=== PATIENT | male | born 1940 | race Caucasian/White ===

== ENCOUNTER 2020-10-31 | Outpatient (REF) | payer MEDICARE, SELFPAY ==
[2020-10-31 06:56] LABS: Hematocrit 21.4 % (42-52); Hemoglobin 7.1 g/dl (14.0-18.0); Mean Corpuscular HGB Conc 33.2 g/dl (31.0-36.0); Mean Corpuscular Hemoglobin 37.2 pg (27.0-33.0); Mean Platelet Volume 11.5 fL (9.4-12.4); Red Blood Count 1.91 X10*6/uL (4.60-5.80); Red Cell Distribution Width 17.2 % (11.0-16.0); White Blood Count 4.2 X10*3/uL (4.8-10.8)
[2020-10-31 07:06] LABS: Platelet Count 84 X10*3/uL (160-400)
[2020-10-31 08:53] LABS: Anion Gap 14 (12-20)
[2020-10-31 08:54] LABS: Blood Urea Nitrogen 25 mg/dL (9-16); Calcium 8.2 mg/dL (8.4-10.2); Carbon Dioxide 27 mmol/L (22-29); Chloride 104 mmol/L (96-108); Estimated Glomerular Filt Rate 10; Glucose Random 79 mg/dL (60-115); Potassium 5.4 mmol/l (3.3-5.1); Sodium 140 mmol/L (135-145)
== END 2020-10-31 00:01 | disposition home or self-care (01) ==
LOC: HO.MMNH2L
PROVIDERS: Visit Provider Family Medicine
DX: I48.91 Unspecified atrial fibrillation (principal); I50.9 Heart failure, unspecified
CPT/HCPCS: 36415; 80048; 85027

== ENCOUNTER 2020-11-07 | Outpatient (REF) | payer MEDICARE, SELFPAY ==
[2020-11-07 07:55] LABS: Mean Corpuscular HGB Conc 32.5 g/dl (31.0-36.0); Mean Corpuscular Hemoglobin 36.4 pg (27.0-33.0); Mean Platelet Volume 11.4 fL (9.4-12.4); Red Blood Count 1.76 X10*6/uL (4.60-5.80); Red Cell Distribution Width 16.7 % (11.0-16.0); White Blood Count 4.3 X10*3/uL (4.8-10.8)
[2020-11-07 08:44] LABS: Hematocrit 19.7 % (42-52); Mean Corpuscular Volume 111.9 fL (80-98); Platelet Count 77 X10*3/uL (160-400)
[2020-11-07 08:45] LABS: Hemoglobin 6.4 g/dl (14.0-18.0)
[2020-11-07 09:29] LABS: Anion Gap 14 (12-20); Blood Urea Nitrogen 39 mg/dL (9-16); Calcium 7.9 mg/dL (8.4-10.2); Carbon Dioxide 27 mmol/L (22-29); Chloride 105 mmol/L (96-108); Glucose Random 97 mg/dL (60-115); Sodium 141 mmol/L (135-145)
[2020-11-07 13:04] LABS: Estimated Glomerular Filt Rate 7
== END 2020-11-07 00:01 ==
LOC: HO.MMNH2L
PROVIDERS: Visit Provider Family Medicine
DX: I48.91 Unspecified atrial fibrillation (principal); I50.30 Unspecified diastolic (congestive) heart failure; Z99.2 Dependence on renal dialysis
CPT/HCPCS: 36415; 80048; 85027

== ENCOUNTER 2020-11-07 10:58 | Inpatient (IN) | payer MEDICARE, SELFPAY ==
[2020-11-07] VITALS (8 sets, daily range): BP systolic 99–120; BP diastolic 46–59; PULSE 69–70; RESP 11–18; TEMP 36.4–37.1; O2SAT 98–100; BMI 31.9
--- NOTE | 2020-11-07 11:42 | ECG_ITS ---
Test Reason : ABNORMAL LABS Blood Pressure : / mmHG Vent. Rate : 070 BPM Atrial Rate : 074 BPM P-R Int : 000 ms QRS Dur : 156 ms QT Int : 482 ms P-R-T Axes : 000 -78 069 degrees QTc Int : 520 ms V paced rhythm with background Afib Left axis deviation Abnormal ECG No previous ECGs available Referred By: Sagrario Shah Electronically Signed By:Filipe Kenney
--- NOTE | 2020-11-07 12:00 | ED_ITS ---
HPI - Recheck/Abnormal Lab/Rx General Chief Complaint: Recheck/Abnormal Lab/Rx Stated Complaint: abnormal labs Time Seen by Provider: 11/07/20 11:10 Source: patient and EMS Mode of arrival: EMS Limitations: no limitations History of Present Illness HPI narrative: 80 y/o male with history of ESRD previously on PD now on HD, chronic anemia requiring intermittent transfusions, hx HTN, HLD, asthma, JULIA on CPAP, seizure disorder, s/p PPM, afib on Eliquis, HFpEF who presents to ED via EMS from acute rehab with symptomatic anemia. He reports yesterday he was constipated and he manually disimpacted himself. When he did so he had significant BRBPR. He placed toilet paper on his rectum to stop the bleeding and it stopped after a few minutes. He had routine blood work done at [facility] yesterday - results today came back with H/H 6.4/19.7 so he was transferred to the ED. He reports shakiness and shortness of breath as well as come mild chest pain. He states he is usually anemic but does not usually have symptoms. His last blood transfusion was about 4 weeks ago. Of note he was recently admitted at [facility] 09/28 - 10/15 for acute metabolic encephalopathy due to uremia and missing PD for 2 days at home. Course was complicated by aspiration pneumonia and anemia requiring transfusion. He was converted from PD to HD during that hospitalization due to safety concerns. He was discharged to [facility] on 10/15. Related Data Home Medications Medication Instructions Recorded Confirmed B complex with C 20-folic acid 1 cap PO DAILY 11/07/20 11/07/20 [Nephrocaps] acetaminophen 650 mg PO Q4H PRN 11/07/20 11/07/20 apixaban 2.5 mg PO BID 11/07/20 11/07/20 docusate sodium 100 mg PO DAILY PRN 11/07/20 11/07/20 famotidine 20 mg PO Q48H 11/07/20 11/07/20 fluticasone propion-salmeterol 1 inh INHALATION Q12H 11/07/20 11/07/20 [Advair Diskus] gabapentin 100 mg PO BEDTIME 11/07/20 11/07/20 gabapentin 100 mg PO DAILY PRN 11/07/20 11/07/20 levetiracetam [Keppra] 500 mg PO BID 11/07/20 11/07/20 metoprolol succinate [Toprol XL] 25 mg PO DAILY 11/07/20 11/07/20 midodrine See Rx Instructions .ROUTE .COMPLEX 11/07/20 11/07/20 montelukast 10 mg PO BEDTIME 11/07/20 11/07/20 ondansetron HCl [Zofran] 4 mg PO Q6H PRN 11/07/20 11/07/20 pravastatin 40 mg PO BEDTIME 11/07/20 11/07/20 sevelamer carbonate [Renvela] 1,600 mg PO TID 11/07/20 11/07/20 simethicone 80 mg PO QID PRN 11/07/20 11/07/20 trazodone 50 mg PO BEDTIME 11/07/20 11/07/20 Allergies Allergy/AdvReac Type Severity Reaction Status Date / Time latex Allergy Itching Verified 11/07/20 11:15 Sulfa (Sulfonamide Allergy Headache Verified 11/07/20 11:14 Antibiotics) Review of Systems Review of Systems: Constitutional: No Fever, No Chills ENT/Mouth: No sore throat, No Rhinorrhea, No Swallowing Difficulty Eyes: No Eye Pain, No Swelling, No Redness Cardiovascular: + Chest Pain, + SOB, No Orthopnea, No Edema Respiratory: No Cough, No Sputum, No Wheezing, No dyspnea Gastrointestinal: + Nausea, No Vomiting, No Diarrhea, No abdominal Pain, + Hematochezia, No Melena Genitourinary: No Hematuria Musculoskeletal: No joint pain, No Myalgias Skin: No Skin Lesions, No rash Neuro: + Weakness, No Numbness, No Dizziness, No Headache Psych: No Anxiety/Panic, No Depression Heme/Lymph: No Bruising, No Lymphadenopathy Endocrine: No Polyuria, No Polydipsia PMFSH Past Medical History Medical History Afib Anemia Asthma Depression Hyperlipidemia Pacemaker Pneumonia Pulmonary hypertension Renal failure treated with peritoneal dialysis Right heart failure Sleep apnea Social History Social History Advance Directives: No Advance Directives Information Provided: No Physical Exam Vital Signs: Vital Signs: Last Vital Signs Temp 97.5 F 11/07/20 11:04 Pulse 70 11/07/20 11:04 Resp 16 01/04/21 11:04 BP 117/54 L 11/07/20 11:04 Pulse Ox 100 11/07/20 11:04 Body Mass Index 31.9 Appearance: Alert. Oriented X3. No acute distress. Pale Eyes: Pupils equal, round and reactive to light. Conjunctival pallor ENT: Pharynx normal. Neck: Normal inspection. Neck supple. CVS: Normal heart rate and rhythm. +3/5 systolic murmur. Pulses normal. Chest wall with PermCath in place on left chest no tenderness or erythema Respiratory: No respiratory distress. Breath sounds normal. Abdomen: Obese, Soft and nontender. +BS x4. PH catheter in place. Skin: Skin warm and dry. Normal skin color. Normal skin turgor. No rashes. Extremities: No lower extremity edema. Negative Kelby's sign Neuro: Oriented X 3. Generalized weakness, mild. Non-focal Course Course Course Narrative: 80 y/o male presenting with symptomatic anemia after BRBPR episode last night. He is on Eliquis. He has required frequent blood transfusions, last was a couple of weeks ago during admission at [facility]. Will repeat labs, get EKG, troponin and transfusion 1 unit PRBC. His stool is guiaic positive, light brown. No tachycardia or hemodynamic instability to suggest active bleed. He will require admission for H/H monitoring, monitoring for further GI bleed and symptomatic anemia. Reevaluation(s) Reevaluation #1: Spoke with Hospitalist re: admission. Will admit for further managment and monitoring. MDM - Recheck/Abnormal Lab/Rx Medical Records Attestation: I reviewed the patient's medical records. Lab Data Attestation: I reviewed the patient's lab results. Result diagrams: 11/07/20 12:16 11/07/20 12:16 Labs: Lab Results 11/07/20 11/07/20 11/07/20 Range/Units 12:16 12:16 12:16 WBC 4.6 L (4.8-10.8) X10*3/uL RBC 1.78 L (4.60-5.80) X10*6/uL Hgb 6.7 L* (14.0-18.0) g/dl Hct 19.9 L* (42-52) % MCV 111.8 H (80-98) fL MCH 37.6 H (27.0-33.0) pg MCHC 33.7 (31.0-36.0) g/dl RDW 16.9 H (11.0-16.0) % Plt Count 63 L (160-400) X10*3/uL MPV 9.4 (9.4-12.4) fL Immature Gran % (Auto) 0.9 H (0.0-0.4) % Neut % (Auto) 58.9 (45-73) % Lymph % (Auto) 23.7 (20-40) % [place] % (Auto) 13.7 H (2-11) % Eos % (Auto) 2.6 (0-4) % Baso % (Auto) 0.2 (0-2) % Lymph # (Auto) 1.1 L (1.2-4.9) X10*3/uL [place] # (Auto) 0.6 (0.1-1.2) X10*3/uL Eos # (Auto) 0.1 (0.0-0.4) X10*3/uL Baso # (Auto) 0.0 (0.0-0.2) X10*3/uL Abs Immat Gran (auto) 0.04 H (0.00-0.03) X10*3/uL Absolute Neuts (auto) 2.7 (2.0-8.3) X10*3/uL Absolute Nucleated RBC 0.000 (0.0-0.012) X10*3/uL Nucleated RBC % (auto) 0.0 (0.0-0.2) /100WBC PT (10.8-13.0) SEC INR (0.9-1.1) Sodium 141 (135-145) mmol/L Potassium 5.4 H (3.3-5.1) mmol/l Chloride 104 (96-108) mmol/L Carbon Dioxide 28 (22-29) mmol/L Anion Gap 14 (12-20) BUN 41 H (9-16) mg/dL Creatinine 7.75 H* (0.5-1.4) mg/dL Estim Creat Clear Calc 8.5 Estimated GFR 7 Random Glucose 92 (60-115) mg/dL Calcium 8.1 L (8.4-10.2) mg/dL Magnesium 2.2 (1.6-2.6) mg/dL Troponin I High Sens (<3.5-35.0) ng/L Stool Occult Blood (NEG) Blood Type O Positive Antibody Screen NEGATIVE Crossmatch See Detail 11/07/20 11/07/20 11/07/20 Range/Units 12:16 12:16 12:16 WBC (4.8-10.8) X10*3/uL RBC (4.60-5.80) X10*6/uL Hgb (14.0-18.0) g/dl Hct (42-52) % MCV (80-98) fL MCH (27.0-33.0) pg MCHC (31.0-36.0) g/dl RDW (11.0-16.0) % Plt Count (160-400) X10*3/uL MPV (9.4-12.4) fL Immature Gran % (Auto) (0.0-0.4) % Neut % (Auto) (45-73) % Lymph % (Auto) (20-40) % [place] % (Auto) (2-11) % Eos % (Auto) (0-4) % Baso % (Auto) (0-2) % Lymph # (Auto) (1.2-4.9) X10*3/uL [place] # (Auto) (0.1-1.2) X10*3/uL Eos # (Auto) (0.0-0.4) X10*3/uL Baso # (Auto) (0.0-0.2) X10*3/uL Abs Immat Gran (auto) (0.00-0.03) X10*3/uL Absolute Neuts (auto) (2.0-8.3) X10*3/uL Absolute Nucleated RBC (0.0-0.012) X10*3/uL Nucleated RBC % (auto) (0.0-0.2) /100WBC PT 13.8 H (10.8-13.0) SEC INR 1.2 H (0.9-1.1) Sodium (135-145) mmol/L Potassium (3.3-5.1) mmol/l Chloride (96-108) mmol/L Carbon Dioxide (22-29) mmol/L Anion Gap (12-20) BUN (9-16) mg/dL Creatinine (0.5-1.4) mg/dL Estim Creat Clear Calc Estimated GFR Random Glucose (60-115) mg/dL Calcium (8.4-10.2) mg/dL Magnesium (1.6-2.6) mg/dL Troponin I High Sens 33.9 (<3.5-35.0) ng/L Stool Occult Blood POS (NEG) Blood Type Antibody Screen Crossmatch ECG Data Attestation: I personally reviewed and interpreted this ECG as follows: ECG interpretation date: 11/07/20 ECG interpretation time: 13:41 Interpretation: HR 70 BPM, paced rhythm with wide QRS, left axis deviation Pacemaker function: normal pacer function Discharge Plan Discharge Clinical Impression: Symptomatic anemia, Acute GI bleeding Patient Disposition: Admitted As Inpatient
--- NOTE | 2020-11-07 12:00 | XR_ITS ---
EXAMINATION: XR CHEST CLINICAL INFORMATION: Shortness of breath COMPARISON: None TECHNIQUE: Frontal view of the chest was obtained. FINDINGS: The cardiac silhouette is enlarged. Hilar and mediastinal contours are unremarkable. There is a left subclavian dual chamber pacemaker in satisfactory position. There is a left jugular line with tip projecting over the cavoatrial junction. The lungs are clear. There is no pleural effusion or pneumothorax. There are degenerative changes of the spine. XR/XR chest 1V IMPRESSION: Enlarged cardiac silhouette. No evidence for acute disease in the chest.
[2020-11-07 12:27] LABS: MANUAL DIFF FLAG NO
[2020-11-07 12:28] LABS: OBS Int Ctl Valid YES; OBS1 POS (NEG)
[2020-11-07 12:33] LABS: Basophils Percent Auto 0.2 % (0-2); Eosinophils Absolute Auto 0.1 X10*3/uL (0.0-0.4); Eosinophils Percent Auto 2.6 % (0-4); Imm Gran Abs Auto 0.04 X10*3/uL (0.00-0.03); Imm Gran Pct Auto 0.9 % (0.0-0.4); Lymphocytes Absolute Auto 1.1 X10*3/uL (1.2-4.9); Lymphocytes Percent Auto 23.7 % (20-40); Mean Corpuscular HGB Conc 33.7 g/dl (31.0-36.0); Mean Corpuscular Hemoglobin 37.6 pg (27.0-33.0); Mean Platelet Volume 9.4 fL (9.4-12.4); Monocytes Absolute Auto 0.6 X10*3/uL (0.1-1.2); Monocytes Percent Auto 13.7 % (2-11); Neutrophils Absolute Auto 2.7 X10*3/uL (2.0-8.3); Neutrophils Percent Auto 58.9 % (45-73); Red Blood Count 1.78 X10*6/uL (4.60-5.80); Red Cell Distribution Width 16.9 % (11.0-16.0); White Blood Count 4.6 X10*3/uL (4.8-10.8)
[2020-11-07 12:35] LABS: INTERNATIONAL NORM RATIO 1.2 (0.9-1.1); Prothrombin Time 13.8 SEC (10.8-13.0)
[2020-11-07 12:38] LABS: Hematocrit 19.9 % (42-52); Mean Corpuscular Volume 111.8 fL (80-98); Platelet Count 63 X10*3/uL (160-400)
[2020-11-07 12:39] LABS: Hemoglobin 6.7 g/dl (14.0-18.0)
[2020-11-07 13:01] LABS: Anion Gap 14 (12-20); Blood Urea Nitrogen 41 mg/dL (9-16); Calcium 8.1 mg/dL (8.4-10.2); Carbon Dioxide 28 mmol/L (22-29); Chloride 104 mmol/L (96-108); Creatinine Clr Calc Pharmacy 8.5; Estimated Glomerular Filt Rate 7; Glucose Random 92 mg/dL (60-115); Magnesium 2.2 mg/dL (1.6-2.6); Potassium 5.4 mmol/l (3.3-5.1); Sodium 141 mmol/L (135-145)
[2020-11-07 13:06] LABS: Troponin-I High Sensitivity 33.9 ng/L (<3.5-35.0)
--- NOTE | 2020-11-07 14:32 | P.HPHOSP_ITS ---
History of Present Illness Date of Service: 11/07/20 <Ly Chen NP - Last Filed: 11/07/20 14:58> Chief Complaint: Abnormal labs <Ly Chen NP - Last Filed: 11/07/20 14:58> 80-year-old man presenting from [facility] with abnormal labs. Apparently the patient had his labs drawn and his hemoglobin and hematocrit on below. He has a history of end-stage renal disease on dialysis and chronic anemia. He reports he has had 4 blood transfusions over the last year to 18 months which is new for him. He reported he had been feeling okay over the last several days. He was discharged from [facility] on October 15 at that time he was treated for metabolic encephalopathy, aspiration pneumonia. During that admission apparently had missed 2-3 days of peritoneal dialysis and he had presented to the ER with delirium he also completed a course of Unasyn for aspiration pneumonia during that admission he was also transitioned from peritoneal dialysis to hemodialysis , PermCath was placed and he was discharged to [facility] for rehab. today patient felt okay he did report that he had been constipated and he tried to disimpact him self and when he did he noticed that he had bright red blood on his hands. In the ER his hemoglobin is 6.7, hematocrit 19.9, potassium 5.4, creatinine 7.75 close to baseline. Chest x-ray is negative for consolidation or effusion. 1 unit of packed red blood cells was ordered. Patient be admitted for further management and treatment of GI bleed and symptomatic anemia. <Ly Chen NP - Last Filed: 11/07/20 14:58> Review of Systems Review of Systems: Denies any recent fever chills or decrease in appetite respiratory denies any shortness of breath coverage production cardiovascular is adjustment of any PND or edema gastrointestinal SEE HPI genitourinary denies any dysuria frequency or hematuria musculoskeletal denies any joint pain or swelling neuropsych denies any weakness or seizures all other systems reviewed are negative <Ly Chen NP - Last Filed: 11/07/20 14:58> [facility] Medical History: Medical History Afib Anemia Asthma Depression H/O: HTN (hypertension) Hyperlipidemia Pacemaker Pneumonia Pulmonary hypertension Renal failure treated with peritoneal dialysis Right heart failure Seizure disorder Sleep apnea <Ly Chen NP - Last Filed: 11/07/20 14:58> Pertinent family history: No cardiac disease <Ly Chen NP - Last Filed: 11/07/20 14:58> Surgical History: Surgical History H/O hernia repair Status post surgical removal of malignant neoplasm of skin <Ly Chen NP - Last Filed: 11/07/20 14:58> Social History: Social History Household Members: None Housing: Assisted Living Facility Alcohol intake: unknown Smoking Status: Former smoker Tobacco Type: Cigarette service: No <Ly Chen NP - Last Filed: 11/07/20 14:58> Meds Allergies/Adverse reactions: Allergies Allergy/AdvReac Type Severity Reaction Status Date / Time latex Allergy Itching Verified 11/07/20 11:15 Sulfa (Sulfonamide Allergy Headache Verified 11/07/20 11:14 Antibiotics) <Ly Chen NP - Last Filed: 11/07/20 14:58> Home medications: Home Medications Medication Instructions Recorded Confirmed Type B complex with C 20-folic acid 1 cap PO DAILY 11/07/20 11/07/20 History acetaminophen 650 mg PO Q4H PRN 11/07/20 11/07/20 History apixaban 2.5 mg PO BID 11/07/20 11/07/20 History docusate sodium 100 mg PO DAILY PRN 11/07/20 11/07/20 History famotidine 20 mg PO Q48H 11/07/20 11/07/20 History fluticasone propion-salmeterol 1 inh INHALATION Q12H 11/07/20 11/07/20 History [Advair Diskus] gabapentin 100 mg PO BEDTIME 11/07/20 11/07/20 History gabapentin 100 mg PO DAILY PRN 11/07/20 11/07/20 History levetiracetam [Keppra] 500 mg PO BID 11/07/20 11/07/20 History metoprolol succinate [Toprol XL] 25 mg PO DAILY 11/07/20 11/07/20 History midodrine See Rx Instructions .ROUTE .COMPLEX 11/07/20 11/07/20 History montelukast 10 mg PO BEDTIME 11/07/20 11/07/20 History ondansetron HCl [Zofran] 4 mg PO Q6H PRN 11/07/20 11/07/20 History pravastatin 40 mg PO BEDTIME 11/07/20 11/07/20 History sevelamer carbonate [Renvela] 1,600 mg PO TID 11/07/20 11/07/20 History trazodone 50 mg PO BEDTIME 11/07/20 11/07/20 History simethicone 80 mg PO QID PRN 11/11/20 11/11/20 History <Ly Chen NP - Last Filed: 11/07/20 14:58> Physical Exam Vital Signs and Narrative: Vital Signs: Last Vital Signs Temp 97.6 F 11/07/20 14:14 Pulse 70 11/07/20 14:14 Resp 16 11/07/20 14:14 BP 108/57 L 11/07/20 14:14 Pulse Ox 99 11/07/20 14:04 Body Mass Index 31.9 <Ly Chen NP - Last Filed: 11/07/20 14:58> Appearing in no acute distress, pale head is normocephalic atraumatic eyes pupils are PERRLA sclera is anicteric mouth throat mucous membranes are intact and moist lung sounds are clear to auscultation heart paced positive bowel sounds, abdomen is soft, nontender neuro patient is alert x3, no focal deficits <Ly Chen NP - Last Filed: 11/07/20 14:58> Results Labs CBC and Chem 7: : 11/12/20 12:02 11/09/20 05:06 <Ly Chen NP - Last Filed: 11/07/20 14:58> Labs: Laboratory Results - last 24 hr 11/07/20 11/07/20 11/07/20 12:16 12:16 12:16 MCV 111.8 H MCH 37.6 H MCHC 33.7 RDW 16.9 H Plt Count 63 L MPV 9.4 Immature Gran % (Auto) 0.9 H Neut % (Auto) 58.9 Lymph % (Auto) 23.7 [place] % (Auto) 13.7 H Eos % (Auto) 2.6 Baso % (Auto) 0.2 Lymph # (Auto) 1.1 L [place] # (Auto) 0.6 Eos # (Auto) 0.1 Baso # (Auto) 0.0 Abs Immat Gran (auto) 0.04 H Absolute Neuts (auto) 2.7 Absolute Nucleated RBC 0.000 Nucleated RBC % (auto) 0.0 PT INR Anion Gap 14 Estim Creat Clear Calc 8.5 Estimated GFR 7 Random Glucose 92 Calcium 8.1 L Magnesium 2.2 Troponin I High Sens Stool Occult Blood Blood Type O Positive Antibody Screen NEGATIVE Crossmatch See Detail 11/07/20 11/07/20 11/07/20 12:16 12:16 12:16 MCV MCH MCHC RDW Plt Count MPV Immature Gran % (Auto) Neut % (Auto) Lymph % (Auto) [place] % (Auto) Eos % (Auto) Baso % (Auto) Lymph # (Auto) [place] # (Auto) Eos # (Auto) Baso # (Auto) Abs Immat Gran (auto) Absolute Neuts (auto) Absolute Nucleated RBC Nucleated RBC % (auto) PT 13.8 H INR 1.2 H Anion Gap Estim Creat Clear Calc Estimated GFR Random Glucose Calcium Magnesium Troponin I High Sens 33.9 Stool Occult Blood POS Blood Type Antibody Screen Crossmatch <Ly Chen NP - Last Filed: 11/07/20 14:58> Imaging Radiologist's Impressions: Impressions Chest X-Ray 11/07/20 12:00 IMPRESSION: Enlarged cardiac silhouette. No evidence for acute disease in the chest. <Ly Chen NP - Last Filed: 11/07/20 14:58> Assessment and Plan (1) Symptomatic anemia: Status: Acute <Ly Chen NP - Last Filed: 11/07/20 14:58> (2) Acute GI bleeding: Status: Acute <Ly Chen NP - Last Filed: 11/07/20 14:58> 80 year man Admitted with anemia and possible GI bleed. He reports he attempted to disimpact himself and noted some bright red blood on his hands. He did report a history of hemorrhoids at some point. Unknown date of last colonoscopy. Anemia. No symptoms. History of blood transfusion at least 4 times over the last year. Does have history end-stage renal disease. Will transfuse 1 unit of packed red blood cells, check H and H post transfusion. GI bleed. May need her EGD. GI consultation, follow H&H closely, blood transfusion pending. End-stage renal disease on dialysis. Normal days Saturday, and Saturday. Nephrology consultation set up dialysis for tomorrow. Continue home medications. History of hypotension continue midodrine stool. AFib. Continue metoprolol, hold Eliquis due to GI bleed. History of seizure disorder. Seizure precautions, Keppra. DVT prophylaxis mechanical post GI bleed Case discussed with Dr. Perales Full code <Ly Chen NP - Last Filed: 11/07/20 14:58>
[2020-11-07 15:35] LABS: COVID-19 Test Negative (Negative)
[2020-11-07 15:59] LABS: B Type Natriuretic Peptide 804 pg/mL (<100)
[2020-11-07] MEDS: Famotidine 20 MG TABLET PO (16:45)
[2020-11-07] MEDS: 0.9 % Sodium Chloride Flush 3 ML SYRINGE IVFLUSH (16:45)
--- NOTE | 2020-11-07 16:54 | PM.GICN ---
History of Present Illness Data of Consult Service Date: 11/07/20 Requesting physician: Ly Chen Primary Care Provider: Sanjuana Stevens MD HPI Reason for consult: Severe anemia, suspected GI bleeding 80 YM presented to [facility] from [facility] last night with abnormal labs after an episode of rectal bleedin80 y/o male with history of ESRD previously on PD now on HD, chronic anemia requiring intermittent transfusions, hx HTN, HLD, asthma, JULIA on CPAP, seizure disorder, s/p PPM, afib on Eliquis, HFpEF who presents to ED via EMS from acute rehab with symptomatic anemia. He reports yesterday he was constipated and he manually disimpacted himself. When he did so he had significant BRBPR. He placed toilet paper on his rectum to stop the bleeding and it stopped after a few minutes. He had routine blood work done at [facility] yesterday - results today came back with H/H 6.4/19.7 so he was transferred to the ED. He reports shakiness and shortness of breath as well as some mild chest pain. He states he is usually anemic but does not usually have symptoms. His last blood transfusion was about 4 weeks ago. Of note he was recently admitted at [facility] 09/28 - 10/15 for acute metabolic encephalopathy due to uremia and missing PD for 2 days at home. Course was complicated by aspiration pneumonia and anemia requiring transfusion. He was converted from PD to HD during that hospitalization due to safety concerns. He was discharged to [facility] on 10/15. Pt is on Eliquis. He has required frequent blood transfusions, last was a couple of weeks ago during admission at [facility]. Will repeat labs, get EKG, troponin and transfusion 1 unit PRBC. His stool is guiaic positive, light brown. No tachycardia or hemodynamic instability to suggest active bleed. Pt is being admitted for H/H monitoring, monitoring for further GI bleed and symptomatic anemia. Patient had his labs drawn which showed a low H & H and pt was sent to [facility]. Pt is on HD every other day for end-stage renal disease. He reports he has had 4 blood transfusions over the last year to 18 months which is new for him. He reported he had been feeling okay over the last several days. He was discharged from [facility] on October 15 at that time he was treated for metabolic encephalopathy, aspiration pneumonia. During that admission apparently had missed 2-3 days of peritoneal dialysis and he had presented to the ER with delirium. Pt completed a course of Unasyn for aspiration pneumonia during that admission and was transitioned from peritoneal dialysis to hemodialysis , PermCath was placed and he was discharged to [facility] for rehab. Pt gives a history of chronic intermittent constipation. He tried manual dis-impaction yesterday and noticed bright red blood on his hands. Lab showed H & H of 6.7 & 19.9. Chest x-ray is negative for consolidation or effusion. Patient was transfused 1 unit of packed red blood cells and is being admitted for further management. He complains of lower abdominal pain which resolved after he had a bowel movement. He denies heartburn, dysphagia, change in appetite. He admits to on intentional weight loss of 40 lb over the past 3-4 months. He admits to having a colonoscopy a few years ago which revealed colon polyps. A follow-up colonoscopy 3 years ago was negative. These procedures were performed in [place], [place] and procedure report is not available at the time of this dictation. He denies having an upper endoscopy in the past. Patient moved to [place] a few years ago to be closer to his ex- and son. He is scheduled for a colonoscopy as an outpatient through [facility] PCP at the [facility] in Dec, 2020 Review of Systems Constitutional: Constitutional: Reports fatigue, Denies fever(s), Denies headache(s) and Denies weight loss Eyes: Eyes: Denies eye discharge and Denies irritation ENT: Reports Normal hearing present, Denies dysphagia, Denies dizziness and Denies headache(s) Cardiovascular: Cardiovascular: Reports chest pain, Denies leg edema, Reports dyspnea and Denies dyspnea on exertion Respiratory: Respiratory: Denies cough, Reports dyspnea and Denies dyspnea on exertion Gastrointestinal: Gastrointestinal: Reports abdominal pain, Reports hematochezia, Denies change in bowel habits, Reports constipation, Denies dysphagia, Denies heartburn and Reports nausea Genitourinary: Genitourinary: Denies dysuria Musculoskeletal: Musculoskeletal: Denies back pain and Denies arthralgias Integumentary/Breasts: Skin/Breast: Denies pruritus, Denies rash and Denies jaundice Neurologic: Reports Normal hearing present, Denies Abnormal speech present, Denies dizziness, Denies headache(s) and Denies seizure-like activity Psychiatric: Psychiatric: Denies anxiety, Denies depression and Denies panic attacks Endocrine: Endocrine: Denies cold intolerance, Reports fatigue, Denies flushing and Denies heat intolerance PMFSH Past Medical History Medical History Afib Anemia Asthma Depression H/O: HTN (hypertension) Hyperlipidemia Pacemaker Pneumonia Pulmonary hypertension Renal failure treated with peritoneal dialysis Right heart failure Seizure disorder Sleep apnea Surgical History Surgical History H/O hernia repair Status post surgical removal of malignant neoplasm of skin Social History Social History Household Members: None Housing: Assisted Living Facility Alcohol intake: unknown Smoking Status: Former smoker Tobacco Type: Cigarette service: No Meds Allergies Allergy/AdvReac Type Severity Reaction Status Date / Time latex Allergy Itching Verified 11/07/20 11:15 Sulfa (Sulfonamide Allergy Headache Verified 11/07/20 11:14 Antibiotics) Home Medications Medication Instructions Recorded Confirmed Type B complex with C 20-folic acid 1 cap PO DAILY 11/07/20 11/07/20 History acetaminophen 650 mg PO Q4H PRN 11/07/20 11/07/20 History apixaban 2.5 mg PO BID 11/07/20 11/07/20 History docusate sodium 100 mg PO DAILY PRN 11/07/20 11/07/20 History famotidine 20 mg PO Q48H 11/07/20 11/07/20 History fluticasone propion-salmeterol 1 inh INHALATION Q12H 11/07/20 11/07/20 History [Advair Diskus] gabapentin 100 mg PO BEDTIME 11/07/20 11/07/20 History gabapentin 100 mg PO DAILY PRN 11/07/20 11/07/20 History levetiracetam [Keppra] 500 mg PO BID 11/07/20 11/07/20 History metoprolol succinate [Toprol XL] 25 mg PO DAILY 11/07/20 11/07/20 History midodrine See Rx Instructions .ROUTE .COMPLEX 11/07/20 11/07/20 History montelukast 10 mg PO BEDTIME 11/07/20 11/07/20 History ondansetron HCl [Zofran] 4 mg PO Q6H PRN 11/07/20 11/07/20 History pravastatin 40 mg PO BEDTIME 11/07/20 11/07/20 History sevelamer carbonate [Renvela] 1,600 mg PO TID 11/07/20 11/07/20 History trazodone 50 mg PO BEDTIME 11/07/20 11/07/20 History simethicone 80 mg PO QID PRN 11/11/20 11/11/20 History Physical Exam Vital Signs: Vital Signs: Last Vital Signs Temp 98.0 F 11/07/20 16:42 Pulse 69 11/07/20 16:42 Resp 14 11/07/20 16:42 BP 106/53 L 11/07/20 16:42 Pulse Ox 99 11/07/20 15:22 Body Mass Index 31.9 Const: General: no acute distress and ill appearing Nutritional Appearance: average body habitus and obese Orientation/consciousness: patient oriented x3 Limitations: no limitations HENMT: Head: Yes normal to inspection Ears: hearing grossly normal bilaterally Mouth: Normal oral and palatal mucosa present Eyes: Sclerae: sclerae normal Pupils: Equal, round and reactive pupils present Neck: Neck: Yes normal visual inspection Chest: Chest palpation & inspection: normal inspection of the chest Resp: Effort & Inspection: normal respiratory effort Auscultation: clear to auscultation bilaterally Cardio: Palpation: normal PMI Rate: regular rate Rhythm: regular rhythm Heart sounds: S1 normal heart sound present, S2 normal heart sound present and no murmurs GI: Palpation (GI): Soft to palpation, nontender and No hepatosplenomegaly present Auscultation: normal bowel sounds Rectal Exam - Male: Yes deferred Skin: General skin exam: no rashes or lesions noted Neuro: General: patient oriented x3, gait normal and moves all extremities Cranial nerves: Yes Equal, round and reactive pupils present and Yes Normal hearing present Speech: No Abnormal speech present Extrem: General: Yes pedal edema Psych: Mental Status: mental status grossly normal Results Labs CBC & Chem 7: 11/12/20 12:02 11/09/20 05:06 Labs: Short CBC 11/07/20 Range/Units 12:16 WBC 4.6 L (4.8-10.8) X10*3/uL Hgb 6.7 L* (14.0-18.0) g/dl Hct 19.9 L* (42-52) % Plt Count 63 L (160-400) X10*3/uL BMP 11/07/20 12:16 Sodium 141 Potassium 5.4 H Chloride 104 Carbon Dioxide 28 BUN 41 H Creatinine 7.75 H* Calcium 8.1 L Assessment and Plan (1) Chronic constipation: Status: Acute (2) Symptomatic anemia: Status: Acute (3) Acute GI bleeding: Status: Acute 80 YM with ESRD previously on PD now on HD, chronic anemia requiring intermittent transfusions, hx HTN, HLD, asthma, JULIA on CPAP, seizure disorder, s/p PPM, afib on Eliquis, HFpEF being admitted with severe anemia, recent episode of hematochezia precipitated by manual dis-impaction for constipation. Patient has a known history of colon polyps on colonoscopy 3 years ago per patient. Report of the procedure is not available. He denies having an upper endoscopy the past. Source of anemia can be from upper versus lower GI source. RECOMMENDATIONS: Patient needs further evaluation with upper endoscopy and colonoscopy. These can be performed as an outpatient if H&H remain stable. If he has decline in hemoglobin/hematocrit over the next 24 hours, I will arrange for inpatient endoscopic evaluation. He needs to be off the apixaban for 48 hours prior to his procedures (pt reports he took Apixaban this morning).
--- NOTE | 2020-11-07 18:46 | PM.EVENT ---
Event Note Date of Service: 11/07/20 Event Note: Patient seen and examined. Case discussed with Ly Chen NP. Agree with her history and physical. In brief, 80-year-old male who is on Eliquis (he reports for a cardiac condition) presenting to the hospital with progressively dropping H&H. He reports some red blood while dis-impacting himself but denies any melena. Reports last colonoscopy within the 10 years but unclear if he was ever told to repeated. Denies any upper endoscopy in the past. No symptoms of anemia at the present time. Transfuse 1 unit in the ED. will check H&H post transfusion and then q.6- q8 hours. GI consult. Remainder per H&P
[2020-11-07] MEDS: Acetaminophen 325 MG TABLET 650 MG PO (20:12)
[2020-11-07] MEDS: Montelukast Sodium 10 MG TABLET PO (20:53)
[2020-11-07] MEDS: traZODone HCL 50 MG TABLET PO (20:53)
[2020-11-07] MEDS: Gabapentin 100 MG CAPSULE PO (20:53)
[2020-11-07] MEDS: levETIRAcetam 500 MG TABLET PO (20:53)
[2020-11-07] MEDS: Pravastatin Sodium 40 MG TABLET PO (20:53)
[2020-11-08] VITALS (8 sets, daily range): BP systolic 109–133; BP diastolic 47–81; PULSE 69–74; RESP 15–20; TEMP 36.3–37.1; O2SAT 94–98; BMI 31.9
[2020-11-08] MEDS: 0.9 % Sodium Chloride Flush 3 ML SYRINGE IVFLUSH ×2 (00:49→21:23)
[2020-11-08 08:14] LABS: Basophils Percent Auto 0.5 % (0-2); Eosinophils Absolute Auto 0.1 X10*3/uL (0.0-0.4); Eosinophils Percent Auto 3.3 % (0-4); Hematocrit 24.5 % (42-52); Hemoglobin 8.1 g/dl (14.0-18.0); Imm Gran Abs Auto 0.03 X10*3/uL (0.00-0.03); Imm Gran Pct Auto 0.7 % (0.0-0.4); Lymphocytes Percent Auto 24.5 % (20-40); MANUAL DIFF FLAG NO; Mean Corpuscular HGB Conc 33.1 g/dl (31.0-36.0); Mean Corpuscular Hemoglobin 35.8 pg (27.0-33.0); Mean Corpuscular Volume 108.4 fL (80-98); Mean Platelet Volume 10.9 fL (9.4-12.4); Monocytes Absolute Auto 0.4 X10*3/uL (0.1-1.2); Monocytes Percent Auto 10.5 % (2-11); Neutrophils Absolute Auto 2.5 X10*3/uL (2.0-8.3); Neutrophils Percent Auto 60.5 % (45-73); Red Blood Count 2.26 X10*6/uL (4.60-5.80); Red Cell Distribution Width 19.6 % (11.0-16.0); White Blood Count 4.2 X10*3/uL (4.8-10.8)
[2020-11-08 08:15] LABS: Platelet Count 74 X10*3/uL (160-400)
--- NOTE | 2020-11-08 08:15 | PC.NURSE ---
no 0800 mes loaded in pyxisi. Called pharmacy.
[2020-11-08 09:06] LABS: Anion Gap 19 (12-20); Blood Urea Nitrogen 55 mg/dL (9-16); Calcium 8.1 mg/dL (8.4-10.2); Carbon Dioxide 25 mmol/L (22-29); Chloride 102 mmol/L (96-108); Glucose Random 111 mg/dL (60-115); Potassium 5.7 mmol/l (3.3-5.1); Sodium 140 mmol/L (135-145)
[2020-11-08] MEDS: Metoprolol Succinate ER 25 MG TAB.ER.24H PO (09:06)
[2020-11-08 10:36] LABS: Estimated Glomerular Filt Rate 5
[2020-11-08] MEDS: Midodrine HCl 10 MG TABLET PO (11:46)
--- NOTE | 2020-11-08 14:24 | HO.PM.IMPN ---
Subjective Subjective Date of Service: 11/08/20 Interval History: Patient admitted due to 1 episode of bright red blood per rectum patient denies any hematemesis nausea vomiting, this a.m. patient receiving hemodialysis offers no acute complaints hematocrit improved. Review of Systems General no headache, no dizziness, no fever chills. CVS no chest pain, no palpitation. Respiratory no cough, no sputum production, no respiratory distress. Gastrointestinal no nausea, no vomiting, no abdominal pain Physical Exam Vital Signs: Vital Signs: Last Vital Signs Temp 97.4 F 11/08/20 11:46 Pulse 70 11/08/20 11:46 Resp 18 11/08/20 11:46 BP 120/76 11/08/20 11:46 Pulse Ox 94 11/08/20 11:46 Body Mass Index 31.9 Const: Other: General patient resting comfortably in no acute distress. Neck is supple no JVD. CVS regular rate rhythm, Respiratory lungs clear to auscultation, no respiratory distress Gastrointestinal abdomen soft, nontender, bowel sounds audible, Extremities no clubbing, cyanosis or edema. Neuro nonfocal . Skin no rash Objective Data Current Medications Generic Name Dose Route Start Last Admin Trade Name Freq PRN Reason Stop Dose Admin Acetaminophen 650 mg 11/07/20 14:28 11/07/20 20:12 Acetaminophen 325 Mg Tablet PO 650 mg Q6H PRN Administration Pain, Mild (Pain Scale 1-3) Docusate Sodium 100 mg 11/07/20 14:28 Docusate Sodium 100 Mg Capsule PO DAILY PRN Constipation Famotidine 20 mg 11/07/20 14:30 11/07/20 16:45 Famotidine 20 Mg Tablet PO 20 mg Q48H PEG Administration Fluticasone/Vilanterol 1 puff 11/08/20 08:00 11/08/20 10:57 Fluticasone/Vilanterol 100/25 Blst.W.Dev INHALE Not Given RDAILY PEG Gabapentin 100 mg 11/07/20 21:00 11/07/20 20:53 Gabapentin 100 Mg Capsule PO 100 mg BEDTIME PEG Administration Gabapentin 100 mg 11/07/20 14:28 Gabapentin 100 Mg Capsule PO DAILY PRN Agitation Levetiracetam 500 mg 11/07/20 21:00 11/08/20 09:06 Levetiracetam 500 Mg Tablet PO Not Given BID ON LICENSE OF [facility] Metoprolol Succinate 25 mg 11/08/20 09:00 11/08/20 09:06 Metoprolol Succinate Er 25 Mg Tab.Er.24h PO 25 mg DAILY PEG Administration Protocol Midodrine 10 mg 11/08/20 09:00 11/08/20 11:46 Midodrine Hcl 10 Mg Tablet PO 10 mg TuThSa@0900 PEG Administration Midodrine 10 mg 11/08/20 21:00 Midodrine Hcl 10 Mg Tablet PO TUTHSA@21 ON LICENSE OF [facility] Montelukast Sodium 10 mg 11/07/20 21:00 11/07/20 20:53 Montelukast Sodium 10 Mg Tablet PO 10 mg BEDTIME ON LICENSE OF [facility] Administration Ondansetron HCl 4 mg 11/07/20 14:28 Ondansetron Hcl 4 Mg/2 Ml Vial IVPUSH Q8H PRN Nausea and Vomiting Pharmacy Consult 1 each 11/07/20 11:19 Consult Rx Perform Med Rec MISCELLANE ONCE PRN Consult order Pravastatin Sodium 40 mg 11/07/20 21:00 11/07/20 20:53 Pravastatin Sodium 40 Mg Tablet PO 40 mg BEDTIME PEG Administration Sevelamer HCl 1,600 mg 11/08/20 08:00 11/08/20 14:03 Sevelamer Hcl 800 Mg Tablet PO Not Given TIDWM ON LICENSE OF [facility] Sodium Chloride 3 ml 11/07/20 16:00 11/08/20 11:24 0.9 % Sodium Chloride Flush 3 Ml Syringe IVFLUSH Not Given QSHIFT ON LICENSE OF [facility] Trazodone HCl 50 mg 11/07/20 21:00 11/07/20 20:53 Trazodone Hcl 50 Mg Tablet PO 50 mg BEDTIME PEG Administration Vitamin B Complex/Folic Acid 1 cap 11/08/20 09:00 11/08/20 11:24 B Complex W-C No.20/Folic Acid Capsule PO Not Given DAILY ON LICENSE OF [facility] Labs CBC & Chem 7: 11/08/20 08:06 11/08/20 08:06 Assessment and Plan (1) End-stage renal disease on hemodialysis: Status: Acute (2) Acute GI bleeding: Status: Acute (3) Chronic constipation: Status: Acute Assessment and Plan: 80 YM with ESRD previously on PD now on HD, chronic anemia requiring intermittent transfusions, hx HTN, HLD, asthma, JULIA on CPAP, seizure disorder, s/p PPM, afib on Eliquis, HFpEF admitted with severe anemia, recent episode of hematochezia precipitated by manual dis-impaction for constipation. Patient has a known history of colon polyps on colonoscopy 3 years ago per patient. Report of the procedure is not available. He denies having an upper endoscopy the past. Acute on chronic Anemia. No symptoms. History of blood transfusion at least 4 times over the last year. Does have history end-stage renal disease. S/p 1 unit of packed red blood cells, hematocrit improved, elevated MCV will check iron studies B12 folate, patient is scheduled for outpatient endoscopy for further evaluation. GI bleed. Question source can be both upper or lower GI source, No recurrent episode of GI bleed hematocrit improved after 1 unit of packed RBC, follow CBC at a.m. continue to hold Eliquis,if noted to have drop in hematocrit then will re-consult Gastroenterology for both upper and lower endoscopy , case discussed with Dr. Barfield. End-stage renal disease on dialysis. Patient receiving hemodialysis this morning, continue Nephrology follow-up and home medication History of hypotension BP stable continue midodrine . AFib. Continue metoprolol, hold Eliquis due to GI bleed. History of seizure disorder. Seizure precautions, Keppra. DVT prophylaxis mechanical device due to GI bleed
--- NOTE | 2020-11-08 17:38 | PM.CNNEP ---
History of Present Illness Reason for Consult Consult date: 11/08/20 Chief Complaint Chief complaint: gi bleed History of Present Illness Narrative: 80-year-old man presenting from [facility] with abnormal labs. Apparently the patient had his labs drawn and his hemoglobin and hematocrit on below. He has a history of end-stage renal disease on dialysis and chronic anemia. He reports he has had 4 blood transfusions over the last year to 18 months which is new for him. He reported he had been feeling okay over the last several days. He was discharged from [facility] on October 15 at that time he was treated for metabolic encephalopathy, aspiration pneumonia. During that admission he also completed a course of Unasyn for aspiration pneumonia . During that admission he was also transitioned from peritoneal dialysis to hemodialysis , PermCath was placed and he was discharged to [facility] for rehab. In the ER his hemoglobin is 6.7, hematocrit 19.9, potassium 5.4, creatinine 7.75 close to baseline. Chest x-ray is negative for consolidation or effusion. 1 unit of packed red blood cells was ordered. Patient be admitted for further management and treatment of GI bleed and symptomatic anemia. He is due HD today. Nephrology has been consulted to assist in his clinical care. Review of Systems Constitutional: Denies headache(s) Reports Normal hearing present, Denies dizziness and Denies headache(s) Respiratory: Reports as per HPI Gastrointestinal: Reports as per HPI Reports Normal hearing present, Denies Abnormal speech present, Denies dizziness, Denies headache(s) and Denies seizure-like activity PMFSH Past Medical History Medical History Afib Anemia Asthma Depression H/O: HTN (hypertension) Hyperlipidemia Pacemaker Pneumonia Pulmonary hypertension Renal failure treated with peritoneal dialysis Right heart failure Seizure disorder Sleep apnea Surgical History Surgical History H/O hernia repair Status post surgical removal of malignant neoplasm of skin Social History Social History Household Members: None Housing: Assisted Living Facility Housing Other:: ARRIVED FROM SHORT TERM REHAB [facility] Do you presently have visiting nurse or other home services: No Alcohol intake: unknown Smoking Status: Former smoker Tobacco Type: Cigarette Smoked in Last 30 Days: No Use of substances other than those prescribed or required for medical reasons: No Have you been hit, kicked, punched, or otherwise hurt by someone within the past year? If so, by whom?: No Do you feel safe in your current relationship?: No Current Relationship Is there a partner from a previous relationship who is making you feel unsafe now?: No Are you made to feel afraid or neglected: No Advance Directives: No Advance Directives Information Provided: No Do you have thoughts of harming others: None Do you have a plan to hurt others: No Plan Recently lost weight without trying: No Meds Allergies Allergy/AdvReac Type Severity Reaction Status Date / Time latex Allergy Itching Verified 11/07/20 11:15 Sulfa (Sulfonamide Allergy Headache Verified 11/07/20 11:14 Antibiotics) Home Medications Medication Instructions Recorded Confirmed Type B complex with C 20-folic acid 1 cap PO DAILY 11/07/20 11/07/20 History [Nephrocaps] acetaminophen 650 mg PO Q4H PRN 11/07/20 11/07/20 History apixaban 2.5 mg PO BID 11/07/20 11/07/20 History docusate sodium 100 mg PO DAILY PRN 11/07/20 11/07/20 History famotidine 20 mg PO Q48H 11/07/20 11/07/20 History fluticasone propion-salmeterol 1 inh INHALATION Q12H 11/07/20 11/07/20 History [Advair Diskus] gabapentin 100 mg PO BEDTIME 11/07/20 11/07/20 History gabapentin 100 mg PO DAILY PRN 11/07/20 11/07/20 History levetiracetam [Keppra] 500 mg PO BID 11/07/20 11/07/20 History metoprolol succinate [Toprol XL] 25 mg PO DAILY 11/07/20 11/07/20 History midodrine See Rx Instructions .ROUTE .COMPLEX 11/07/20 11/07/20 History montelukast 10 mg PO BEDTIME 11/07/20 11/07/20 History ondansetron HCl [Zofran] 4 mg PO Q6H PRN 11/07/20 11/07/20 History pravastatin 40 mg PO BEDTIME 11/07/20 11/07/20 History sevelamer carbonate [Renvela] 1,600 mg PO TID 11/07/20 11/07/20 History simethicone 80 mg PO QID PRN 11/07/20 11/07/20 History trazodone 50 mg PO BEDTIME 11/07/20 11/07/20 History Physical Exam Vital Signs: Last Vital Signs Temp 98.2 F 11/08/20 16:00 Pulse 74 11/08/20 16:00 Resp 20 11/08/20 16:00 BP 132/81 11/08/20 16:00 Pulse Ox 95 11/08/20 16:00 Body Mass Index 31.9 Const General: no acute distress and other (Pale) Neck Neck: Yes supple Resp Auscultation: diminished lung sounds Cardio Heart sounds: no rubs GI Palpation (GI): Soft to palpation Neuro General: moves all extremities Cranial nerves: Yes Normal hearing present Speech: No Abnormal speech present Results Lab Results Result Diagrams: 11/08/20 08:06 11/08/20 08:06 Lab results: Chemistry 11/07/20 11/08/20 12:16 08:06 Sodium 141 140 Potassium 5.4 H 5.7 H Carbon Dioxide 28 25 BUN 41 H 55 H Creatinine 7.75 H* 9.35 H* Calcium 8.1 L 8.1 L Hematology 11/07/20 11/08/20 12:16 08:06 WBC 4.6 L 4.2 L Hgb 6.7 L* 8.1 L D Plt Count 63 L 74 L Assessment and Plan (1) End-stage renal disease on hemodialysis: Problem details: Usually gets HD on TTS ( [facility]) Has a functioning HD access Received PRBC with improvement in HCT Seen and examined on HD as well Continued volume optimization on HD Renal Diet- 2 Gram K, 2 Gram Na, Phos restricted , Fluid restriction 1.5 L/24 hours Renvela tid with meals; GI follow up Shall follow along Status: Acute
[2020-11-08] MEDS: Gabapentin 100 MG CAPSULE PO (21:17)
[2020-11-08] MEDS: traZODone HCL 50 MG TABLET PO (21:18)
[2020-11-09 05:42] LABS: MANUAL DIFF FLAG NO
[2020-11-09 05:47] LABS: Basophils Percent Auto 0.2 % (0-2); Eosinophils Absolute Auto 0.1 X10*3/uL (0.0-0.4); Eosinophils Percent Auto 2.7 % (0-4); Hematocrit 22.2 % (42-52); Hemoglobin 7.4 g/dl (14.0-18.0); Imm Gran Abs Auto 0.05 X10*3/uL (0.00-0.03); Imm Gran Pct Auto 1.1 % (0.0-0.4); Lymphocytes Percent Auto 21.8 % (20-40); Mean Corpuscular HGB Conc 33.3 g/dl (31.0-36.0); Mean Corpuscular Hemoglobin 35.4 pg (27.0-33.0); Mean Corpuscular Volume 106.2 fL (80-98); Mean Platelet Volume 11.7 fL (9.4-12.4); Monocytes Absolute Auto 0.6 X10*3/uL (0.1-1.2); Monocytes Percent Auto 14.5 % (2-11); Neutrophils Absolute Auto 2.6 X10*3/uL (2.0-8.3); Neutrophils Percent Auto 59.7 % (45-73); Platelet Count 76 X10*3/uL (160-400); Red Blood Count 2.09 X10*6/uL (4.60-5.80); Red Cell Distribution Width 18.5 % (11.0-16.0); White Blood Count 4.4 X10*3/uL (4.8-10.8)
[2020-11-09 06:06] LABS: Iron 154 mcg/dL (45-160); Percent Iron Saturation 72 % (15-50); Total Iron Binding Capacity 214 mcg/dL (228-428); Unsaturated Iron Binding 60 ug/dL
[2020-11-09 06:27] LABS: Anion Gap 20 (12-20); Blood Urea Nitrogen 36 mg/dL (9-16); Calcium 7.8 mg/dL (8.4-10.2); Carbon Dioxide 23 mmol/L (22-29); Chloride 100 mmol/L (96-108); Creatinine Clr Calc Pharmacy 9.7; Estimated Glomerular Filt Rate 8; Glucose Random 88 mg/dL (60-115); Potassium 5.3 mmol/l (3.3-5.1); Sodium 138 mmol/L (135-145)
[2020-11-09 06:36] LABS: Folate 15.5 ng/mL (> or = 4.0); Vitamin B12 251 pg/mL (200-900)
[2020-11-09 07:17] VITALS: BP 134/73; PULSE 70; RESP 18; TEMP 36.6; O2SAT 98
[2020-11-09 07:19] LABS: Ferritin 1750 ng/mL (20-250)
[2020-11-09] MEDS: Fluticasone/Vilanterol 100/25 BLST.W.DEV 1 PUFF INHALE (09:14)
[2020-11-09 09:19] VITALS: PULSE 71; O2SAT 98
[2020-11-09] MEDS: Metoprolol Succinate ER 25 MG TAB.ER.24H PO (11:01)
[2020-11-09] MEDS: 0.9 % Sodium Chloride Flush 3 ML SYRINGE IVFLUSH ×2 (11:02→16:06)
[2020-11-09 11:19] VITALS: BP 139/70; PULSE 70; RESP 18; TEMP 36.1; O2SAT 100
--- NOTE | 2020-11-09 11:27 | MHC.CM.PN ---
dc plan pt to return to [facility] when medically ready for dc
--- NOTE | 2020-11-09 13:18 | HO.PM.IMPN ---
Subjective Subjective Date of Service: 11/09/20 Interval History: Seen in f/u for GIB. No report of bleeding overnight. H&H is low today. Probably need additional transfusion Review of Systems General no headache, no dizziness, no fever chills. CVS no chest pain, no palpitation. Respiratory no cough, no sputum production, no respiratory distress. Gastrointestinal no nausea, no vomiting, no abdominal pain Physical Exam Vital Signs: Vital Signs: Last Vital Signs Temp 97.0 F 11/09/20 11:19 Pulse 70 11/09/20 11:19 Resp 18 11/09/20 11:19 BP 139/70 11/09/20 11:19 Pulse Ox 100 11/09/20 11:19 Body Mass Index 31.9 Const: Other: General patient resting comfortably in no acute distress. Neck is supple no JVD. CVS regular rate rhythm, Respiratory lungs clear to auscultation, no respiratory distress Gastrointestinal abdomen soft, nontender, bowel sounds audible, rectal exam deferred Extremities no clubbing, cyanosis or edema. Neuro nonfocal . Skin no rash Objective Data Current Medications Generic Name Dose Route Start Last Admin Trade Name Freq PRN Reason Stop Dose Admin Acetaminophen 650 mg 11/07/20 14:28 11/07/20 20:12 Acetaminophen 325 Mg Tablet PO 650 mg Q6H PRN Administration Pain, Mild (Pain Scale 1-3) Docusate Sodium 100 mg 11/07/20 14:28 Docusate Sodium 100 Mg Capsule PO DAILY PRN Constipation Famotidine 20 mg 11/07/20 14:30 11/07/20 16:45 Famotidine 20 Mg Tablet PO 20 mg Q48H PEG Administration Fluticasone/Vilanterol 1 puff 11/08/20 08:00 11/09/20 09:14 Fluticasone/Vilanterol 100/25 Blst.W.Dev INHALE 1 puff RDAILY PEG Administration Gabapentin 100 mg 11/07/20 21:00 11/08/20 21:17 Gabapentin 100 Mg Capsule PO 100 mg BEDTIME PEG Administration Gabapentin 100 mg 11/07/20 14:28 Gabapentin 100 Mg Capsule PO DAILY PRN Agitation Levetiracetam 500 mg 11/07/20 21:00 11/09/20 11:03 Levetiracetam 500 Mg Tablet PO Not Given BID PEG Metoprolol Succinate 25 mg 11/08/20 09:00 11/09/20 11:01 Metoprolol Succinate Er 25 Mg Tab.Er.24h PO 25 mg DAILY PEG Administration Protocol Midodrine 10 mg 11/08/20 09:00 11/08/20 11:46 Midodrine Hcl 10 Mg Tablet PO 10 mg TuThSa@0900 PEG Administration Midodrine 10 mg 11/08/20 21:00 11/08/20 21:24 Midodrine Hcl 10 Mg Tablet PO Not Given [id number]@[email or web address] [facility] Montelukast Sodium 10 mg 11/07/20 21:00 11/08/20 21:23 Montelukast Sodium 10 Mg Tablet PO Not Given BEDTIME [facility] Ondansetron HCl 4 mg 11/07/20 14:28 Ondansetron Hcl 4 Mg/2 Ml Vial IVPUSH Q8H PRN Nausea and Vomiting Pharmacy Consult 1 each 11/07/20 11:19 Consult Rx Perform Med Rec MISCELLANE ONCE PRN Consult order Pravastatin Sodium 40 mg 11/07/20 21:00 11/08/20 21:23 Pravastatin Sodium 40 Mg Tablet PO Not Given BEDTIME [facility] Sevelamer HCl 1,600 mg 11/08/20 08:00 11/09/20 11:02 Sevelamer Hcl 800 Mg Tablet PO Not Given TIDWM [facility] Sodium Chloride 3 ml 11/07/20 16:00 11/09/20 11:02 0.9 % Sodium Chloride Flush 3 Ml Syringe IVFLUSH 3 ml QSHIFT [facility] Administration Trazodone HCl 50 mg 11/07/20 21:00 11/08/20 21:18 Trazodone Hcl 50 Mg Tablet PO 50 mg BEDTIME [facility] Administration Vitamin B Complex/Folic Acid 1 cap 11/08/20 09:00 11/09/20 11:01 B Complex W-C No.20/Folic Acid Capsule PO 1 cap DAILY [facility] Administration Labs CBC & Chem 7: 11/09/20 05:06 11/09/20 05:06 Assessment and Plan (1) End-stage renal disease on hemodialysis: Status: Acute Assessment and Plan: 80 YM with ESRD previously on PD now on HD, chronic anemia requiring intermittent transfusions, hx HTN, HLD, asthma, JULIA on CPAP, seizure disorder, s/p PPM, afib on Eliquis, HFpEF admitted with severe anemia, recent episode of hematochezia precipitated by manual dis-impaction for constipation. Patient has a known history of colon polyps on colonoscopy 3 years ago per patient. Report of the procedure is not available. He denies having an upper endoscopy the past. Acute on chronic Anemia. No symptoms. History of blood transfusion at least 4 times over the last year. Does have history end-stage renal disease. S/p 1 unit of packed red blood cells, hematocrit improved, elevated MCV Iron level is normal. B12 folate. GI has proposed outpatient EGD/colonoscopy unless hemoglobin continued to trend down. Since hemoglobin and hematocrit are down today I will discuss inpatient EGD and/or colonoscopy with Dr. pratibha prater GI bleed. Question source can be both upper or lower GI source, No recurrent episode of GI bleed hematocrit improved after 1 unit of packed RBC, follow CBC at a.m. continue to hold Eliquis,if noted to have drop in hematocrit then will re-consult Gastroenterology for both upper and lower endoscopy , case discussed with Dr. Barfield. Will transfuse 1 more unit today. End-stage renal disease on dialysis. Hemodialysis Saturday and Saturday Continued volume optimization on HD Renal Diet- 2 Gram K, 2 Gram Na, Phos restricted , Fluid restriction 1.5 L/24 hours Renvela tid with meals; GI follow up History of hypotension BP stable continue midodrine . AFib. Continue metoprolol, hold Eliquis due to GI bleed. History of seizure disorder. Seizure precautions, Keppra. DVT prophylaxis mechanical device due to GI bleed
[2020-11-09] MEDS: Famotidine 20 MG TABLET PO (13:31)
[2020-11-09 15:29] VITALS: BP 135/73; PULSE 71; RESP 18; TEMP 36.8; O2SAT 98
[2020-11-09 19:07] VITALS: BP 123/65; PULSE 72; RESP 18; TEMP 37.1; O2SAT 100
[2020-11-09] MEDS: Montelukast Sodium 10 MG TABLET PO (20:18)
[2020-11-09] MEDS: Gabapentin 100 MG CAPSULE PO (20:19)
[2020-11-09] MEDS: Pravastatin Sodium 40 MG TABLET PO (20:19)
[2020-11-09] MEDS: traZODone HCL 50 MG TABLET PO (20:20)
[2020-11-09 23:36] VITALS: BP 127/68; PULSE 70; RESP 18; TEMP 36.6; O2SAT 99
[2020-11-10] VITALS (7 sets, daily range): BP systolic 114–137; BP diastolic 56–73; PULSE 69–71; RESP 18–20; TEMP 36.2–36.9; O2SAT 97–100
[2020-11-10 07:13] LABS: Hematocrit 22.2 % (42-52); Hemoglobin 7.5 g/dl (14.0-18.0); Mean Corpuscular HGB Conc 33.8 g/dl (31.0-36.0); Mean Corpuscular Hemoglobin 35.7 pg (27.0-33.0); Mean Corpuscular Volume 105.7 fL (80-98); Mean Platelet Volume 10.4 fL (9.4-12.4); Red Cell Distribution Width 17.6 % (11.0-16.0); White Blood Count 4.2 X10*3/uL (4.8-10.8)
[2020-11-10] MEDS: Fluticasone/Vilanterol 100/25 BLST.W.DEV 1 PUFF INHALE (07:14)
[2020-11-10 07:32] LABS: Platelet Count 68 X10*3/uL (160-400)
[2020-11-10] MEDS: Midodrine HCl 10 MG TABLET PO ×2 (08:14→20:43)
[2020-11-10] MEDS: 0.9 % Sodium Chloride Flush 3 ML SYRINGE IVFLUSH ×2 (08:15→15:30)
--- NOTE | 2020-11-10 11:02 | PM.PNNEP ---
Subjective Subjective Date of Service: 11/10/20 Interval history: Seen and examined on HD. Events noted; D/W HD RN; Due endoscopy Physical Exam Vital Signs: Vital Signs: Last Vital Signs Temp 97.9 F 11/10/20 07:51 Pulse 70 11/10/20 07:51 Resp 18 11/10/20 07:51 BP 114/64 11/10/20 07:51 Pulse Ox 100 11/10/20 07:51 Body Mass Index 31.9 Const: General: comfortable Orientation/consciousness: patient oriented x3 Neck: Neck: Yes supple Resp: Auscultation: diminished lung sounds Cardio: Rate: regular rate GI: Palpation (GI): Soft to palpation Neuro: General: patient oriented x3 Objective Data Labs CBC & Chem 7: 11/10/20 05:25 11/09/20 05:06 Labs: Laboratory Results - last 24 hr 11/10/20 05:25 WBC 4.2 L RBC 2.10 L Hgb 7.5 L Hct 22.2 L MCV 105.7 H MCH 35.7 H MCHC 33.8 RDW 17.6 H Plt Count 68 L MPV 10.4 Absolute Nucleated RBC 0.000 Nucleated RBC % (auto) 0.0 Assessment & Plan Assessment and plan (1) End-stage renal disease on hemodialysis: Problem details: Seen and examined on HD Usually gets HD [facility] ( [facility]) Volume optimization on HD Due endoscopy today Procrit 24306 Units TTS Renal Diet when he can take PO Concur with rest of current management Status: Acute Time Spent With Patient Time: Total time spent is greater than 50% in coordination of care (as documented) at patient's floor/unit and/or counseling patient:
[2020-11-10] MEDS: bisacodyL 5 MG TABLET.DR 10 MG PO ×2 (14:36→19:01)
[2020-11-10] MEDS: polyethylene glycoL 3350 17 GM POWD.PACK 238 GM PO (14:36)
[2020-11-10] MEDS: ondansetron HCL 4 MG/2 ML VIAL IVPUSH (16:42)
[2020-11-10] MEDS: Pravastatin Sodium 40 MG TABLET PO (20:33)
[2020-11-10] MEDS: traZODone HCL 50 MG TABLET PO (20:33)
[2020-11-10] MEDS: Gabapentin 100 MG CAPSULE PO (20:34)
[2020-11-10] MEDS: Montelukast Sodium 10 MG TABLET PO (20:34)
[2020-11-10] MEDS: Acetaminophen 325 MG TABLET 650 MG PO (20:46)
--- NOTE | 2020-11-10 23:21 | PC.NURSE ---
Dialysis catheter present in left chest,drsg clean and dry,peritoneal dialysis catheter present in LLQ,intact
[2020-11-11] VITALS (12 sets, daily range): BP systolic 89–147; BP diastolic 49–80; PULSE 70–100; RESP 16–20; TEMP 35.8–36.9; O2SAT 98–100
[2020-11-11] MEDS: 0.9 % Sodium Chloride Flush 3 ML SYRINGE IVFLUSH (00:20)
[2020-11-11] MEDS: Fluticasone/Vilanterol 100/25 BLST.W.DEV 1 PUFF INHALE (08:23)
--- NOTE | 2020-11-11 08:38 | P.OP_ITS ---
Operative Note Operative Note Date of Service: 11/15/20 Narrative: Pre-op diagnosis: anemia, hematochezia Post-op diagnosis: other (Gastritis, duodenitis, gastric nodule, colon polyps, diverticulosis, hemorrhoids) Procedure: FLEXIBLE TRANSORAL UPPER GASTROINTESTINAL ENDOSCOPY WITH BIOPSIES AND COLONOSCOPY TO CECUM WITH BIOPSY AND SNARE POLYPECTOMY UPPER ENDOSCOPY Consent: Indications for the procedure and potential complications of bleeding, perforation, reaction to medications and missed diagnosis were discussed with the patient and informed consent was obtained. Instrument: Olympus GIF H 190 mid size upper endoscope Monitoring: Vital signs and clinical assessment, continuous EKG monitoring, Pulse oximetry, Carbon Dioxide monitoring and blood pressure monitoring were done throughout the procedure. Procedure: The patient was placed in the left lateral decubitis position and pre-procedure medications were administered and a bite block was placed. The endoscope was inserted into the mouth and advanced under direct vision to the third part of duodenum. A careful inspection was made as the upper endoscope was withdrawn including a retroflexed examination of the proximal stomach; Findings and interventions are described below. Findings: Larynx: Normal Esophagus: GE junction at 42 cms. No esophagitis or Wing's. Stomach: A 2 cms benign appearing nodule in the gastric antrum without stigmata of bleeding. Mild gastric antral erythema. Biopsies were obtained. Grade 2 flap valve on retroflexed examination of the cardia. Duodenum: Mild duodenitis in the bulb and descending duodenum. Biopsies were obtained from the 3rd part of duodenum to check for celiac sprue Intervention: Biopsies as noted above COLONOSCOPY PROCEDURE NOTE Consent: Indications for the procedure and potential complications of bleeding, perforation, reaction to medications and missed diagnosis were discussed with the patient and informed consent was obtained. Instrument: Olympus PCF H 190 L variable stiffness pediatric colonoscope Monitoring: Vital signs and clinical assessment, intermittent blood pressure monitoring, continuous EKG monitoring, Pulse oximetry and Carbon Dioxide monitoring were done throughout the procedure. Colon withdrawl time was 20 minutes. Procedure: The patient was placed in the left lateral decubitis position and pre-procedure medications were administered. After a digital rectal examination of the ano-rectum, the video colonoscope was inserted into the rectum and advanced through the colon to the cecum. The colonoscope was slowly withdrawn in a retrograde panoramic fashion and the colon mucosa was carefully examined including a retroflexed view of the rectum. Findings and interventions are described below. Procedure Difficulty: Without difficulty Findings: Terminal Ileum: Not evaluated Cecum: Normal Ascending Colon: Moderate diverticulosis Transverse Colon: A 2 cm sessile polyp removed with hot snare. A 15 mm sessile polyp removed by hot snare. Moderate diverticulosis Descending Colon: Moderate diverticulosis Sigmoid Colon: Moderate diverticulosis Rectum: A 4-5 mm diminutive appearing polyp removed by cold biopsy. Ano-rectum: Moderate internal hemorrhoids Colon preparation: Good Impression and Post Procedure Diagnosis: Endoscopy Findings: STOMACH: A 2 cms benign appearing nodule in the gastric antrum without stigmata of bleeding. Mild gastric antral erythema. Biopsies were obtained. Grade 2 flap valve on retroflexed examination of the cardia. DUODENUM: Duodenitis in the bulb Colonoscopy Findings: Three polyps removed Moderate diverticulosis seen in the entire colon Moderate hemorrhoids on retroflexed exam. No clear source found for anemia - ? blood loss from large colon polyps. Rectal bleeding likely self limited diverticular bleed versus colon irritation from hard stools. Plan: Await pathology results. Resume anticoagulation on 11/18/20 Start Miralax once daily for constipation. Patient to schedule a FU appointment in the GI Clinic with Tia Barfield M.D. I will schedule a Capsule Endoscopy if he has recurrent anemia Repeat Colonoscopy interval based on path results - in 3 years if polyps are adenomatous.. Above findings were reviewed with the patient and colon polyps and [diverticulosis] handouts were given in the discharge area Surgeon: Tia Barfield MD Anesthesia: MAC (DUSTY Guillaume) [employer] Technicians: Stephen Cardona Estimated blood loss (mL): 0 Pathology: other (A. small bowel, B.Gastric nodule, C. Gastric antrum, D. TC polyps x2, E. Rectal polypx 1) Condition: stable Disposition: PACU
--- NOTE | 2020-11-11 08:38 | MHC.SHP ---
Pre-Procedural Eval Section A The patient is an INPATIENT: Yes Changes since office visit: Yes New Medical Problems, Yes Changes in Medication and Yes Patient answered all questions; No Cold of Flu in the past 2 weeks The History & Physical has been completed within 30 days and I have reviewed it.: Yes Section B Chief Complaint: gi bleed Allergies: Allergies Allergy/AdvReac Type Severity Reaction Status Date / Time latex Allergy Itching Verified 11/07/20 11:15 Sulfa (Sulfonamide Allergy Headache Verified 11/07/20 11:14 Antibiotics) Plan I have reviewed the history and physical and performed a pertinent physical examination on my patient. No changes have occurred unless specified.
--- NOTE | 2020-11-11 09:11 | HO.ANESPROP2 ---
[facility] Past Medical History Medical History Afib Anemia Asthma Depression H/O: HTN (hypertension) Hyperlipidemia Pacemaker Pneumonia Pulmonary hypertension Renal failure treated with peritoneal dialysis Right heart failure Seizure disorder Sleep apnea Surgical History Surgical History H/O hernia repair Status post surgical removal of malignant neoplasm of skin Social History Social History Household Members: None Housing: Assisted Living Facility Alcohol intake: unknown Smoking Status: Former smoker Tobacco Type: Cigarette service: No Meds Allergies Allergy/AdvReac Type Severity Reaction Status Date / Time latex Allergy Itching Verified 11/07/20 11:15 Sulfa (Sulfonamide Allergy Headache Verified 11/07/20 11:14 Antibiotics) Home Medications Medication Instructions Recorded Confirmed Type B complex with C 20-folic acid 1 cap PO DAILY 11/07/20 11/07/20 History [Nephrocaps] acetaminophen 650 mg PO Q4H PRN 11/07/20 11/07/20 History apixaban 2.5 mg PO BID 11/07/20 11/07/20 History docusate sodium 100 mg PO DAILY PRN 11/07/20 11/07/20 History famotidine 20 mg PO Q48H 11/07/20 11/07/20 History fluticasone propion-salmeterol 1 inh INHALATION Q12H 11/07/20 11/07/20 History [Advair Diskus] gabapentin 100 mg PO BEDTIME 11/07/20 11/07/20 History gabapentin 100 mg PO DAILY PRN 11/07/20 11/07/20 History levetiracetam [Keppra] 500 mg PO BID 11/07/20 11/07/20 History metoprolol succinate [Toprol XL] 25 mg PO DAILY 11/07/20 11/07/20 History midodrine See Rx Instructions .ROUTE .COMPLEX 11/07/20 11/07/20 History montelukast 10 mg PO BEDTIME 11/07/20 11/07/20 History ondansetron HCl [Zofran] 4 mg PO Q6H PRN 11/07/20 11/07/20 History pravastatin 40 mg PO BEDTIME 11/07/20 11/07/20 History sevelamer carbonate [Renvela] 1,600 mg PO TID 11/07/20 11/07/20 History simethicone 80 mg PO QID PRN 11/07/20 11/07/20 History trazodone 50 mg PO BEDTIME 11/07/20 11/07/20 History Exam Exam Date and Time: November 11, 2020 0911 Height,Weight and Vital Signs: Height 5 ft 8 in Weight 95.254 kg Last Vital Signs Temp 97 F 11/11/20 08:52 Pulse 77 11/11/20 08:52 Resp 18 11/11/20 08:52 BP 143/71 H 11/11/20 08:52 Pulse Ox 98 11/11/20 08:52 Pertinent Lab Results Pertinent Lab Results: Laboratory Tests 11/07/20 11/07/20 11/07/20 12:16 12:16 12:16 WBC 4.6 L RBC 1.78 L Hgb 6.7 L* Hct 19.9 L* MCV 111.8 H MCH 37.6 H MCHC 33.7 RDW 16.9 H Plt Count 63 L MPV 9.4 Immature Gran % (Auto) 0.9 H Neut % (Auto) 58.9 Lymph % (Auto) 23.7 [place] % (Auto) 13.7 H Eos % (Auto) 2.6 Baso % (Auto) 0.2 Lymph # (Auto) 1.1 L [place] # (Auto) 0.6 Eos # (Auto) 0.1 Baso # (Auto) 0.0 Abs Immat Gran (auto) 0.04 H Absolute Neuts (auto) 2.7 Absolute Nucleated RBC 0.000 Nucleated RBC % (auto) 0.0 PT INR Sodium 141 Potassium 5.4 H Chloride 104 Carbon Dioxide 28 Anion Gap 14 BUN 41 H Creatinine 7.75 H* Estim Creat Clear Calc 8.5 Estimated GFR 7 Random Glucose 92 Calcium 8.1 L Magnesium 2.2 Iron TIBC % Saturation Unsat Iron Binding Ferritin Troponin I High Sens B-Natriuretic Peptide Vitamin B12 Folate Stool Occult Blood COVID-19 (GERMAN) COVID-19 Clin Com Blood Type O Positive Antibody Screen NEGATIVE Crossmatch See Detail 11/07/20 11/07/20 11/07/20 12:16 12:16 12:16 WBC RBC Hgb Hct MCV MCH MCHC RDW Plt Count MPV Immature Gran % (Auto) Neut % (Auto) Lymph % (Auto) [place] % (Auto) Eos % (Auto) Baso % (Auto) Lymph # (Auto) [place] # (Auto) Eos # (Auto) Baso # (Auto) Abs Immat Gran (auto) Absolute Neuts (auto) Absolute Nucleated RBC Nucleated RBC % (auto) PT 13.8 H INR 1.2 H Sodium Potassium Chloride Carbon Dioxide Anion Gap BUN Creatinine Estim Creat Clear Calc Estimated GFR Random Glucose Calcium Magnesium Iron TIBC % Saturation Unsat Iron Binding Ferritin Troponin I High Sens 33.9 B-Natriuretic Peptide 804 H Vitamin B12 Folate Stool Occult Blood POS COVID-19 (GERMAN) COVID-19 Clin Com Blood Type Antibody Screen Crossmatch 11/07/20 11/08/20 11/08/20 15:07 08:06 08:06 WBC 4.2 L RBC 2.26 L D Hgb 8.1 L D Hct 24.5 L D MCV 108.4 H MCH 35.8 H MCHC 33.1 RDW 19.6 H Plt Count 74 L MPV 10.9 Immature Gran % (Auto) 0.7 H Neut % (Auto) 60.5 Lymph % (Auto) 24.5 [place] % (Auto) 10.5 Eos % (Auto) 3.3 Baso % (Auto) 0.5 Lymph # (Auto) 1.0 L [place] # (Auto) 0.4 Eos # (Auto) 0.1 Baso # (Auto) 0.0 Abs Immat Gran (auto) 0.03 Absolute Neuts (auto) 2.5 Absolute Nucleated RBC 0.000 Nucleated RBC % (auto) 0.0 PT INR Sodium 140 Potassium 5.7 H Chloride 102 Carbon Dioxide 25 Anion Gap 19 BUN 55 H Creatinine 9.35 H* Estim Creat Clear Calc 7.0 Estimated GFR 5 Random Glucose 111 Calcium 8.1 L Magnesium Iron TIBC % Saturation Unsat Iron Binding Ferritin Troponin I High Sens B-Natriuretic Peptide Vitamin B12 Folate Stool Occult Blood COVID-19 (GERMAN) Negative COVID-19 Clin Com See Note Blood Type Antibody Screen Crossmatch 11/09/20 11/09/20 11/09/20 05:06 05:06 05:06 WBC 4.4 L RBC 2.09 L Hgb 7.4 L Hct 22.2 L MCV 106.2 H MCH 35.4 H MCHC 33.3 RDW 18.5 H Plt Count 76 L MPV 11.7 Immature Gran % (Auto) 1.1 H Neut % (Auto) 59.7 Lymph % (Auto) 21.8 [place] % (Auto) 14.5 H Eos % (Auto) 2.7 Baso % (Auto) 0.2 Lymph # (Auto) 1.0 L [place] # (Auto) 0.6 Eos # (Auto) 0.1 Baso # (Auto) 0.0 Abs Immat Gran (auto) 0.05 H Absolute Neuts (auto) 2.6 Absolute Nucleated RBC 0.000 Nucleated RBC % (auto) 0.0 PT INR Sodium Potassium Chloride Carbon Dioxide Anion Gap BUN Creatinine Estim Creat Clear Calc Estimated GFR Random Glucose Calcium Magnesium Iron 154 TIBC 214 L % Saturation 72 H Unsat Iron Binding 60 Ferritin 1750 H Troponin I High Sens B-Natriuretic Peptide Vitamin B12 251 Folate 15.5 Stool Occult Blood COVID-19 (GERMAN) COVID-Seculert Blood Type Antibody Screen Crossmatch 11/09/20 11/10/20 05:06 05:25 WBC 4.2 L RBC 2.10 L Hgb 7.5 L Hct 22.2 L MCV 105.7 H MCH 35.7 H MCHC 33.8 RDW 17.6 H Plt Count 68 L MPV 10.4 Immature Gran % (Auto) Neut % (Auto) Lymph % (Auto) [place] % (Auto) Eos % (Auto) Baso % (Auto) Lymph # (Auto) [place] # (Auto) Eos # (Auto) Baso # (Auto) Abs Immat Gran (auto) Absolute Neuts (auto) Absolute Nucleated RBC 0.000 Nucleated RBC % (auto) 0.0 PT INR Sodium 138 Potassium 5.3 H Chloride 100 Carbon Dioxide 23 Anion Gap 20 BUN 36 H Creatinine 6.73 H* Estim Creat Clear Calc 9.7 Estimated GFR 8 Random Glucose 88 Calcium 7.8 L Magnesium Iron TIBC % Saturation Unsat Iron Binding Ferritin Troponin I High Sens B-Natriuretic Peptide Vitamin B12 Folate Stool Occult Blood COVID-19 (GERMAN) COVID-Seculert Blood Type Antibody Screen Crossmatch Airway Mallampati Class: II TM Dist: >3cm Neck ROM: Full Assessment and Plan Assessment Anesthesia Assessment: Anesthesia Plan Discussed and Chart Reviewed Final Anesthetic Review NPO: Yes ASA Class: III Final Preanesthetic Review: No Changes in Pt Med Stat, Meds/Allgs Chart Reviewed, Consent Obtained/Reviewed and Anes Risks/Benef Reviewed Patient Risk: Intermediate Procedure Risk: Low Assessment/Block/Sedation in SS: Assess/Block/Sedation-SS Anesthetic Plan Anesthetic Plan: MAC: Disposition: Standard PACU
[2020-11-11] MEDS: 0.9 % Sodium Chloride 500 ML 20 ML IVCONT (09:19)
[2020-11-11] MEDS: Sodium Phosphate,Mono-Dibasic 133 ML ENEMA PR (09:25)
--- NOTE | 2020-11-11 11:31 | MHC.CM.PN ---
per rounds pt expected to dc after colonoscopy expected to dc today or sat
--- NOTE | 2020-11-11 12:25 | P.DS_ITS ---
DS: Providers Provider Date of Service: 12/05/20 Date of admission: 11/07/20 16:38 Primary care physician: Sanjuana Stevens MD Consults: 11/07/20 14:28 Consult to Gastroenterology Routine Consulting Provider: Tia Barfield Reason for consultation: ? GI BLEED, RED BLOOD AFTER DISEMPACTION Has provider been notified: No Consult to Nephrology Routine Consulting Provider: Ernst Spaulding Reason for consultation: ESRD DIALYSIS T,TH,S Has provider been notified: No 11/10/20 09:16 Consult to Anesthesiology Routine Consulting Provider: Tia Barfield Reason for consultation: 80 YM with ESRD on HD admitted with severe anemia. EGD & Colon on 11/11/20 Has provider been notified: Yes DS: Diagnosis Discharge Diagnosis (1) Chronic constipation: Status: Acute (2) Symptomatic anemia: Status: Resolved (3) Acute GI bleeding: Status: Acute DS: Medications Discharge Medications Home Medications: Home Medications Medication Instructions Recorded Confirmed B complex with C 20-folic acid 1 cap PO DAILY 11/07/20 11/07/20 [Nephrocaps] acetaminophen 650 mg PO Q4H PRN 11/07/20 11/07/20 apixaban 2.5 mg PO BID 11/07/20 11/07/20 docusate sodium 100 mg PO DAILY PRN 11/07/20 11/07/20 famotidine 20 mg PO Q48H 11/07/20 11/07/20 fluticasone propion-salmeterol 1 inh INHALATION Q12H 11/07/20 11/07/20 [Advair Diskus] gabapentin 100 mg PO BEDTIME 11/07/20 11/07/20 gabapentin 100 mg PO DAILY PRN 11/07/20 11/07/20 levetiracetam [Keppra] 500 mg PO BID 11/07/20 11/07/20 metoprolol succinate [Toprol XL] 25 mg PO DAILY 11/07/20 11/07/20 midodrine See Rx Instructions .ROUTE .COMPLEX 11/07/20 11/07/20 montelukast 10 mg PO BEDTIME 11/07/20 11/07/20 ondansetron HCl [Zofran] 4 mg PO Q6H PRN 11/07/20 11/07/20 pravastatin 40 mg PO BEDTIME 11/07/20 11/07/20 sevelamer carbonate [Renvela] 1,600 mg PO TID 11/07/20 11/07/20 trazodone 50 mg PO BEDTIME 11/07/20 11/07/20 simethicone [Simethicone-80] 80 mg PO QID PRN 11/11/20 11/11/20 DS: Summary Hospital Course Hospital Course: Chief Complaint: Abnormal labs 80-year-old man presenting from [facility] with abnormal labs. Apparently the patient had his labs drawn and his hemoglobin and hematoc rit on below. He has a history of end-stage renal disease on dialysis and chronic anemia. He reports he has had 4 blood transfusions over the last year to 18 months which is new for him. He reported he had been feeling okay over the last several days. He was discharged from [facility] on October 15 at that time he was treated for metabolic encephalopathy, aspiration pneumonia. During that admission apparently had missed 2-3 days of peritoneal dialysis and he had presented to the ER with delirium he also completed a course of Unasyn for aspiration pneumonia during that admission he was also transitioned from peritoneal dialysis to hemodialysis , PermCath was placed and he was discharged to [facility] for rehab. today patient felt okay he did report that he had been constipated and he tried to disimpact him self and when he did he noticed that he had bright red blood on his hands. In the ER his hemoglobin is 6.7, hematocrit 19.9, potassium 5.4, creatinine 7.75 close to baseline. Chest x-ray is negative for consolidation or effusion. 1 unit of packed red blood cells was ordered. Patient be admitted for further management and treatment of GI bleed and symptomatic anemia. Await pathology results. Hospital course: Patient presented with acute blood loss anemia related to GIB and in the setting of anticoagulation use. He has been transfused 2 units of RBC. Anticoagulation was stopped. He was seen by Dr. Barfield from GI and under EGD and colonoscopy on 11/11/20 with the findings and recommendation of duodenitis, gastritis and colon polyps Resume anticoagulation on 11/18/20 Start Miralax once daily for constipation. Patient to schedule a FU appointment in the GI Clinic with Tia Barfield M.D. I will schedule a Capsule Endoscopy if he has recurrent anemia Repeat Colonoscopy interval based on path results - in 3 years if polyps are adenomatous.. Above findings were reviewed with the patient and colon polyps and [diverticulo sis] handouts were given in the discharge area Time Spent with Patient Time attestation: Total time spent providing and/or coordinating discharge services: Discharge coordination time: Greater than 30 minutes Physical Exam Vital Signs: Vital Signs: Last Vital Signs Selected Entries 11/12/20 19:42 11/13/20 04:00 11/13/20 08:37 Pulse Rate 70 Respiratory Rate 16 Blood Pressure 132/78 132/78 Pulse Oximetry 99 Body Mass Index 31.9 General: AO X 3, no acute distress Resp: CTA bilateral CVS: S1,S2,RRR GI: +BS, NT, no distention Skin: No rash Neuro: motor grossly intact Psych: appropriate affect DS: Data Data Completed and Pending Pending studies at discharge: Pending at discharge 11/11/20 09:58 Surgical [PTH] Routine Labs on day of discharge: Laboratory Tests 11/07/20 11/07/20 11/07/20 12:16 12:16 12:16 WBC 4.6 L RBC 1.78 L Hgb 6.7 L* Hct 19.9 L* MCV 111.8 H MCH 37.6 H MCHC 33.7 RDW 16.9 H Plt Count 63 L MPV 9.4 Immature Gran % (Auto) 0.9 H Neut % (Auto) 58.9 Lymph % (Auto) 23.7 Giles % (Auto) 13.7 H Eos % (Auto) 2.6 Baso % (Auto) 0.2 Lymph # (Auto) 1.1 L Giles # (Auto) 0.6 Eos # (Auto) 0.1 Baso # (Auto) 0.0 Abs Immat Gran (auto) 0.04 H Absolute Neuts (auto) 2.7 Absolute Nucleated RBC 0.000 Nucleated RBC % (auto) 0.0 PT INR Sodium 141 Potassium 5.4 H Chloride 104 Carbon Dioxide 28 Anion Gap 14 BUN 41 H Creatinine 7.75 H* Estim Creat Clear Calc 8.5 Estimated GFR 7 Random Glucose 92 Calcium 8.1 L Magnesium 2.2 Iron TIBC % Saturation Unsat Iron Binding Ferritin Troponin I High Sens B-Natriuretic Peptide Vitamin B12 Folate Stool Occult Blood COVID-19 (GERMAN) COVID-19 Clin Com Blood Type O Positive Antibody Screen NEGATIVE Crossmatch See Detail 11/07/20 11/07/20 11/07/20 12:16 12:16 12:16 WBC RBC Hgb Hct MCV MCH MCHC RDW Plt Count MPV Immature Gran % (Auto) Neut % (Auto) Lymph % (Auto) Giles % (Auto) Eos % (Auto) Baso % (Auto) Lymph # (Auto) Giles # (Auto) Eos # (Auto) Baso # (Auto) Abs Immat Gran (auto) Absolute Neuts (auto) Absolute Nucleated RBC Nucleated RBC % (auto) PT 13.8 H INR 1.2 H Sodium Potassium Chloride Carbon Dioxide Anion Gap BUN Creatinine Estim Creat Clear Calc Estimated GFR Random Glucose Calcium Magnesium Iron TIBC % Saturation Unsat Iron Binding Ferritin Troponin I High Sens 33.9 B-Natriuretic Peptide 804 H Vitamin B12 Folate Stool Occult Blood POS COVID-19 (GERMAN) COVID-Contents First Com Blood Type Antibody Screen Crossmatch 11/07/20 11/08/20 11/08/20 15:07 08:06 08:06 WBC 4.2 L RBC 2.26 L D Hgb 8.1 L D Hct 24.5 L D MCV 108.4 H MCH 35.8 H MCHC 33.1 RDW 19.6 H Plt Count 74 L MPV 10.9 Immature Gran % (Auto) 0.7 H Neut % (Auto) 60.5 Lymph % (Auto) 24.5 Giles % (Auto) 10.5 Eos % (Auto) 3.3 Baso % (Auto) 0.5 Lymph # (Auto) 1.0 L Giles # (Auto) 0.4 Eos # (Auto) 0.1 Baso # (Auto) 0.0 Abs Immat Gran (auto) 0.03 Absolute Neuts (auto) 2.5 Absolute Nucleated RBC 0.000 Nucleated RBC % (auto) 0.0 PT INR Sodium 140 Potassium 5.7 H Chloride 102 Carbon Dioxide 25 Anion Gap 19 BUN 55 H Creatinine 9.35 H* Estim Creat Clear Calc 7.0 Estimated GFR 5 Random Glucose 111 Calcium 8.1 L Magnesium Iron TIBC % Saturation Unsat Iron Binding Ferritin Troponin I High Sens B-Natriuretic Peptide Vitamin B12 Folate Stool Occult Blood COVID-19 (GERMAN) Negative [employer] See Note Blood Type Antibody Screen Crossmatch 11/09/20 11/09/20 11/09/20 05:06 05:06 05:06 WBC 4.4 L RBC 2.09 L Hgb 7.4 L Hct 22.2 L MCV 106.2 H MCH 35.4 H MCHC 33.3 RDW 18.5 H Plt Count 76 L MPV 11.7 Immature Gran % (Auto) 1.1 H Neut % (Auto) 59.7 Lymph % (Auto) 21.8 Giles % (Auto) 14.5 H Eos % (Auto) 2.7 Baso % (Auto) 0.2 Lymph # (Auto) 1.0 L Giles # (Auto) 0.6 Eos # (Auto) 0.1 Baso # (Auto) 0.0 Abs Immat Gran (auto) 0.05 H Absolute Neuts (auto) 2.6 Absolute Nucleated RBC 0.000 Nucleated RBC % (auto) 0.0 PT INR Sodium Potassium Chloride Carbon Dioxide Anion Gap BUN Creatinine Estim Creat Clear Calc Estimated GFR Random Glucose Calcium Magnesium Iron 154 TIBC 214 L % Saturation 72 H Unsat Iron Binding 60 Ferritin 1750 H Troponin I High Sens B-Natriuretic Peptide Vitamin B12 251 Folate 15.5 Stool Occult Blood COVID-19 (GERMAN) COVID-19 PA Semi Com Blood Type Antibody Screen Crossmatch 11/09/20 11/10/20 05:06 05:25 WBC 4.2 L RBC 2.10 L Hgb 7.5 L Hct 22.2 L MCV 105.7 H MCH 35.7 H MCHC 33.8 RDW 17.6 H Plt Count 68 L MPV 10.4 Immature Gran % (Auto) Neut % (Auto) Lymph % (Auto) Giles % (Auto) Eos % (Auto) Baso % (Auto) Lymph # (Auto) Giles # (Auto) Eos # (Auto) Baso # (Auto) Abs Immat Gran (auto) Absolute Neuts (auto) Absolute Nucleated RBC 0.000 Nucleated RBC % (auto) 0.0 PT INR Sodium 138 Potassium 5.3 H Chloride 100 Carbon Dioxide 23 Anion Gap 20 BUN 36 H Creatinine 6.73 H* Estim Creat Clear Calc 9.7 Estimated GFR 8 Random Glucose 88 Calcium 7.8 L Magnesium Iron TIBC % Saturation Unsat Iron Binding Ferritin Troponin I High Sens B-Natriuretic Peptide Vitamin B12 Folate Stool Occult Blood COVID-19 (GERMAN) COVID-19 Clin Com Blood Type Antibody Screen Crossmatch Discharge Plan Discharge Anticipated Discharge Date/Time: 11/12/20 14:02 Patient Disposition: Xfer SNF Referrals: [facility] [Outside] Sanjuana Stevens MD [Primary Care Provider] - Discharge Medications: New omeprazole magnesium [Prilosec OTC] 20 mg tablet,delayed release (DR/EC) 20 mg PO DAILY 28 Days Qty: 28 RF: 0 Continued fluticasone propion-salmeterol [Advair Diskus] 250-50 mcg/dose Blister With Device 1 inh INHALATION Q12H RF: 0 acetaminophen 325 mg Tablet 650 mg PO Q4H PRN (Reason: Pain) RF: 0 trazodone 50 mg Tablet 50 mg PO BEDTIME RF: 0 pravastatin 40 mg Tablet 40 mg PO BEDTIME RF: 0 levetiracetam [Keppra] 500 mg Tablet 500 mg PO BID RF: 0 ondansetron HCl [Zofran] 4 mg Tablet 4 mg PO Q6H PRN (Reason: Nausea) RF: 0 famotidine 20 mg Tablet 20 mg PO Q48H RF: 0 docusate sodium 100 mg Capsule 100 mg PO DAILY PRN (Reason: Constipation) RF: 0 montelukast 10 mg Tablet 10 mg PO BEDTIME RF: 0 gabapentin 100 mg Capsule 100 mg PO DAILY PRN (Reason: Agitation) RF: 0 gabapentin 100 mg Capsule 100 mg PO BEDTIME RF: 0 metoprolol succinate [Toprol XL] 25 mg Tablet Extended Release 24 Hr 25 mg PO DAILY RF: 0 B complex with C 20-folic acid 1 mg Capsule 1 cap PO DAILY RF: 0 midodrine 10 mg Tablet See Rx Instructions .ROUTE .COMPLEX RF: 0 sevelamer carbonate [Renvela] 800 mg Tablet 1,600 mg PO TID RF: 0 simethicone 80 mg Tablet,Chewable 80 mg PO QID PRN (Reason: gas and bloating) RF: 0 Held apixaban 2.5 mg Tablet 2.5 mg PO BID RF: 0 Hold Instructions: Resume on 11/18/20. Discharge Orders: Discharge Order (Routine); Ordered 11/12/20 Ordered By: Sunil Miller Diet: advance to usual diet Activity on Discharge: As tolerated Visit Report Forms: Patient Portal Discharge page Care Plan Goals: GI bleeding Health Concerns: Gi bleeding, acute blood loss anemia Plan of Treatment: Do not take Eliquis until . Follow up with Dialysis on Saturday, have blood level check on saturday, if you experience any blood in your stool, r feel dizzy, sob or chest pain notify your doctor or call 911. Check CBC on Saturday or saturday Discharge Date/Time: 11/13/20 10:15
--- NOTE | 2020-11-11 12:51 | P.PNNP_ITS ---
Subjective Subjective Date of Service: 11/11/20 Interval history: Seen and examined . Events noted; D/W Hospitalist Physical Exam Vital Signs: Vital Signs: Last Vital Signs Temp 97.9 F 11/11/20 12:00 Pulse 70 11/11/20 12:00 Resp 20 11/11/20 12:00 BP 123/69 11/11/20 12:00 Pulse Ox 100 11/11/20 12:00 Body Mass Index 31.9 Const: General: no acute distress Orientation/consciousness: patient oriented x3 Neck: Neck: Yes supple Resp: Auscultation: diminished lung sounds Cardio: Rate: regular rate GI: Palpation (GI): Soft to palpation Neuro: General: patient oriented x3 Objective Data Labs CBC & Chem 7: 11/10/20 05:25 11/09/20 05:06 Assessment & Plan Assessment and plan (1) End-stage renal disease on hemodialysis: Problem details: Seen and examined this AM Usually gets HD TTS ( [facility]) Volume optimization on HD Due endoscopy today Procrit [id number] Units TTS Renal Diet ; Phos binders with meals Next HD tomorrow Concur with rest of current management Shall arrange outpt HD follow up when D/Marvel Status: Acute Time Spent With Patient Time: Total time spent is greater than 50% in coordination of care (as celine harding) at patient's floor/unit and/or counseling patient:
[2020-11-11 12:57] LABS: Hematocrit 21.7 % (42-52); Hemoglobin 7.5 g/dl (14.0-18.0); Mean Corpuscular HGB Conc 34.6 g/dl (31.0-36.0); Mean Corpuscular Hemoglobin 36.1 pg (27.0-33.0); Mean Corpuscular Volume 104.3 fL (80-98); Mean Platelet Volume 9.8 fL (9.4-12.4); Red Blood Count 2.08 X10*6/uL (4.60-5.80); Red Cell Distribution Width 17.2 % (11.0-16.0); White Blood Count 4.3 X10*3/uL (4.8-10.8)
[2020-11-11 12:59] LABS: Platelet Count 63 X10*3/uL (160-400)
[2020-11-11] MEDS: Famotidine 20 MG TABLET PO (13:15)
--- NOTE | 2020-11-11 16:05 | HO.PM.IMPN ---
Subjective Subjective Date of Service: 11/11/20 Interval History: Seen in f/u for GIB. No report of bleeding overnight. H&H is low today. No bleeding Review of Systems General no headache, no dizziness, no fever chills. CVS no chest pain, no palpitation. Respiratory no cough, no sputum production, no respiratory distress. Gastrointestinal no nausea, no vomiting, no abdominal pain Physical Exam Vital Signs: Vital Signs: Last Vital Signs Temp 98.0 F 11/11/20 14:33 Pulse 70 11/11/20 14:33 Resp 18 11/11/20 14:33 BP 145/72 H 11/11/20 14:33 Pulse Ox 100 11/11/20 12:00 Body Mass Index 31.9 Const: Other: General patient resting comfortably in no acute distress. Neck is supple no JVD. CVS regular rate rhythm, Respiratory lungs clear to auscultation, no respiratory distress Gastrointestinal abdomen soft, nontender, bowel sounds audible, rectal exam deferred Extremities no clubbing, cyanosis or edema. Neuro nonfocal . Skin no rash Objective Data Current Medications Generic Name Dose Route Start Last Admin Trade Name Freq PRN Reason Stop Dose Admin Acetaminophen 650 mg 11/07/20 14:28 11/10/20 20:46 Acetaminophen 325 Mg Tablet PO 650 mg Q6H PRN Administration Pain, Mild (Pain Scale 1-3) Docusate Sodium 100 mg 11/07/20 14:28 Docusate Sodium 100 Mg Capsule PO DAILY PRN Constipation Famotidine 20 mg 11/07/20 14:30 11/11/20 13:15 Famotidine 20 Mg Tablet PO 20 mg Q48H PEG Administration Fluticasone/Vilanterol 1 puff 11/08/20 08:00 11/11/20 08:23 Fluticasone/Vilanterol 100/25 Blst.W.Dev INHALE 1 puff RDAILY PEG Administration Gabapentin 100 mg 11/07/20 21:00 11/10/20 20:34 Gabapentin 100 Mg Capsule PO 100 mg BEDTIME PEG Administration Gabapentin 100 mg 11/07/20 14:28 Gabapentin 100 Mg Capsule PO DAILY PRN Agitation Sodium Chloride 500 mls @ 20 mls/hr 11/11/20 09:15 11/11/20 09:19 Ns IVCONT 20 mls/hr .Q24H PEG Administration Levetiracetam 500 mg 11/07/20 21:00 11/11/20 08:50 Levetiracetam 500 Mg Tablet PO Not Given BID [facility] Metoprolol Succinate 25 mg 11/08/20 09:00 11/11/20 08:50 Metoprolol Succinate Er 25 Mg Tab.Er.24h PO Not Given DAILY [facility] Protocol Midodrine 10 mg 11/08/20 09:00 11/10/20 08:14 Midodrine Hcl 10 Mg Tablet PO 10 mg TuThSa@0900 PEG Administration Midodrine 10 mg 11/08/20 21:00 11/10/20 20:43 Midodrine Hcl 10 Mg Tablet PO 10 mg TUTHSA@21 [facility] Administration Montelukast Sodium 10 mg 11/07/20 21:00 11/10/20 20:34 Montelukast Sodium 10 Mg Tablet PO 10 mg BEDTIME [facility] Administration Ondansetron HCl 4 mg 11/07/20 14:28 11/10/20 16:42 Ondansetron Hcl 4 Mg/2 Ml Vial IVPUSH 4 mg Q8H PRN Administration Nausea and Vomiting Pravastatin Sodium 40 mg 11/07/20 21:00 11/10/20 20:33 Pravastatin Sodium 40 Mg Tablet PO 40 mg BEDTIME [facility] Administration Sevelamer HCl 1,600 mg 11/08/20 08:00 11/11/20 10:32 Sevelamer Hcl 800 Mg Tablet PO Not Given TIDWM [facility] Sodium Chloride 3 ml 11/07/20 16:00 11/11/20 16:05 0.9 % Sodium Chloride Flush 3 Ml Syringe IVFLUSH Not Given QSHIFT [facility] Trazodone HCl 50 mg 11/07/20 21:00 11/10/20 20:33 Trazodone Hcl 50 Mg Tablet PO 50 mg BEDTIME [facility] Administration Vitamin B Complex/Folic Acid 1 cap 11/08/20 09:00 11/11/20 08:50 B Complex W-C No.20/Folic Acid Capsule PO Not Given DAILY [facility] Labs CBC & Chem 7: 11/11/20 12:48 11/09/20 05:06 Assessment and Plan (1) Chronic constipation: Status: Acute (2) Symptomatic anemia: Status: Acute (3) Acute GI bleeding: Status: Acute Assessment and Plan: 80 YM with ESRD previously on PD now on HD, chronic anemia requiring intermittent transfusions, hx HTN, HLD, asthma, JULIA on CPAP, seizure disorder, s/p PPM, afib on Eliquis, HFpEF admitted with severe anemia, recent episode of hematochezia precipitated by manual dis-impaction for constipation. Patient has a known history of colon polyps on colonoscopy 3 years ago per patient. Report of the procedure is not available. He denies having an upper endoscopy the past. Acute on chronic Anemia. No symptoms. History of blood transfusion at least 4 times over the last year. Does have history end-stage renal disease. S/p 1 unit of packed red blood cells, hematocrit improved, elevated MCV Iron level is normal. B12 folate. GI has proposed outpatient EGD/colonoscopy unless hemoglobin continued to trend down. Since hemoglobin and hematocrit are down today I will discuss inpatient EGD and/or colonoscopy with Dr. pratibha prater GI bleed. Question source can be both upper or lower GI source, No recurrent episode of GI bleed hematocrit improved after 1 unit of packed RBC, follow CBC at a.m. continue to hold Eliquis,if noted to have drop in hematocrit then will re-consult Gastroenterology for both upper and lower endoscopy . EGD and colonscopy done today with finding of duodenitis and polyps. Will transfuse [address] today.n Dr[address] Barfield recommends Await pathology results. Resume anticoagulation on 11/18/20 Start Miralax once daily for constipation. Patient to schedule a FU appointment in the GI Clinic with Tia Barfield M.D. I will schedule a Capsule Endoscopy if he has recurrent anemia Repeat Colonoscopy interval based on path results - in 3 years if polyps are adenomatous.. End-stage renal disease on dialysis. Hemodialysis Saturday and Saturday Continued volume optimization on HD Renal Diet- 2 Gram K, 2 Gram Na, Phos restricted , Fluid restriction 1.5 L/24 hours Renvela tid with meals; GI follow up History of hypotension BP stable continue midodrine . AFib. Continue metoprolol, hold Eliquis due to GI bleed. History of seizure disorder. Seizure precautions, Keppra. DVT prophylaxis mechanical device due to GI bleed
[2020-11-11] MEDS: Acetaminophen 325 MG TABLET 650 MG PO (21:15)
[2020-11-11] MEDS: Throat Lozenge, Medicated LOZENGE 1 LOZENGE MUCOUS MEM (21:15)
[2020-11-11] MEDS: Gabapentin 100 MG CAPSULE PO (21:16)
[2020-11-11] MEDS: traZODone HCL 50 MG TABLET PO (21:16)
[2020-11-11] MEDS: Montelukast Sodium 10 MG TABLET PO (21:16)
[2020-11-11] MEDS: Pravastatin Sodium 40 MG TABLET PO (21:16)
[2020-11-12] VITALS (9 sets, daily range): BP systolic 120–150; BP diastolic 69–84; PULSE 68–73; RESP 16–20; TEMP 36.6–36.7; O2SAT 99–100
[2020-11-12] MEDS: Midodrine HCl 10 MG TABLET PO ×2 (10:14→22:11)
[2020-11-12] MEDS: 0.9 % Sodium Chloride Flush 3 ML SYRINGE IVFLUSH ×3 (10:15→16:15)
[2020-11-12] MEDS: Metoprolol Succinate ER 25 MG TAB.ER.24H PO (10:16)
--- NOTE | 2020-11-12 11:03 | HO.POSTANES ---
Post Anesthesia Evaluation Post Anesthesia Evaluation Vital Signs: Vital Signs Temp Pulse Resp BP Pulse Ox 11/12/20 10:16 73 150/84 H 11/12/20 10:14 73 150/84 H 11/12/20 09:12 97.8 F 73 18 150/84 H 100 11/12/20 04:00 70 18 11/12/20 00:00 97.8 F 73 18 120/71 99 Anesthesia: Monitored Mental Status: Awake Pain Control: Satisfactory Nausea/Vomiting: None Hydration: Adequate Anesthesia-Related Issues: No Anes. Related Issues
[2020-11-12 12:23] LABS: Hematocrit 23.1 % (42-52); Hemoglobin 7.8 g/dl (14.0-18.0); Mean Corpuscular HGB Conc 33.8 g/dl (31.0-36.0); Mean Corpuscular Hemoglobin 34.4 pg (27.0-33.0); Mean Corpuscular Volume 101.8 fL (80-98); Mean Platelet Volume 10.4 fL (9.4-12.4); Red Blood Count 2.27 X10*6/uL (4.60-5.80); Red Cell Distribution Width 18.6 % (11.0-16.0)
[2020-11-12 12:24] LABS: Platelet Count 56 X10*3/uL (160-400)
--- NOTE | 2020-11-12 15:30 | HO.PM.IMPN ---
Subjective Subjective Date of Service: 11/12/20 Interval History: Seen in f/u for GIB. No report of bleeding overnight. H&H is modestly better with transfusion Review of Systems General no headache, no dizziness, no fever chills. CVS no chest pain, no palpitation. Respiratory no cough, no sputum production, no respiratory distress. Gastrointestinal no nausea, no vomiting, no abdominal pain Physical Exam Vital Signs: Vital Signs: Last Vital Signs Temp 97.8 F 11/12/20 09:12 Pulse 72 11/12/20 12:34 Resp 20 11/12/20 12:34 BP 128/70 11/12/20 12:34 Pulse Ox 100 11/12/20 12:34 Body Mass Index 31.9 Const: Other: General patient resting comfortably in no acute distress. Neck is supple no JVD. CVS regular rate rhythm, Respiratory lungs clear to auscultation, no respiratory distress Gastrointestinal abdomen soft, nontender, bowel sounds audible, rectal exam deferred Extremities no clubbing, cyanosis or edema. Neuro nonfocal . Skin no rash Objective Data Current Medications Generic Name Dose Route Start Last Admin Trade Name Freq PRN Reason Stop Dose Admin Acetaminophen 650 mg 11/07/20 14:28 11/11/20 21:15 Acetaminophen 325 Mg Tablet PO 650 mg Q6H PRN Administration Pain, Mild (Pain Scale 1-3) Benzocaine 1 lozenge 11/11/20 20:45 11/11/20 21:15 Throat Lozenge, Medicated Lozenge MUCOUS MEM 1 lozenge Q2H PRN Administration Sore Throat Docusate Sodium 100 mg 11/07/20 14:28 Docusate Sodium 100 Mg Capsule PO DAILY PRN Constipation Famotidine 20 mg 11/07/20 14:30 11/11/20 13:15 Famotidine 20 Mg Tablet PO 20 mg Q48H PEG Administration Fluticasone/Vilanterol 1 puff 11/08/20 08:00 11/12/20 07:58 Fluticasone/Vilanterol 100/25 Blst.W.Dev INHALE Not Given RDAILY PEG Gabapentin 100 mg 11/07/20 21:00 11/11/20 21:16 Gabapentin 100 Mg Capsule PO 100 mg BEDTIME PEG Administration Gabapentin 100 mg 11/07/20 14:28 Gabapentin 100 Mg Capsule PO DAILY PRN Agitation Levetiracetam 500 mg 11/07/20 21:00 11/12/20 10:16 Levetiracetam 500 Mg Tablet PO Not Given BID [facility] Metoprolol Succinate 25 mg 11/08/20 09:00 11/12/20 10:16 Metoprolol Succinate Er 25 Mg Tab.Er.24h PO 25 mg DAILY PEG Administration Protocol Midodrine 10 mg 11/08/20 09:00 11/12/20 10:14 Midodrine Hcl 10 Mg Tablet PO 10 mg TuThSa@0900 PEG Administration Midodrine 10 mg 11/08/20 21:00 11/10/20 20:43 Midodrine Hcl 10 Mg Tablet PO 10 mg [id number]@21 PEG Administration Montelukast Sodium 10 mg 11/07/20 21:00 11/11/20 21:16 Montelukast Sodium 10 Mg Tablet PO 10 mg BEDTIME PEG Administration Ondansetron HCl 4 mg 11/07/20 14:28 11/10/20 16:42 Ondansetron Hcl 4 Mg/2 Ml Vial IVPUSH 4 mg Q8H PRN Administration Nausea and Vomiting Pravastatin Sodium 40 mg 11/07/20 21:00 11/11/20 21:16 Pravastatin Sodium 40 Mg Tablet PO 40 mg BEDTIME PEG Administration Sevelamer HCl 1,600 mg 11/08/20 08:00 11/12/20 13:21 Sevelamer Hcl 800 Mg Tablet PO Not Given TIDWM [facility] Sodium Chloride 3 ml 11/07/20 16:00 11/12/20 10:15 0.9 % Sodium Chloride Flush 3 Ml Syringe IVFLUSH 3 ml QSHIFT [facility] Administration Trazodone HCl 50 mg 11/07/20 21:00 11/11/20 21:16 Trazodone Hcl 50 Mg Tablet PO 50 mg BEDTIME PEG Administration Vitamin B Complex/Folic Acid 1 cap 11/08/20 09:00 11/12/20 10:15 B Complex W-C No.20/Folic Acid Capsule PO 1 cap DAILY PEG Administration Labs CBC & Chem 7: 11/12/20 12:02 11/09/20 05:06 Assessment and Plan (1) Chronic constipation: Status: Acute (2) Symptomatic anemia: Status: Acute (3) Acute GI bleeding: Status: Acute Assessment and Plan: 80 YM with ESRD previously on PD now on HD, chronic anemia requiring intermittent transfusions, hx HTN, HLD, asthma, JULIA on CPAP, seizure disorder, s/p PPM, afib on Eliquis, HFpEF admitted with severe anemia, recent episode of hematochezia precipitated by manual dis-impaction for constipation. Patient has a known history of colon polyps on colonoscopy 3 years ago per patient. Report of the procedure is not available. He denies having an upper endoscopy the past. Acute on chronic Anemia. No symptoms. GI bleed. Question source can be both upper or lower GI source, No recurrent episode of GI bleed hematocrit improved after 1 unit of packed RBC, follow CBC at a.m. continue to hold Eliquis,if noted to have drop in hematocrit then will re-consult Gastroenterology for both upper and lower endoscopy . EGD and colonscopy done today with finding of duodenitis and polyps. Will transfuse [address] Barfield recommends Await pathology results. s/p 1 additional unit on 11/11 H/H Resume anticoagulation on 11/18/20 Start Miralax once daily for constipation. Patient to schedule a FU appointment in the GI Clinic with Tia Barfield M.D. I will schedule a Capsule Endoscopy if he has recurrent anemia Repeat Colonoscopy interval based on path results - in 3 years if polyps are adenomatous.. End-stage renal disease on dialysis. Hemodialysis Saturday and Saturday Continued volume optimization on HD Renal Diet- 2 Gram K, 2 Gram Na, Phos restricted , Fluid restriction 1.5 L/24 hours Renvela tid with meals; GI follow up History of hypotension BP stable continue midodrine . AFib. Continue metoprolol, hold Eliquis due to GI bleed. History of seizure disorder. Seizure precautions, Keppra. DVT prophylaxis mechanical device due to GI bleed
--- NOTE | 2020-11-12 15:47 | MHC.CM.PN ---
Pt cleared to return to [facility] to complete his STR today however, the SNF liaison reports they do not have a bed for him at this time. She reports if pt is swabbed for covid and the results are negative, they can admit him to a second floor bed tomorrow morning and asks that he be sent as early as possible. Pt, hospitalist and nurse are aware of DC delay.
[2020-11-12 20:07] LABS: COVID-19 Test Negative (Negative); IDNOW Serial# 9DD0AD1C
[2020-11-12] MEDS: levETIRAcetam 500 MG TABLET PO (22:07)
[2020-11-12] MEDS: Montelukast Sodium 10 MG TABLET PO (22:07)
[2020-11-12] MEDS: Gabapentin 100 MG CAPSULE PO (22:08)
[2020-11-12] MEDS: Pravastatin Sodium 40 MG TABLET PO (22:08)
[2020-11-12] MEDS: traZODone HCL 50 MG TABLET PO (22:08)
[2020-11-13] MEDS: 0.9 % Sodium Chloride Flush 3 ML SYRINGE IVFLUSH ×2 (00:07→08:38)
--- NOTE | 2020-11-13 00:38 | PC.NURSE ---
Patient angry he was awoken for shift assessment at approx 0000. He stated that he is fine and was supposed to get discharged Saturday but was held over until Saturday to be discharged. He did not understand why we are still following the same procedures of caring for him, saying he is healthy enough to be discharged and doesnt need to be woken up for anything. Despite explanation that we still have a duty to care for him and make sure he is okay, he told me that he didnt want anyone waking him up. I left the room without being able to do an assessment and I notified the VOICE DATA COMMUNICATIONS ENGINEER to also leave him to sleep at his request. I will monitor as able from the hallway and tend to him if he requests.
[2020-11-13 04:00] VITALS: RESP 16
[2020-11-13 08:37] VITALS: BP 132/78; PULSE 70
[2020-11-13] MEDS: Metoprolol Succinate ER 25 MG TAB.ER.24H PO (08:37)
[2020-11-13] MEDS: levETIRAcetam 500 MG TABLET PO (08:37)
--- NOTE | 2020-11-13 08:43 | MHC.CM.PN ---
Updates sent to [facility]. Liaison reports they are able to accept pt this morning. Transportation arranged via [facility] for 1000 hours.
--- NOTE | 2020-11-13 10:03 | P.PNNP_ITS ---
Subjective Subjective Date of Service: 11/13/20 Interval history: Seen in f/u for ESRD. Had hemodialysis yesterday. Did well. Close to discharge No new complaints today Physical Exam Vital Signs: Vital Signs: Last Vital Signs Temp 98.0 F 11/12/20 16:00 Pulse 70 11/13/20 08:37 Resp 16 11/13/20 04:00 BP 132/78 11/13/20 08:37 Pulse Ox 99 11/12/20 19:42 Body Mass Index 31.9 Const: Other: General patient resting comfortably in no acute distress. Neck is supple no JVD. CVS regular rate rhythm, Respiratory lungs clear to auscultation, no respiratory distress Gastrointestinal abdomen soft, nontender, bowel sounds audible, rectal exam deferred Extremities no clubbing, cyanosis or edema. Neuro nonfocal . Skin no rash General: comfortable, no acute distress and other (Pale) Orientation/consciousness: patient oriented x3 Limitations: No language barrier Neck: Neck: Yes supple Resp: Auscultation: diminished lung sounds Cardio: Other: General patient resting comfortably in no acute distress. Neck is supple no JVD. CVS regular rate rhythm, Respiratory lungs clear to auscultation, no respiratory distress Gastrointestinal abdomen soft, nontender, bowel sounds audible, rectal exam deferred Extremities no clubbing, cyanosis or edema. Neuro nonfocal . Skin no rash Rate: regular rate Heart sounds: no rubs GI: Palpation (GI): Soft to palpation Neuro: General: patient oriented x3 and moves all extremities Cranial nerves: Yes Normal hearing present Speech: No Abnormal speech present Objective Data Labs CBC & Chem 7: 11/12/20 12:02 11/09/20 05:06 Labs: Laboratory Results - last 24 hr 11/12/20 11/12/20 12:02 19:42 WBC 5.0 RBC 2.27 L Hgb 7.8 L Hct 23.1 L MCV 101.8 H MCH 34.4 H MCHC 33.8 RDW 18.6 H Plt Count 56 L MPV 10.4 Absolute Nucleated RBC 0.000 Nucleated RBC % (auto) 0.0 COVID-19 ([place]) Negative COVID-19 Clin Com See Note Assessment & Plan Assessment and plan (1) End-stage renal disease on hemodialysis: Problem details: Seen and examined this AM Usually gets HD [facility] ( [facility]) Volume optimization on H Procrit 18905 Units TTS Renal Diet ; Phos binders with meals Next HD Saturday at [facility] if discharged Wants to consider return to PD-I will arrange an appt with him and his CONSIDER NOT RESUMING ANTICOAGULATION GIVEN CHRONIC ISSUES WITH GIB Status: Acute Assessment and Plan: 80 YM with ESRD previously on PD now on HD, chronic anemia requiring intermittent transfusions, hx HTN, HLD, asthma, JULIA on CPAP, seizure disorder, s/p PPM, afib on Eliquis, HFpEF admitted with severe anemia, recent episode of hematochezia precipitated by manual dis-impaction for constipation. Patient has a known history of colon polyps on colonoscopy 3 years ago per patient. Report of the procedure is not available. He denies having an upper endoscopy the past. Time Spent With Patient Time: Total time spent is greater than 50% in coordination of care (as documented) at patient's floor/unit and/or counseling patient:
== END 2020-11-13 10:15 | disposition skilled nursing facility (03) | DRG 377 ==
LOC: HO.ED 15:44 → HO.IMC 11-08 07:56
PROVIDERS: Hospitalist; Internal Medicine Gastroenterology; Nurse Practitioner Acute Care; Physician Assistant; Admitting Provider Family Medicine; Emergency Provider Emergency Medicine; PCP Internal Medicine; Visit Provider Internal Medicine
PROC: 0DB98ZX Excision of Duodenum, Via Natural or Artificial Opening Endoscopic, Diagnostic (ICD-10-PCS; principal; 2020-11-11 09:30)
DX: K29.71 Gastritis, unspecified, with bleeding (principal); N18.6 End stage renal disease; I13.2 Hypertensive heart and chronic kidney disease with heart failure and with stage 5 chronic kidney disease, or end stage renal disease; D62 Acute posthemorrhagic anemia; K29.81 Duodenitis with bleeding; K57.31 Diverticulosis of large intestine without perforation or abscess with bleeding; G40.909 Epilepsy, unspecified, not intractable, without status epilepticus; D63.1 Anemia in chronic kidney disease; K59.09 Other constipation; K63.5 Polyp of colon; I48.91 Unspecified atrial fibrillation; Z95.0 Presence of cardiac pacemaker; Z20.828 Contact with and (suspected) exposure to other viral communicable diseases; Z87.891 Personal history of nicotine dependence; Z99.2 Dependence on renal dialysis; Z79.01 Long term (current) use of anticoagulants; Z79.899 Other long term (current) drug therapy
CPT/HCPCS: 36415; 36430; 71045; 80048; 82272; 82607; 82728; 82746; 83540; 83735; 83880; 84484; 85025; 85027; 85610; 86850; 86900; 86901; 86920; 86923; 87635; 88305; 88342; 90999; 93005; 99232; 99284; 99285; J2370; J2405; P9016

== ENCOUNTER 2021-01-31 12:29 | Emergency (ER) | payer OTHER, SELFPAY ==
[2021-01-31 12:43] VITALS: BP 153/85; PULSE 84; RESP 18; TEMP 36.6; O2SAT 97; BMI 31.6
--- NOTE | 2021-01-31 13:23 | ED.GENADULT ---
HPI - General Adult General Chief complaint: Recheck/Abnormal Lab/Rx Stated complaint: ABNORMAL LABS PER SNF Time Seen by Provider: 01/31/21 13:15 History of Present Illness HPI narrative: Patient who had testing done today in dialysis was noted to have low hemoglobin hematocrit and was sent to the ER Patient is not aware of any bleeding from gums or rectum, he has had no black stools no vomiting, he does feel mildly weak but is not dizzy he has had no chest pain no shortness of breath no abdominal pain He has had several transfusions in the past and it is not clear why he is anemic Related Data Home Medications Medication Instructions Recorded Confirmed B complex with C 20-folic acid 1 cap PO DAILY 11/07/20 11/07/20 acetaminophen 650 mg PO Q4H PRN 11/07/20 11/07/20 apixaban 2.5 mg PO BID 11/07/20 11/07/20 docusate sodium 100 mg PO DAILY PRN 11/07/20 11/07/20 famotidine 20 mg PO Q48H 11/07/20 11/07/20 fluticasone propion-salmeterol 1 inh INHALATION Q12H 11/07/20 11/07/20 [Advair Diskus] gabapentin 100 mg PO BEDTIME 11/07/20 11/07/20 gabapentin 100 mg PO DAILY PRN 11/07/20 11/07/20 levetiracetam [Keppra] 500 mg PO BID 11/07/20 11/07/20 metoprolol succinate [Toprol XL] 25 mg PO DAILY 11/07/20 11/07/20 midodrine See Rx Instructions .ROUTE .COMPLEX 11/07/20 11/07/20 montelukast 10 mg PO BEDTIME 11/07/20 11/07/20 ondansetron HCl [Zofran] 4 mg PO Q6H PRN 11/07/20 11/07/20 pravastatin 40 mg PO BEDTIME 11/07/20 11/07/20 sevelamer carbonate [Renvela] 1,600 mg PO TID 11/07/20 11/07/20 trazodone 50 mg PO BEDTIME 11/07/20 11/07/20 simethicone 80 mg PO QID PRN 11/11/20 11/11/20 Previous Rx's Medication Instructions Recorded omeprazole magnesium [Prilosec OTC] 20 mg PO DAILY 28 Days #28 tab 11/12/20 Allergies Allergy/AdvReac Type Severity Reaction Status Date / Time latex Allergy Itching Verified 11/07/20 11:15 Sulfa (Sulfonamide Allergy Headache Verified 11/07/20 11:14 Antibiotics) Review of Systems Review of Systems: Positive for mild weakness There is no fever no chills no confusion no fainting no feeling faint no headache no chest pain no palpitations no shortness of breath no abdominal pain no nausea no vomiting no bleeding from any part of his body no black stool no vomiting no blood in the urine no dysuria no bruising PMFSH Past Medical History Source: nursing notes reviewed Medical History Afib Anemia Asthma Depression H/O: HTN (hypertension) Hyperlipidemia Pacemaker Pneumonia Pulmonary hypertension Renal failure treated with peritoneal dialysis Right heart failure Seizure disorder Sleep apnea Surgical History H/O hernia repair Status post surgical removal of malignant neoplasm of skin Social History Social History Household Members: None Housing: Assisted Living Facility Alcohol intake: unknown Smoking Status: Unknown if ever smoked Tobacco Type: Cigarette Use of substances other than those prescribed or required for medical reasons: No Advance Directives: No Advance Directives Information Provided: No service: No Physical Exam Vital Signs: Vital Signs: Last Vital Signs Temp 97.8 F 01/31/21 19:10 Pulse 76 01/31/21 19:10 Resp 16 01/31/21 19:10 BP 153/88 H 01/31/21 19:10 Pulse Ox 100 01/31/21 18:21 Body Mass Index 31.6 General appearance is no acute distress comfortable, and cooperative A&O x3 The pupils are mildly pale The mucous membranes are moist Neck is supple The chest is clear to auscultation bilaterally Heart no murmur auscultated Abdomen soft nontender Rectal exam was refused Extremities full range of motion x4 Skin no petechiae no purpura aura Neuro no focal deficits Course Course Course Narrative: Patient refused rectal exam so no guiac was done, he refused EKG so no EKG was done and he did not want to be admitted He understands guaiac would help determine if he was having a GI bleed and he does not want it, he understands we do EKG to make sure that strain on his heart from anemia did not produce any acute heart issue and he does not want EKG and we explained that admission for monitoring possible further transfusion and further workup for anemia might be helpful but he refused that and wants to be home He was transfused a unit of blood and discharged home, on discharge he was walking comfortably he was not dizzy he was asymptomatic he was speaking intelligently with good expression and comprehension Medical Decision Making Lab Data Lab results reviewed: Yes I reviewed the patient's lab results. Result diagrams: 01/31/21 13:53 01/31/21 13:53 Labs: Lab Results 01/31/21 01/31/21 01/31/21 Range/Units 13:53 13:53 13:53 WBC 2.6 L (4.8-10.8) X10*3/uL RBC 2.17 L (4.60-5.80) X10*6/uL Hgb 6.8 L* (14.0-18.0) g/dl Hct 20.1 L* (42-52) % MCV 92.6 (80-98) fL MCH 31.3 (27.0-33.0) pg MCHC 33.8 (31.0-36.0) g/dl RDW 15.9 (11.0-16.0) % Plt Count 49 L (160-400) X10*3/uL MPV 10.7 (9.4-12.4) fL Immature Gran % (Auto) 1.1 H (0.0-0.4) % Neut % (Auto) 57.3 (45-73) % Lymph % (Auto) 22.5 (20-40) % Ida % (Auto) 17.6 H (2-11) % Eos % (Auto) 1.5 (0-4) % Baso % (Auto) 0.0 (0-2) % Lymph # (Auto) 0.6 L (1.2-4.9) X10*3/uL Ida # (Auto) 0.5 (0.1-1.2) X10*3/uL Eos # (Auto) 0.0 (0.0-0.4) X10*3/uL Baso # (Auto) 0.0 (0.0-0.2) X10*3/uL Abs Immat Gran (auto) 0.03 (0.00-0.03) X10*3/uL Absolute Neuts (auto) 1.5 L (2.0-8.3) X10*3/uL Absolute Nucleated RBC 0.000 (0.0-0.012) X10*3/uL Nucleated RBC % (auto) 0.0 (0.0-0.2) /100WBC Smear Tech's Comments VERIFIED PT 12.2 (10.8-13.0) SEC INR 1.0 (0.9-1.1) APTT 33.6 (24.1-38.0) SEC Sodium 135 (135-145) mmol/L Potassium 4.4 (3.3-5.1) mmol/L Chloride 98 (96-108) mmol/L Carbon Dioxide 29 (22-29) mmol/L Anion Gap 12 (12-20) BUN 18 H (9-16) mg/dL Creatinine 4.64 H* (0.5-1.4) mg/dL Estim Creat Clear Calc 14.5 Estimated GFR 12 Random Glucose 98 (60-115) mg/dL Calcium 8.0 L (8.4-10.2) mg/dL Total Bilirubin 0.7 (0.0-1.0) mg/dL AST 12 (5-37) U/L ALT 12 (0-40) U/L Alkaline Phosphatase 68 (39-117) U/L Total Protein 5.8 L (6.5-8.0) g/dL Albumin 3.3 L (3.5-5.0) g/dL Blood Type Antibody Screen Antibody Identification Direct Antiglob Test RUSSELL, Polyspecific Crossmatch Crossmatch ([facility]) Blood Bank Comment 01/31/21 Range/Units 13:53 WBC (4.8-10.8) X10*3/uL RBC (4.60-5.80) X10*6/uL Hgb (14.0-18.0) g/dl Hct (42-52) % MCV (80-98) fL MCH (27.0-33.0) pg MCHC (31.0-36.0) g/dl RDW (11.0-16.0) % Plt Count (160-400) X10*3/uL MPV (9.4-12.4) fL Immature Gran % (Auto) (0.0-0.4) % Neut % (Auto) (45-73) % Lymph % (Auto) (20-40) % Ida % (Auto) (2-11) % Eos % (Auto) (0-4) % Baso % (Auto) (0-2) % Lymph # (Auto) (1.2-4.9) X10*3/uL Ida # (Auto) (0.1-1.2) X10*3/uL Eos # (Auto) (0.0-0.4) X10*3/uL Baso # (Auto) (0.0-0.2) X10*3/uL Abs Immat Gran (auto) (0.00-0.03) X10*3/uL Absolute Neuts (auto) (2.0-8.3) X10*3/uL Absolute Nucleated RBC (0.0-0.012) X10*3/uL Nucleated RBC % (auto) (0.0-0.2) /100WBC Smear Tech's Comments PT (10.8-13.0) SEC INR (0.9-1.1) APTT (24.1-38.0) SEC Sodium (135-145) mmol/L Potassium (3.3-5.1) mmol/L Chloride (96-108) mmol/L Carbon Dioxide (22-29) mmol/L Anion Gap (12-20) BUN (9-16) mg/dL Creatinine (0.5-1.4) mg/dL Estim Creat Clear Calc Estimated GFR Random Glucose (60-115) mg/dL Calcium (8.4-10.2) mg/dL Total Bilirubin (0.0-1.0) mg/dL AST (5-37) U/L ALT (0-40) U/L Alkaline Phosphatase (39-117) U/L Total Protein (6.5-8.0) g/dL Albumin (3.5-5.0) g/dL Blood Type O Positive Antibody Screen POSITIVE Antibody Identification Anti-K Direct Antiglob Test POSITIVE A RUSSELL, Polyspecific POSITIVE A Crossmatch See Detail Crossmatch ([facility]) See Detail Blood Bank Comment Technical Discharge Plan Discharge Clinical Impression: Anemia Patient Disposition: Home, Self-Care Additional Instructions: We transfused 1 unit of red blood cells You did not want to be admitted to the hospital so we are discharging you home to follow-up with your doctors Return to hospital any time for any worse condition or any concerns Prescriptions: No Action fluticasone propion-salmeterol [Advair Diskus] 250-50 mcg/dose Blister With Device 1 inh INHALATION Q12H RF: 0 acetaminophen 325 mg Tablet 650 mg PO Q4H PRN (Reason: Pain) RF: 0 trazodone 50 mg Tablet 50 mg PO BEDTIME RF: 0 pravastatin 40 mg Tablet 40 mg PO BEDTIME RF: 0 levetiracetam [Keppra] 500 mg Tablet 500 mg PO BID RF: 0 ondansetron HCl [Zofran] 4 mg Tablet 4 mg PO Q6H PRN (Reason: Nausea) RF: 0 famotidine 20 mg Tablet 20 mg PO Q48H RF: 0 docusate sodium 100 mg Capsule 100 mg PO DAILY PRN (Reason: Constipation) RF: 0 montelukast 10 mg Tablet 10 mg PO BEDTIME RF: 0 gabapentin 100 mg Capsule 100 mg PO DAILY PRN (Reason: Agitation) RF: 0 gabapentin 100 mg Capsule 100 mg PO BEDTIME RF: 0 metoprolol succinate [Toprol XL] 25 mg Tablet Extended Release 24 Hr 25 mg PO DAILY RF: 0 B complex with C 20-folic acid 1 mg Capsule 1 cap PO DAILY RF: 0 midodrine 10 mg Tablet See Rx Instructions .ROUTE .COMPLEX RF: 0 sevelamer carbonate [Renvela] 800 mg Tablet 1,600 mg PO TID RF: 0 apixaban 2.5 mg Tablet 2.5 mg PO BID RF: 0 Hold Instructions: Resume on 11/18/20. simethicone 80 mg Tablet,Chewable 80 mg PO QID PRN (Reason: gas and bloating) RF: 0 omeprazole magnesium [Prilosec OTC] 20 mg tablet,delayed release (DR/EC) 20 mg PO DAILY 28 Days Qty: 28 RF: 0 Interventions: ED Discharge Assessment Last Done: 01/31/21 19:43 Discharge Date/Time: 01/31/21 20:39
--- NOTE | 2021-01-31 14:03 | PC.NURSE ---
PT REFUSING EKG AT THIS TIME.
[2021-01-31 14:13] LABS: MANUAL DIFF FLAG SCAN; PLT CLUMP 1; Red Cell Distribution Width 15.9 % (11.0-16.0); SCAN SMEAR FLAG 1
[2021-01-31 14:15] LABS: Eosinophils Percent Auto 1.5 % (0-4); Imm Gran Abs Auto 0.03 X10*3/uL (0.00-0.03); Imm Gran Pct Auto 1.1 % (0.0-0.4); Lymphocytes Absolute Auto 0.6 X10*3/uL (1.2-4.9); Lymphocytes Percent Auto 22.5 % (20-40); Mean Corpuscular HGB Conc 33.8 g/dl (31.0-36.0); Mean Corpuscular Hemoglobin 31.3 pg (27.0-33.0); Mean Corpuscular Volume 92.6 fL (80-98); Mean Platelet Volume 10.7 fL (9.4-12.4); Monocytes Absolute Auto 0.5 X10*3/uL (0.1-1.2); Monocytes Percent Auto 17.6 % (2-11); Neutrophils Absolute Auto 1.5 X10*3/uL (2.0-8.3); Neutrophils Percent Auto 57.3 % (45-73); Red Blood Count 2.17 X10*6/uL (4.60-5.80); White Blood Count 2.6 X10*3/uL (4.8-10.8)
[2021-01-31 14:21] LABS: Prothrombin Time 12.2 SEC (10.8-13.0)
[2021-01-31 14:24] LABS: Partial Thromboplastin Time 33.6 SEC (24.1-38.0)
[2021-01-31 14:27] LABS: Alanine Aminotransferase 12 U/L (0-40); Albumin Level 3.3 g/dL (3.5-5.0); Alkaline Phosphatase 68 U/L (39-117); Anion Gap 12 (12-20); Aspartate Amino Transferase 12 U/L (5-37); Bilirubin Total 0.7 mg/dL (0.0-1.0); Blood Urea Nitrogen 18 mg/dL (9-16); Carbon Dioxide 29 mmol/L (22-29); Chloride 98 mmol/L (96-108); Creatinine Clr Calc Pharmacy 14.5; Estimated Glomerular Filt Rate 12; Glucose Random 98 mg/dL (60-115); Potassium 4.4 mmol/L (3.3-5.1); Sodium 135 mmol/L (135-145); Total Protein 5.8 g/dL (6.5-8.0)
[2021-01-31 14:37] LABS: Hemoglobin 6.8 g/dl (14.0-18.0)
[2021-01-31 14:38] LABS: Hematocrit 20.1 % (42-52)
[2021-01-31 14:40] LABS: Platelet Count 49 X10*3/uL (160-400)
[2021-01-31 14:51] LABS: SLIDE REVIEW VERIFIED
--- NOTE | 2021-01-31 15:52 | PC.NURSE ---
patient refusing occult blood stool. agreed to blood infusion but states he will not agree to being admitted.
--- NOTE | 2021-01-31 16:05 | PC.NURSE ---
Pt given snack of peanut butter and jelly sandwich and fat free milk
[2021-01-31 16:51] VITALS: BP 144/94; PULSE 76; RESP 16; TEMP 37
[2021-01-31 17:07] VITALS: BP 140/71; PULSE 75; RESP 16; TEMP 37.1
[2021-01-31 18:21] VITALS: BP 142/88; PULSE 72; RESP 16; TEMP 36.4; O2SAT 100
[2021-01-31 19:07] VITALS: BP 152/88; PULSE 73; RESP 18; TEMP 36.4
[2021-01-31 19:10] VITALS: BP 153/88; PULSE 76; RESP 16; TEMP 36.6
== END 2021-01-31 20:39 | disposition home or self-care (01) ==
PROVIDERS: Physician Assistant Medical; Emergency Provider Emergency Medicine Emergency Medical Services; PCP Family Medicine
DX: D64.9 Anemia, unspecified (principal); R79.89 Other specified abnormal findings of blood chemistry; F17.210 Nicotine dependence, cigarettes, uncomplicated; Z71.6 Tobacco abuse counseling; Z79.899 Other long term (current) drug therapy
CPT/HCPCS: 36415; 36430; 80053; 85025; 85610; 85730; 86850; 86870; 86880; 86900; 86902; 86920; 86922; 99284; P9016

== ENCOUNTER 2021-02-16 02:53 | Inpatient (IN) | payer OTHER, MEDICARE, SELFPAY ==
[2021-02-16] VITALS (7 sets, daily range): BP systolic 125–148; BP diastolic 61–85; PULSE 73–90; RESP 13–18; TEMP 36.3–36.5; O2SAT 93–100; BMI 32.6
--- NOTE | ~2021-02-16 | CT_ITS ---
EXAMINATIONS: CT HEAD WITHOUT CONTRAST AND CT CERVICAL SPINE WITHOUT CONTRAST CLINICAL INFORMATION: Pain after fall. COMPARISON: None. TECHNIQUE: Contiguous helical images of the brain were obtained without IV contrast. Contiguous helical images of the cervical spine were obtained without IV contrast. Multiplanar reconstructions were performed. DLP: 1376 mGy-cm. FINDINGS: There are no pathologic extra-axial fluid collections. The lateral, third, fourth ventricles are prominent, though age-appropriate and concordant with the appearance of the sulci. There is no evidence for acute intraparenchymal hemorrhage or infarct. There is neither mass nor mass effect. There is no shift of midline structures. The paranasal sinuses and mastoid air cells are clear. There are no osseous lesions. The cervical vertebra are in normal alignment. Vertebral body heights are well-preserved. There is multilevel disc height loss. There are no fractures. There is no prevertebral soft tissue swelling. There is no cervical lymphadenopathy. The visualized lung apices are clear. CT/CT cervical spine wo con IMPRESSION: No evidence for acute intracranial injury. No evidence for acute injury to the cervical spine. Automated exposure control (Care Dose) Adjustment of the mA and/or kv according to patient size (this includes techniques or standardized protocols for targeted exams where dose is matched to indication / reason for exam; i.e. extremities or head).
--- NOTE | ~2021-02-16 | FL_ITS ---
EXAMINATION: XR FLUOROSCOPY WITH IMAGES in OR. CLINICAL INFORMATION: Fracture right hip. COMPARISON: Right hip radiographs 02/16/2021 TECHNIQUE: Fluoroscopy performed by Marcelina Moreno Fluoroscopy time: 2.6 minutes DAP: 0.893 mGycm2 Images: 7 FINDINGS: Spot images show placement of compression screw with long stem intramedullary britany transfixing fracture of the proximal femur. FL/FL guidance in OR IMPRESSION: Status post internal fixation right hip fracture. See intraoperative report for further detail.
--- NOTE | ~2021-02-16 | CT_ITS ---
EXAMINATION: CT PELVIS WITHOUT CONTRAST CLINICAL INFORMATION: Status post surgery. Concern for hematoma. COMPARISON: None TECHNIQUE: Helical scanning was performed with submillimeter collimation through the pelvis. Sagittal and coronal multiplanar 2-D reconstructions were obtained. This CT examination was performed using dose optimization techniques as appropriate, variously including the following: *Automated exposure control *Adjustment of mA and/or kV according to patient size (this includes techniques or standardized protocols for targeted exams where dose is matched to indication/reason for exam; i.e. extremities or head) *Use of iterative reconstruction technique DLP: 712 mGy-cm FINDINGS: PELVIS: There is no pelvic mass. There is no pelvic free fluid. A peritoneal drain is in place without discontinuity. Visualized unopacified loops of small and large bowel are unremarkable. A normal appendix is identified. OSSEOUS STRUCTURES: A right intramedullary britany is in place with a proximal interlocking screw. Hardware is intact traversing the intertrochanteric fracture. There is expected overlying edema and subcutaneous gas. Lateral to the right innominate bone, there is an approximately 7 cm slightly high attenuation fluid collection with adjacent edema. CT/CT pelvis wo con IMPRESSION: Approximate 7 cm high attenuation fluid collection lateral to the right innominate bone likely sales solutions representative of a hematoma. Additional expected postoperative findings as stated above. Intact hardware.
--- NOTE | ~2021-02-16 | XR_ITS ---
EXAMINATIONS: PELVIS 1 VIEW AND RIGHT HIP 2 VIEWS CLINICAL INFORMATION: Pain after fall. COMPARISON: None. TECHNIQUE: A supine view of the pelvis is provided. AP neutral and crosstable lateral views of the right hip are provided. FINDINGS: There is a comminuted right intertrochanteric fracture with mild varus angulation. The femoral head is seated within a well-formed acetabulum. There is mild hip joint space narrowing bilaterally. XR/XR hip RT min 2V IMPRESSION: Comminuted right intertrochanteric hip fracture.
--- NOTE | ~2021-02-16 | CT_ITS ---
EXAMINATIONS: CT HEAD WITHOUT CONTRAST AND CT CERVICAL SPINE WITHOUT CONTRAST CLINICAL INFORMATION: Pain after fall. COMPARISON: None. TECHNIQUE: Contiguous helical images of the brain were obtained without IV contrast. Contiguous helical images of the cervical spine were obtained without IV contrast. Multiplanar reconstructions were performed. DLP: 1376 mGy-cm. FINDINGS: There are no pathologic extra-axial fluid collections. The lateral, third, fourth ventricles are prominent, though age-appropriate and concordant with the appearance of the sulci. There is no evidence for acute intraparenchymal hemorrhage or infarct. There is neither mass nor mass effect. There is no shift of midline structures. The paranasal sinuses and mastoid air cells are clear. There are no osseous lesions. The cervical vertebra are in normal alignment. Vertebral body heights are well-preserved. There is multilevel disc height loss. There are no fractures. There is no prevertebral soft tissue swelling. There is no cervical lymphadenopathy. The visualized lung apices are clear. CT/CT head/brain wo con IMPRESSION: No evidence for acute intracranial injury. No evidence for acute injury to the cervical spine. Automated exposure control (Care Dose) Adjustment of the mA and/or kv according to patient size (this includes techniques or standardized protocols for targeted exams where dose is matched to indication / reason for exam; i.e. extremities or head).
--- NOTE | ~2021-02-16 | XR_ITS ---
EXAMINATION: CHEST 1 VIEW CLINICAL INFORMATION: Fall. Hip fracture. COMPARISON: None. TECHNIQUE: An AP view of the chest is provided. FINDINGS: The cardiac silhouette is not enlarged. A left-sided dual lumen central venous line is in place with the tip within the right atrium. The mediastinal and hilar contours are unremarkable. There are neither pleural effusions nor pneumothoraces. There are no consolidations. The osseous structures are unremarkable. XR/XR chest 1V IMPRESSION: No evidence for acute disease.
--- NOTE | 2021-02-16 03:11 | ED_ITS ---
HPI - Fall General Chief Complaint: Fall Stated Complaint: FOUND ON BR FLOOR W/R LEG SHORT/ROTATED PER SNF Time Seen by Provider: 02/16/21 03:07 Source: patient and EMS Mode of arrival: EMS Limitations: altered mental status History of Present Illness HPI Narrative: 80 yo male on apixaban for afib - found on floor RLE shortened and rotated, patient cannot remember why he fell unknown down time MD complaint: fall Onset (ago): unknown Fall from: standing Fall witnessed: no Place fall occurred: long-term/SNF Loss of consciousness: unsure Prolonged down time: unclear Symptoms prior to fall: none Context: history of frequent falls Location of injury - extremities: right: thigh Severity: moderate Quality: dull Associated symptoms (after fall): unable to walk and other (R hip pain) Related Data Home Medications Medication Instructions Recorded Confirmed B complex with C 20-folic acid 1 cap PO DAILY 11/07/20 11/07/20 acetaminophen 650 mg PO Q4H PRN 11/07/20 11/07/20 apixaban 2.5 mg PO BID 11/07/20 11/07/20 docusate sodium 100 mg PO DAILY PRN 11/07/20 11/07/20 famotidine 20 mg PO Q48H 11/07/20 11/07/20 fluticasone propion-salmeterol 1 inh INHALATION Q12H 11/07/20 11/07/20 [Advair Diskus] gabapentin 100 mg PO BEDTIME 11/07/20 11/07/20 gabapentin 100 mg PO DAILY PRN 11/07/20 11/07/20 levetiracetam [Keppra] 500 mg PO BID 11/07/20 11/07/20 metoprolol succinate [Toprol XL] 25 mg PO DAILY 11/07/20 11/07/20 midodrine See Rx Instructions .ROUTE .COMPLEX 11/07/20 11/07/20 montelukast 10 mg PO BEDTIME 11/07/20 11/07/20 ondansetron HCl [Zofran] 4 mg PO Q6H PRN 11/07/20 11/07/20 pravastatin 40 mg PO BEDTIME 11/07/20 11/07/20 sevelamer carbonate [Renvela] 1,600 mg PO TID 11/07/20 11/07/20 trazodone 50 mg PO BEDTIME 11/07/20 11/07/20 simethicone 80 mg PO QID PRN 11/11/20 11/11/20 Previous Rx's Medication Instructions Recorded omeprazole magnesium [Prilosec OTC] 20 mg PO DAILY 28 Days #28 tab 11/12/20 Allergies Allergy/AdvReac Type Severity Reaction Status Date / Time latex Allergy Itching Verified 11/07/20 11:15 Sulfa (Sulfonamide Allergy Headache Verified 11/07/20 11:14 Antibiotics) Review of Systems Review of Systems: Constitutional : No Fever, No Chills ENT/Mouth : No Ear Pain, No Hoarseness, No sore throat Eyes: No Eye Pain, No Swelling, No Redness, No Foreign Body Cardiovascular : No Chest Pain, No SOB Respiratory : No Cough, No Dyspnea Gastrointestinal : No Nausea, No Vomiting, No Diarrhea, No abdominal Pain Genitourinary : No Dysuria, No Hematuria Musculoskeletal : positive joint pain, No Myalgias, No Joint Swelling Skin : No Skin lacerations, No rash Neuro : No Weakness, No Numbness, No Loss of Consciousness, No Dizziness, No Headache Psych : No Anxiety/Panic, No Depression Heme/Lymph: no easy bruising, no Lymphadenopathy Endocrine : No Polyuria, No Polydipsia All other systems reviewed and are negative [facility] Past Medical History Attestation statement: The following information was validated with the patient. Medical History Afib Anemia Asthma Depression H/O: HTN (hypertension) Hyperlipidemia Pacemaker Pneumonia Pulmonary hypertension Renal failure treated with peritoneal dialysis Right heart failure Seizure disorder Sleep apnea Surgical History H/O hernia repair Status post surgical removal of malignant neoplasm of skin Social History Social History Household Members: None Housing: Assisted Living Facility Alcohol intake: unknown Smoking Status: Unknown if ever smoked Tobacco Type: Cigarette Use of substances other than those prescribed or required for medical reasons: No Advance Directives: No service: No Physical Exam Vital Signs: Vital Signs: Last Vital Signs Temp 97.3 F 02/16/21 03:06 Pulse 84 02/16/21 06:12 Resp 17 02/16/21 06:12 BP 134/74 02/16/21 06:12 Pulse Ox 96 02/16/21 06:12 Body Mass Index 32.6 Appearance: Alert. Oriented X2. No acute distress. Eyes: Pupils equal, round and reactive to light. ENT: Pharynx normal. Neck: Normal inspection. Neck supple. c collar in place CVS: irregularl heart rate and rhythm. Pulses normal. permacath site c/d/i Respiratory: No respiratory distress. Breath sounds normal. Abdomen: Soft and nontender. peritoneal HD site c/d/i Skin: Skin warm and dry. Normal skin color. Normal skin turgor. Extremities: No lower extremity edema. R hip ttp distal NV intact - shortened and rotated Neuro: Oriented X 2. No motor deficit. No sensory deficit. Course Course Course Narrative: hospitalist and orthopedics notified - PA and message sent to Dr. Branch planned admit, H/H at baseline K 6.1 no EKG changes calcium and kayexalate ordered MDM - Fall MDM Narrative Medical decision making narrative: 80 yo male with afib on apixaban, CRF on HD, HPL, dementia, HTN comes in with unwitnessed found down on the ground - RLE rotated and shortened no other injuries noted but given age and AC therapy, CT head/cspine, xrays, EKG and basic labs ordered. complicated patient likely if fracture will need medical admit Lab Data Result diagrams: 02/16/21 03:50 02/16/21 03:50 Labs: Lab Results 02/16/21 02/16/21 02/16/21 Range/Units 03:50 03:50 03:50 WBC 4.8 (4.8-10.8) X10*3/uL RBC 2.48 L (4.60-5.80) X10*6/uL Hgb 7.7 L (14.0-18.0) g/dl Hct 23.6 L (42-52) % MCV 95.2 (80-98) fL MCH 31.0 (27.0-33.0) pg MCHC 32.6 (31.0-36.0) g/dl RDW 15.9 (11.0-16.0) % Plt Count 61 L (160-400) X10*3/uL MPV 10.4 (9.4-12.4) fL Immature Gran % (Auto) 1.3 H (0.0-0.4) % Neut % (Auto) 71.9 (45-73) % Lymph % (Auto) 13.9 L (20-40) % [place] % (Auto) 11.6 H (2-11) % Eos % (Auto) 1.1 (0-4) % Baso % (Auto) 0.2 (0-2) % Lymph # (Auto) 0.7 L (1.2-4.9) X10*3/uL [place] # (Auto) 0.6 (0.1-1.2) X10*3/uL Eos # (Auto) 0.1 (0.0-0.4) X10*3/uL Baso # (Auto) 0.0 (0.0-0.2) X10*3/uL Abs Immat Gran (auto) 0.06 H (0.00-0.03) X10*3/uL Absolute Neuts (auto) 3.4 (2.0-8.3) X10*3/uL Absolute Nucleated RBC 0.000 (0.0-0.012) X10*3/uL Nucleated RBC % (auto) 0.0 (0.0-0.2) /100WBC Smear Tech's Comments VERIFIED Sodium 137 (135-145) mmol/L Potassium 6.1 H* (3.3-5.1) mmol/L Chloride 98 (96-108) mmol/L Carbon Dioxide 26 (22-29) mmol/L Anion Gap 19 (12-20) BUN 45 H (9-16) mg/dL Creatinine 7.99 H* (0.5-1.4) mg/dL Estim Creat Clear Calc 8.3 Estimated GFR 7 Random Glucose 99 (60-115) mg/dL Calcium 9.6 D (8.4-10.2) mg/dL Magnesium 2.0 (1.6-2.6) mg/dL Total Bilirubin 1.1 H (0.0-1.0) mg/dL Direct Bilirubin 0.5 (0.0-0.5) mg/dL AST 13 (5-37) U/L ALT 14 (0-40) U/L Alkaline Phosphatase 69 (39-117) U/L Total Creatine Kinase 36 L (38-174) U/L Total Protein 6.6 (6.5-8.0) g/dL Albumin 3.9 (3.5-5.0) g/dL Lipase 17 (8-78) U/L Blood Type Antibody Screen 02/16/21 Range/Units 03:50 WBC (4.8-10.8) X10*3/uL RBC (4.60-5.80) X10*6/uL Hgb (14.0-18.0) g/dl Hct (42-52) % MCV (80-98) fL MCH (27.0-33.0) pg MCHC (31.0-36.0) g/dl RDW (11.0-16.0) % Plt Count (160-400) X10*3/uL MPV (9.4-12.4) fL Immature Gran % (Auto) (0.0-0.4) % Neut % (Auto) (45-73) % Lymph % (Auto) (20-40) % [place] % (Auto) (2-11) % Eos % (Auto) (0-4) % Baso % (Auto) (0-2) % Lymph # (Auto) (1.2-4.9) X10*3/uL [place] # (Auto) (0.1-1.2) X10*3/uL Eos # (Auto) (0.0-0.4) X10*3/uL Baso # (Auto) (0.0-0.2) X10*3/uL Abs Immat Gran (auto) (0.00-0.03) X10*3/uL Absolute Neuts (auto) (2.0-8.3) X10*3/uL Absolute Nucleated RBC (0.0-0.012) X10*3/uL Nucleated RBC % (auto) (0.0-0.2) /100WBC Smear Tech's Comments Sodium (135-145) mmol/L Potassium (3.3-5.1) mmol/L Chloride (96-108) mmol/L Carbon Dioxide (22-29) mmol/L Anion Gap (12-20) BUN (9-16) mg/dL Creatinine (0.5-1.4) mg/dL Estim Creat Clear Calc Estimated GFR Random Glucose (60-115) mg/dL Calcium (8.4-10.2) mg/dL Magnesium (1.6-2.6) mg/dL Total Bilirubin (0.0-1.0) mg/dL Direct Bilirubin (0.0-0.5) mg/dL AST (5-37) U/L ALT (0-40) U/L Alkaline Phosphatase (39-117) U/L Total Creatine Kinase (38-174) U/L Total Protein (6.5-8.0) g/dL Albumin (3.5-5.0) g/dL Lipase (8-78) U/L Blood Type O Positive Antibody Screen POSITIVE ECG Data Attestation: I personally reviewed and interpreted this ECG as follows: ECG interpretation date: 02/16/21 ECG interpretation time: 03:51 Interpretation: Rate: 70s Rhythm: afib, PVCs [place]: normal Normal QRS complex. ST T wave : no VIJAY, nonspecific qTC:prolonged prior studies: no acute ischemia, artifact noted The study has been interpreted contemporaneously by me. . Discharge Plan Discharge Clinical Impression: Anemia in chronic kidney disease, Chronic kidney failure, Closed intertrochanteric fracture of right hip, Fall, Acute hyperkalemia Patient Disposition: Admitted As Inpatient Prescriptions: No Action fluticasone propion-salmeterol [Advair Diskus] 250-50 mcg/dose Blister With Device 1 inh INHALATION Q12H RF: 0 acetaminophen 325 mg Tablet 650 mg PO Q4H PRN (Reason: Pain) RF: 0 trazodone 50 mg Tablet 50 mg PO BEDTIME RF: 0 pravastatin 40 mg Tablet 40 mg PO BEDTIME RF: 0 levetiracetam [Keppra] 500 mg Tablet 500 mg PO BID RF: 0 ondansetron HCl [Zofran] 4 mg Tablet 4 mg PO Q6H PRN (Reason: Nausea) RF: 0 famotidine 20 mg Tablet 20 mg PO Q48H RF: 0 docusate sodium 100 mg Capsule 100 mg PO DAILY PRN (Reason: Constipation) RF: 0 montelukast 10 mg Tablet 10 mg PO BEDTIME RF: 0 gabapentin 100 mg Capsule 100 mg PO DAILY PRN (Reason: Agitation) RF: 0 gabapentin 100 mg Capsule 100 mg PO BEDTIME RF: 0 metoprolol succinate [Toprol XL] 25 mg Tablet Extended Release 24 Hr 25 mg PO DAILY RF: 0 B complex with C 20-folic acid 1 mg Capsule 1 cap PO DAILY RF: 0 midodrine 10 mg Tablet See Rx Instructions .ROUTE .COMPLEX RF: 0 sevelamer carbonate [Renvela] 800 mg Tablet 1,600 mg PO TID RF: 0 apixaban 2.5 mg Tablet 2.5 mg PO BID RF: 0 Hold Instructions: Resume on 11/18/20. simethicone 80 mg Tablet,Chewable 80 mg PO QID PRN (Reason: gas and bloating) RF: 0 omeprazole magnesium [Prilosec OTC] 20 mg tablet,delayed release (DR/EC) 20 mg PO DAILY 28 Days Qty: 28 RF: 0
--- NOTE | 2021-02-16 03:18 | ECG_ITS ---
Test Reason : FALL Blood Pressure : / mmHG Vent. Rate : 076 BPM Atrial Rate : 102 BPM P-R Int : 000 ms QRS Dur : 086 ms QT Int : 454 ms P-R-T Axes : 000 028 -50 degrees QTc Int : 510 ms Atrial fibrillation with V pacing Nonspecific ST and T wave abnormality Prolonged QT Abnormal ECG When compared with ECG of 07-NOV-2020 12:55, No significant changes seen Referred By: Coni Hassan Electronically Signed By:RADHA ETIENNE
[2021-02-16 03:59] LABS: Basophils Percent Auto 0.2 % (0-2); Eosinophils Absolute Auto 0.1 X10*3/uL (0.0-0.4); Eosinophils Percent Auto 1.1 % (0-4); Hematocrit 23.6 % (42-52); Hemoglobin 7.7 g/dl (14.0-18.0); Imm Gran Abs Auto 0.06 X10*3/uL (0.00-0.03); Imm Gran Pct Auto 1.3 % (0.0-0.4); Lymphocytes Absolute Auto 0.7 X10*3/uL (1.2-4.9); Lymphocytes Percent Auto 13.9 % (20-40); MANUAL DIFF FLAG SCAN; Mean Corpuscular HGB Conc 32.6 g/dl (31.0-36.0); Mean Corpuscular Volume 95.2 fL (80-98); Mean Platelet Volume 10.4 fL (9.4-12.4); Monocytes Absolute Auto 0.6 X10*3/uL (0.1-1.2); Monocytes Percent Auto 11.6 % (2-11); Neutrophils Absolute Auto 3.4 X10*3/uL (2.0-8.3); Neutrophils Percent Auto 71.9 % (45-73); Red Blood Count 2.48 X10*6/uL (4.60-5.80); Red Cell Distribution Width 15.9 % (11.0-16.0); SCAN SMEAR FLAG 1; White Blood Count 4.8 X10*3/uL (4.8-10.8)
[2021-02-16 04:00] LABS: Platelet Count 61 X10*3/uL (160-400)
[2021-02-16 04:08] LABS: SLIDE REVIEW VERIFIED
[2021-02-16 06:09] LABS: Alanine Aminotransferase 14 U/L (0-40); Albumin Level 3.9 g/dL (3.5-5.0); Alkaline Phosphatase 69 U/L (39-117); Aspartate Amino Transferase 13 U/L (5-37); Bilirubin Direct 0.5 mg/dL (0.0-0.5); Bilirubin Total 1.1 mg/dL (0.0-1.0); Lipase 17 U/L (8-78); Total Protein 6.6 g/dL (6.5-8.0)
[2021-02-16 06:10] LABS: INTERNATIONAL NORM RATIO 1.1 (0.9-1.1); Partial Thromboplastin Time 30.9 SEC (24.1-38.0); Prothrombin Time 12.9 SEC (10.8-13.0)
--- NOTE | 2021-02-16 06:18 | PC.NURSE ---
UNABLE TO SEND URINE SAMPLE, PT IS A DIALYSIS PATIENT AND DOES NOT PRODUCE URINE. PT STILL IN MODERATE TO HIGH LEVEL OF PAIN AN HOUR FOLLOWING MORPHINE.
[2021-02-16 06:25] LABS: Anion Gap 19 (12-20); Blood Urea Nitrogen 45 mg/dL (9-16); Calcium 9.6 mg/dL (8.4-10.2); Carbon Dioxide 26 mmol/L (22-29); Chloride 98 mmol/L (96-108); Creatinine Clr Calc Pharmacy 8.3; Estimated Glomerular Filt Rate 7; Glucose Random 99 mg/dL (60-115); Potassium 6.1 mmol/L (3.3-5.1); Sodium 137 mmol/L (135-145)
[2021-02-16 06:29] LABS: Troponin-I High Sensitivity 41.9 ng/L (<3.5-35.0)
[2021-02-16 06:30] LABS: COVID-19 Test Negative (Negative)
[2021-02-16] MEDS: Morphine Sulfate 4 MG/ML CARTRIDGE IVPUSH (07:40)
--- NOTE | 2021-02-16 07:45 | PC.NURSE ---
pt resting in the stretcher, reports having lots of pain in his right hip, hip is rotated and shortened, pt is a dialysis pt, Tuesdays, , Saturday. pt does have a left chest dialysis port and peritoneal cath as well. vs stable at this time. pt will answer questions appropriately at times but then seems to confused as well. pt keeps falling asleep in mid-conversation,
--- NOTE | 2021-02-16 08:03 | PC.NURSE ---
orthopedic at bedside, not sure when the surgery is going to occur because pt takes eliquies, but as of now npo until further notice
--- NOTE | 2021-02-16 08:18 | PC.NURSE ---
spoke to jade the pt's son, according to the son pt's has these times of confusion and it appears to brought on by low h+h, usually requires transfusion, also gets these shaking epises niels number [phone]
--- NOTE | 2021-02-16 08:54 | P.CONOP_ITS ---
History of Present Illness HPI Consult date: 02/16/21 Consult reason: joint pain and fracture Chief complaint: Hyperkalemia,Fall Narrative: Mr. Jean is an 80 yo male who presented to the ED from his SNF at [facility]. He sustained a mechanical fall and was unable to weightbear and was complaining of right hip pain. The SNF transferred him to the ED by ambulance w here x-rays were obtained and he was found to have a right intertrochanteric hip fracture. The patient has been admitted to the Medicine Service and orthopedics was consulted for further evaluation and planning of care. The patient has a past medical history significant for A. fb, cardiac pacemaker, renal failure on dialysis, seizures, HF, anemia, and dementia. The patient is unable to recall the events leading up to his hip fracture and has a difficult time responding to verbal cues due to confusion. I have spoken to his son Huy who states that this is his normal baseline of confusion. Huy [phone] [place] [phone] Review of Systems Review of Systems: Yes all other systems are reviewed and are negative [facility] Past Medical History Medical History Afib Anemia Asthma Depression H/O: HTN (hypertension) Hyperlipidemia Pacemaker Pneumonia Pulmonary hypertension Renal failure treated with peritoneal dialysis Right heart failure Seizure disorder Sleep apnea Surgical History Surgical History H/O hernia repair Status post surgical removal of malignant neoplasm of skin Social History Social History Household Members: None Housing: Assisted Living Facility Alcohol intake: unknown Smoking Status: Unknown if ever smoked Tobacco Type: Cigarette Use of substances other than those prescribed or required for medical reasons: No Advance Directives: Yes Advance Directives on File: Yes Advance Directives Date on File: 02/01/21 service: No Meds Allergies Allergy/AdvReac Type Severity Reaction Status Date / Time latex Allergy Itching Verified 11/07/20 11:15 Sulfa (Sulfonamide Allergy Headache Verified 11/07/20 11:14 Antibiotics) Active Medications: Current Medications Generic Name Dose Route Start Last Admin Trade Name Freq PRN Reason Stop Dose Admin Pharmacy Consult 1 each 02/16/21 03:17 Consult Rx Perform Med Rec MISCELLANE ONCE PRN Consult order Sodium Chloride 3 ml 02/16/21 16:00 0.9 % Sodium Chloride Flush 3 Ml Syringe [facility] Medications Medication Instructions Recorded Confirmed Last Taken Type acetaminophen 650 mg PO Q4H PRN 11/07/20 02/16/21 Unknown History apixaban 2.5 mg PO BID 11/07/20 11/07/20 11/07/20 History docusate sodium 100 mg PO DAILY PRN 11/07/20 02/16/21 Unknown History famotidine 20 mg PO Q48H 11/07/20 02/16/21 11/07/20 History fluticasone propion-salmeterol 1 inh INHALATION Q12H 11/07/20 02/16/21 11/07/20 History [Advair Diskus] gabapentin 100 mg PO Q6H PRN 11/07/20 02/16/21 11/06/20 History gabapentin 200 mg PO TID 11/07/20 02/16/21 Unknown History levetiracetam [Keppra] 500 mg PO BID 11/07/20 02/16/21 11/07/20 History metoprolol succinate [Toprol XL] 25 mg PO DAILY 11/07/20 02/16/21 11/07/20 History montelukast 10 mg PO BEDTIME 11/07/20 02/16/21 11/06/20 History ondansetron HCl [Zofran] 4 mg PO Q6H PRN 11/07/20 02/16/21 Unknown History pravastatin 40 mg PO BEDTIME 11/07/20 02/16/21 11/06/20 History dxxolppmqw-oezibglhrovgl-ytmx 1 cap PO Q6H PRN 02/16/21 02/16/21 Unknown History [Fioricet] calcium acetate 1,334 mg PO TIDWM 02/16/21 02/16/21 Unknown History Physical Exam Vital Signs: Vital Signs: Last Vital Signs Temp 97.3 F 02/16/21 03:06 Pulse 84 02/16/21 07:44 Resp 16 02/16/21 07:44 BP 137/77 02/16/21 07:44 Pulse Ox 93 02/16/21 07:44 Body Mass Index 32.6 Const: General: cooperative and no acute distress Resp: Effort & Inspection: normal respiratory effort and able to speak in complete sentences Cardio: Peripheral pulses: Peripheral pulses 2+ throughout Skin: General skin exam: no rashes or lesions noted Extrem: Other: Right lower extremity is shortened and externally rotated. Pain with log roll. Patient is able to demonstrate dorsiflexion and plantar flexion. Pedal pulse intact. Sensation intact. Results Labs Result Diagrams: 02/16/21 03:50 02/16/21 03:50 Labs: Abnormal lab results 02/16/21 02/16/21 02/16/21 Range/Units 03:50 03:50 03:50 RBC 2.48 L (4.60-5.80) X10*6/uL Hgb 7.7 L (14.0-18.0) g/dl Hct 23.6 L (42-52) % Plt Count 61 L (160-400) X10*3/uL Immature Gran % (Auto) 1.3 H (0.0-0.4) % Lymph % (Auto) 13.9 L (20-40) % Real % (Auto) 11.6 H (2-11) % Lymph # (Auto) 0.7 L (1.2-4.9) X10*3/uL Abs Immat Gran (auto) 0.06 H (0.00-0.03) X10*3/uL Potassium 6.1 H* (3.3-5.1) mmol/L BUN 45 H (9-16) mg/dL Creatinine 7.99 H* (0.5-1.4) mg/dL Total Bilirubin 1.1 H (0.0-1.0) mg/dL Total Creatine Kinase 36 L (38-174) U/L Troponin I High Sens (<3.5-35.0) ng/L 02/16/21 Range/Units 03:50 RBC (4.60-5.80) X10*6/uL Hgb (14.0-18.0) g/dl Hct (42-52) % Plt Count (160-400) X10*3/uL Immature Gran % (Auto) (0.0-0.4) % Lymph % (Auto) (20-40) % Real % (Auto) (2-11) % Lymph # (Auto) (1.2-4.9) X10*3/uL Abs Immat Gran (auto) (0.00-0.03) X10*3/uL Potassium (3.3-5.1) mmol/L BUN (9-16) mg/dL Creatinine (0.5-1.4) mg/dL Total Bilirubin (0.0-1.0) mg/dL Total Creatine Kinase (38-174) U/L Troponin I High Sens 41.9 H (<3.5-35.0) ng/L H & H 02/16/21 Range/Units 03:50 Hgb 7.7 L (14.0-18.0) g/dl Hct 23.6 L (42-52) % Coagulation 02/16/21 Range/Units 03:50 INR 1.1 (0.9-1.1) All other labs normal. Assessment and Plan (1) Closed intertrochanteric fracture of right hip: Qualifiers: Encounter type: initial encounter Fracture alignment: displaced Qualified Code(s): S72.141A - Displaced intertrochanteric fracture of right femur, initial encounter for closed fracture Status: Acute I discussed the case with Dr. Quijano and explained the extent of the injury to the patient and his son Huy and options available which include surgical intervention. I explained the procedure in detail along with the length of recovery and rehab course. I explained the risk, benefits and alternatives. Risk including, but not limited to infection, blood clots, bleeding, non union or malunion and nerve/tissue damage to surrounding areas. Huy states that he would like to speak with his who is a nurse before consenting to move forward with operative fixation. I am awaiting his return phonecall to obtain consent and move forward with surgical planning as soon as possible. In the meantime the patient will remain NPO and medical clearance to be obtained by Medicine.
--- NOTE | 2021-02-16 09:47 | PC.NURSE ---
pt is currently asleep, respirations even and unlabored, vs stable
--- NOTE | 2021-02-16 10:06 | P.EN_ITS ---
Event Note Date of Service: 02/16/21 Event Note: Spoke with Son Huy and he has decided to move forward with ope rative fixation of the right hip. Consent obtained. The patient will be NPO after midnight. Type and screen obtained. Medicine to obtained medical clearance. I discussed the case with Dr. Quijano and explained the extent of the injury to the patient and options available which include surgical intervention. I explained the procedure in detail along with the length of recovery and rehab course. I explained the risk, benefits and alternatives. Risk including, but not limited to infection, blood clots, bleeding, non union or malunion and nerve/tissue damage to surrounding areas. I answered all their questions and with their understanding they have consented to move forward with Operative Fixation of the right hip.
--- NOTE | 2021-02-16 10:14 | PC.NURSE ---
pt transported to dialysis
--- NOTE | 2021-02-16 10:59 | PC.NURSE ---
RECEIVED REPORT FROM ASHLEY REYES, PT CURRENTLY IN DIALYSIS.
--- NOTE | 2021-02-16 14:44 | PC.NURSE ---
report given to bianca RN, they will transport pt to their floor.
[2021-02-16 16:46] LABS: Troponin-I High Sensitivity 40.5 ng/L (<3.5-35.0)
--- NOTE | 2021-02-16 17:42 | P.HPHOSP_ITS ---
History of Present Illness Date of Service: 02/16/21 Chief Complaint: Fall and hip fracture 80 year old male with ESRD previously on PD now on HD, chronic anemia requiring intermittent transfusions at [facility], [place], hx HTN, HLD, asthma, JULIA on CPAP, seizure disorder, s/p PPM, afib previously on Eliquis but taking off since November, , chronic constipation. He was brought from [facility] after he was found down under unclear circumstances and of unknown duration. He was confused when I saw him in ED and therefore relied on ED documentation for additional information. He was able to tell me at that time he was in hospital and didn't know how he felt. He was noted to have Hyperkalemia with potassium of 6.1 and singificantly anemic 7.7 with report of gib, CT head no acute trauma, xray of hip showed right hip fracture and ortho planned to operate on him tomorrow. I notified Dr. Black was planning urgent dialysis. Review of Systems Review of Systems: Gen: no fever Resp: no sob, no cough CV: no chest, no FORTE, no leg edema GI: No n/v, no abd pain Neuro: some confusion MSK: right hip pain Yes all other systems are reviewed and are negative [facility] Medical History (Updated 02/17/21 @ 08:56 by Ramona Santos NP-C) Afib Anemia Asthma Depression H/O: HTN (hypertension) Hyperlipidemia Pacemaker Pneumonia Pulmonary hypertension Renal failure treated with peritoneal dialysis Right heart failure Seizure disorder Sleep apnea Thrombocytopenia Family history: reviewed and not pertinent Surgical History H/O hernia repair Status post surgical removal of malignant neoplasm of skin Social History Household Members: Unknown / Unable to assess Housing: Unknown / Unable to assess Alcohol intake: unknown Smoking Status: Unknown if ever smoked Tobacco Type: Cigarette Advance Directives Date on File: 02/01/21 service: Yes Current occupational status: retired Meds Allergies Allergy/AdvReac Type Severity Reaction Status Date / Time latex Allergy Itching Verified 11/07/20 11:15 Sulfa (Sulfonamide Allergy Headache Verified 11/07/20 11:14 Antibiotics) Active Medications: Current Medications Generic Name Dose Route Start Last Admin Trade Name Freq PRN Reason Stop Dose Admin Docusate Sodium 100 mg 02/16/21 17:39 Docusate Sodium 100 Mg Capsule PO DAILY PRN Constipation Famotidine 20 mg 02/16/21 17:45 Famotidine 20 Mg Tablet PO Q48H [facility] Gabapentin 100 mg 02/16/21 17:39 Gabapentin 100 Mg Capsule PO Q6H PRN NERVE PAIN Gabapentin 200 mg 02/16/21 21:00 Gabapentin 100 Mg Capsule PO TID [facility] Levetiracetam 500 mg 02/16/21 21:00 Levetiracetam 500 Mg Tablet PO BID [facility] Metoprolol Succinate 25 mg 02/17/21 09:00 Metoprolol Succinate Er 25 Mg Tab.Er.24h PO DAILY [facility] Protocol Montelukast Sodium 10 mg 02/16/21 21:00 Montelukast Sodium 10 Mg Tablet PO BEDTIME [facility] Morphine Sulfate 2 mg 02/16/21 17:38 Morphine Sulfate 2 Mg/Ml Cartridge IVPUSH Q4H PRN Pain, Severe (Pain Scale 7-10) Omeprazole 20 mg 02/17/21 09:00 Omeprazole 20 Mg Capsule. PO DAILY [facility] Pharmacy Consult 1 each 02/16/21 03:17 Consult Rx Perform Med Rec MISCELLANE ONCE PRN Consult order Pravastatin Sodium 40 mg 02/16/21 21:00 Pravastatin Sodium 40 Mg Tablet PO BEDTIME [facility] Sodium Chloride 3 ml 02/16/21 16:00 0.9 % Sodium Chloride Flush 3 Ml Syringe IVFLUSH QSHIFT [facility] Home Medications Medication Instructions Recorded Confirmed Last Taken Type acetaminophen 650 mg PO Q4H PRN 11/07/20 02/16/21 Unknown History apixaban 2.5 mg PO BID 11/07/20 11/07/20 11/07/20 History docusate sodium 100 mg PO DAILY PRN 11/07/20 02/16/21 Unknown History famotidine 20 mg PO Q48H 11/07/20 02/16/21 11/07/20 History fluticasone propion-salmeterol 1 inh INHALATION Q12H 11/07/20 02/16/21 11/07/20 History [Advair Diskus] gabapentin 100 mg PO Q6H PRN 11/07/20 02/16/21 11/06/20 History gabapentin 200 mg PO TID 11/07/20 02/16/21 Unknown History levetiracetam [Keppra] 500 mg PO BID 11/07/20 02/16/21 11/07/20 History metoprolol succinate [Toprol XL] 25 mg PO DAILY 11/07/20 02/16/21 11/07/20 History montelukast 10 mg PO BEDTIME 11/07/20 02/16/21 11/06/20 History ondansetron HCl [Zofran] 4 mg PO Q6H PRN 11/07/20 02/16/21 Unknown History pravastatin 40 mg PO BEDTIME 11/07/20 02/16/21 11/06/20 History vhlhfzwssj-gjwhtxjdwaaiv-bvkn 1 cap PO Q6H PRN 02/16/21 02/16/21 Unknown History [Fioricet] calcium acetate 1,334 mg PO TIDWM 02/16/21 02/16/21 Unknown History Physical Exam Vital Signs and Narrative: Vital Signs: Last Vital Signs Temp 97.7 F 02/16/21 15:53 Pulse 82 02/16/21 15:53 Resp 17 02/16/21 15:53 BP 125/67 02/16/21 15:53 Pulse Ox 100 02/16/21 15:53 Body Mass Index 32.6 Results Labs CBC and Chem 7: 02/17/21 07:21 02/17/21 07:21 Labs: Laboratory Results - last 24 hr 02/16/21 02/16/21 02/16/21 03:50 03:50 03:50 MCV 95.2 MCH 31.0 MCHC 32.6 RDW 15.9 Plt Count 61 L MPV 10.4 Immature Gran % (Auto) 1.3 H Neut % (Auto) 71.9 Lymph % (Auto) 13.9 L [place] % (Auto) 11.6 H Eos % (Auto) 1.1 Baso % (Auto) 0.2 Lymph # (Auto) 0.7 L [place] # (Auto) 0.6 Eos # (Auto) 0.1 Baso # (Auto) 0.0 Abs Immat Gran (auto) 0.06 H Absolute Neuts (auto) 3.4 Absolute Nucleated RBC 0.000 Nucleated RBC % (auto) 0.0 Smear Tech's Comments VERIFIED PT 12.9 INR 1.1 APTT 30.9 Anion Gap 19 Estim Creat Clear Calc 8.3 Estimated GFR 7 Random Glucose 99 Calcium 9.6 D Magnesium Total Bilirubin Direct Bilirubin AST ALT Alkaline Phosphatase Total Creatine Kinase Troponin I High Sens Total Protein Albumin Lipase COVID-19 (GERMAN) COVID-19 Clin Com Blood Type Antibody Screen Antibody Identification Direct Antiglob Test RUSSELL, Polyspecific Crossmatch 02/16/21 02/16/21 02/16/21 03:50 03:50 03:50 MCV MCH MCHC RDW Plt Count MPV Immature Gran % (Auto) Neut % (Auto) Lymph % (Auto) [place] % (Auto) Eos % (Auto) Baso % (Auto) Lymph # (Auto) [place] # (Auto) Eos # (Auto) Baso # (Auto) Abs Immat Gran (auto) Absolute Neuts (auto) Absolute Nucleated RBC Nucleated RBC % (auto) Smear Tech's Comments PT INR APTT Anion Gap Estim Creat Clear Calc Estimated GFR Random Glucose Calcium Magnesium 2.0 Total Bilirubin 1.1 H Direct Bilirubin 0.5 AST 13 ALT 14 Alkaline Phosphatase 69 Total Creatine Kinase 36 L Troponin I High Sens 41.9 H Total Protein 6.6 Albumin 3.9 Lipase 17 COVID-19 (GERMAN) Negative COVID-19 Clin Com See Note Blood Type Antibody Screen Antibody Identification Direct Antiglob Test RUSSELL, Polyspecific Crossmatch 02/16/21 02/16/21 03:50 15:59 MCV MCH MCHC RDW Plt Count MPV Immature Gran % (Auto) Neut % (Auto) Lymph % (Auto) [place] % (Auto) Eos % (Auto) Baso % (Auto) Lymph # (Auto) [place] # (Auto) Eos # (Auto) Baso # (Auto) Abs Immat Gran (auto) Absolute Neuts (auto) Absolute Nucleated RBC Nucleated RBC % (auto) Smear Tech's Comments PT INR APTT Anion Gap Estim Creat Clear Calc Estimated GFR Random Glucose Calcium Magnesium Total Bilirubin Direct Bilirubin AST ALT Alkaline Phosphatase Total Creatine Kinase Troponin I High Sens 40.5 H Total Protein Albumin Lipase COVID-19 (GERMAN) COVID-19 Clin Com Blood Type O Positive Antibody Screen POSITIVE Antibody Identification Anti-K Direct Antiglob Test POSITIVE A RUSSELL, Polyspecific POSITIVE A Crossmatch See Detail Assessment and Plan (1) Anemia in chronic kidney disease: Qualifiers: Chronic kidney disease stage: unspecified stage Qualified Code(s): N18.9 - Chronic kidney disease, unspecified; D63.1 - Anemia in chronic kidney disease Status: Acute (2) Closed intertrochanteric fracture of right hip: Qualifiers: Encounter type: initial encounter Fracture alignment: displaced Qualified Code(s): S72.141A - Displaced intertrochanteric fracture of right femur, initial encounter for closed fracture Status: Acute (3) Acute hyperkalemia: Status: Acute (4) End-stage renal disease on hemodialysis: Status: Acute (5) Thrombocytopenia: Status: Acute (6) Chronic constipation: Status: Acute 80 year old male with ESRD previously on PD now on HD, chronic anemia requiring intermittent transfusions at [facility], [place], hx HTN, HLD, asthma, JULIA on CPAP, seizure disorder, s/p PPM, afib on Eliquis, HFpEF, chronic constipation with SNF s/p fall with finding of right hip fracture, anemia, hypeklamia, elevated troponin 1. Right Hip Fracture--Ortho will operate on him -elevated troponin is flat and due to ESRD--There is no indication for further cardiac testing. -Hold Eliquis--Was taken off in November according to Thomas Montaño -Morphine for pain control 2. Hypekalemia--should correct after dialysis 3. ESRD--Dialysis today, discussed with Dr. Black. Hemodialysis Saturday and Saturday Continued volume optimization on HD Renal Diet- 2 Gram K, 2 Gram Na, Phos restricted , Fluid restriction 1.5 L/24 hours 4. AFIB--continue Metoprolol. No anticoagulation. 5. Chronic anemia, transfusion dependint, stable -Transfuse 2 to goal of aroun crit of 30 before surgery 6. Thrombocytopenia--Chronic and stable but for surgery will transfuse 1 unit before surgery 7. Seizure d/o--continue Keppra DVT prophylaxis: compression device I called son for update and no answer
[2021-02-16] MEDS: 0.9 % Sodium Chloride Flush 3 ML SYRINGE IVFLUSH ×2 (18:18→20:35)
--- NOTE | 2021-02-16 18:27 | PM.CNNEP ---
History of Present Illness Reason for Consult Consult date: 02/16/21 Reason for consult: esrd, hyoperkalemia Chief Complaint Chief complaint: Hyperkalemia,Fall History of Present Illness Narrative: Sen in er and then again at HD Events noted Confused and unable to provid much info Review of Systems Review of Systems Gen: no fever Resp: no sob, no cough CV: no chest, no FORTE, no leg edema GI: No n/v, no abd pain Neuro: some confusion MSK: right hip pain Yes all other systems are reviewed and are negative [facility] Past Medical History Medical History (Updated 02/16/21 @ 17:54 by Sunil Miller MD) Afib Anemia Asthma Depression H/O: HTN (hypertension) Hyperlipidemia Pacemaker Pneumonia Pulmonary hypertension Renal failure treated with peritoneal dialysis Right heart failure Seizure disorder Sleep apnea Thrombocytopenia Family History Family history: reviewed and not pertinent Surgical History Surgical History H/O hernia repair Status post surgical removal of malignant neoplasm of skin Social History Social History Household Members: None Housing: Assisted Living Facility Alcohol intake: unknown Smoking Status: Unknown if ever smoked Tobacco Type: Cigarette Advance Directives Date on File: 02/01/21 service: No Meds Allergies Allergy/AdvReac Type Severity Reaction Status Date / Time latex Allergy Itching Verified 11/07/20 11:15 Sulfa (Sulfonamide Allergy Headache Verified 11/07/20 11:14 Antibiotics) Active Medications: Current Medications Generic Name Dose Route Start Last Admin Trade Name Freq PRN Reason Stop Dose Admin Docusate Sodium 100 mg 02/16/21 17:39 Docusate Sodium 100 Mg Capsule PO DAILY PRN Constipation Famotidine 20 mg 02/16/21 17:45 02/16/21 18:20 Famotidine 20 Mg Tablet PO Not Given Q48H [facility] Gabapentin 100 mg 02/16/21 17:39 Gabapentin 100 Mg Capsule PO Q6H PRN NERVE PAIN Gabapentin 200 mg 02/16/21 21:00 Gabapentin 100 Mg Capsule PO TID [facility] Cefazolin Sodium/Dextrose 2 gm in 50 mls @ 100 mls/hr 02/17/21 08:00 Ancef IV 02/17/21 08:29 PREOP ONE Levetiracetam 500 mg 02/16/21 21:00 Levetiracetam 500 Mg Tablet PO BID [facility] Metoprolol Succinate 25 mg 02/17/21 09:00 Metoprolol Succinate Er 25 Mg Tab.Er.24h PO DAILY [facility] Protocol Montelukast Sodium 10 mg 02/16/21 21:00 Montelukast Sodium 10 Mg Tablet PO BEDTIME [facility] Morphine Sulfate 2 mg 02/16/21 17:38 Morphine Sulfate 2 Mg/Ml Cartridge IVPUSH Q4H PRN Pain, Severe (Pain Scale 7-10) Omeprazole 20 mg 02/17/21 09:00 Omeprazole 20 Mg Capsule.Dr PO DAILY [facility] Pharmacy Consult 1 each 02/16/21 03:17 Consult Rx Perform Med Rec MISCELLANE ONCE PRN Consult order Pravastatin Sodium 40 mg 02/16/21 21:00 Pravastatin Sodium 40 Mg Tablet PO BEDTIME [facility] Sodium Chloride 3 ml 02/16/21 16:00 02/16/21 18:18 0.9 % Sodium Chloride Flush 3 Ml Syringe IVFLUSH 3 ml QSHIFT [facility] Administration Home Medications Medication Instructions Recorded Confirmed Last Taken Type acetaminophen 650 mg PO Q4H PRN 11/07/20 02/16/21 Unknown History apixaban 2.5 mg PO BID 11/07/20 11/07/20 11/07/20 History docusate sodium 100 mg PO DAILY PRN 11/07/20 02/16/21 Unknown History famotidine 20 mg PO Q48H 11/07/20 02/16/21 11/07/20 History fluticasone propion-salmeterol 1 inh INHALATION Q12H 11/07/20 02/16/21 11/07/20 History [Advair Diskus] gabapentin 100 mg PO Q6H PRN 11/07/20 02/16/21 11/06/20 History gabapentin 200 mg PO TID 11/07/20 02/16/21 Unknown History levetiracetam [Keppra] 500 mg PO BID 11/07/20 02/16/21 11/07/20 History metoprolol succinate [Toprol XL] 25 mg PO DAILY 11/07/20 02/16/21 11/07/20 History montelukast 10 mg PO BEDTIME 11/07/20 02/16/21 11/06/20 History ondansetron HCl [Zofran] 4 mg PO Q6H PRN 11/07/20 02/16/21 Unknown History pravastatin 40 mg PO BEDTIME 11/07/20 02/16/21 11/06/20 History kvqatycgec-oursxdjltxssb-nqhr 1 cap PO Q6H PRN 02/16/21 02/16/21 Unknown History [Fioricet] calcium acetate 1,334 mg PO TIDWM 02/16/21 02/16/21 Unknown History Physical Exam Vital Signs: Last Vital Signs Temp 97.7 F 02/16/21 15:53 Pulse 82 02/16/21 15:53 Resp 17 02/16/21 15:53 BP 125/67 02/16/21 15:53 Pulse Ox 100 02/16/21 15:53 Body Mass Index 32.6 Const General: cooperative and no acute distress Resp Effort & Inspection: normal respiratory effort and able to speak in complete sentences Cardio Peripheral pulses: Peripheral pulses 2+ throughout Skin General skin exam: no rashes or lesions noted Extrem Other: Right lower extremity is shortened and externally rotated. Pain with log roll. Patient is able to demonstrate dorsiflexion and plantar flexion. Pedal pulse intact. Sensation intact. Results Lab Results Result Diagrams: 02/16/21 03:50 02/16/21 03:50 Lab results: Chemistry 02/16/21 03:50 Sodium 137 Potassium 6.1 H* Carbon Dioxide 26 BUN 45 H Creatinine 7.99 H* Calcium 9.6 D Hematology 02/16/21 03:50 WBC 4.8 Hgb 7.7 L Plt Count 61 L Assessment and Plan (1) Anemia in chronic kidney disease: Qualifiers: Chronic kidney disease stage: unspecified stage Qualified Code(s): N18.9 - Chronic kidney disease, unspecified; D63.1 - Anemia in chronic kidney disease Status: Acute (2) Closed intertrochanteric fracture of right hip: Qualifiers: Encounter type: initial encounter Fracture alignment: displaced Qualified Code(s): S72.141A - Displaced intertrochanteric fracture of right femur, initial encounter for closed fracture Status: Acute (3) Acute hyperkalemia: Status: Acute (4) End-stage renal disease on hemodialysis: Status: Acute (5) Thrombocytopenia: Status: Acute (6) Chronic constipation: Status: Acute 80 year old male with ESRD previously on PD now on HD, chronic anemia requiring intermittent transfusions at [facility] [place], hx HTN, HLD, asthma, JULIA on CPAP, seizure disorder, s/p PPM, afib on Eliquis, HFpEF, chronic constipation with SNF s/p fall with finding of right hip fracture, anemia, hypeklamia, elevated troponin 1. HyperK: HD today 2. ESRD: HD today 3. Hip Fx: skyler repair 4. Anemai: may need xfusion 5. AMS: multifact REC: HD today on low K bath; track Hb; cont procrit ( I will order)f
[2021-02-17] VITALS (26 sets, daily range): BP systolic 129–182; BP diastolic 69–96; PULSE 75–97; RESP 14–20; TEMP 36.2–37.2; O2SAT 94–100; BMI 10.9; BMI 32.0
[2021-02-17] MEDS: Morphine Sulfate 2 MG/ML CARTRIDGE IVPUSH ×2 (03:03→16:14)
[2021-02-17] MEDS: Morphine Sulfate 2 MG/ML CARTRIDGE 1 MG IVPUSH (05:08)
--- NOTE | 2021-02-17 07:07 | PC.NURSE ---
Pt 0600 labs do not appear to have been drawn. Called phlebotomy to check on status, said they will check on status and call back.
[2021-02-17 07:29] LABS: Mean Corpuscular HGB Conc 33.2 g/dl (31.0-36.0); Mean Corpuscular Hemoglobin 30.6 pg (27.0-33.0); Mean Corpuscular Volume 92.2 fL (80-98); Mean Platelet Volume 10.1 fL (9.4-12.4); Red Blood Count 2.19 X10*6/uL (4.60-5.80); Red Cell Distribution Width 16.7 % (11.0-16.0); White Blood Count 4.7 X10*3/uL (4.8-10.8)
[2021-02-17 07:35] LABS: Hematocrit 20.2 % (42-52); Hemoglobin 6.7 g/dl (14.0-18.0)
[2021-02-17 07:36] LABS: Platelet Count 69 X10*3/uL (160-400)
--- NOTE | 2021-02-17 07:38 | PC.NURSE ---
Received Critical results from Hematology H&H 6.7, 20.2. Mariano Texed Dr. Miller with results. He asked if pt got blood over night, pt received one unit of blood and one unit of platelets. Made Dr. Miller aware that lucina is going to pick him up for 8:00AM. Dr Lee states he needs more blood.
--- NOTE | 2021-02-17 07:57 | PC.NURSE ---
lee ann connected anesthesia dr mcneill and dr echevarria of h/h and plateltes level. also lee ann connected clarita taylor rn to make aware of adnormal lab and so he can reach out to dr frias for ? transfusion prior to materials and processes manager from med/surg floor and spoke to [facility] wants 4 units of blood ans 3 units of plaltelets prior to surgery will make anesthesia and dr echevarria aware
[2021-02-17 08:01] LABS: Anion Gap 15 (12-20); Blood Urea Nitrogen 30 mg/dL (9-16); Calcium 8.5 mg/dL (8.4-10.2); Carbon Dioxide 22 mmol/L (22-29); Chloride 103 mmol/L (96-108); Estimated Glomerular Filt Rate 10; Glucose Random 94 mg/dL (60-115); Potassium 5.3 mmol/L (3.3-5.1); Sodium 135 mmol/L (135-145)
--- NOTE | 2021-02-17 08:19 | PC.NURSE ---
pt on hold for now until blood and platelets available and tranfused per dr charito otto rn on med/surg aware
--- NOTE | 2021-02-17 08:30 | MHC.CM.PN ---
pt is from [facility], he is also HD; dc plan is to return to [facility] when medically stable. a ref. has been made. cm to cont. to follow.
--- NOTE | 2021-02-17 08:40 | PC.NURSE ---
spoke to blood bank platelets [facility] after 12 and blood going to take awhile all parties aware pt will recieve tranfuse on the floor and stay npo ? surgery later today or tomorrow
--- NOTE | 2021-02-17 08:46 | PM.CNCAR ---
History of Present Illness History of Present Illness Date of Service: 02/17/21 Requesting physician: Sunil Miller Consult reason: pre-op evaluation Chief complaint: Hyperkalemia,Fall Narrative: Cardiology consult for preop eval for ORIF Hip. Richie is an 80 yo male with PMH of HTN, HLD, JULIA with CPAP, [employer] PPM, HFpEF, atrial flibrillation, ESRD on dialysis, chronic anemia who resides at [facility], was found on floor and admitted for evaluation. His K was elevated at 6.1 and he underwent dialysis. K this am 5.3. He has anemia with hgb 7.7 on admit, this am 6.7. Son tells me that he goes to the [facility] for transfusions. EKG/ Tele noted to have afib with controlled rates. Troponin minimally elevated, flat. No ACS. Xrays confirm a right hip fracture and he will need ORIF. Cardiology consulted for preop evaluation. Pt is observed today in bed. No acute distress. Unclear orientation. Not conversing or answering questions. He will say No repeatedly when I try to do physical assessment. Review of Systems Review of Systems: Yes Unobtainable due to mental condition [facility] Past Medical History Medical History (Updated 02/17/21 @ 08:56 by Ramona Santos, AUTOM[employer]IC LOG CUT OFF SAWYER-C) Afib Anemia Asthma Depression H/O: HTN (hypertension) Hyperlipidemia Pacemaker Pneumonia Pulmonary hypertension Renal failure treated with peritoneal dialysis Right heart failure Seizure disorder Sleep apnea Thrombocytopenia Family History Family history: reviewed and not pertinent Surgical History Surgical History H/O hernia repair Status post surgical removal of malignant neoplasm of skin Social History Social History Household Members: Unknown / Unable to assess Housing: Unknown / Unable to assess Alcohol intake: unknown Smoking Status: Unknown if ever smoked Tobacco Type: Cigarette Advance Directives Date on File: 02/01/21 service: Yes Current occupational status: retired Meds Allergies Allergy/AdvReac Type Severity Reaction Status Date / Time latex Allergy Itching Verified 11/07/20 11:15 Sulfa (Sulfonamide Allergy Headache Verified 11/07/20 11:14 Antibiotics) Active Medications: Current Medications Generic Name Dose Route Start Last Admin Trade Name Freq PRN Reason Stop Dose Admin Docusate Sodium 100 mg 02/16/21 17:39 Docusate Sodium 100 Mg Capsule PO DAILY PRN Constipation Famotidine 20 mg 02/16/21 17:45 02/16/21 18:20 Famotidine 20 Mg Tablet PO Not Given Q48H [facility] Gabapentin 100 mg 02/16/21 17:39 Gabapentin 100 Mg Capsule PO Q6H PRN [employer]ERVE [employer]IN Gabapentin 200 mg 02/16/21 21:00 02/16/21 20:44 Gabapentin 100 Mg Capsule PO Not Given TID [facility] Levetiracetam 500 mg 02/16/21 21:00 02/16/21 20:44 Levetiracetam 500 Mg Tablet PO Not Given BID [facility] Metoprolol Succinate 25 mg 02/17/21 09:00 Metoprolol Succinate Er 25 Mg Tab.Er.24h PO DAILY [facility] Protocol Montelukast Sodium 10 mg 02/16/21 21:00 02/16/21 20:44 Montelukast Sodium 10 Mg Tablet PO Not Given BEDTIME [facility] Morphine Sulfate 2 mg 02/16/21 17:38 02/17/21 03:03 Morphine Sulfate 2 Mg/Ml Cartridge IVPUSH 2 mg Q4H PRN Administration Pain, Severe (Pain Scale 7-10) Omeprazole 20 mg 02/17/21 09:00 Omeprazole 20 Mg Capsule. PO DAILY [facility] Pharmacy Consult 1 each 02/16/21 03:17 Consult Rx Perform Med Rec MISCELLANE ONCE PRN Consult order Pravastatin Sodium 40 mg 02/16/21 21:00 02/16/21 20:44 Pravastatin Sodium 40 Mg Tablet PO Not Given BEDTIME [facility] Sodium Chloride 3 ml 02/16/21 16:00 02/16/21 20:35 0.9 % Sodium Chloride Flush 3 Ml Syringe IVFLUSH 3 ml QSHIFT [facility] Administration Home Medications Medication Instructions Recorded Confirmed Last Taken Type acetaminophen 650 mg PO Q4H PRN 11/07/20 02/16/21 Unknown History apixaban 2.5 mg PO BID 11/07/20 11/07/20 11/07/20 History docusate sodium 100 mg PO DAILY PRN 11/07/20 02/16/21 Unknown History famotidine 20 mg PO Q48H 11/07/20 02/16/21 11/07/20 History fluticasone propion-salmeterol 1 inh INHALATION Q12H 11/07/20 02/16/21 11/07/20 History [Advair Diskus] gabapentin 100 mg PO Q6H PRN 11/07/20 02/16/21 11/06/20 History gabapentin 200 mg PO TID 11/07/20 02/16/21 Unknown History levetiracetam [Keppra] 500 mg PO BID 11/07/20 02/16/21 11/07/20 History metoprolol succinate [Toprol XL] 25 mg PO DAILY 11/07/20 02/16/21 11/07/20 History montelukast 10 mg PO BEDTIME 11/07/20 02/16/21 11/06/20 History ondansetron HCl [Zofran] 4 mg PO Q6H PRN 11/07/20 02/16/21 Unknown History pravastatin 40 mg PO BEDTIME 11/07/20 02/16/21 11/06/20 History tkamijljhx-qrfntkycwfbgh-ipta 1 cap PO Q6H PRN 02/16/21 02/16/21 Unknown History [Fioricet] calcium acetate 1,334 mg PO TIDWM 02/16/21 02/16/21 Unknown History Physical Exam Vital Signs: Vital Signs: Last Vital Signs Temp 98.2 F 02/17/21 07:57 Pulse 96 02/17/21 07:57 Resp 19 02/17/21 07:57 BP 139/89 02/17/21 07:57 Pulse Ox 100 02/17/21 07:57 Body Mass Index 10.9 Const: Other: makes eye contact, mostly nonverbal with exception of No , not following commands General: no acute distress, alert and awake HENMT: Head: Yes normal to inspection Eyes: Conjunctivae: conjunctivae normal Neck: Neck: Yes normal visual inspection and Yes no JVD Carotids: carotid upstroke abnormal Resp: Effort & Inspection: normal respiratory effort and not labored Auscultation: clear to auscultation bilaterally, no crackles, no rales, no rhonchi and no wheezes Cardio: Other: Irregular heart tones, pacer site left upper chest benign Rate: regular rate Heart sounds: S1 normal heart sound present and S2 normal heart sound present Peripheral pulses: Peripheral pulses 2+ throughout GI: Inspection: Yes normal to inspection Extrem: General: No edema Results Labs and Meds Result diagrams: 02/17/21 07:21 02/17/21 07:21 Lab results: Laboratory Results - last 24 hr 02/16/21 02/16/21 02/17/21 03:50 15:59 07:21 WBC 4.7 L RBC 2.19 L Hgb 6.7 L* Hct 20.2 L* MCV 92.2 MCH 30.6 MCHC 33.2 RDW 16.7 H Plt Count 69 L MPV 10.1 Absolute Nucleated RBC 0.000 Nucleated RBC % (auto) 0.0 Sodium Potassium Chloride Carbon Dioxide Anion Gap BUN Creatinine Estim Creat Clear Calc Estimated GFR Random Glucose Calcium Troponin I High Sens 40.5 H Blood Type O Positive Antibody Screen POSITIVE Antibody Identification Anti-K Direct Antiglob Test POSITIVE A RUSSELL, Polyspecific POSITIVE A Crossmatch See Detail 02/17/21 07:21 WBC RBC Hgb Hct MCV MCH MCHC RDW Plt Count MPV Absolute Nucleated RBC Nucleated RBC % (auto) Sodium 135 Potassium 5.3 H Chloride 103 Carbon Dioxide 22 Anion Gap 15 BUN 30 H Creatinine 5.45 H* Estim Creat Clear Calc 5.0 Estimated GFR 10 Random Glucose 94 Calcium 8.5 D Troponin I High Sens Blood Type Antibody Screen Antibody Identification Direct Antiglob Test RUSSELL, Polyspecific Crossmatch Assessment and Plan (1) Preop cardiovascular exam: Problem details: Preop for ORIF Hip. Status: Acute Records reviewed and state he has hx of HTN, HLD, Atrial fibrillation and off anticoagulation since Nov 2020, HFpEF, JULIA with CPAP use, Pacemaker. He is not able to provide further information. Called his son Huy ( [phone]) and he is unsure of who brush clearer surveying but believes he is seen at the [facility] echo done 09/03/19 EF 55-60%, no regional WMA, mild to mod concentric LVH, mild , RV severely dilated, pacer wire in RV, LA snd RA severely dilated, severe TR, severe pulm HTN. Nuclear stress test done 12/24/19 shows normal myocardial perfusion imaging without fixed or reversible defect, EF 57% at rest and 53% with IV regadenson. EKG this admit with Atrial fibrillation, V paced beats , nonspecific ST/ T wave abn. Unable to assess for CP. Tele showing Afib, occ V paced beats, rates 80-90s. Trop slight elevation, flat and likely related to his CKD. No ACS. BP adequately controlled at present. No clinical signs indicating decompensated HF. Has significant anemia with Hgb 6.7 today. Stool +. Hx anemia with prior transfusions, follows at [facility] for blood issue per son. Case reviewed with Dr Olson. Echo done and he will review. Pt will be at least an intermediate cardiac risk. If echo shows severe RV dysfunction, his risk may be higher. Watch for signs of heart failure. Pt will need to be transfused prior to surgery. Continue Metoprolol and pravastatin. Ongoing tele monitoring. (2) Afib: Status: Acute Hx of afib. Onclear at present if Paroxysmal or persistant. Notes indicate he was taken off anticoagulation in November. He has anemia issues as above. He is on Metoprolol for heart rate control. Tele showing rates average 80-90s. Continue current tx. (3) Pacemaker: Status: Acute [employer] PPM. Tele shows intermittent V paced rhythm. Device appears to be functioning normally. (4) Anemia in chronic kidney disease: Qualifiers: Chronic kidney disease stage: unspecified stage Qualified Code(s): N18.9 - Chronic kidney disease, unspecified; D63.1 - Anemia in chronic kidney disease Status: Acute (5) Chronic kidney failure: Qualifiers: Chronic kidney disease stage: unspecified stage Qualified Code(s): N18.9 - Chronic kidney disease, unspecified Status: Acute ESRD- on dialysis. Being followed by nephrology. K elevated on admit, dialysed and K 5.3 today. (6) End-stage renal disease on hemodialysis: Status: Acute (7) Acute hyperkalemia: Status: Acute (8) Acute GI bleeding: Status: Acute
--- NOTE | 2021-02-17 08:52 | PC.NURSE ---
per dr mcneill if surgery postponed until saturday hold plt transfusion until prior to surgery bb aware will call floor
--- NOTE | 2021-02-17 08:56 | HO.PM.IMPN ---
Subjective Subjective Date of Service: 02/17/21 Interval History: Seen in follow-up for hip fracture, acute on chronic anemia ESRD with elevated potassium. Patient was planned to have surgery today however his hemoglobin is fairly low and the procedure has been canceled he has multiple antibodies to blood and makes acquiring appropriate red blood cell difficult. Additionally his platelet level is also low and will be in need of additional platelet transfusion. He is confused but this appeared to be his baseline. Review of Systems Gen: no fever Resp: no sob, no cough CV: no chest, no FORTE, no leg edema GI: No n/v, no abd pain Neuro: some confusion MSK: right hip pain with movement Physical Exam Vital Signs: Vital Signs: Last Vital Signs Temp 98.2 F 02/17/21 07:57 Pulse 96 02/17/21 07:57 Resp 19 02/17/21 07:57 BP 139/89 02/17/21 07:57 Pulse Ox 100 02/17/21 07:57 Body Mass Index 10.9 Physical Exam Constitutional Awake and Alert, No apparent distress Neck Supple, No lymphadenopathy Cardiovascular iregular iregu, NoJVD, no pedal edema Respiratory Lungs clear, No respiratory distress Right hip pain with movment Gastrointestinal Non tender, Non-distended Skin No rash Neurologic alert and oriented to self, hospital Psychological Appropriate affect Objective Data Current Medications Generic Name Dose Route Start Last Admin Trade Name Freq PRN Reason Stop Dose Admin Docusate Sodium 100 mg 02/16/21 17:39 Docusate Sodium 100 Mg Capsule PO DAILY PRN Constipation Famotidine 20 mg 02/16/21 17:45 02/16/21 18:20 Famotidine 20 Mg Tablet PO Not Given Q48H PEG Gabapentin 100 mg 02/16/21 17:39 Gabapentin 100 Mg Capsule PO Q6H PRN NERVE PAIN Gabapentin 200 mg 02/16/21 21:00 02/16/21 20:44 Gabapentin 100 Mg Capsule PO Not Given TID [facility] Levetiracetam 500 mg 02/16/21 21:00 02/16/21 20:44 Levetiracetam 500 Mg Tablet PO Not Given BID [facility] Metoprolol Succinate 25 mg 02/17/21 09:00 Metoprolol Succinate Er 25 Mg Tab.Er.24h PO DAILY [facility] Protocol Montelukast Sodium 10 mg 02/16/21 21:00 02/16/21 20:44 Montelukast Sodium 10 Mg Tablet PO Not Given BEDTIME [facility] Morphine Sulfate 2 mg 02/16/21 17:38 02/17/21 03:03 Morphine Sulfate 2 Mg/Ml Cartridge IVPUSH 2 mg Q4H PRN Administration Pain, Severe (Pain Scale 7-10) Omeprazole 20 mg 02/17/21 09:00 Omeprazole 20 Mg Capsule. PO DAILY [facility] Pharmacy Consult 1 each 02/16/21 03:17 Consult Rx Perform Med Rec MISCELLANE ONCE PRN Consult order Pravastatin Sodium 40 mg 02/16/21 21:00 02/16/21 20:44 Pravastatin Sodium 40 Mg Tablet PO Not Given BEDTIME [facility] Sodium Chloride 3 ml 02/16/21 16:00 02/16/21 20:35 0.9 % Sodium Chloride Flush 3 Ml Syringe IVFLUSH 3 ml QSHIFT [facility] Administration Labs CBC & Chem 7: 02/17/21 07:21 02/17/21 07:21 Assessment and Plan (1) Anemia in chronic kidney disease: Status: Acute (2) Closed intertrochanteric fracture of right hip: Status: Acute (3) Acute hyperkalemia: Status: Acute (4) End-stage renal disease on hemodialysis: Status: Acute (5) Thrombocytopenia: Status: Acute (6) Chronic constipation: Status: Acute Assessment and Plan: 80 year old male with ESRD previously on PD now on HD, chronic anemia requiring intermittent transfusions at [facility], hx HTN, HLD, asthma, JULIA on CPAP, seizure disorder, s/p PPM, afib on Eliquis, HFpEF, chronic constipation with SNF s/p fall with finding of right hip fracture, anemia, hypeklamia, elevated troponin 1. Right Hip Fracture--Ortho will operate on him, however not until Hgb and platlets counts are betteer. He needs more blood transfusion but this is complicated due to unusual antibodies to RBC necessitating getting blood from elsewhere. He also needs platlet transufusion to an adequate level -elevated troponin is flat and due to ESRD--There is no indication for further cardiac testing. -Hold Eliquis--Was taken off in November according to Thomas Montaño -Morphine for pain control 2. Hypekalemia--corrected with hemodialysis. 3. ESRD--Dialysis today, discussed with Dr. Black. Hemodialysis Saturday and Saturday Continued volume optimization on HD Renal Diet- 2 Gram K, 2 Gram Na, Phos restricted , Fluid restriction 1.5 L/24 hours 4. AFIB--continue Metoprolol. No anticoagulation. 5. Chronic anemia, transfusion dependint, with acute drop due to hip fracture -Transfuse to goal of hematocrit around 30 6. Thrombocytopenia--Chronic and stable but needs platlet transfusion before surgery--goal of around 100K 7. Seizure d/o--continue Keppra DVT prophylaxis: compression device I will talk to son about code status, he is not able to make sound decision at this time.
--- NOTE | 2021-02-17 09:01 | PC.NURSE ---
lee ann otto rn from med/surg aware of pt on hold and will update if surgery a go later today or tomorrow and aware if cncelled until tomorrow platelts on hold ubtil prior to surgery per anesthesia dr mcneill
--- NOTE | 2021-02-17 09:59 | PC.NURSE ---
blood bank called by this rn will call me when platelets available per anesthesia request
--- NOTE | 2021-02-17 10:00 | CA_ITS ---
Transthoracic Echocardiogram Patient (Last, First, Middle): Richie Wall, Gender: Male Date of : 1940 Age: 80 Procedure Date: 02/17/2021 Procedure Type: Transthoracic Echocardiogram Location: S3E Height: 172.72 cm Weight: 95.99 kg BSA: 2.09 m2 Heart Rate: bpm BP: 139 / 89 mmHg Animal Eviscerator: RACHEL Referring MD: Ramona Santos CITRUS PICKER-C Symptoms: preop, obtain today. Hx of mild , severe TR, pulm HTN Study Quality: Technically Difficult Conclusions: - Technically limited study with poor LV visualization. - LVEF is at least mildly reduced 40-45%. - The left atrium is moderately dilated. The right atrium is moderately dilated. - There is moderate aortic valve stenosis. - There is moderate mitral valve regurgitation. - There is moderate to severe tricuspid valve regurgitation - There is mild dilatation of the ascending aorta. Findings Left Ventricle Normal left ventricular cavity size. There is mildly increased left ventricular wall thickness. The left ventricular systolic function is mildly decreased. The visually estimated ejection fraction is between 40-45%. Regional wall motion abnormalities can not be excluded due to suboptimal endocardial definition. Diastolic function is indeterminate on the basis of available data. Right Ventricle Normal right ventricular cavity size and systolic function. Atria The left atrium is moderately dilated. The right atrium is moderately dilated. Aortic Valve There is moderate calcification of the aortic valve. There is moderate thickening of the aortic valve. There is moderate aortic valve stenosis. The peak aortic gradient is 34 mmHg.The mean gradient is 18 mmHg. The aortic valve area is 1.06 cm2. There is no aortic valve regurgitation. SV index is 27.7. Gradients are underestimated. Mitral Valve There is mild mitral annular calcification. There is moderate mitral valve regurgitation. There is no mitral valve stenosis. Pulmonic Valve The pulmonic valve is likely normal. There is trace pulmonic valve regurgitation. Tricuspid Valve Normal tricuspid valve structure. There is moderate to severe tricuspid valve regurgitation. Moderately elevated right atrial pressure. Severe pulmonary hypertension is present. Great Vessels There is mild dilatation of the ascending aorta. Venous The inferior vena cava is dilated and collapses less than 50% with inspiration. Pericardium/Pleural There is no evidence of pericardial effusion. Prior Study Comparison No prior study available for comparison. Measurements 2D Linear Measurements IVSd: 1.27 0.6-0.9/0.6-1.0 cm LVIDd: 4.90 3.9-5.3/4.2-5.9 cm LVIDd Index: 2.34 2.4-3.2/2.2-3.1 cm/m2 LVIDs: 3.77 2.0-3.6 cm LVPWd: 1.28 0.7-1.1 cm Ao Root: 3.90 2.1-3.5 cm LA Diam: 4.70 2.7-3.8/3.0-4.0 cm LAIDs Index: 2.25 1.5-2.3 cm/m2 LV Mass: 307.68 67-162/88-224 g LV Mass Index: 147.21 43-95/49-115 g/m2 LVOT Diam: 2.00 3.0+(-)1.3 cm Aortic Valve AoV Pk Waldo: 2.90 AoV Mn Waldo: 1.95 AoV VTI: 0.55 AoV Pk Grad: 34.00 Aov Mn Grad: 18.00 BUNNY Cont.VTI: 1.06 LVOT LVOT Pk Waldo: 0.94 LVOT Mn Waldo: 0.61 LVOT VTI: 0.18 LVOT Pk Grad: 4.00 LVOT Mn Grad: 2.00 LVOT Diam: 2.00 LVOT Area: 3.14 Tricuspid Valve TR Pk Waldo: 3.65 TR Pk Grad: 53.00 RA Press: 15.00 RVSP: 68.00 Great Vessels Aorta Ao Root-2D: 3.90 2.0-3.7 cm Ao Asc: 4.20 2.1-3.4 cm Updated in Other Vendor System with Status of Final Filipe Kenney MD electronically signed on 02/17/2021 4:04:57 PM with status of Final
[2021-02-17] MEDS: 0.9 % Sodium Chloride Flush 3 ML SYRINGE IVFLUSH ×3 (10:01→23:55)
--- NOTE | 2021-02-17 12:55 | PC.NURSE ---
pt surgery cancelled until tomorrow
--- NOTE | 2021-02-17 12:57 | PC.NURSE ---
clarita rodney from med/surg aware i spoke to farzana from bb platelets in route wont be here until after 1pm and will be held for OR to transfuse tomorrow before surgery
--- NOTE | 2021-02-17 15:46 | PC.NURSE ---
Pt refusing PO meds. made aware. No new orders.
--- NOTE | 2021-02-17 17:07 | PM.EVENT ---
Event Note Date of Service: 02/17/21 Event Note: Spoke to the patient's son Bridger who is healthcare proxy about his clinical course, coming surgery and overall high risk given multiple significant comorbidities and difficult recovery and decrease quality of life and come to conclusion that DNI/DNR is reasonably and therefore agree to make him DNR/DNI. conversation witnessed by patient's nurse Teodoro Zavala.
--- NOTE | 2021-02-17 17:10 | PC.NURSE ---
Spoke with patient's son and HCP Huy along with Dr. Miller, Dr. Miller explained to Huy the patient's prognosis, patient's son Huy agreed to make patient Richie Wall a DNR.
--- NOTE | 2021-02-17 17:40 | P.CONAN_ITS ---
[facility] Active Problems Active Problems: All Active Problems (Updated 02/17/21 @ 08:56 by Ramona harvey, CONICAL MIXER-C) Closed intertrochanteric fracture of right hip (Acute) Past Medical History Medical History (Updated 02/17/21 @ 08:56 by Ramona Santos, DAISY-C) Afib Anemia Asthma Depression H/O: HTN (hypertension) Hyperlipidemia Pacemaker Pneumonia Pulmonary hypertension Renal failure treated with peritoneal dialysis Right heart failure Seizure disorder Sleep apnea Thrombocytopenia Surgical History Surgical History H/O hernia repair Status post surgical removal of malignant neoplasm of skin Social History Social History Household Members: Unknown / Unable to assess Housing: Unknown / Unable to assess Alcohol intake: unknown Smoking Status: Unknown if ever smoked Tobacco Type: Cigarette Advance Directives Date on File: 02/01/21 service: Yes Current occupational status: retired Meds Allergies Allergy/AdvReac Type Severity Reaction Status Date / Time latex Allergy Itching Verified 11/07/20 11:15 Sulfa (Sulfonamide Allergy Headache Verified 11/07/20 11:14 Antibiotics) Active Medications: Current Medications Generic Name Dose Route Start Last Admin Trade Name Freq PRN Reason Stop Dose Admin Docusate Sodium 100 mg 02/16/21 17:39 Docusate Sodium 100 Mg Capsule PO DAILY PRN Constipation Famotidine 20 mg 02/16/21 17:45 02/16/21 18:20 Famotidine 20 Mg Tablet PO Not Given Q48H PEG Gabapentin 100 mg 02/16/21 17:39 Gabapentin 100 Mg Capsule PO Q6H PRN NERVE PAIN Gabapentin 200 mg 02/16/21 21:00 02/17/21 16:14 Gabapentin 100 Mg Capsule PO Not Given TID PEG Levetiracetam 500 mg/ Sodium 105 mls @ 400 mls/hr 02/17/21 16:45 Chloride IV Q12H PEG Levetiracetam 500 mg 02/16/21 21:00 02/17/21 10:08 Levetiracetam 500 Mg Tablet PO Not Given BID PEG Metoprolol Succinate 25 mg 02/17/21 09:00 02/17/21 10:08 Metoprolol Succinate Er 25 Mg Tab.Er.24h PO Not Given DAILY [facility] Protocol Montelukast Sodium 10 mg 02/16/21 21:00 02/16/21 20:44 Montelukast Sodium 10 Mg Tablet PO Not Given BEDTIME [facility] Morphine Sulfate 2 mg 02/16/21 17:38 02/17/21 16:14 Morphine Sulfate 2 Mg/Ml Cartridge IVPUSH 2 mg Q4H PRN Administration Pain, Severe (Pain Scale 7-10) Omeprazole 20 mg 02/17/21 09:00 02/17/21 10:09 Omeprazole 20 Mg Capsule.Dr PO Not Given DAILY [facility] Pharmacy Consult 1 each 02/16/21 03:17 Consult Rx Perform Med Rec MISCELLANE ONCE PRN Consult order Pravastatin Sodium 40 mg 02/16/21 21:00 02/16/21 20:44 Pravastatin Sodium 40 Mg Tablet PO Not Given BEDTIME [facility] Sodium Chloride 3 ml 02/16/21 16:00 02/17/21 16:14 0.9 % Sodium Chloride Flush 3 Ml Syringe IVFLUSH 3 ml QSHIFT [facility] Administration Home Medications Medication Instructions Recorded Confirmed Last Taken Type acetaminophen 650 mg PO Q4H PRN 11/07/20 02/16/21 Unknown History apixaban 2.5 mg PO BID 11/07/20 11/07/20 11/07/20 History docusate sodium 100 mg PO DAILY PRN 11/07/20 02/16/21 Unknown History famotidine 20 mg PO Q48H 11/07/20 02/16/21 11/07/20 History fluticasone propion-salmeterol 1 inh INHALATION Q12H 11/07/20 02/16/21 11/07/20 History [Advair Diskus] gabapentin 100 mg PO Q6H PRN 11/07/20 02/16/21 11/06/20 History gabapentin 200 mg PO TID 11/07/20 02/16/21 Unknown History levetiracetam [Keppra] 500 mg PO BID 11/07/20 02/16/21 11/07/20 History metoprolol succinate [Toprol XL] 25 mg PO DAILY 11/07/20 02/16/21 11/07/20 History montelukast 10 mg PO BEDTIME 11/07/20 02/16/21 11/06/20 History ondansetron HCl [Zofran] 4 mg PO Q6H PRN 11/07/20 02/16/21 Unknown History pravastatin 40 mg PO BEDTIME 11/07/20 02/16/21 11/06/20 History gzayfwossk-mtsmvqvqejzbw-plbb 1 cap PO Q6H PRN 02/16/21 02/16/21 Unknown History [Fioricet] calcium acetate 1,334 mg PO TIDWM 02/16/21 02/16/21 Unknown History Exam Exam Date and Time: February 17, 2021 174 Height,Weight and Vital Signs: Height 5 ft 8 in Weight 95.6 kg Last Vital Signs Temp 98.5 F 02/17/21 16:16 Pulse 94 02/17/21 16:16 Resp 16 02/17/21 16:16 BP 140/69 H 02/17/21 16:16 Pulse Ox 98 02/17/21 16:00 Pertinent Lab Results Pertinent Lab Results: Laboratory Tests 02/16/21 02/16/21 02/16/21 03:50 03:50 03:50 WBC 4.8 RBC 2.48 L Hgb 7.7 L Hct 23.6 L MCV 95.2 MCH 31.0 MCHC 32.6 RDW 15.9 Plt Count 61 L MPV 10.4 Immature Gran % (Auto) 1.3 H Neut % (Auto) 71.9 Lymph % (Auto) 13.9 L Pinal % (Auto) 11.6 H Eos % (Auto) 1.1 Baso % (Auto) 0.2 Lymph # (Auto) 0.7 L Pinal # (Auto) 0.6 Eos # (Auto) 0.1 Baso # (Auto) 0.0 Abs Immat Gran (auto) 0.06 H Absolute Neuts (auto) 3.4 Absolute Nucleated RBC 0.000 Nucleated RBC % (auto) 0.0 Smear Tech's Comments VERIFIED PT 12.9 INR 1.1 APTT 30.9 Sodium 137 Potassium 6.1 H* Chloride 98 Carbon Dioxide 26 Anion Gap 19 BUN 45 H Creatinine 7.99 H* Estim Creat Clear Calc 8.3 Estimated GFR 7 Random Glucose 99 Calcium 9.6 D Magnesium Total Bilirubin Direct Bilirubin AST ALT Alkaline Phosphatase Total Creatine Kinase Troponin I High Sens Total Protein Albumin Lipase COVID-19 (GERMAN) COVID-19 Clin Com Blood Type Antibody Screen Antibody Identification Direct Antiglob Test RUSSELL, Polyspecific Crossmatch 02/16/21 02/16/21 02/16/21 03:50 03:50 03:50 WBC RBC Hgb Hct MCV MCH MCHC RDW Plt Count MPV Immature Gran % (Auto) Neut % (Auto) Lymph % (Auto) Pinal % (Auto) Eos % (Auto) Baso % (Auto) Lymph # (Auto) Pinal # (Auto) Eos # (Auto) Baso # (Auto) Abs Immat Gran (auto) Absolute Neuts (auto) Absolute Nucleated RBC Nucleated RBC % (auto) Smear Tech's Comments PT INR APTT Sodium Potassium Chloride Carbon Dioxide Anion Gap BUN Creatinine Estim Creat Clear Calc Estimated GFR Random Glucose Calcium Magnesium 2.0 Total Bilirubin 1.1 H Direct Bilirubin 0.5 AST 13 ALT 14 Alkaline Phosphatase 69 Total Creatine Kinase 36 L Troponin I High Sens 41.9 H Total Protein 6.6 Albumin 3.9 Lipase 17 COVID-19 (GERMAN) Negative COVID-19 Clin Com See Note Blood Type Antibody Screen Antibody Identification Direct Antiglob Test RUSSELL, Polyspecific Crossmatch 02/16/21 02/16/21 02/17/21 03:50 15:59 07:21 WBC 4.7 L RBC 2.19 L Hgb 6.7 L* Hct 20.2 L* MCV 92.2 MCH 30.6 MCHC 33.2 RDW 16.7 H Plt Count 69 L MPV 10.1 Immature Gran % (Auto) Neut % (Auto) Lymph % (Auto) Pinal % (Auto) Eos % (Auto) Baso % (Auto) Lymph # (Auto) Pinal # (Auto) Eos # (Auto) Baso # (Auto) Abs Immat Gran (auto) Absolute Neuts (auto) Absolute Nucleated RBC 0.000 Nucleated RBC % (auto) 0.0 Smear Tech's Comments PT INR APTT Sodium Potassium Chloride Carbon Dioxide Anion Gap BUN Creatinine Estim Creat Clear Calc Estimated GFR Random Glucose Calcium Magnesium Total Bilirubin Direct Bilirubin AST ALT Alkaline Phosphatase Total Creatine Kinase Troponin I High Sens 40.5 H Total Protein Albumin Lipase COVID-19 (GERMAN) COVID-19 Clin Com Blood Type O Positive Antibody Screen POSITIVE Antibody Identification Anti-K Direct Antiglob Test POSITIVE A RUSSELL, Polyspecific POSITIVE A Crossmatch See Detail 02/17/21 07:21 WBC RBC Hgb Hct MCV MCH MCHC RDW Plt Count MPV Immature Gran % (Auto) Neut % (Auto) Lymph % (Auto) Pinal % (Auto) Eos % (Auto) Baso % (Auto) Lymph # (Auto) Pinal # (Auto) Eos # (Auto) Baso # (Auto) Abs Immat Gran (auto) Absolute Neuts (auto) Absolute Nucleated RBC Nucleated RBC % (auto) Smear Tech's Comments PT INR APTT Sodium 135 Potassium 5.3 H Chloride 103 Carbon Dioxide 22 Anion Gap 15 BUN 30 H Creatinine 5.45 H* Estim Creat Clear Calc 5.0 Estimated GFR 10 Random Glucose 94 Calcium 8.5 D Magnesium Total Bilirubin Direct Bilirubin AST ALT Alkaline Phosphatase Total Creatine Kinase Troponin I High Sens Total Protein Albumin Lipase COVID-19 (GERMAN) COVID-19 Clin Com Blood Type Antibody Screen Antibody Identification Direct Antiglob Test RUSSELL, Polyspecific Crossmatch Airway Mallampati Class: II TM Dist: >3cm Neck ROM: Full Loose/Missing/Broken Teeth: No Heart: IRRR Lungs: CTA Assessment and Plan Assessment Anesthesia Assessment: Anesthesia Plan Discussed and Chart Reviewed Final Anesthetic Review NPO: Yes ASA Class: IV Final Preanesthetic Review: No Changes in Pt Med Stat, Meds/Allgs Chart Reviewed, Consent Obtained/Reviewed and Anes Risks/Benef Reviewed Patient Risk: High Procedure Risk: Intermediate Anesthetic Plan Anesthetic Plan: GA (LMA) Disposition: Standard PACU
--- NOTE | 2021-02-17 17:54 | PC.NURSE ---
Pt BP 162/88 taken manually, Dr. Miller made aware. Dr. Miller states to transfuse another unit of blood.
--- NOTE | 2021-02-17 19:30 | PC.NURSE ---
Pt with blood transfusion ongoing. Oncoming nurse made aware. Oncoming nurse made aware of patients hypertension and Dr. Miller order to proceed with transfusion of current unit of blood.
--- NOTE | 2021-02-17 19:36 | PM.PNNEP ---
Subjective Subjective Date of Service: 02/17/21 Interval history: Seen in follow-up for hip fracture, acute on chronic anemia ESRD Being eval for hip repair for tomorrow ?. Physical Exam Vital Signs: Vital Signs: Last Vital Signs Temp 98.5 F 02/17/21 18:28 Pulse 89 02/17/21 18:28 Resp 18 02/17/21 18:28 BP 144/80 H 02/17/21 18:28 Pulse Ox 98 02/17/21 16:00 Body Mass Index 32.0 Const: General: cooperative and no acute distress Resp: Effort & Inspection: normal respiratory effort and able to speak in complete sentences Cardio: Peripheral pulses: Peripheral pulses 2+ throughout Skin: General skin exam: no rashes or lesions noted Extrem: Other: Right lower extremity is shortened and externally rotated. Pain with log roll. Patient is able to demonstrate dorsiflexion and plantar flexion. Pedal pulse intact. Sensation intact. Objective Data Labs CBC & Chem 7: 02/17/21 07:21 02/17/21 07:21 Labs: Laboratory Results - last 24 hr 02/16/21 02/17/21 02/17/21 03:50 07:21 07:21 WBC 4.7 L RBC 2.19 L Hgb 6.7 L* Hct 20.2 L* MCV 92.2 MCH 30.6 MCHC 33.2 RDW 16.7 H Plt Count 69 L MPV 10.1 Absolute Nucleated RBC 0.000 Nucleated RBC % (auto) 0.0 Sodium 135 Potassium 5.3 H Chloride 103 Carbon Dioxide 22 Anion Gap 15 BUN 30 H Creatinine 5.45 H* Estim Creat Clear Calc 5.0 Estimated GFR 10 Random Glucose 94 Calcium 8.5 D Blood Type O Positive Antibody Screen POSITIVE Antibody Identification Anti-K Direct Antiglob Test POSITIVE A RUSSELL, Polyspecific POSITIVE A Crossmatch See Detail Assessment & Plan Assessment and plan (1) Anemia in chronic kidney disease: Status: Acute (2) Closed intertrochanteric fracture of right hip: Status: Acute (3) Acute hyperkalemia: Status: Acute (4) End-stage renal disease on hemodialysis: Status: Acute (5) Thrombocytopenia: Status: Acute (6) Chronic constipation: Status: Acute Assessment and Plan: 80 year old male with ESRD previously on PD now on HD, chronic anemia requiring intermittent transfusions at [facility], hx HTN, HLD, asthma, JULIA on CPAP, seizure disorder, s/p PPM, afib on Eliquis, HFpEF, chronic constipation with SNF s/p fall with finding of right hip fracture, anemia, hypeklamia, elevated troponin 1. HyperK resolved with HD 02/16 2. ESRD: plan for tomorrow dependng on hip surgery 3. Hip Fx: skyler repair ? when 4. Anemai: support w xfusio to maintian > 7.0 5. AMS: multifact REC: HD tomorrow; track Hb; cont procrit ( I will order)f Time Spent With Patient Time: Total time spent is greater than 50% in coordination of care (as documented) at patient's floor/unit and/or counseling patient:
[2021-02-17] MEDS: levETIRAcetam in NaCl (iso-os) 500 MG/100 ML PIGGYBACK 400 MG IV (19:54)
[2021-02-18] VITALS (15 sets, daily range): BP systolic 97–171; BP diastolic 56–90; PULSE 77–102; RESP 15–20; TEMP 36.1–37.4; O2SAT 1–100
[2021-02-18 07:40] LABS: Basophils Percent Auto 0.2 % (0-2); Eosinophils Absolute Auto 0.1 X10*3/uL (0.0-0.4); Eosinophils Percent Auto 2.5 % (0-4); Hematocrit 31.5 % (42-52); Hemoglobin 10.7 g/dl (14.0-18.0); Imm Gran Abs Auto 0.06 X10*3/uL (0.00-0.03); Imm Gran Pct Auto 1.2 % (0.0-0.4); Lymphocytes Absolute Auto 0.7 X10*3/uL (1.2-4.9); Lymphocytes Percent Auto 13.5 % (20-40); MANUAL DIFF FLAG SCAN; Mean Corpuscular Hemoglobin 30.5 pg (27.0-33.0); Mean Corpuscular Volume 89.7 fL (80-98); Mean Platelet Volume 10.8 fL (9.4-12.4); Monocytes Percent Auto 19.5 % (2-11); Neutrophils Absolute Auto 3.1 X10*3/uL (2.0-8.3); Neutrophils Percent Auto 63.1 % (45-73); Red Blood Count 3.51 X10*6/uL (4.60-5.80); Red Cell Distribution Width 16.3 % (11.0-16.0); SCAN SMEAR FLAG 1; White Blood Count 4.9 X10*3/uL (4.8-10.8)
[2021-02-18 07:41] LABS: Platelet Count 72 X10*3/uL (160-400)
[2021-02-18 07:47] LABS: INTERNATIONAL NORM RATIO 1.1 (0.9-1.1); Prothrombin Time 13.5 SEC (10.8-13.0)
[2021-02-18 08:02] LABS: SLIDE REVIEW VERIFIED
[2021-02-18 08:25] LABS: Anion Gap 20 (12-20); Blood Urea Nitrogen 49 mg/dL (9-16); Calcium 8.4 mg/dL (8.4-10.2); Carbon Dioxide 19 mmol/L (22-29); Chloride 103 mmol/L (96-108); Creatinine Clr Calc Pharmacy 8.7; Estimated Glomerular Filt Rate 7; Glucose Random 90 mg/dL (60-115); Potassium 4.7 mmol/L (3.3-5.1); Sodium 137 mmol/L (135-145)
--- NOTE | 2021-02-18 10:18 | W.PM.OPN ---
Operative Note Operative Note Date of Service: 02/18/21 Narrative: OPERATIVE NOTE FOR GAMMA NAIL FIXATION SURGEON:Dr Marcelina Quijano MD (Kelly) BENZENE STILL UTILITY OPERATOR: Junito TOBAR PREOP DIAGNOSIS : Intertrochanteric fracture right hip POSTOP DIAGNOSIS: Same OPERATIVE PROCEDURE: OPERATIVE FIXATION right HIP/FEMUR WITH LOCKED WILLIAM long GAMMA NAIL CLINICAL NOTE: This gentleman fell and injured her right hip hip prior to the admission. Was subsequently brought to the emergency department. Was admitted to a gym see with the above diagnosis. After medical clearance and discussing the risks, benefits, and alternatives of the surgery as well as the rehabilitation course he was mutually agreed upon to carry out following procedure. Discussion was had with son Huy mckeon permission OPERATIVE PROCEDURE Under a general anesthetic the patient was placed supine on the fracture table. The left leg was flexed and externally rotated out of the way. The operative right leg was placed in standard boot traction. Closed reduction was performed under fluoroscopic guidance. This demonstrated the fracture to be reduced in a good position. Therefore the right hip and leg was then prepped and draped in standard barrier technique. Surgical time-out was then performed. The patient was identified. Procedure confirmed. Medical and allergy history is were reviewed. Preoperative antibiotics were given. Standard DVT prophylaxis was in place. All other items were discussed and agreed upon. Standard approach to tip of the trochanter was carried out. This was taken down through subcutaneous tissues with hemostasis achieved along way using electrocautery. Fascia florentin was divided along the length of the incision. The muscle was then divided bluntly to the tip of trochanter. Using a curved awl and under fluoroscopic guidance tip of the trochanter was entered. The guidewire was then subsequently passed through the curved awl and was successfully passed into the distal segment. The guidewire was measured and a 400 mm x 11 mm x 125 degree nail was measured. This nail at 125 degree angle was selected and brought up onto the table. The step Reamer was used in standard fashion. Flexible Reamer was used in order to ensure a canal with of 12.5 mm. The nail was then assembled onto the guide in standard fashion and then passed over the guidewire across the fracture site when the guidewire was then removed. The nail was then seated until he was in the appropriate position for the lag screw. Through a stab incision using the guide for the 125 degree angle, the guides were set onto the lateral surface of the femur. Under fluoroscopic guidance the guidewire was inserted just inferior to the midline on the AP view and into the center of the head on the lateral view. This was measured a 115 mm and this leg screw was selected and brought up onto the table. The guidewire was over reamed under fluoroscopic guidance. The lag screw was then inserted until it was into the subchondral bone with excellent purchase. The set screw was then placed in standard fashion. And then the guide was removed. Final imaging was taken in the AP and lateral plane that demonstrated the fracture reduced anatomically and all hardware to be in appropriate position. Therefore proceeded to closure Proximal wound was closed using 2. Dexon deep and 2-0 Dexon to approximate the skin. Is the skin was closed with francis. Similarly the distal incisions were closed with interrupted 2-0 Dexon and then francis. Sterile dressings were then applied. The patient's anesthesia was then reversed. They were taken out of traction and transferred supine to the room bed then to the recovery room in good condition. Intraoperatively there was approximately 100 cc of blood loss. No intraop transfusions or complications
[2021-02-18] MEDS: Sodium Chloride 0.45 % 1,000 ML 80 ML IVCONT (11:04)
[2021-02-18 11:16] LABS: Hematocrit 31.6 % (42-52); Hemoglobin 10.5 g/dl (14.0-18.0)
--- NOTE | 2021-02-18 13:20 | P.PNIM_ITS ---
Subjective Subjective Date of Service: 02/19/21 Interval History: Patient underwent surgery for right hip intertrochanteric fracture this a.m. postprocedure patient is resting comfortably. Unable to obtain review of systems since patient mostly nonverbal Physical Exam Vital Signs: Vital Signs: Last Vital Signs Temp 97.0 F 02/18/21 12:32 Pulse 89 02/18/21 13:03 Resp 17 02/18/21 12:32 BP 142/78 H 02/18/21 13:03 Pulse Ox 99 02/18/21 13:03 Body Mass Index 32.0 General patient resting comfortably in no acute distress. Neck no JVD. CVS irregular rate rhythm, Respiratory lungs clear to auscultation, no respiratory distress, no wheeze, no rhonchi. Gastrointestinal abdomen soft, nontender, bowel sounds audible Extremities no edema. Right hip dressing in place with blood stain Neuro unable to perform status post right hip surgery resting,arousable Skin no rash Objective Data Current Medications Generic Name Dose Route Start Last Admin Trade Name Freq PRN Reason Stop Dose Admin Docusate Sodium 100 mg 02/16/21 17:39 Docusate Sodium 100 Mg Capsule PO DAILY PRN Constipation Famotidine 20 mg 02/16/21 17:45 02/16/21 18:20 Famotidine 20 Mg Tablet PO Not Given Q48H PEG Fentanyl 25 mcg 02/18/21 09:09 Fentanyl Citrate/Pf 100 Mcg/2 Ml Vial IVPUSH Q5M PRN Pain, Moderate (Pain Scale 4-6 Gabapentin 100 mg 02/16/21 17:39 Gabapentin 100 Mg Capsule PO Q6H PRN NERVE PAIN Gabapentin 200 mg 02/16/21 21:00 02/18/21 10:57 Gabapentin 100 Mg Capsule PO Not Given TID PEG Levetiracetam 500 mg in 100 mls @ 400 mls/hr 02/17/21 18:45 02/18/21 06:26 Keppra IV Not Given Q12H PEG Sodium Chloride 1,000 mls @ 80 mls/hr 02/18/21 10:37 02/18/21 11:04 IVCONT 80 mls/hr .[id number] PEG Administration Cefazolin Sodium/Dextrose 2 gm in 50 mls @ 100 mls/hr 02/18/21 15:00 Ancef IV 02/18/21 15:29 POSTOP@1500 ONE Metoprolol Succinate 25 mg 02/17/21 09:00 02/18/21 10:57 Metoprolol Succinate Er 25 Mg Tab.Er.24h PO Not Given DAILY [facility] Protocol Montelukast Sodium 10 mg 02/16/21 21:00 02/17/21 22:07 Montelukast Sodium 10 Mg Tablet PO Not Given BEDTIME [facility] Morphine Sulfate 2 mg 02/16/21 17:38 02/17/21 16:14 Morphine Sulfate 2 Mg/Ml Cartridge IVPUSH 2 mg Q4H PRN Administration Pain, Severe (Pain Scale 7-10) Morphine Sulfate 2 mg 02/18/21 09:15 Morphine Sulfate 2 Mg/Ml Cartridge IVPUSH Q5M PRN Pain>6 Morphine Sulfate 2 mg 02/18/21 10:37 Morphine Sulfate 2 Mg/Ml Cartridge IVPUSH Q2H PRN Pain, Severe (Pain Scale 7-10) Naloxone HCl 0.2 mg 02/18/21 10:37 Naloxone Hcl 0.4 Mg/Ml Vial IVPUSH Q2M PRN Excessive sedation or RR < 8 Omeprazole 20 mg 02/17/21 09:00 02/18/21 10:57 Omeprazole 20 Mg Capsule.Dr PO Not Given DAILY [facility] Oxycodone HCl 10 mg 02/18/21 10:37 Oxycodone Hcl Immed Release 5 Mg Tablet PO Q6H PRN Pain, Moderate (Pain Scale 4-6 Pharmacy Consult 1 each 02/16/21 03:17 Consult Rx Perform Med Rec MISCELLANE ONCE PRN Consult order Pravastatin Sodium 40 mg 02/16/21 21:00 02/17/21 21:18 Pravastatin Sodium 40 Mg Tablet PO Not Given BEDTIME [facility] Sodium Chloride 3 ml 02/16/21 16:00 02/18/21 10:56 0.9 % Sodium Chloride Flush 3 Ml Syringe [facility]USH [facility] Sodium Chloride 3 ml 02/18/21 16:00 0.9 % Sodium Chloride Flush 3 Ml [facility]ringe [facility] Labs CBC & Chem 7: 02/19/21 05:08 02/19/21 05:08 Assessment and Plan (1) Anemia in chronic kidney disease: Status: Acute (2) Acute hyperkalemia: Status: Acute (3) Closed intertrochanteric fracture of right hip: Status: Acute (4) Thrombocytopenia: Status: Acute (5) Pacemaker: Status: Acute (6) Afib: Status: Acute (7) Chronic kidney failure: Status: Acute (8) Fall: Status: Acute (9) End-stage renal disease on hemodialysis: Status: Acute Assessment and Plan: 80 year old male with ESRD previously on PD now on HD, chronic anemia requiring intermittent transfusions at [place], hx HTN, HLD, asthma, JULIA on CPAP, seizure disorder, s/p PPM, afib on Eliquis, HFpEF, chronic constipation with SNF s/p fall with finding of right hip fracture, anemia, hypeklamia, elevated troponin 1. Right Hip Fracture- status post right hip surgery postoperative day 0 Hematocrit improved to 31.5 platelet [id number] , will follow repeat hematocrit this afternoon elevated troponin flat likely due to ESRD-- no indication for further cardiac testing. Continue pain medication, follow hematocrit and platelet count closely, DVT prophylaxis as per Ortho continue compression boots. 2. Hypekalemia--corrected with hemodialysis. 3. ESRD--s/p Dialysis this a.m for 2 hours,prior to surgery, on Hemodialysis Saturday and Saturday Continued Renal Diet- 2 Gram K, 2 Gram Na, Phos restricted , continue Fluid restriction 1.5 L/24 hours 4. AFIB--continue Metoprolol. No anticoagulation due to anemia. 5. Chronic anemia, transfusion dependint, hematocrit improved with transfusion, will follow repeat hematocrit post surgery 6. Thrombocytopenia--Chronic and stable 7. Seizure d/o--continue iv Keppra and seizure precaution DVT prophylaxis: compression device
[2021-02-18] MEDS: ceFAZolin Sodium/Dextrose,Iso 2 GM/50 ML PIGGYBACK IV (13:41)
[2021-02-18] MEDS: Morphine Sulfate 2 MG/ML CARTRIDGE IVPUSH (14:52)
[2021-02-18 15:52] LABS: Hematocrit 20.8 % (42-52)
--- NOTE | 2021-02-18 16:23 | PM.PNNEP ---
Subjective Subjective Date of Service: 02/18/21 Interval history: 2 hours of HD today K 4.7 pre HD now due for transfusion Physical Exam Vital Signs: Vital Signs: Last Vital Signs Temp 98.3 F 02/18/21 15:49 Pulse 85 02/18/21 15:49 Resp 19 02/18/21 15:49 BP 121/73 02/18/21 15:49 Pulse Ox 99 02/18/21 15:49 Body Mass Index 32.0 Const: General: cooperative and no acute distress Neck: Other: LIJ PC in place Resp: Effort & Inspection: normal respiratory effort and able to speak in complete sentences Cardio: Peripheral pulses: Peripheral pulses 2+ throughout Skin: General skin exam: no rashes or lesions noted Extrem: Other: no edema of LE's. Objective Data Labs CBC & Chem 7: 02/18/21 15:32 02/18/21 06:15 Labs: Laboratory Results - last 24 hr 02/16/21 02/18/21 02/18/21 03:50 06:15 06:15 WBC 4.9 RBC 3.51 L D Hgb 10.7 L D Hct 31.5 L D MCV 89.7 MCH 30.5 MCHC 34.0 RDW 16.3 H Plt Count 72 L MPV 10.8 Immature Gran % (Auto) 1.2 H Neut % (Auto) 63.1 Lymph % (Auto) 13.5 L [place] % (Auto) 19.5 H Eos % (Auto) 2.5 Baso % (Auto) 0.2 Lymph # (Auto) 0.7 L [place] # (Auto) 1.0 Eos # (Auto) 0.1 Baso # (Auto) 0.0 Abs Immat Gran (auto) 0.06 H Absolute Neuts (auto) 3.1 Absolute Nucleated RBC 0.000 Nucleated RBC % (auto) 0.0 Smear Tech's Comments VERIFIED PT 13.5 H INR 1.1 Sodium Potassium Chloride Carbon Dioxide Anion Gap BUN Creatinine Estim Creat Clear Calc Estimated GFR Random Glucose Calcium Blood Type O Positive Antibody Screen POSITIVE Antibody Identification Anti-K Direct Antiglob Test POSITIVE A RUSSELL, Polyspecific POSITIVE A Crossmatch See Detail 02/18/21 02/18/21 02/18/21 06:15 11:08 15:32 WBC RBC Hgb 10.5 L 7.0 L* D Hct 31.6 L 20.8 L* D MCV MCH MCHC RDW Plt Count MPV Immature Gran % (Auto) Neut % (Auto) Lymph % (Auto) [place] % (Auto) Eos % (Auto) Baso % (Auto) Lymph # (Auto) [place] # (Auto) Eos # (Auto) Baso # (Auto) Abs Immat Gran (auto) Absolute Neuts (auto) Absolute Nucleated RBC Nucleated RBC % (auto) Smear Tech's Comments PT INR Sodium 137 Potassium 4.7 Chloride 103 Carbon Dioxide 19 L Anion Gap 20 BUN 49 H D Creatinine 7.58 H* Estim Creat Clear Calc 8.7 Estimated GFR 7 Random Glucose 90 Calcium 8.4 Blood Type Antibody Screen Antibody Identification Direct Antiglob Test RUSSELL, Polyspecific Crossmatch Assessment & Plan Assessment and plan (1) Anemia in chronic kidney disease: Status: Acute Assessment and Plan: 80 year old male with ESRD previously on PD now on HD, chronic anemia requiring intermittent transfusions at [facility], hx HTN, HLD, asthma, JULIA on CPAP, seizure disorder, s/p PPM, afib on Eliquis, HFpEF, chronic constipation with SNF s/p fall with finding of right hip fracture, anemia, hypeklamia, elevated troponin 1.Hypekalemia--corrected with hemodialysis. Please only give 1u PRBC today and 2nd unit can be given Saturday on HD This will prevent hemolysis mediated hyperkalemia. 2. ESRD--s/p Dialysis this a.m., on Hemodialysis Saturday and Saturday Euvolemic Renal Diet- 2 Gram K, 2 Gram Na, Phos restricted , Fluid restriction 1.5 L/24 hours 3. Seizure d/o--continue Keppra and seizure precaution DVT prophylaxis: compression device (2) Acute hyperkalemia: Status: Acute (3) Closed intertrochanteric fracture of right hip: Status: Acute (4) Thrombocytopenia: Status: Acute (5) Pacemaker: Status: Acute (6) Afib: Status: Acute (7) Chronic kidney failure: Status: Acute (8) Fall: Status: Acute (9) End-stage renal disease on hemodialysis: Status: Acute (10) Chronic constipation: Status: Acute Time Spent With Patient Time: Total time spent is greater than 50% in coordination of care (as documented) at patient's floor/unit and/or counseling patient:
[2021-02-18] MEDS: levETIRAcetam in NaCl (iso-os) 500 MG/100 ML PIGGYBACK 400 MG IV (17:07)
[2021-02-18] MEDS: 0.9 % Sodium Chloride Flush 3 ML SYRINGE IVFLUSH ×2 (23:15→23:16)
[2021-02-19] VITALS (9 sets, daily range): BP systolic 92–112; BP diastolic 48–63; PULSE 72–92; RESP 14–20; TEMP 36.2–38.5; O2SAT 96–100
--- NOTE | 2021-02-19 04:34 | PM.EVENT ---
Event Note Date of Service: 02/19/21 Event Note: Fever: Patient alert fever of 101 F. sent blood cultures. Empirically started on ceftriaxone. Patient has a Turner in place but no urine in the back. Patient is ESRD question patient makes any urine. Patient is nonverbal. Patient is lethargic. Will obtain stat labs. Anemia: Patient is status post blood transfusion. Will also order stool guaiac. Patient is status post hip surgery;The surgical site dressing appears to be soaked in blood. Will obtain CT of the right hip
[2021-02-19] MEDS: cefTRIAXone sodium 1 GM in 0.9 % Sodium Chloride 50 ML IV (04:58)
[2021-02-19 05:00] LABS: ABG Base Excess -6.7 mmol/L; ABG HCO3 16 mmol/L (22-26); ABG pCO2 24 mmHg (32-45); ABG pCO2 TC 26 mmHg (32-45); ABG pH 7.42 (7.35-7.45); ABG pH TC 7.39 (7.35-7.45); ABG pO2 111 mmHg (83-108); ABG pO2 TC 120 (83-108)
[2021-02-19 05:03] LABS: ABG Refer to POC result
[2021-02-19 05:17] LABS: Basophils Percent Auto 0.3 % (0-2); Eosinophils Absolute Auto 0.1 X10*3/uL (0.0-0.4); Eosinophils Percent Auto 1.1 % (0-4); Hematocrit 29.7 % (42-52); Imm Gran Abs Auto 0.11 X10*3/uL (0.00-0.03); Imm Gran Pct Auto 1.8 % (0.0-0.4); Lymphocytes Absolute Auto 0.6 X10*3/uL (1.2-4.9); Lymphocytes Percent Auto 8.9 % (20-40); MANUAL DIFF FLAG SCAN; Mean Corpuscular HGB Conc 33.7 g/dl (31.0-36.0); Mean Corpuscular Hemoglobin 30.2 pg (27.0-33.0); Mean Corpuscular Volume 89.7 fL (80-98); Mean Platelet Volume 10.6 fL (9.4-12.4); Monocytes Percent Auto 16.7 % (2-11); Neutrophils Absolute Auto 4.4 X10*3/uL (2.0-8.3); Neutrophils Percent Auto 71.2 % (45-73); Red Blood Count 3.31 X10*6/uL (4.60-5.80); Red Cell Distribution Width 15.7 % (11.0-16.0); SCAN SMEAR FLAG 1; White Blood Count 6.2 X10*3/uL (4.8-10.8)
[2021-02-19 05:18] LABS: Platelet Count 74 X10*3/uL (160-400)
[2021-02-19 05:19] LABS: SLIDE REVIEW VERIFIED
[2021-02-19 05:30] LABS: Ammonia 21 umol/L (13-55)
[2021-02-19 05:40] LABS: Alanine Aminotransferase 6 U/L (0-40); Albumin Level 3.2 g/dL (3.5-5.0); Alkaline Phosphatase 51 U/L (39-117); Anion Gap 22 (12-20); Aspartate Amino Transferase 12 U/L (5-37); Bilirubin Total 1.3 mg/dL (0.0-1.0); Blood Urea Nitrogen 45 mg/dL (9-16); Carbon Dioxide 17 mmol/L (22-29); Chloride 101 mmol/L (96-108); Glucose Random 106 mg/dL (60-115); Sodium 135 mmol/L (135-145); Total Protein 5.7 g/dL (6.5-8.0)
[2021-02-19 05:41] LABS: Creatinine Clr Calc Pharmacy 8.7; Estimated Glomerular Filt Rate 7
[2021-02-19] MEDS: levETIRAcetam in NaCl (iso-os) 500 MG/100 ML PIGGYBACK 400 MG IV ×2 (06:46→17:47)
--- NOTE | 2021-02-19 08:27 | PC.NURSE ---
0130: Patient is lethargic, grimaces with deep sternal rub and nail bed press. Has periods of apnea, hx of sleep apnea. On 2L NC. Vitals are stable. Afib on monitor, has Vpaced pacemaker. Notified Dr Caban, no new orders at this time. 0400: Rectal temp of 101.3. Cold packs placed on patient. Patient still lethargic. Dr Caban notified, and came to bedside. Orders placed for blood cultures, labs, ABGs, Pelvis CT, and stool sample. Orders also placed for urine sample, however patient has had no urine output overnight (dialysis patient), [place] cath in place, aware.
[2021-02-19] MEDS: 0.9 % Sodium Chloride Flush 3 ML SYRINGE IVFLUSH ×4 (10:18→17:06)
--- NOTE | 2021-02-19 11:28 | HO.PM.IMPN ---
Subjective Subjective Date of Service: 02/19/21 Interval History: Patient somnolent, arousable but falls back to sleep, is baseline nonverbal noted to have upper extremity shakiness, no movement lower extremity, no moaning from last night reviewed patient had a fever of 101 and noted to have borderline low blood pressure blood cultures were obtained, patient noted to have blood soaked right hip dressing, therefore pelvic CT was obtained. Unable to obtain review of systems since patient nonverbal and lethargic. Physical Exam Vital Signs: Vital Signs: Last Vital Signs Temp 97.6 F 02/19/21 07:49 Pulse 72 02/19/21 10:05 Resp 16 02/19/21 07:49 BP 95/60 02/19/21 10:05 Pulse Ox 98 02/19/21 07:49 Body Mass Index 32.0 General somnolent but arousable appears lethargic Neck no JVD. CVS irregular rate rhythm, Respiratory lungs clear to auscultation, no respiratory distress, no wheeze, no rhonchi. Gastrointestinal abdomen soft, nontender, bowel sounds audible Extremities no edema. Right hip dressing in place no bleeding noted Neuro somnolent arousable, noted to have periodic shakiness upper extremities Skin no rash Objective Data Current Medications Generic Name Dose Route Start Last Admin Trade Name Freq PRN Reason Stop Dose Admin Docusate Sodium 100 mg 02/16/21 17:39 Docusate Sodium 100 Mg Capsule PO DAILY PRN Constipation Famotidine 20 mg 02/16/21 17:45 02/18/21 17:08 Famotidine 20 Mg Tablet PO Not Given Q48H PEG Fentanyl 25 mcg 02/18/21 09:09 Fentanyl Citrate/Pf 100 Mcg/2 Ml Vial IVPUSH Q5M PRN Pain, Moderate (Pain Scale 4-6 Gabapentin 100 mg 02/16/21 17:39 Gabapentin 100 Mg Capsule PO Q6H PRN NERVE PAIN Gabapentin 200 mg 02/16/21 21:00 02/19/21 10:04 Gabapentin 100 Mg Capsule PO Not Given TID PEG Levetiracetam 500 mg in 100 mls @ 400 mls/hr 02/17/21 18:45 02/19/21 07:44 Keppra IV Infused Q12H PEG Infusion Ceftriaxone Sodium 1 gm/ 50 mls @ 100 mls/hr 02/19/21 05:00 02/19/21 06:11 Sodium Chloride IV Infused Q24H [facility] Infusion Metoprolol Succinate 25 mg 02/17/21 09:00 02/19/21 10:05 Metoprolol Succinate Er 25 Mg Tab.Er.24h PO Not Given DAILY [facility] Protocol Montelukast Sodium 10 mg 02/16/21 21:00 02/18/21 22:44 Montelukast Sodium 10 Mg Tablet PO Not Given BEDTIME [facility] Morphine Sulfate 2 mg 02/16/21 17:38 02/18/21 14:52 Morphine Sulfate 2 Mg/Ml Cartridge IVPUSH 2 mg Q4H PRN Administration Pain, Severe (Pain Scale 7-10) Naloxone HCl 0.2 mg 02/18/21 10:37 Naloxone Hcl 0.4 Mg/Ml Vial IVPUSH Q2M PRN Excessive sedation or RR < 8 Omeprazole 20 mg 02/17/21 09:00 02/19/21 10:04 Omeprazole 20 Mg Capsule.Dr PO Not Given DAILY [facility] Oxycodone HCl 10 mg 02/18/21 10:37 Oxycodone Hcl Immed Release 5 Mg Tablet PO Q6H PRN Pain, Moderate (Pain Scale 4-6 Pharmacy Consult 1 each 02/16/21 03:17 Consult Rx Perform Med Rec MISCELLANE ONCE PRN Consult order Pravastatin Sodium 40 mg 02/16/21 21:00 02/18/21 22:44 Pravastatin Sodium 40 Mg Tablet PO Not Given BEDTIME [facility] Sodium Chloride 3 ml 02/16/21 16:00 02/19/21 10:18 0.9 % Sodium Chloride Flush 3 Ml Syringe IVFLUSH 3 ml QSHIFT PEG Administration Sodium Chloride 3 ml 02/18/21 16:00 02/19/21 10:18 0.9 % Sodium Chloride Flush 3 Ml Syringe IVFLUSH 3 ml QSHIFT PEG Administration Labs CBC & Chem 7: 02/19/21 05:08 02/19/21 05:08 Assessment and Plan (1) Anemia in chronic kidney disease: Status: Acute (2) Afib: Status: Acute (3) Thrombocytopenia: Status: Acute (4) Chronic kidney failure: Status: Acute (5) Closed intertrochanteric fracture of right hip: Status: Acute (6) Acute hyperkalemia: Status: Acute (7) End-stage renal disease on hemodialysis: Status: Acute Assessment and Plan: 80 year old male with ESRD previously on PD now on HD, chronic anemia requiring intermittent transfusions at [facility], hx HTN, HLD, asthma, JULIA on CPAP, seizure disorder, s/p PPM, afib on Eliquis, HFpEF, chronic constipation with SNF s/p fall with finding of right hip fracture, anemia, hypeklamia, elevated troponin Fever/ lethargy events from last night reviewed, fever resolved patient remains lethargic arousable but at baseline nonverbal, does not appear to be in distress but noted to have shakiness bilateral upper extremities No eyes rolling or tongue biting noted, pelvic CT showed a 7 cm hematoma at site of right hip surgery, hematocrit improved with 1 unit of packed RBC Questions symptoms related to narcotics, will minimize narcotic medications change morphine to Dilaudid and add scheduled Tylenol, question uremia, patient evaluated by Nephrology they do not feel patient is uremic , with no worsening acidosis or hyperkalemia and require urgent dialysis, however 2 hour dialysis will be arranged for tomorrow morning Will inform Orthopedic surgery regarding hematoma continue dressing and follow CBC Likely postop fever with no recurrence,Patient not making urine, no coughing episodes ,no shortness of breath, will follow blood cultures x2, cont. IV ceftriaxone empirically Right Hip Fracture- status post right hip surgery postoperative day 1 required 1 unit of packed RBC post surgery due to drop in hematocrit to 20.8, hematocrit improved to 29.7 today Continue pain medication, follow hematocrit and platelet count closely, DVT prophylaxis as per Ortho continue compression boots. Avoid anticoagulation with right hip hematoma Hypekalemia--corrected with hemodialysis. ESRD--s/p Dialysis yesterday, on Hemodialysis Saturday and Saturday Continued Renal Diet- 2 Gram K, 2 Gram Na, Phos restricted , continue Fluid restriction 1.5 L/24 hours, creatinine remains elevated patient will be evaluated by Nephrology for repeat hemodialysis AFIB--low blood pressure will hold Metoprolol. No anticoagulation due to anemia. Chronic anemia, transfusion dependint, hematocrit improved with transfusion, will follow CBC closely Thrombocytopenia--Chronic and stable Seizure d/o--continue iv Keppra and seizure precaution, will closely monitor for breakthrough seizure Called patient's son Huy Wall [phone] to inform him about patient's clinical condition with somnolence, lethargy, decreased by mouth intake left message DVT prophylaxis: compression device
--- NOTE | 2021-02-19 12:00 | PM.PNORT ---
Subjective Subjective Date of Service: 02/19/21 Principal diagnosis: POD 1 s/p RT hip IMN Interval history: POD:1 s/p right hip IMN No overnight events Patient is: resting in bed, s/p i units PRBCs hct up to 29-patient baseline non verbal Physical Exam Vital Signs: Vital Signs: Last Vital Signs Temp 97.2 F 02/19/21 11:36 Pulse 76 02/19/21 11:36 Resp 17 02/19/21 11:36 BP 112/59 L 02/19/21 11:36 Pulse Ox 96 02/19/21 11:36 Body Mass Index 32.0 Const: General: healthy appearing, comfortable and no acute distress Resp: Effort & Inspection: normal respiratory effort Cardio: Rate: regular rate Peripheral pulses: Peripheral pulses 2+ throughout GI: Palpation (GI): Soft to palpation Skin: General skin exam: no rashes or lesions noted Extrem: Other: right hip dressing saturated. mild hematoma. no erythema, no warmth, pulses intact Progress Note: A&P Assessment and plan (1) Closed intertrochanteric fracture of right hip: Status: Acute Assessment and Plan: Continue pain mgmnt dvt ppx-compression boots begin PT for rt hip monitor h/h Ct scan ordered by medicine shows 7cm hematoma at surgical site-to be expected with post op bleeding and surgery Dispo planning-Pending PT eval, pain mgmnt Fall Risk Details Current Medications: Current Medications Generic Name Dose Route Start Last Admin Trade Name Freq PRN Reason Stop Dose Admin Docusate Sodium 100 mg 02/16/21 17:39 Docusate Sodium 100 Mg Capsule PO DAILY PRN Constipation Famotidine 20 mg 02/16/21 17:45 02/18/21 17:08 Famotidine 20 Mg Tablet PO Not Given Q48H PEG Fentanyl 25 mcg 02/18/21 09:09 Fentanyl Citrate/Pf 100 Mcg/2 Ml Vial IVPUSH Q5M PRN Pain, Moderate (Pain Scale 4-6 Gabapentin 100 mg 02/16/21 17:39 Gabapentin 100 Mg Capsule PO Q6H PRN NERVE PAIN Gabapentin 200 mg 02/16/21 21:00 02/19/21 10:04 Gabapentin 100 Mg Capsule PO Not Given TID PEG Levetiracetam 500 mg in 100 mls @ 400 mls/hr 02/17/21 18:45 02/19/21 07:44 Keppra IV Infused Q12H PEG Infusion Ceftriaxone Sodium 1 gm/ 50 mls @ 100 mls/hr 02/19/21 05:00 02/19/21 06:11 Sodium Chloride IV Infused Q24H PEG Infusion Metoprolol Succinate 25 mg 02/17/21 09:00 02/19/21 10:05 Metoprolol Succinate Er 25 Mg Tab.Er.24h PO Not Given DAILY [facility] Protocol Montelukast Sodium 10 mg 02/16/21 21:00 02/18/21 22:44 Montelukast Sodium 10 Mg Tablet PO Not Given BEDTIME PEG Morphine Sulfate 2 mg 02/16/21 17:38 02/18/21 14:52 Morphine Sulfate 2 Mg/Ml Cartridge IVPUSH 2 mg Q4H PRN Administration Pain, Severe (Pain Scale 7-10) Naloxone HCl 0.2 mg 02/18/21 10:37 Naloxone Hcl 0.4 Mg/Ml Vial IVPUSH Q2M PRN Excessive sedation or RR < 8 Omeprazole 20 mg 02/17/21 09:00 02/19/21 10:04 Omeprazole 20 Mg Capsule.Dr PO Not Given DAILY PEG Oxycodone HCl 10 mg 02/18/21 10:37 Oxycodone Hcl Immed Release 5 Mg Tablet PO Q6H PRN Pain, Moderate (Pain Scale 4-6 Pharmacy Consult 1 each 02/16/21 03:17 Consult Rx Perform Med Rec MISCELLANE ONCE PRN Consult order Pravastatin Sodium 40 mg 02/16/21 21:00 02/18/21 22:44 Pravastatin Sodium 40 Mg Tablet PO Not Given BEDTIME PEG Sodium Chloride 3 ml 02/16/21 16:00 02/19/21 10:18 0.9 % Sodium Chloride Flush 3 Ml Syringe IVFLUSH 3 ml QSHIFT PEG Administration Sodium Chloride 3 ml 02/18/21 16:00 02/19/21 10:18 0.9 % Sodium Chloride Flush 3 Ml Syringe IVFLUSH 3 ml QSHIFT PEG Administration Time Spent With Patient Time: Total time spent is greater than 50% in coordination of care (as documented) at patient's floor/unit and/or counseling patient: Time with patient: less than 15 minutes
--- NOTE | 2021-02-19 12:49 | PM.PNNEP ---
Subjective Subjective Date of Service: 02/19/21 Principal diagnosis: POD 1 s/p RT hip IMN Physical Exam Vital Signs: Vital Signs: Last Vital Signs Temp 97.2 F 02/19/21 11:36 Pulse 76 02/19/21 11:36 Resp 17 02/19/21 11:36 BP 112/59 L 02/19/21 11:36 Pulse Ox 96 02/19/21 11:36 Body Mass Index 32.0 Const: General: cooperative and no acute distress Resp: Effort & Inspection: normal respiratory effort and able to speak in complete sentences Cardio: Peripheral pulses: Peripheral pulses 2+ throughout Skin: General skin exam: no rashes or lesions noted Objective Data Labs CBC & Chem 7: 02/19/21 05:08 02/19/21 05:08 Labs: Laboratory Results - last 24 hr 02/16/21 02/18/21 02/19/21 03:50 15:32 04:53 WBC RBC Hgb 7.0 L* D Hct 20.8 L* D MCV MCH MCHC RDW Plt Count MPV Immature Gran % (Auto) Neut % (Auto) Lymph % (Auto) [place] % (Auto) Eos % (Auto) Baso % (Auto) Lymph # (Auto) [place] # (Auto) Eos # (Auto) Baso # (Auto) Abs Immat Gran (auto) Absolute Neuts (auto) Absolute Nucleated RBC Nucleated RBC % (auto) Smear Tech's Comments O2 Saturation 99.0 ABG pH at Pt Temp 7.42 ABG pH (Temp Correct) 7.39 ABG pCO2 at Pt Temp 24 L ABG pCO2 (Temp Corrct 26 L ABG pO2 at Pt Temp 111 H ABG pO2 (Temp Correct 120 H ABG HCO3 16 L ABG Base Excess (Actual) -6.7 Sodium Potassium Chloride Carbon Dioxide Anion Gap BUN Creatinine Estim Creat Clear Calc Estimated GFR Random Glucose Calcium Total Bilirubin AST ALT Alkaline Phosphatase Ammonia Total Protein Albumin Blood Type O Positive Antibody Screen POSITIVE Antibody Identification Anti-K Direct Antiglob Test POSITIVE A RUSSELL, Polyspecific POSITIVE A Crossmatch See Detail 02/19/21 02/19/21 02/19/21 05:08 05:08 05:08 WBC 6.2 RBC 3.31 L Hgb 10.0 L D Hct 29.7 L D MCV 89.7 MCH 30.2 MCHC 33.7 RDW 15.7 Plt Count 74 L MPV 10.6 Immature Gran % (Auto) 1.8 H Neut % (Auto) 71.2 Lymph % (Auto) 8.9 L [place] % (Auto) 16.7 H Eos % (Auto) 1.1 Baso % (Auto) 0.3 Lymph # (Auto) 0.6 L [place] # (Auto) 1.0 Eos # (Auto) 0.1 Baso # (Auto) 0.0 Abs Immat Gran (auto) 0.11 H Absolute Neuts (auto) 4.4 Absolute Nucleated RBC 0.000 Nucleated RBC % (auto) 0.0 Smear Tech's Comments VERIFIED O2 Saturation ABG pH at Pt Temp ABG pH (Temp Correct) ABG pCO2 at Pt Temp ABG pCO2 (Temp Corrct ABG pO2 at Pt Temp ABG pO2 (Temp Correct ABG HCO3 ABG Base Excess (Actual) Sodium 135 Potassium 5.0 Chloride 101 Carbon Dioxide 17 L Anion Gap 22 H BUN 45 H Creatinine 7.59 H* Estim Creat Clear Calc 8.7 Estimated GFR 7 Random Glucose 106 Calcium 8.0 L Total Bilirubin 1.3 H AST 12 ALT 6 Alkaline Phosphatase 51 D Ammonia 21 Total Protein 5.7 L Albumin 3.2 L Blood Type Antibody Screen Antibody Identification Direct Antiglob Test RUSSELL, Polyspecific Crossmatch Assessment & Plan Assessment and plan (1) Anemia in chronic kidney disease: Status: Acute Assessment and Plan: 80 year old male with ESRD previously on PD now on HD, chronic anemia requiring intermittent transfusions at [facility], hx HTN, HLD, asthma, JULIA on CPAP, seizure disorder, s/p PPM, afib on Eliquis, HFpEF, chronic constipation with SNF s/p fall with finding of right hip fracture, anemia, hypeklamia, elevated troponin 1.Hypekalemia--corrected with hemodialysis. after HD transfused 2u today with K 5.0meq/L 2. ESRD--s/p Saturday but treatment cut very short for OR time. Renal Diet- 2 Gram K, 2 Gram Na, Phos restricted , Fluid restriction 1.5 L/24 hours given K 5.0meq/L today, ongoing transfusions, and alteration of metnation will supplement 2 hour HD Saturday followed by full HD TTS. 3. Seizure d/o--continue Keppra and seizure precaution DVT prophylaxis: compression device (2) Acute hyperkalemia: Status: Acute (3) Closed intertrochanteric fracture of right hip: Status: Acute (4) Thrombocytopenia: Status: Acute (5) Pacemaker: Status: Acute (6) Afib: Status: Acute (7) Chronic kidney failure: Status: Acute (8) Fall: Status: Acute (9) End-stage renal disease on hemodialysis: Status: Acute (10) Chronic constipation: Status: Acute Time Spent With Patient Time: Total time spent is greater than 50% in coordination of care (as documented) at patient's floor/unit and/or counseling patient:
--- NOTE | 2021-02-19 17:41 | HO.POSTANES ---
Post Anesthesia Evaluation Post Anesthesia Evaluation Vital Signs: Vital Signs Temp Pulse Resp BP Pulse Ox 02/19/21 17:08 87 101/62 02/19/21 15:23 97.3 F 73 20 92/48 L 98 02/19/21 11:36 97.2 F 76 17 112/59 L 96 02/19/21 10:05 72 95/60 02/19/21 07:49 97.6 F 72 16 98/59 L 98 Anesthesia: Monitored Mental Status: Awake Pain Control: Satisfactory Nausea/Vomiting: None Hydration: Adequate Anesthesia-Related Issues: No Anes. Related Issues
--- NOTE | 2021-02-19 18:28 | PC.NURSE ---
1700 Patient noted to be lethargic. Responded to deep sternal rub and painful stimuli. Pt bp 92/48 automatic. Rechecked manually and bp was 101/62. Respirations 18. Patient also refusing to eat and take any PO medications. Dr. Boyd made aware. Patients started on IV Acetaminophen. Dr. Boyd will update family. Patient currently resting in bed and looks comfortable.
[2021-02-20] VITALS (8 sets, daily range): BP systolic 101–118; BP diastolic 56–73; PULSE 72–112; RESP 16–17; TEMP 36.3–37.2; O2SAT 96–100; BMI 33.2
[2021-02-20] MEDS: 0.9 % Sodium Chloride Flush 3 ML SYRINGE IVFLUSH ×8 (00:18→21:14)
[2021-02-20] MEDS: cefTRIAXone sodium 1 GM in 0.9 % Sodium Chloride 50 ML IV (04:27)
[2021-02-20] MEDS: levETIRAcetam in NaCl (iso-os) 500 MG/100 ML PIGGYBACK 400 MG IV ×2 (06:14→17:56)
[2021-02-20 10:16] LABS: Basophils Percent Auto 0.2 % (0-2); Eosinophils Absolute Auto 0.1 X10*3/uL (0.0-0.4); Eosinophils Percent Auto 2.1 % (0-4); Hematocrit 24.6 % (42-52); Hemoglobin 8.4 g/dl (14.0-18.0); Imm Gran Abs Auto 0.07 X10*3/uL (0.00-0.03); Imm Gran Pct Auto 1.5 % (0.0-0.4); Lymphocytes Absolute Auto 0.4 X10*3/uL (1.2-4.9); Lymphocytes Percent Auto 8.5 % (20-40); MANUAL DIFF FLAG SCAN; Mean Corpuscular HGB Conc 34.1 g/dl (31.0-36.0); Mean Corpuscular Hemoglobin 30.9 pg (27.0-33.0); Mean Corpuscular Volume 90.4 fL (80-98); Mean Platelet Volume 10.6 fL (9.4-12.4); Monocytes Absolute Auto 0.5 X10*3/uL (0.1-1.2); Monocytes Percent Auto 11.2 % (2-11); Neutrophils Absolute Auto 3.6 X10*3/uL (2.0-8.3); Neutrophils Percent Auto 76.5 % (45-73); Red Blood Count 2.72 X10*6/uL (4.60-5.80); Red Cell Distribution Width 16.2 % (11.0-16.0); SCAN SMEAR FLAG 1; White Blood Count 4.7 X10*3/uL (4.8-10.8)
[2021-02-20 10:17] LABS: Platelet Count 66 X10*3/uL (160-400)
[2021-02-20 10:36] LABS: SLIDE REVIEW VERIFIED
[2021-02-20 10:52] LABS: Anion Gap 17 (12-20); Blood Urea Nitrogen 33 mg/dL (9-16); Calcium 7.9 mg/dL (8.4-10.2); Carbon Dioxide 20 mmol/L (22-29); Chloride 103 mmol/L (96-108); Creatinine Clr Calc Pharmacy 14.1; Estimated Glomerular Filt Rate 12; Glucose Random 95 mg/dL (60-115); Potassium 3.4 mmol/L (3.3-5.1); Sodium 137 mmol/L (135-145)
--- NOTE | 2021-02-20 13:06 | HO.PM.IMPN ---
Subjective Subjective Date of Service: 02/20/21 Interval History: Patient receiving hemodialysis this morning, awake, alert,asked how are you ? After that did not carry on further conversation Later in the day mostly sleepy, refused lunch Unable to obtain review of systems since patient not responding. Physical Exam Vital Signs: Vital Signs: Last Vital Signs Temp 97.5 F 02/20/21 11:00 Pulse 95 02/20/21 11:00 Resp 16 02/20/21 11:00 BP 103/65 02/20/21 11:00 Pulse Ox 100 02/20/21 11:00 Body Mass Index 33.2 General Awake alert but falls back to sleep, no distress Neck no JVD. CVS regular rate rhythm, Respiratory lungs clear to auscultation, no respiratory distress, no wheeze, no rhonchi. Gastrointestinal abdomen soft, nontender, bowel sounds audible, no guarding , no rigidity. Extremities no edema. Right hip dressing in place no bleeding noted Neuro nonfocal ,speech clear. Skin no rash Objective Data Current Medications Generic Name Dose Route Start Last Admin Trade Name Wyattq PRN Reason Stop Dose Admin Docusate Sodium 100 mg 02/16/21 17:39 Docusate Sodium 100 Mg Capsule PO DAILY PRN Constipation Famotidine 20 mg 02/16/21 17:45 02/18/21 17:08 Famotidine 20 Mg Tablet PO Not Given Q48H PEG Fentanyl 25 mcg 02/18/21 09:09 Fentanyl Citrate/Pf 100 Mcg/2 Ml Vial IVPUSH Q5M PRN Pain, Moderate (Pain Scale 4-6 Gabapentin 100 mg 02/16/21 17:39 Gabapentin 100 Mg Capsule PO Q6H PRN NERVE PAIN Gabapentin 200 mg 02/16/21 21:00 02/20/21 08:48 Gabapentin 100 Mg Capsule PO Not Given TID PEG Hydromorphone HCl 0.5 mg 02/19/21 12:47 Hydromorphone Hcl 0.5 Mg/0.5 Ml Syringe IVPUSH Q6H PRN Pain, Severe (Pain Scale 7-10) Levetiracetam 500 mg in 100 mls @ 400 mls/hr 02/17/21 18:45 02/20/21 06:31 Keppra IV Infused Q12H PEG Infusion Ceftriaxone Sodium 1 gm/ 50 mls @ 100 mls/hr 02/19/21 05:00 02/20/21 04:58 Sodium Chloride IV Infused Q24H [facility] Infusion Metoprolol Succinate 25 mg 02/17/21 09:00 02/20/21 08:49 Metoprolol Succinate Er 25 Mg Tab.Er.24h PO Not Given DAILY [facility] Protocol Montelukast Sodium 10 mg 02/16/21 21:00 02/19/21 21:54 Montelukast Sodium 10 Mg Tablet PO Not Given BEDTIME [facility] Naloxone HCl 0.2 mg 02/18/21 10:37 Naloxone Hcl 0.4 Mg/Ml Vial IVPUSH Q2M PRN Excessive sedation or RR < 8 Omeprazole 20 mg 02/17/21 09:00 02/20/21 08:48 Omeprazole 20 Mg Capsule.Dr PO Not Given DAILY [facility] Oxycodone HCl 7.5 mg 02/19/21 12:48 Oxycodone Hcl Immed Release 5 Mg Tablet PO Q6H PRN Pain, Moderate (Pain Scale 4-6 Pharmacy Consult 1 each 02/16/21 03:17 Consult Rx Perform Med Rec MISCELLANE ONCE PRN Consult order Pravastatin Sodium 40 mg 02/16/21 21:00 02/19/21 21:54 Pravastatin Sodium 40 Mg Tablet PO Not Given BEDTIME [facility] Sodium Chloride 3 ml 02/16/21 16:00 02/20/21 10:53 0.9 % Sodium Chloride Flush 3 Ml Syringe IVFLUSH 3 ml QSSDFT [facility] Administration Sodium Chloride 3 ml 02/18/21 16:00 02/20/21 10:53 0.9 % Sodium Chloride Flush 3 Ml Syringe IVFLUSH 3 ml QSHIFT [facility] Administration Labs CBC & Chem 7: 02/20/21 09:54 02/20/21 09:54 Microbiology Microbiology Results: Microbiology 02/19/21 05:08 Blood - Venous Blood Culture - Preliminary No growth after 24 hours. 02/19/21 05:08 Blood - Venous Blood Culture - Preliminary No growth after 24 hours. Assessment and Plan (1) Acute blood loss anemia: Status: Acute (2) Pacemaker: Status: Acute (3) Afib: Status: Acute (4) Thrombocytopenia: Status: Acute (5) Anemia in chronic kidney disease: Status: Acute (6) Closed intertrochanteric fracture of right hip: Status: Acute (7) Fall: Status: Acute (8) End-stage renal disease on hemodialysis: Status: Acute Assessment and Plan: 80 year old male with ESRD previously on PD now on HD, chronic anemia requiring intermittent transfusions at [facility], hx HTN, HLD, asthma, JULIA on CPAP, seizure disorder, s/p PPM, afib on Eliquis, HFpEF, chronic constipation with SNF s/p fall with finding of right hip fracture, anemia, hypeklamia, elevated troponin Fever/ lethargy noted on 02/19 now resolved Patient more awake alert, no shakiness noted, symptoms were likely related to narcotics and likely postop fever with no recurrence,Patient not making urine, no coughing episodes ,no shortness of breath, blood cultures x2 negative will DC IV ceftriaxone empirically given. Follow clinical course closely. Minimize narcotics. Right Hip Fracture- status post right hip surgery postoperative day 2 required 1 unit of packed RBC post surgery due to drop in hematocrit to 20.8, hematocrit improved to 29.7 but trending down to 24.6 today Platelet [id number] Continue pain medication, follow hematocrit and platelet count closely, DVT prophylaxis as per Ortho continue compression boots. Avoid anticoagulation with right hip hematoma Hypekalemia--corrected with hemodialysis. ESRD--s/p Dialysis this a.m. for 2 hours, will resume Hemodialysis Saturday and Saturday Continued Renal Diet- 2 Gram K, 2 Gram Na, Phos restricted , continue Fluid restriction 1.5 L/24 hours, creatinine trending down AFIB--low blood pressure , on Metoprolol XL 25 mg currently on hold. No anticoagulation due to anemia. Chronic anemia, transfusion dependint, hematocrit improved with transfusion, but trending down again, likely due to postsurgical hematoma, will repeat CBC at a.m. Thrombocytopenia--Chronic and stable Seizure d/o--continue iv Keppra and seizure precaution, will closely monitor for breakthrough seizure, switch to by mouth once more awake alert Called patient's son Huy Wall [phone] and informed him about patient's clinical condition of decreased by mouth intake and lethargy as per son patient has these intermittent episodes of lethargy not eating for few days and then he revert back to his baseline. DVT prophylaxis: compression device
--- NOTE | 2021-02-20 14:39 | MHC.CM.PN ---
EMR REVIEWED, SNF REFERRRAL UPDATED VIA [employer], PLAN TO RETURN TO [facility] WHEN MEDICALLY CLEARED, NO D/C PLAN FOR TODAY. CM WILL CONT TO FOLLOW FOR D/C NEEDS.
--- NOTE | 2021-02-20 20:51 | PM.PNNEP ---
Subjective Subjective Date of Service: 02/20/21 Principal diagnosis: POD 1 s/p RT hip IMN Interval history: Patient seen this AM on HD Confused A Unable to obtain review of systems since patient not responding. Physical Exam Vital Signs: Vital Signs: Last Vital Signs Temp 98.5 F 02/20/21 19:32 Pulse 112 H 02/20/21 19:32 Resp 16 02/20/21 19:32 BP 116/65 02/20/21 19:32 Pulse Ox 100 02/20/21 19:32 Body Mass Index 33.2 Const: General: cooperative, comfortable and no acute distress Resp: Effort & Inspection: normal respiratory effort and able to speak in complete sentences Cardio: Peripheral pulses: Peripheral pulses 2+ throughout Skin: General skin exam: no rashes or lesions noted Objective Data Labs CBC & Chem 7: 02/20/21 09:54 02/20/21 09:54 Labs: Laboratory Results - last 24 hr 02/20/21 02/20/21 09:54 09:54 WBC 4.7 L RBC 2.72 L Hgb 8.4 L Hct 24.6 L MCV 90.4 MCH 30.9 MCHC 34.1 RDW 16.2 H Plt Count 66 L MPV 10.6 Immature Gran % (Auto) 1.5 H Neut % (Auto) 76.5 H Lymph % (Auto) 8.5 L Izard % (Auto) 11.2 H Eos % (Auto) 2.1 Baso % (Auto) 0.2 Lymph # (Auto) 0.4 L Izard # (Auto) 0.5 Eos # (Auto) 0.1 Baso # (Auto) 0.0 Abs Immat Gran (auto) 0.07 H Absolute Neuts (auto) 3.6 Absolute Nucleated RBC 0.000 Nucleated RBC % (auto) 0.0 Smear Tech's Comments VERIFIED Sodium 137 Potassium 3.4 D Chloride 103 Carbon Dioxide 20 L Anion Gap 17 BUN 33 H Creatinine 4.67 H* Estim Creat Clear Calc 14.1 Estimated GFR 12 Random Glucose 95 Calcium 7.9 L Microbiology Microbiology Results: Microbiology 02/19/21 05:08 Blood - Venous Blood Culture - Preliminary No growth after 24 hours. 02/19/21 05:08 Blood - Venous Blood Culture - Preliminary No growth after 24 hours. Assessment & Plan Assessment and plan (1) Acute blood loss anemia: Status: Acute (2) Pacemaker: Status: Acute (3) Afib: Status: Acute (4) Thrombocytopenia: Status: Acute (5) Anemia in chronic kidney disease: Status: Acute (6) Closed intertrochanteric fracture of right hip: Status: Acute (7) Fall: Status: Acute (8) End-stage renal disease on hemodialysis: Status: Acute Assessment and Plan: 80 year old male with ESRD previously on PD now on HD, chronic anemia requiring intermittent transfusions at [facility], hx HTN, HLD, asthma, JULIA on CPAP, seizure disorder, s/p PPM, afib on Eliquis, HFpEF, chronic constipation with SNF s/p fall with finding of right hip fracture, anemia, hypeklamia, elevated troponin 1.Hypekalemia--corrected with hemodialysis. Now low K 3.4 K per protocal 2. ESRD--s/p Saturday but treatment cut very short for OR time. HD today and in AM Pt is TTS Renal Diet- 2 Gram K, 2 Gram Na, Phos restricted , Fluid restriction 1.5 L/24 hours 3. Seizure d/o--continue Keppra and seizure precaution 4. Anemia _ s/p transfusion Time Spent With Patient Time: Total time spent is greater than 50% in coordination of care (as documented) at patient's floor/unit and/or counseling patient:
[2021-02-21 03:00] VITALS: BP 152/74; PULSE 96; RESP 16; TEMP 37.1; O2SAT 95
[2021-02-21] MEDS: levETIRAcetam in NaCl (iso-os) 500 MG/100 ML PIGGYBACK 400 MG IV ×2 (06:09→17:26)
[2021-02-21 06:57] LABS: Basophils Percent Auto 0.3 % (0-2); Eosinophils Absolute Auto 0.1 X10*3/uL (0.0-0.4); Eosinophils Percent Auto 2.7 % (0-4); Hematocrit 23.6 % (42-52); Imm Gran Abs Auto 0.06 X10*3/uL (0.00-0.03); Imm Gran Pct Auto 1.6 % (0.0-0.4); Lymphocytes Absolute Auto 0.4 X10*3/uL (1.2-4.9); Lymphocytes Percent Auto 9.8 % (20-40); MANUAL DIFF FLAG SCAN; Mean Corpuscular HGB Conc 33.9 g/dl (31.0-36.0); Mean Corpuscular Hemoglobin 30.5 pg (27.0-33.0); Mean Corpuscular Volume 90.1 fL (80-98); Mean Platelet Volume 10.2 fL (9.4-12.4); Monocytes Absolute Auto 0.6 X10*3/uL (0.1-1.2); Monocytes Percent Auto 15.8 % (2-11); Neutrophils Absolute Auto 2.6 X10*3/uL (2.0-8.3); Neutrophils Percent Auto 69.8 % (45-73); Red Blood Count 2.62 X10*6/uL (4.60-5.80); Red Cell Distribution Width 16.4 % (11.0-16.0); SCAN SMEAR FLAG 1; White Blood Count 3.7 X10*3/uL (4.8-10.8)
[2021-02-21 07:00] VITALS: BP 171/92; PULSE 95; RESP 17; TEMP 36.6; O2SAT 97
[2021-02-21 07:01] LABS: Platelet Count 65 X10*3/uL (160-400)
[2021-02-21 07:17] LABS: SLIDE REVIEW VERIFIED
--- NOTE | 2021-02-21 07:38 | PM.PNORT ---
Subjective Subjective Date of Service: 02/21/21 Principal diagnosis: POD 1 s/p RT hip IMN Interval history: POD3 s/p right hip IMN with Dr. Quijano. Patient is resting comfortably in bed. No overnight events. Pain is well managed. Physical Exam Vital Signs: Vital Signs: Last Vital Signs Temp 97.8 F 02/21/21 07:00 Pulse 95 02/21/21 07:00 Resp 17 02/21/21 07:00 BP 171/92 H 02/21/21 07:00 Pulse Ox 97 02/21/21 07:00 Body Mass Index 33.2 Const: General: cooperative, healthy appearing and no acute distress Resp: Effort & Inspection: normal respiratory effort and able to speak in complete sentences Cardio: Rate: regular rate Peripheral pulses: Peripheral pulses 2+ throughout GI: Palpation (GI): Soft to palpation Skin: Lesions: no lesions Rashes: no rashes Extrem: Other: Right hip no ecchymosis, redness, or drainage. Bandage is clean, dry, and intact. NVI. Progress Note: A&P Assessment and plan (1) Closed intertrochanteric fracture of right hip: Status: Acute Assessment and Plan: Continue pain mgmnt dvt ppx-compression boots begin PT for rt hip IM nail monitor H/H Dispo planning-Pending PT eval, pain mgmnt Fall Risk Details Current Medications: Current Medications Generic Name Dose Route Start Last Admin Trade Name Freq PRN Reason Stop Dose Admin Docusate Sodium 100 mg 02/16/21 17:39 Docusate Sodium 100 Mg Capsule PO DAILY PRN Constipation Famotidine 20 mg 02/16/21 17:45 02/20/21 18:01 Famotidine 20 Mg Tablet PO Not Given Q48H PEG Fentanyl 25 mcg 02/18/21 09:09 Fentanyl Citrate/Pf 100 Mcg/2 Ml Vial IVPUSH Q5M PRN Pain, Moderate (Pain Scale 4-6 Gabapentin 100 mg 02/16/21 17:39 Gabapentin 100 Mg Capsule PO Q6H PRN NERVE PAIN Gabapentin 200 mg 02/16/21 21:00 02/20/21 20:37 Gabapentin 100 Mg Capsule PO Not Given TID PEG Hydromorphone HCl 0.5 mg 02/19/21 12:47 Hydromorphone Hcl 0.5 Mg/0.5 Ml Syringe IVPUSH Q6H PRN Pain, Severe (Pain Scale 7-10) Levetiracetam 500 mg in 100 mls @ 400 mls/hr 02/17/21 18:45 02/21/21 06:26 Keppra IV Infused Q12H PEG Infusion Metoprolol Succinate 25 mg 02/17/21 09:00 02/20/21 08:49 Metoprolol Succinate Er 25 Mg Tab.Er.24h PO Not Given DAILY PEG Protocol Montelukast Sodium 10 mg 02/16/21 21:00 02/20/21 20:37 Montelukast Sodium 10 Mg Tablet PO Not Given BEDTIME PEG Naloxone HCl 0.2 mg 02/18/21 10:37 Naloxone Hcl 0.4 Mg/Ml Vial IVPUSH Q2M PRN Excessive sedation or RR < 8 Omeprazole 20 mg 02/17/21 09:00 02/20/21 08:48 Omeprazole 20 Mg Capsule.Dr PO Not Given DAILY PEG Oxycodone HCl 7.5 mg 02/19/21 12:48 Oxycodone Hcl Immed Release 5 Mg Tablet PO Q6H PRN Pain, Moderate (Pain Scale 4-6 Pharmacy Consult 1 each 02/16/21 03:17 Consult Rx Perform Med Rec MISCELLANE ONCE PRN Consult order Pravastatin Sodium 40 mg 02/16/21 21:00 02/20/21 20:37 Pravastatin Sodium 40 Mg Tablet PO Not Given BEDTIME PEG Sodium Chloride 3 ml 02/16/21 16:00 02/20/21 21:14 0.9 % Sodium Chloride Flush 3 Ml Syringe IVFLUSH 3 ml QSHIFT PEG Administration Sodium Chloride 3 ml 02/18/21 16:00 02/20/21 21:14 0.9 % Sodium Chloride Flush 3 Ml Syringe IVFLUSH 3 ml QSHIFT PEG Administration Time Spent With Patient Time: Total time spent is greater than 50% in coordination of care (as documented) at patient's floor/unit and/or counseling patient: Time with patient: less than 15 minutes
[2021-02-21] MEDS: 0.9 % Sodium Chloride Flush 3 ML SYRINGE IVFLUSH ×6 (07:45→20:22)
[2021-02-21] MEDS: Gabapentin 100 MG CAPSULE 200 MG PO (07:45)
--- NOTE | 2021-02-21 07:56 | PM.PNORT ---
Subjective Subjective Date of Service: 02/21/21 Principal diagnosis: POD 1 s/p RT hip IMN Interval history: POD 3 s/p RT hip IMN no overnight events required more blood resting in bed Physical Exam Vital Signs: Vital Signs: Last Vital Signs Temp 97.8 F 02/21/21 07:00 Pulse 95 02/21/21 07:00 Resp 17 02/21/21 07:00 BP 171/92 H 02/21/21 07:00 Pulse Ox 97 02/21/21 07:00 Body Mass Index 33.2 Const: General: cooperative, healthy appearing and no acute distress Resp: Effort & Inspection: normal respiratory effort and able to speak in complete sentences Cardio: Rate: regular rate Peripheral pulses: Peripheral pulses 2+ throughout GI: Palpation (GI): Soft to palpation Skin: General skin exam: no rashes or lesions noted Extrem: Other: [facility] ip bandage c/d/i. no erythema, mild edema, sensation intact Progress Note: A&P Assessment and plan (1) Closed intertrochanteric fracture of right hip: Status: Acute Assessment and Plan: Continue pain mgmnt cont dvt ppx cont PT/OT for RIght hip IMN Dispo planning-Pending PT eval, pain mgmnt Fall Risk Details Current Medications: Current Medications Generic Name Dose Route Start Last Admin Trade Name Freq PRN Reason Stop Dose Admin Docusate Sodium 100 mg 02/16/21 17:39 Docusate Sodium 100 Mg Capsule PO DAILY PRN Constipation Famotidine 20 mg 02/16/21 17:45 02/20/21 18:01 Famotidine 20 Mg Tablet PO Not Given Q48H PEG Fentanyl 25 mcg 02/18/21 09:09 Fentanyl Citrate/Pf 100 Mcg/2 Ml Vial IVPUSH Q5M PRN Pain, Moderate (Pain Scale 4-6 Gabapentin 100 mg 02/16/21 17:39 Gabapentin 100 Mg Capsule PO Q6H PRN NERVE PAIN Gabapentin 200 mg 02/16/21 21:00 02/21/21 07:45 Gabapentin 100 Mg Capsule PO 200 mg TID PEG Administration Hydromorphone HCl 0.5 mg 02/19/21 12:47 Hydromorphone Hcl 0.5 Mg/0.5 Ml Syringe IVPUSH Q6H PRN Pain, Severe (Pain Scale 7-10) Levetiracetam 500 mg in 100 mls @ 400 mls/hr 02/17/21 18:45 02/21/21 06:26 Keppra IV Infused Q12H PEG Infusion Metoprolol Succinate 25 mg 02/17/21 09:00 02/20/21 08:49 Metoprolol Succinate Er 25 Mg Tab.Er.24h PO Not Given DAILY PEG Protocol Montelukast Sodium 10 mg 02/16/21 21:00 02/20/21 20:37 Montelukast Sodium 10 Mg Tablet PO Not Given BEDTIME PEG Naloxone HCl 0.2 mg 02/18/21 10:37 Naloxone Hcl 0.4 Mg/Ml Vial IVPUSH Q2M PRN Excessive sedation or RR < 8 Omeprazole 20 mg 02/17/21 09:00 02/21/21 07:48 Omeprazole 20 Mg Capsule.Dr PO Not Given DAILY PEG Oxycodone HCl 7.5 mg 02/19/21 12:48 Oxycodone Hcl Immed Release 5 Mg Tablet PO Q6H PRN Pain, Moderate (Pain Scale 4-6 Pharmacy Consult 1 each 02/16/21 03:17 Consult Rx Perform Med Rec MISCELLANE ONCE PRN Consult order Pravastatin Sodium 40 mg 02/16/21 21:00 02/20/21 20:37 Pravastatin Sodium 40 Mg Tablet PO Not Given BEDTIME PEG Sodium Chloride 3 ml 02/16/21 16:00 02/21/21 07:45 0.9 % Sodium Chloride Flush 3 Ml Syringe IVFLUSH 3 ml QSHIFT PEG Administration Sodium Chloride 3 ml 02/18/21 16:00 02/21/21 07:45 0.9 % Sodium Chloride Flush 3 Ml Syringe IVFLUSH 3 ml QSHIFT PEG Administration Time Spent With Patient Time: Total time spent is greater than 50% in coordination of care (as documented) at patient's floor/unit and/or counseling patient: Time with patient: less than 15 minutes
[2021-02-21 12:06] VITALS: BP 104/55; PULSE 104; RESP 15; TEMP 36.4; O2SAT 100
[2021-02-21 15:18] VITALS: BP 114/81; PULSE 102; RESP 18; TEMP 36.2; O2SAT 98
--- NOTE | 2021-02-21 15:57 | HO.PM.IMPN ---
Subjective Subjective Date of Service: 02/21/21 Interval History: Seen in f/u hip fracture d/t fall, acute on chronic anemia. He is more alert from what has been documented ROS: confused, denies pain Review of Systems Gen: no fever Resp: no sob, no cough CV: no chest, no FORTE, no leg edema GI: No n/v, no abd pain Neuro: some confusion MSK: right hip pain with movement Physical Exam Vital Signs: Vital Signs: Last Vital Signs Temp 97.2 F 02/21/21 15:18 Pulse 102 H 02/21/21 15:18 Resp 18 02/21/21 15:18 BP 114/81 02/21/21 15:18 Pulse Ox 98 02/21/21 15:18 Body Mass Index 33.2 General Awake alert Neck no JVD. CVS regular rate rhythm, Respiratory lungs clear to auscultation, no respiratory distress, no wheeze, no rhonchi. Gastrointestinal abdomen soft, nontender, bowel sounds audible, no guarding , no rigidity. Extremities no edema. Right hip dressing in place no bleeding noted Neuro nonfocal ,speech clear but seems confused Skin no rash, right hip dressing in place Objective Data Current Medications Generic Name Dose Route Start Last Admin Trade Name Freq PRN Reason Stop Dose Admin Docusate Sodium 100 mg 02/16/21 17:39 Docusate Sodium 100 Mg Capsule PO DAILY PRN Constipation Famotidine 20 mg 02/16/21 17:45 02/20/21 18:01 Famotidine 20 Mg Tablet PO Not Given Q48H PEG Fentanyl 25 mcg 02/18/21 09:09 Fentanyl Citrate/Pf 100 Mcg/2 Ml Vial IVPUSH Q5M PRN Pain, Moderate (Pain Scale 4-6 Gabapentin 100 mg 02/16/21 17:39 Gabapentin 100 Mg Capsule PO Q6H PRN NERVE PAIN Gabapentin 200 mg 02/16/21 21:00 02/21/21 14:23 Gabapentin 100 Mg Capsule PO Not Given TID PEG Hydromorphone HCl 0.5 mg 02/19/21 12:47 Hydromorphone Hcl 0.5 Mg/0.5 Ml Syringe IVPUSH Q6H PRN Pain, Severe (Pain Scale 7-10) Levetiracetam 500 mg in 100 mls @ 400 mls/hr 02/17/21 18:45 02/21/21 06:26 Keppra IV Infused Q12H COUNT INCLUDES THE [facility] Infusion Metoprolol Succinate 25 mg 02/17/21 09:00 02/20/21 08:49 Metoprolol Succinate Er 25 Mg Tab.Er.24h PO Not Given DAILY COUNT INCLUDES THE [facility] Protocol Montelukast Sodium 10 mg 02/16/21 21:00 02/20/21 20:37 Montelukast Sodium 10 Mg Tablet PO Not Given BEDTIME COUNT INCLUDES THE [facility] Naloxone HCl 0.2 mg 02/18/21 10:37 Naloxone Hcl 0.4 Mg/Ml Vial IVPUSH Q2M PRN Excessive sedation or RR < 8 Omeprazole 20 mg 02/17/21 09:00 02/21/21 07:48 Omeprazole 20 Mg Capsule.Dr PO Not Given DAILY COUNT INCLUDES [facility] Oxycodone HCl 7.5 mg 02/19/21 12:48 Oxycodone Hcl Immed Release 5 Mg Tablet PO Q6H PRN Pain, Moderate (Pain Scale 4-6 Pharmacy Consult 1 each 02/16/21 03:17 Consult Rx Perform Med Rec MISCELLANE ONCE PRN Consult order Pravastatin Sodium 40 mg 02/16/21 21:00 02/20/21 20:37 Pravastatin Sodium 40 Mg Tablet PO Not Given BEDTIME COUNT INCLUDES [facility] Sodium Chloride 3 ml 02/16/21 16:00 02/21/21 15:18 0.9 % Sodium Chloride Flush 3 Ml Syringe IVFLUSH 3 ml QSHIFT COUNT INCLUDES THE [facility] Administration Sodium Chloride 3 ml 02/18/21 16:00 02/21/21 14:24 0.9 % Sodium Chloride Flush 3 Ml Syringe IVFLUSH 3 ml QSHIFT COUNT INCLUDES THE [facility] Administration Labs CBC & Chem 7: 02/21/21 06:26 02/20/21 09:54 Microbiology Microbiology Results: Microbiology 02/19/21 05:08 Blood - Venous Blood Culture - Preliminary No growth after 48 hours. 02/19/21 05:08 Blood - Venous Blood Culture - Preliminary No growth after 48 hours. Assessment and Plan (1) Acute blood loss anemia: Status: Acute (2) Pacemaker: Status: Acute (3) Afib: Status: Acute (4) Thrombocytopenia: Status: Acute (5) Anemia in chronic kidney disease: Status: Acute (6) Closed intertrochanteric fracture of right hip: Status: Acute (7) Fall: Status: Acute (8) End-stage renal disease on hemodialysis: Status: Acute Assessment and Plan: 80 year old male with ESRD previously on PD now on HD, chronic anemia requiring intermittent transfusions at [facility], hx HTN, HLD, asthma, JULIA on CPAP, seizure disorder, s/p PPM, afib on Eliquis, HFpEF, chronic constipation with SNF s/p fall with finding of right hip fracture, anemia, hypeklamia, elevated troponin Fever/ lethargy noted on 02/19 now resolved Patient more awake alert, no shakiness noted, symptoms were likely related to narcotics and likely postop fever with no recurrence,Patient not making urine, no coughing episodes ,no shortness of breath, blood cultures x2 negative will DC IV ceftriaxone empirically given. Follow clinical course closely. Minimize narcotics. Right Hip Fracture- status post right hip surgery postoperative day 3 required 1 unit of packed RBC post surgery due to drop in hematocrit to 20.8, hematocrit improved to 29.7 but trending down to 23 today Platelet [id number] Continue pain medication, follow hematocrit and platelet count closely, DVT prophylaxis as per Ortho continue compression boots. Avoid anticoagulation with right hip hematoma Hypekalemia--corrected with hemodialysis. ESRD--s/p Dialysis this a.m. for 2 hours, will resume Hemodialysis Saturday and Saturday Continued Renal Diet- 2 Gram K, 2 Gram Na, Phos restricted , continue Fluid restriction 1.5 L/24 hours, creatinine trending down AFIB--low blood pressure , on Metoprolol XL 25 mg currently on hold. No anticoagulation due to anemia. Chronic anemia, transfusion dependint, hematocrit improved with transfusion, but trending down again, likely due to postsurgical hematoma, will repeat CBC at a.m. Thrombocytopenia--Chronic and stable Seizure d/o--continue iv Keppra and seizure precaution, will closely monitor for breakthrough seizure, switch to by mouth once more awake alert Anticipated dc by tomorrow DVT prophylaxis: compression device
[2021-02-21 19:00] VITALS: BP 114/72; PULSE 70; RESP 14; TEMP 36.4; O2SAT 97
--- NOTE | 2021-02-21 22:03 | P.PNNP_ITS ---
Subjective Subjective Date of Service: 02/21/21 Interval history: Seen on HD this AM Sleepy ROS: confused, denies pain Physical Exam Vital Signs: Vital Signs: Last Vital Signs Temp 97.5 F 02/21/21 19:00 Pulse 70 02/21/21 19:00 Resp 14 02/21/21 19:00 BP 114/72 02/21/21 19:00 Pulse Ox 97 02/21/21 19:00 Body Mass Index 33.2 Const: General: cooperative, healthy appearing, comfortable, no acute distress, alert and awake HENMT: Head: Yes normal to inspection Eyes: Conjunctivae: conjunctivae normal Neck: Neck: Yes normal visual inspection and Yes no JVD Carotids: carotid upstroke abnormal Resp: Effort & Inspection: normal respiratory effort, able to speak in complete sentences and not labored Auscultation: clear to auscultation bilaterally, no crackles, no rales, no rhonchi and no wheezes Cardio: Rate: regular rate Heart sounds: S1 normal heart sound present and S2 normal heart sound present Peripheral pulses: Peripheral pulses 2+ throughout GI: Inspection: Yes normal to inspection Palpation (GI): Soft to palpation Skin: General skin exam: no rashes or lesions noted Lesions: no lesions Rashes: no rashes Extrem: Other: rihth ip bandage c/d/i. no erythema, mild edema, sensation intact General: No edema Objective Data Labs CBC & Chem 7: 02/21/21 06:26 02/20/21 09:54 Labs: Laboratory Results - last 24 hr 02/21/21 06:26 WBC 3.7 L RBC 2.62 L Hgb 8.0 L Hct 23.6 L MCV 90.1 MCH 30.5 MCHC 33.9 RDW 16.4 H Plt Count 65 L MPV 10.2 Immature Gran % (Auto) 1.6 H Neut % (Auto) 69.8 Lymph % (Auto) 9.8 L [place] % (Auto) 15.8 H Eos % (Auto) 2.7 Baso % (Auto) 0.3 Lymph # (Auto) 0.4 L [place] # (Auto) 0.6 Eos # (Auto) 0.1 Baso # (Auto) 0.0 Abs Immat Gran (auto) 0.06 H Absolute Neuts (auto) 2.6 Absolute Nucleated RBC 0.000 Nucleated RBC % (auto) 0.0 Smear Tech's Comments VERIFIED Microbiology Microbiology Results: Microbiology 02/19/21 05:08 Blood - Venous Blood Culture - Preliminary No growth after 48 hours. 02/19/21 05:08 Blood - Venous Blood Culture - Preliminary No growth after 48 hours. Assessment & Plan Assessment and plan (1) Acute blood loss anemia: Status: Acute (2) Pacemaker: Status: Acute (3) Afib: Status: Acute (4) Thrombocytopenia: Status: Acute (5) Anemia in chronic kidney disease: Status: Acute (6) Closed intertrochanteric fracture of right hip: Status: Acute (7) Fall: Status: Acute (8) End-stage renal disease on hemodialysis: Status: Acute Assessment and Plan: 80 year old male with ESRD previously on PD now on HD, chronic anemia requiring intermittent transfusions at [facility], hx HTN, HLD, asthma, JULIA on CPAP, seizure disorder, s/p PPM, afib on Eliquis, HFpEF, chronic constipation with SNF s/p fall with finding of right hip fracture, anemia, hypeklamia, elevated troponin 1. . ESRD-- HD to continue today Pt is TTS Renal Diet- 2 Gram K, 2 Gram Na, Phos restricted , Fluid restriction 1.5 L/24 hours 2. .Hypekalemia--corrected with hemodialysis. K per protocal 3. Seizure d/o--continue Keppra and seizure precaution 4. Anemia _ s/p transfusion Time Spent With Patient Time: Total time spent is greater than 50% in coordination of care (as documented) at patient's floor/unit and/or counseling patient:
[2021-02-21 23:00] VITALS: BP 150/80; PULSE 85; RESP 16; TEMP 37.1; O2SAT 96
--- NOTE | 2021-02-22 01:48 | PC.NURSE ---
Pt noted to be drowsy and minimally responsive. Pt stated hi and nothing more. Attempted to give sips of water to see if he may be able to swallow his medications. Pt did not try to sip or even respond to the straw on his lip. 2100 medications were not given due to pt being too drowsy and unable to follow commands/ swallow safely.
[2021-02-22 03:00] VITALS: BP 152/77; PULSE 67; RESP 18; TEMP 37.1; O2SAT 95
[2021-02-22] MEDS: HYDROmorphone HCl 0.5 MG/0.5 ML SYRINGE IVPUSH (04:51)
[2021-02-22] MEDS: levETIRAcetam in NaCl (iso-os) 500 MG/100 ML PIGGYBACK 400 MG IV ×2 (05:55→19:19)
[2021-02-22 07:00] VITALS: BP 108/67; PULSE 91; RESP 15; TEMP 36.1; O2SAT 95
[2021-02-22] MEDS: 0.9 % Sodium Chloride Flush 3 ML SYRINGE IVFLUSH ×4 (09:57→17:18)
[2021-02-22 11:00] VITALS: BP 125/73; PULSE 99; RESP 18; TEMP 36.1; O2SAT 96
[2021-02-22 11:12] LABS: Hematocrit 26.2 % (42-52); Hemoglobin 8.6 g/dl (14.0-18.0); Mean Corpuscular HGB Conc 32.8 g/dl (31.0-36.0); Mean Corpuscular Hemoglobin 30.5 pg (27.0-33.0); Mean Corpuscular Volume 92.9 fL (80-98); Mean Platelet Volume 10.6 fL (9.4-12.4); Platelet Count 63 X10*3/uL (160-400); Red Blood Count 2.82 X10*6/uL (4.60-5.80); Red Cell Distribution Width 16.5 % (11.0-16.0); White Blood Count 3.2 X10*3/uL (4.8-10.8)
[2021-02-22 11:57] LABS: Anion Gap 20 (12-20); Blood Urea Nitrogen 53 mg/dL (9-16); Calcium 8.2 mg/dL (8.4-10.2); Carbon Dioxide 20 mmol/L (22-29); Chloride 101 mmol/L (96-108); Estimated Glomerular Filt Rate 8; Glucose Random 96 mg/dL (60-115); Potassium 4.6 mmol/L (3.3-5.1); Sodium 136 mmol/L (135-145)
--- NOTE | 2021-02-22 12:28 | P.PNIM_ITS ---
Subjective Subjective Date of Service: 02/22/21 Interval History: Patient more awake alert this morning tolerating lunch, complaining of soreness right hip, was noted to be lethargic but arousable this morning, otherwise no other acute issues. ROS General no headache ,no fever CVS no chest pain Respiratory no cough, no sob Gastrointestinal no nausea, no vomiting, no abdominal pain Physical Exam Vital Signs: Vital Signs: Last Vital Signs Temp 97.0 F 02/22/21 11:00 Pulse 99 02/22/21 11:00 Resp 18 02/22/21 11:00 BP 125/73 02/22/21 11:00 Pulse Ox 96 02/22/21 11:00 Body Mass Index 33.2 General this a.m. patient was noted to be lethargic but later in afternoon awake alert tolerating lunch Neck no JVD. CVS regular rate rhythm, Respiratory lungs clear to auscultation, no respiratory distress Gastrointestinal abdomen soft, nontender, bowel sounds audible, no guarding , no rigidity. Extremities no edema. Right hip dressing in place no bleeding noted Neuro nonfocal ,speech clear. Skin no rash Objective Data Current Medications Generic Name Dose Route Start Last Admin Trade Name Freq PRN Reason Stop Dose Admin Acetaminophen 650 mg 02/22/21 09:00 02/22/21 10:05 Acetaminophen 325 Mg Tablet PO Not Given Q6H [facility] Docusate Sodium 100 mg 02/16/21 17:39 Docusate Sodium 100 Mg Capsule PO DAILY PRN Constipation Famotidine 20 mg 02/16/21 17:45 02/20/21 18:01 Famotidine 20 Mg Tablet PO Not Given Q48H [facility] Fentanyl 25 mcg 02/18/21 09:09 Fentanyl Citrate/Pf 100 Mcg/2 Ml Vial IVPUSH Q5M PRN Pain, Moderate (Pain Scale 4-6 Gabapentin 100 mg 02/16/21 17:39 Gabapentin 100 Mg Capsule PO Q6H PRN NERVE PAIN Gabapentin 200 mg 02/16/21 21:00 02/22/21 10:05 Gabapentin 100 Mg Capsule PO Not Given TID PEG Hydromorphone HCl 0.5 mg 02/19/21 12:47 02/22/21 04:51 Hydromorphone Hcl 0.5 Mg/0.5 Ml Syringe IVPUSH 0.5 mg Q6H PRN Administration Pain, Severe (Pain Scale 7-10) Levetiracetam 500 mg in 100 mls @ 400 mls/hr 02/17/21 18:45 02/22/21 06:31 Keppra IV Infused Q12H [facility] Infusion Metoprolol Succinate 25 mg 02/17/21 09:00 02/20/21 08:49 Metoprolol Succinate Er 25 Mg Tab.Er.24h PO Not Given DAILY [facility] Protocol Montelukast Sodium 10 mg 02/16/21 21:00 02/21/21 20:06 Montelukast Sodium 10 Mg Tablet PO Not Given BEDTIME [facility] Naloxone HCl 0.2 mg 02/18/21 10:37 Naloxone Hcl 0.4 Mg/Ml Vial IVPUSH Q2M PRN Excessive sedation or RR < 8 Omeprazole 20 mg 02/17/21 09:00 02/22/21 10:04 Omeprazole 20 Mg Capsule.Dr PO Not Given DAILY [facility] Oxycodone HCl 7.5 mg 02/19/21 12:48 Oxycodone Hcl Immed Release 5 Mg Tablet PO Q6H PRN Pain, Moderate (Pain Scale 4-6 Pharmacy Consult 1 each 02/16/21 03:17 Consult Rx Perform Med Rec MISCELLANE ONCE PRN Consult order Pravastatin Sodium 40 mg 02/16/21 21:00 02/21/21 20:06 Pravastatin Sodium 40 Mg Tablet PO Not Given BEDTIME [facility] Sodium Chloride 3 ml 02/16/21 16:00 02/22/21 09:57 0.9 % Sodium Chloride Flush 3 Ml Syringe IVFLUSH 3 ml QSCOFT [facility] Administration Sodium Chloride 3 ml 02/18/21 16:00 02/22/21 09:58 0.9 % Sodium Chloride Flush 3 Ml Syringe IVFLUSH 3 ml QSCOFT [facility] Administration Labs CBC & Chem 7: 02/22/21 10:58 02/22/21 10:58 Microbiology Microbiology Results: Microbiology 02/19/21 05:08 Blood - Venous Blood Culture - Preliminary No growth after 48 hours. 02/19/21 05:08 Blood - Venous Blood Culture - Preliminary No growth after 48 hours. Assessment and Plan (1) Acute blood loss anemia: Status: Acute (2) Afib: Status: Acute (3) Thrombocytopenia: Status: Acute (4) Chronic kidney failure: Status: Acute (5) Closed intertrochanteric fracture of right hip: Status: Acute (6) Acute hyperkalemia: Status: Acute (7) Fall: Status: Acute (8) End-stage renal disease on hemodialysis: Status: Acute Assessment and Plan: 80 year old male with ESRD previously on PD now on HD, chronic anemia requiring intermittent transfusions at [facility], hx HTN, HLD, asthma, JULIA on CPAP, seizure disorder, s/p PPM, afib on Eliquis, HFpEF, chronic constipation with SNF s/p fall with finding of right hip fracture, anemia, hypeklamia, elevated troponin Fever/ lethargy noted on 02/19 No recurrent bout of fever, likely had post up fever, workup including blood cultures are negative, patient noted to be lethargic on and off, at present awake answering questions appropriately and eating lunch, no shakiness Will minimize narcotics and reduce dose of gabapentin likely contributing to lethargy follow clinical course. Right Hip Fracture- status post right hip surgery postoperative day 4 required 1 unit of packed RBC post surgery due to drop in hematocrit to 20.8, hematocrit improved to 29.7 but trending down to 26 today Platelet [id number] Continue pain medication, follow hematocrit and platelet count closely, DVT prophylaxis as per Ortho continue compression boots. Avoid anticoagulation with right hip hematoma Hypekalemia--corrected with hemodialysis. ESRD--continue Hemodialysis Saturday and Saturday Continued Renal Diet- 2 Gram K, 2 Gram Na, Phos restricted , continue Fluid restriction 1.5 L/24 hours AFIB--blood pressure improved will resume metoprolol XL 25 mg daily hold anticoagulation due to anemia. Chronic anemia, transfusion dependint, hematocrit improved with transfusion, likely due to postsurgical hematoma, follow CBC Thrombocytopenia--Chronic and stable Seizure d/o--continue iv Keppra and seizure precaution, will closely monitor for breakthrough seizure, switch to by mouth once tolerating diet DVT prophylaxis: compression device
[2021-02-22] MEDS: oxyCODONE HCl Immed Release 5 MG TABLET PO (13:59)
[2021-02-22 15:00] VITALS: BP 103/76; PULSE 69; RESP 16; TEMP 36; O2SAT 94
[2021-02-22] MEDS: Acetaminophen 325 MG TABLET 650 MG PO (17:35)
[2021-02-22] MEDS: Gabapentin 100 MG CAPSULE PO ×2 (17:36→20:36)
[2021-02-22] MEDS: Famotidine 20 MG TABLET PO (17:36)
[2021-02-22 19:00] VITALS: BP 104/64; PULSE 94; RESP 16; TEMP 36; O2SAT 97
[2021-02-22] MEDS: Pravastatin Sodium 40 MG TABLET PO (20:35)
[2021-02-22] MEDS: Montelukast Sodium 10 MG TABLET PO (20:35)
--- NOTE | 2021-02-22 21:31 | P.PNNP_ITS ---
Subjective Subjective Date of Service: 02/22/21 Principal diagnosis: POD 1 s/p RT hip IMN Interval history: Patient resting in the bed More awake no other acute issues. ROS General no headache ,no fever CVS no chest pain Respiratory no cough, no sob Gastrointestinal no nausea, no vomiting, no abdominal pain Physical Exam Vital Signs: Vital Signs: Last Vital Signs Temp 96.8 F 02/22/21 19:00 Pulse 94 02/22/21 19:00 Resp 16 02/22/21 19:00 BP 104/64 02/22/21 19:00 Pulse Ox 97 02/22/21 19:00 Body Mass Index 33.2 Const: General: cooperative, healthy appearing, comfortable, no acute distress, alert and awake HENMT: Head: Yes normal to inspection Eyes: Conjunctivae: conjunctivae normal Neck: Neck: Yes normal visual inspection and Yes no JVD Carotids: carotid upstroke abnormal Resp: Effort & Inspection: normal respiratory effort, able to speak in complete sentences and not labored Auscultation: clear to auscultation bilaterally, no crackles, no rales, no rhonchi and no wheezes Cardio: Rate: regular rate Heart sounds: S1 normal heart sound present and S2 normal heart sound present Peripheral pulses: Peripheral pulses 2+ throughout GI: Inspection: Yes normal to inspection Palpation (GI): Soft to palpation Skin: General skin exam: no rashes or lesions noted Lesions: no lesions Rashes: no rashes Extrem: Other: [facility] ip bandage c/d/i. no erythema, mild edema, sensation intact General: No edema Objective Data Labs CBC & Chem 7: 02/22/21 10:58 02/22/21 10:58 Labs: Laboratory Results - last 24 hr 02/16/21 02/22/21 02/22/21 03:50 10:58 10:58 WBC 3.2 L RBC 2.82 L Hgb 8.6 L Hct 26.2 L MCV 92.9 MCH 30.5 MCHC 32.8 RDW 16.5 H Plt Count 63 L MPV 10.6 Absolute Nucleated RBC 0.000 Nucleated RBC % (auto) 0.0 Sodium 136 Potassium 4.6 D Chloride 101 Carbon Dioxide 20 L Anion Gap 20 BUN 53 H D Creatinine 6.70 H* Estim Creat Clear Calc 10.0 Estimated GFR 8 Random Glucose 96 Calcium 8.2 L Crossmatch See Detail Reference Report See note Microbiology Microbiology Results: Microbiology 02/19/21 05:08 Blood - Venous Blood Culture - Preliminary No growth after 48 hours. 02/19/21 05:08 Blood - Venous Blood Culture - Preliminary No growth after 48 hours. Assessment & Plan Assessment and plan (1) Acute blood loss anemia: Status: Acute (2) Afib: Status: Acute (3) Thrombocytopenia: Status: Acute (4) Chronic kidney failure: Status: Acute (5) Closed intertrochanteric fracture of right hip: Status: Acute (6) Acute hyperkalemia: Status: Acute (7) Fall: Status: Acute (8) End-stage renal disease on hemodialysis: Status: Acute Assessment and Plan: 80 year old male with ESRD previously on PD now on HD, chronic anemia requiring intermittent transfusions at [facility], hx HTN, HLD, asthma, JULIA on CPAP, seizure disorder, s/p PPM, afib on Eliquis, HFpEF, chronic constipation with SNF s/p fall with finding of right hip fracture, anemia, hypeklamia, elevated troponin 1. . ESRD-- HD in AM Pt is TTS Renal Diet- 2 Gram K, 2 Gram Na, Phos restricted , Fluid restriction 1.5 L/24 hours 2. .Hypekalemia--corrected with hemodialysis. K per protocal 3. Seizure d/o--continue Keppra and seizure precaution 4. Anemia _ s/p transfusion Time Spent With Patient Time: Total time spent is greater than 50% in coordination of care (as documented) at patient's floor/unit and/or counseling patient:
[2021-02-22 23:52] VITALS: BP 131/65; PULSE 83; RESP 16; TEMP 36.2; O2SAT 96
[2021-02-23] MEDS: 0.9 % Sodium Chloride Flush 3 ML SYRINGE IVFLUSH ×2 (00:11)
[2021-02-23 04:00] VITALS: BP 134/76; PULSE 97; RESP 18; TEMP 36.6; O2SAT 97
[2021-02-23] MEDS: levETIRAcetam in NaCl (iso-os) 500 MG/100 ML PIGGYBACK 400 MG IV (06:05)
[2021-02-23 07:26] VITALS: BP 119/88; PULSE 99; RESP 15; TEMP 36.2; O2SAT 97
[2021-02-23 07:46] VITALS: BP 119/88; PULSE 99; O2SAT 97
--- NOTE | 2021-02-23 07:57 | PM.PNORT ---
Subjective Subjective Date of Service: 02/23/21 Principal diagnosis: POD 1 s/p RT hip IMN Interval history: POD5 s/p right hip IM Nail with Dr. Quijano. Patient is resting comfortably in bed. No overnight events. Pain is well managed. Physical Exam Vital Signs: Vital Signs: Last Vital Signs Temp 97.1 F 02/23/21 07:26 Pulse 99 02/23/21 07:46 Resp 15 02/23/21 07:26 BP 119/88 02/23/21 07:46 Pulse Ox 97 02/23/21 07:46 Body Mass Index 33.2 Const: General: cooperative, healthy appearing and no acute distress Resp: Effort & Inspection: normal respiratory effort and able to speak in complete sentences Cardio: Rate: regular rate Peripheral pulses: Peripheral pulses 2+ throughout GI: Palpation (GI): Soft to palpation Skin: Lesions: no lesions Rashes: no rashes Extrem: Other: Right hip no ecchymosis, redness, or purulent drainage. Dressing was mildly saturated with serosang fluid and was removed and aquacel dressing applied. Incision is well approximated, no redness, francis intact. NVI. Progress Note: A&P Assessment and plan (1) Closed intertrochanteric fracture of right hip: Status: Acute Assessment and Plan: Continue pain mgmnt Medicine to resume dvt ppx medications when appropriate Continue PT for right hip IM Nail Dispo planning-Pending PT eval, pain mgmnt Fall Risk Details Current Medications: Current Medications Generic Name Dose Route Start Last Admin Trade Name Freq PRN Reason Stop Dose Admin Acetaminophen 650 mg 02/22/21 09:00 02/23/21 02:22 Acetaminophen 325 Mg Tablet PO Not Given Q6H PEG Docusate Sodium 100 mg 02/16/21 17:39 Docusate Sodium 100 Mg Capsule PO DAILY PRN Constipation Famotidine 20 mg 02/16/21 17:45 02/22/21 17:36 Famotidine 20 Mg Tablet PO 20 mg Q48H PEG Administration Fentanyl 25 mcg 02/18/21 09:09 Fentanyl Citrate/Pf 100 Mcg/2 Ml Vial IVPUSH Q5M PRN Pain, Moderate (Pain Scale 4-6 Gabapentin 100 mg 02/16/21 17:39 Gabapentin 100 Mg Capsule PO Q6H PRN NERVE PAIN Gabapentin 100 mg 02/22/21 15:00 02/22/21 20:36 Gabapentin 100 Mg Capsule PO 100 mg TID PEG Administration Levetiracetam 500 mg in 100 mls @ 400 mls/hr 02/17/21 18:45 02/23/21 06:29 Keppra IV Infused Q12H PEG Infusion Metoprolol Succinate 25 mg 02/23/21 09:00 Metoprolol Succinate Er 25 Mg Tab.Er.24h PO DAILY PEG Protocol Montelukast Sodium 10 mg 02/16/21 21:00 02/22/21 20:35 Montelukast Sodium 10 Mg Tablet PO 10 mg BEDTIME PEG Administration Naloxone HCl 0.2 mg 02/18/21 10:37 Naloxone Hcl 0.4 Mg/Ml Vial IVPUSH Q2M PRN Excessive sedation or RR < 8 Omeprazole 20 mg 02/17/21 09:00 02/22/21 10:04 Omeprazole 20 Mg Capsule.Dr PO Not Given DAILY PEG Oxycodone HCl 5 mg 02/22/21 12:31 02/22/21 13:59 Oxycodone Hcl Immed Release 5 Mg Tablet PO 5 mg Q6H PRN Administration Pain, Moderate (Pain Scale 4-6 Pharmacy Consult 1 each 02/16/21 03:17 Consult Rx Perform Med Rec MISCELLANE ONCE PRN Consult order Pravastatin Sodium 40 mg 02/16/21 21:00 02/22/21 20:35 Pravastatin Sodium 40 Mg Tablet PO 40 mg BEDTIME PEG Administration Sodium Chloride 3 ml 02/16/21 16:00 02/23/21 00:11 0.9 % Sodium Chloride Flush 3 Ml Syringe IVFLUSH 3 ml QSHIFT PEG Administration Sodium Chloride 3 ml 02/18/21 16:00 02/23/21 00:11 0.9 % Sodium Chloride Flush 3 Ml Syringe IVFLUSH 3 ml QSHIFT PEG Administration Time Spent With Patient Time: Total time spent is greater than 50% in coordination of care (as documented) at patient's floor/unit and/or counseling patient: Time with patient: less than 15 minutes
--- NOTE | 2021-02-23 09:47 | PM.DS ---
DS: Providers Provider Date of Service: 03/06/21 Date of admission: 02/16/21 08:04 Primary care physician: Unknown Physician Consults: 02/16/21 08:30 Consult to Nephrology Routine Consulting Provider: Eric Black Reason for consultation: ESRD, High potassium 02/16/21 13:43 Consult to Cardiology Routine Consulting Provider: Ranjit Jarrett Reason for consultation: pre op eval DS: Diagnosis Discharge Diagnosis (1) Closed intertrochanteric fracture of right hip: Status: Acute DS: Medications Discharge Medications Home Medications: Home Medications Medication Instructions Recorded Confirmed acetaminophen 650 mg PO Q4H PRN 11/07/20 02/16/21 apixaban 2.5 mg PO BID 11/07/20 11/07/20 docusate sodium 100 mg PO DAILY PRN 11/07/20 02/16/21 famotidine 20 mg PO Q48H 11/07/20 02/16/21 fluticasone propion-salmeterol 1 inh INHALATION Q12H 11/07/20 02/16/21 [Advair Diskus] gabapentin 100 mg PO Q6H PRN 11/07/20 02/16/21 gabapentin 200 mg PO TID 11/07/20 02/16/21 levetiracetam [Keppra] 500 mg PO BID 11/07/20 02/16/21 metoprolol succinate [Toprol XL] 25 mg PO DAILY 11/07/20 02/16/21 montelukast 10 mg PO BEDTIME 11/07/20 02/16/21 ondansetron HCl [Zofran] 4 mg PO Q6H PRN 11/07/20 02/16/21 pravastatin 40 mg PO BEDTIME 11/07/20 02/16/21 gerpiomkqk-hwgtwepjqmykh-jwbn 1 cap PO Q6H PRN 02/16/21 02/16/21 [Fioricet] calcium acetate 1,334 mg PO TIDWM 02/16/21 02/16/21 Previous Rx's Medication Instructions Recorded omeprazole magnesium [Prilosec OTC] 20 mg PO DAILY 28 Days #28 tab 11/12/20 oxycodone 5 mg PO Q6H PRN #20 tab 02/23/21 DS: Summary Hospital Course Hospital Course: Date of admission: 02/16/21 Chief Complaint: Fall and hip fracture 80 year old male with ESRD previously on PD now on HD, chronic anemia requiring intermittent transfusions at [facility], hx HTN, HLD, asthma, JULIA on CPAP, seizure disorder, s/p PPM, afib previously on Eliquis but taking off since November, HFpEF, chronic constipation. He was brought from [facility] after he was found down under unclear circumstances and of unknown duration. He was confused when I saw him in ED and therefore relied on ED documentation for additional information. He was able to tell me at that time he was in hospital and didn't know how he felt. He was noted to have Hyperkalemia with potassium of 6.1 and singificantly anemic 7.7 with report of gib, CT head no acute trauma, xray of hip showed right hip fracture and ortho planned to operate on him tomorrow. I notified Dr. Black was planning urgent dialysis. Hospital course: 80 year old male with ESRD previously on PD now on HD, chronic anemia requiring intermittent transfusions at [facility], hx HTN, HLD, asthma, JULIA on CPAP, seizure disorder, s/p PPM, afib on Eliquis, HFpEF, chronic constipation with SNF s/p fall with finding of right hip fracture, anemia, hypeklamia, elevated troponin For his hip fracture: He underwent operative repair on 02/18 as sugery had to be delayed until he could get the appropriate blood type . Following surgery he developped hematoma at the site coinciding with drop in blood count and had to be transfused see anemia for detail. He seems to be doing better. Ortho will see in follow up in 2 weeks, see dc instruction for further recommendation. Anemia and thrombocytopenia--He has crhonic transfusion dependent anemia. He presented with hemoglobin of 6.7 and was transfused before surgery on the with improved hemoglobin to 10 and following surgery on same day hemoglobin dropped to 7 and was transfused additional units and as of today hemoglobin is 8.6 which is essentially unchanged from yesterday which was 8. All told he has been transfused 6 units of RBCs and 2 units of platlets . His baseline platlents is in 60s and at 69 before surgery and was given 2 units before surgery and went up to 74 and presently as of 02/22 63 which is within his baseline. Fever/ lethargy noted on 02/19. Post op fever..No further fever and cultures are negative. Hypekalemia--resolved with dialysis ESRD--continue Hemodialysis Saturday and Saturday Continued Renal Diet- 2 Gram K, 2 Gram Na, Phos restricted , continue Fluid restriction 1.5 L/24 hours AFIB--to continue Toprol. He is no longer on apixaban he has not been on this since November. And is at significant risk of bleeding and therefore should not be on this did discuss this with the son and they do understand that he is at risk of a stroke Thrombocytopenia--Chronic and stable--See anemia Seizure d/o--continue iv Keppra and seizure precaution, will closely monitor for breakthrough seizure, switch to by mouth once tolerating diet Confusion--He has periods of confusion that is apparently not new, when I spoke to son Bridger he said at time this coincides with low blood count, it is possible there is underlying cognitive impairment that is getting worse and renal failure maybe contributing as well. He seems better. CODE STATUS: DNR, DISCUSSED WITH SON ON 02/17 AND DOCUMENTED SUCH Time Spent with Patient Time attestation: Total time spent providing and/or coordinating discharge services: Discharge coordination time: Greater than 30 minutes Physical Exam Vital Signs: Vital Signs: Last Vital Signs Temp 97.1 F 02/23/21 07:26 Pulse 99 02/23/21 07:46 Resp 15 02/23/21 07:26 BP 119/88 02/23/21 07:46 Pulse Ox 97 02/23/21 07:46 Body Mass Index 33.2 DS: Data Data Completed and Pending Completed studies during hospitalization [Text1]: Procedures Excision of Duodenum, Via Natural or Artificial Opening Endoscopic, Diagnostic (11/07/20) Excision of Large Intestine, Via Natural or Artificial Opening Endoscopic, Diagnostic (11/07/20) Excision of Stomach, Pylorus, Via Natural or Artificial Opening Endoscopic, Diagnostic (11/07/20) Performance of Urinary Filtration, Intermittent, Less than 6 Hours Per Day (11/07/20) Transfusion of Nonautologous Red Blood Cells into Peripheral Vein, Percutaneous Approach (11/07/20) Labs on day of discharge: Laboratory Results - last 24 hr 02/16/21 02/22/21 02/22/21 03:50 10:58 10:58 WBC 3.2 L RBC 2.82 L Hgb 8.6 L Hct 26.2 L MCV 92.9 MCH 30.5 MCHC 32.8 RDW 16.5 H Plt Count 63 L MPV 10.6 Absolute Nucleated RBC 0.000 Nucleated RBC % (auto) 0.0 Sodium 136 Potassium 4.6 D Chloride 101 Carbon Dioxide 20 L Anion Gap 20 BUN 53 H D Creatinine 6.70 H* Estim Creat Clear Calc 10.0 Estimated GFR 8 Random Glucose 96 Calcium 8.2 L Blood Type O Positive Antibody Screen POSITIVE Antibody Identification Anti-K Direct Antiglob Test POSITIVE A RUSSELL, Polyspecific POSITIVE A Crossmatch See Detail Reference Report See note Preliminary micro results at discharge 02/19/21 05:08 Blood Culture - Preliminary Blood - Venous No growth after 48 hours. 02/19/21 05:08 Blood Culture - Preliminary Blood - Venous No growth after 48 hours. Discharge Plan Discharge Anticipated Discharge Date/Time: 02/23/21 09:39 Patient Disposition: er [facility] Discharge Diagnosis: Hip fracture Referrals: Physician,Unknown [Primary Care Provider] - 1 Week Discharge Medications: New oxycodone 5 mg Tablet 5 mg PO Q6H PRN (Reason: Pain, Moderate (Pain Scale 4-6) Qty: 20 RF: 0 aspirin 325 mg tablet 325 mg PO BID 45 Days Qty: 90 RF: 0 Continued fluticasone propion-salmeterol [Advair Diskus] 250-50 mcg/dose Blister With Device 1 inh INHALATION Q12H RF: 0 acetaminophen 325 mg Tablet 650 mg PO Q4H PRN (Reason: Pain) RF: 0 pravastatin 40 mg Tablet 40 mg PO BEDTIME RF: 0 levetiracetam [Keppra] 500 mg Tablet 500 mg PO BID RF: 0 ondansetron HCl [Zofran] 4 mg Tablet 4 mg PO Q6H PRN (Reason: Nausea) RF: 0 famotidine 20 mg Tablet 20 mg PO Q48H RF: 0 docusate sodium 100 mg Capsule 100 mg PO DAILY PRN (Reason: Constipation) RF: 0 montelukast 10 mg Tablet 10 mg PO BEDTIME RF: 0 gabapentin 100 mg Capsule 200 mg PO TID RF: 0 gabapentin 100 mg Capsule 100 mg PO Q6H PRN (Reason: NERVE PAIN) RF: 0 metoprolol succinate [Toprol XL] 25 mg Tablet Extended Release 24 Hr 25 mg PO DAILY RF: 0 omeprazole magnesium [Prilosec OTC] 20 mg tablet,delayed release (DR/EC) 20 mg PO DAILY 28 Days Qty: 28 RF: 0 kcmvwjzgid-tjlamljaczokg-nwar [Fioricet] 50-300-40 mg Capsule 1 cap PO Q6H PRN (Reason: Headache) RF: 0 calcium acetate 667 mg Tablet 1,334 mg PO TIDWM RF: 0 Discontinued apixaban 2.5 mg Tablet 2.5 mg PO BID RF: 0 Hold Instructions: Resume on 11/18/20. Discharge Orders: Discharge Order (Routine); Ordered 02/23/21 Ordered By: Sunil Miller Diet: regular diet Activity on Discharge: Use cane or walker Stand Alone Forms: Patient Portal Discharge page Care Plan Goals: recovery from hip fracture Health Concerns: hip fracture, anemia, and confusion Plan of Treatment: Gait training, strengthening, ADLs Continue ASA for dvt ppx x6 weeks Keep dressing clean,dry and intact-no showering or tub baths Follow up with Orthopedics in 2 weeks Assessment: hip fracture that required surgical repair, anemia that required transfusion Discharge Date/Time: 02/23/21 17:34
[2021-02-23 10:35] VITALS: PULSE 90
[2021-02-23] MEDS: Metoprolol Succinate ER 25 MG TAB.ER.24H PO (10:35)
[2021-02-23] MEDS: Gabapentin 100 MG CAPSULE PO ×2 (10:36→14:35)
[2021-02-23] MEDS: Omeprazole 20 MG CAPSULE.DR PO (10:36)
[2021-02-23] MEDS: Acetaminophen 325 MG TABLET 650 MG PO (10:36)
[2021-02-23] MEDS: oxyCODONE HCl Immed Release 5 MG TABLET PO (11:29)
[2021-02-23 11:40] VITALS: PULSE 90
--- NOTE | 2021-02-23 12:23 | PM.PNNEP ---
Subjective Subjective Date of Service: 02/24/21 Principal diagnosis: POD 1 s/p RT hip IMN Interval history: Patient resting in the bed More awake no other acute issues. ROS General no headache ,no fever CVS no chest pain Respiratory no cough, no sob Gastrointestinal no nausea, no vomiting, no abdominal pain Physical Exam Vital Signs: Vital Signs: Last Vital Signs Temp 97.1 F 02/23/21 07:26 Pulse 90 02/23/21 11:40 Resp 15 02/23/21 07:26 BP 119/88 02/23/21 07:46 Pulse Ox 97 02/23/21 07:46 Body Mass Index 33.2 Objective Data Labs CBC & Chem 7: 02/22/21 10:58 02/22/21 10:58 Labs: Laboratory Results - last 24 hr 02/16/21 03:50 Blood Type O Positive Antibody Screen POSITIVE Antibody Identification Anti-K Direct Antiglob Test POSITIVE A RUSSELL, Polyspecific POSITIVE A Crossmatch See Detail Reference Report See note Microbiology Microbiology Results: Microbiology 02/19/21 05:08 Blood - Venous Blood Culture - Preliminary No growth after 48 hours. 02/19/21 05:08 Blood - Venous Blood Culture - Preliminary No growth after 48 hours. Assessment & Plan Time Spent With Patient Time: Total time spent is greater than 50% in coordination of care (as documented) at patient's floor/unit and/or counseling patient:
[2021-02-23 13:15] LABS: COVID-19 Test Negative (Negative); IDNOW Serial# 9DD0AD1C
--- NOTE | 2021-02-23 15:35 | MHC.CM.PN ---
PT DISCHARGING BACK TO [facility] AT 4:30PM, [facility] FOR BLS TRANSPORT
== END 2021-02-23 17:34 | disposition skilled nursing facility (03) | DRG 480 ==
LOC: HO.ED 08:10 → HO.EDOVER 08:12 → HO.S3 13:06
PROVIDERS: Hospitalist; Orthopaedic Surgery; Admitting Provider Internal Medicine; Emergency Provider Emergency Medicine; PCP Family Medicine; Visit Provider Internal Medicine
PROC: 0QS604Z Reposition Right Upper Femur with Internal Fixation Device, Open Approach (ICD-10-PCS; principal; 2021-02-18 08:00)
DX: S72.141A Displaced intertrochanteric fracture of right femur, initial encounter for closed fracture (principal); N18.6 End stage renal disease; I13.2 Hypertensive heart and chronic kidney disease with heart failure and with stage 5 chronic kidney disease, or end stage renal disease; I50.32 Chronic diastolic (congestive) heart failure; K92.2 Gastrointestinal hemorrhage, unspecified; D62 Acute posthemorrhagic anemia; L76.32 Postprocedural hematoma of skin and subcutaneous tissue following other procedure; W18.30XA Fall on same level, unspecified, initial encounter; Y93.9 Activity, unspecified; Y92.129 Unspecified place in nursing home as the place of occurrence of the external cause; Y99.9 Unspecified external cause status; D63.1 Anemia in chronic kidney disease; I48.91 Unspecified atrial fibrillation; Z99.2 Dependence on renal dialysis; G47.33 Obstructive sleep apnea (adult) (pediatric); K59.09 Other constipation; G40.909 Epilepsy, unspecified, not intractable, without status epilepticus; D69.6 Thrombocytopenia, unspecified; E87.5 Hyperkalemia; Z20.822 Contact with and (suspected) exposure to COVID-19; Z95.0 Presence of cardiac pacemaker; Z79.51 Long term (current) use of inhaled steroids; Z79.82 Long term (current) use of aspirin; Z79.899 Other long term (current) drug therapy; Z66 Do not resuscitate
CPT/HCPCS: 36415; 70450; 71045; 72125; 72192; 73502; 80048; 80053; 80076; 82140; 82550; 83690; 83735; 84484; 85014; 85018; 85025; 85027; 85610; 85730; 86156; 86850; 86860; 86870; 86880; 86885; 86900; 86901; 86902; 86905; 86906; 86920; 86921; 87040; 87635; 90999; 93005; 93306; 96374; 97110; 97162; 99285; C1713; C1769; J0131; J0690; J0696; J1170; J1953; J2270; J2370; J2405; J3010; P9016; P9035

== ENCOUNTER 2021-02-20 12:51 | Outpatient (REF) | payer MEDICARE, SELFPAY | END 2021-02-20 12:52 | disposition home or self-care (01) | LOC: HO.MMNH1L 12:51 | PROVIDERS: Visit Provider Family Medicine | DX: Z13.89 Encounter for screening for other disorder (principal) ==

== ENCOUNTER → 2021-03-10 13:57 | Outpatient (BNVA) | payer OTHER, SELFPAY | PROVIDERS: Visit Provider Physician Assistant | DX: S72.001D Fracture of unspecified part of neck of right femur, subsequent encounter for closed fracture with routine healing (principal) | CPT/HCPCS: 99212 ==

== ENCOUNTER 2021-03-10 16:16 | Emergency (ER) | payer OTHER, MEDICARE, SELFPAY ==
[2021-03-10] VITALS (11 sets, daily range): BP systolic 102–120; BP diastolic 47–83; PULSE 68–80; RESP 12–16; TEMP 36.8–37.4; O2SAT 96–100; BMI 31.3
--- NOTE | 2021-03-10 16:41 | ED.GENADULT ---
HPI - General Adult General Chief complaint: Recheck/Abnormal Lab/Rx Stated complaint: low h&h Time Seen by Provider: 03/10/21 16:23 Source: patient Mode of arrival: EMS Limitations: no limitations History of Present Illness HPI narrative: Patient is coming from short-term rehab for low H&H done several days ago, showed that his hemoglobin was ?low?. Patient has had multiple episodes of low H& H, her previous records patient has chronic anemia requiring intermittent transfusions at [facility] Patient has required transfusions in the past. Of note, patient was in this facility from February 18 through February 23, patient had a GI bleed, right hip fracture, required blood transfusion. Patient denies feeling weaker than usual, denies chest pain or shortness of breath. Patient states that he feels otherwise well. Patient states that he has not been able to start walking or bear any weight since his surgery. Patient denies blood in the stool or black stool. Patient states that yesterday he fell out of bed, denies pain. Today he had an Orthopedics consult, yesterday evening x-rays were obtained, no fracture was seen. Related Data Home Medications Medication Instructions Recorded Confirmed acetaminophen 650 mg PO Q4H PRN 11/07/20 02/16/21 docusate sodium 100 mg PO DAILY PRN 11/07/20 02/16/21 famotidine 20 mg PO Q48H 11/07/20 02/16/21 fluticasone propion-salmeterol 1 inh INHALATION Q12H 11/07/20 02/16/21 [Advair Diskus] gabapentin 100 mg PO Q6H PRN 11/07/20 02/16/21 gabapentin 200 mg PO TID 11/07/20 02/16/21 levetiracetam [Keppra] 500 mg PO BID 11/07/20 02/16/21 metoprolol succinate [Toprol XL] 25 mg PO DAILY 11/07/20 02/16/21 montelukast 10 mg PO BEDTIME 11/07/20 02/16/21 ondansetron HCl [Zofran] 4 mg PO Q6H PRN 11/07/20 02/16/21 pravastatin 40 mg PO BEDTIME 11/07/20 02/16/21 zbnlmtwosz-wdxnaeqnfrmik-fpyw 1 cap PO Q6H PRN 02/16/21 02/16/21 [Fioricet] calcium acetate 1,334 mg PO TIDWM 02/16/21 02/16/21 Previous Rx's Medication Instructions Recorded omeprazole magnesium [Prilosec OTC] 20 mg PO DAILY 28 Days #28 tab 11/12/20 aspirin 325 mg PO BID 45 Days #90 tab 02/23/21 oxycodone 5 mg PO Q6H PRN #20 tab 02/23/21 Allergies Allergy/AdvReac Type Severity Reaction Status Date / Time latex Allergy Itching Verified 11/07/20 11:15 Sulfa (Sulfonamide Allergy Headache Verified 11/07/20 11:14 Antibiotics) Review of Systems Review of Systems: Constitutional : No Weight loss, No Fever, No Chills, No Night Sweats, No Fatigue, No Malaise ENT/Mouth : No Hearing loss, No Ear Pain, No Nasal Congestion, No Sinus Pain, No Hoarseness, No sore throat, No Rhinorrhea, No Swallowing Difficulty Eyes: No Eye Pain, No Swelling, No Redness, No Foreign Body, No Discharge, No Vision Changes Cardiovascular : No Chest Pain, No SOB, No Dyspnea on Exertion, No Orthopnea, No Edema, No Palpitations Respiratory : No Cough, No Sputum, No Wheezing, No Smoke Exposure, No Dyspnea Gastrointestinal : No Nausea, No Vomiting, No Diarrhea, No Constipation, No abdominal Pain, No Hematochezia, No Melena Genitourinary : no irregular bleeding, No Dysuria, No Urinary Frequency, No Hematuria, No Urinary Incontinence, No Urgency, No Flank Pain, No Urinary Flow Changes, No Hesitancy Musculoskeletal : Recuperating from hip surgery , right hip fracture. No Myalgias, No Joint Swelling Skin : No Skin Lesions, No rash Neuro : No Weakness, No Numbness, No Paresthesias, No Loss of Consciousness, No Dizziness, No Headache Psych : No Anxiety/Panic, No Depression, No SI/HI/AH/VH, No Social Issues, Heme/Lymph: No Bruising, No Bleeding,No Lymphadenopathy Endocrine : No Polyuria, No Polydipsia, No Temperature Intolerance PMFSH Past Medical History Medical History Acute GI bleeding Acute hyperkalemia Afib Anemia Anemia in chronic kidney disease Asthma Chronic constipation Chronic kidney failure Depression End-stage renal disease on hemodialysis Fall H/O: HTN (hypertension) Hyperlipidemia Pacemaker Pneumonia Preop cardiovascular exam Pulmonary hypertension Renal failure treated with peritoneal dialysis Right heart failure Seizure disorder Sleep apnea Thrombocytopenia Surgical History H/O hernia repair Status post surgical removal of malignant neoplasm of skin Social History Social History Household Members: Unknown / Unable to assess Housing: Unknown / Unable to assess Alcohol intake: never Smoking Status: Unknown if ever smoked Tobacco Type: Cigarette Use of substances other than those prescribed or required for medical reasons: No Advance Directives: Yes Advance Directives on File: Yes Advance Directives Date on File: 02/01/21 service: Yes Current occupational status: retired Physical Exam Vital Signs: Vital Signs: Last Vital Signs Temp 98.2 F 03/10/21 23:48 Pulse 75 03/10/21 23:48 Resp 16 03/10/21 23:48 BP 102/57 L 03/10/21 23:48 Pulse Ox 96 03/10/21 23:45 Body Mass Index 31.3 Appearance: Alert. Oriented X3. No acute distress. Eyes: Pupils equal, round and reactive to light. ENT: Pharynx normal. Neck: Normal inspection. Neck supple. No lymph nodes noted. No crepitus CVS: Normal heart rate and rhythm. Pulses normal. Normal S1 and S2 Respiratory: No respiratory distress. Breath sounds normal. No Wheezing. No rales Abdomen: Soft and nontender. No rigidity. No distention. GAMALIEL brown stool Skin: Skin warm and dry. Mildly pale Extremities: Surgical site healing well, no signs of infection. Neuro: Oriented X 3. No motor deficit. No sensory deficit. Moving all extermities. No slurred speech. Course Course Course Narrative: I discussed with the patient the benefits versus risks of blood transfusion. Patient agrees to the transition, consent signed. Patient's creatinine 6.22, at baseline. Patient on dialysis Patient received 2 units of packed red blood cells, patient's hemoglobin increased to 7.8. Patient states that he feels better. Patient will be returning to [facility]. Guaiac test negative Medical Decision Making Lab Data Result diagrams: 03/11/21 00:03 03/10/21 16:55 Labs: Lab Results 03/10/21 03/10/21 03/10/21 Range/Units 16:54 16:54 16:55 WBC 3.2 L (4.8-10.8) X10*3/uL RBC 1.96 L (4.60-5.80) X10*6/uL Hgb 6.1 L* (14.0-18.0) g/dl Hct 19.1 L* (42-52) % MCV 97.4 (80-98) fL MCH 31.1 (27.0-33.0) pg MCHC 31.9 (31.0-36.0) g/dl RDW 17.5 H (11.0-16.0) % Plt Count 87 L (160-400) X10*3/uL MPV 10.0 (9.4-12.4) fL Immature Gran % (Auto) 1.9 H (0.0-0.4) % Neut % (Auto) 60.0 (45-73) % Lymph % (Auto) 25.1 (20-40) % Kimble % (Auto) 10.5 (2-11) % Eos % (Auto) 2.2 (0-4) % Baso % (Auto) 0.3 (0-2) % Lymph # (Auto) 0.8 L (1.2-4.9) X10*3/uL Kimble # (Auto) 0.3 (0.1-1.2) X10*3/uL Eos # (Auto) 0.1 (0.0-0.4) X10*3/uL Baso # (Auto) 0.0 (0.0-0.2) X10*3/uL Abs Immat Gran (auto) 0.06 H (0.00-0.03) X10*3/uL Absolute Neuts (auto) 1.9 L (2.0-8.3) X10*3/uL Absolute Nucleated RBC 0.000 (0.0-0.012) X10*3/uL Nucleated RBC % (auto) 0.0 (0.0-0.2) /100WBC Sodium 139 (135-145) mmol/L Potassium 4.2 (3.3-5.1) mmol/L Chloride 99 (96-108) mmol/L Carbon Dioxide 29 (22-29) mmol/L Anion Gap 15 (12-20) BUN 33 H (9-16) mg/dL Creatinine 6.22 H* (0.5-1.4) mg/dL Estim Creat Clear Calc 10.8 Estimated GFR 9 Random Glucose 89 (60-115) mg/dL Calcium 8.5 (8.4-10.2) mg/dL Total Bilirubin 0.5 (0.0-1.0) mg/dL Direct Bilirubin 0.3 (0.0-0.5) mg/dL AST 16 (5-37) U/L ALT 6 (0-40) U/L Alkaline Phosphatase 66 (39-117) U/L Total Protein 5.1 L (6.5-8.0) g/dL Albumin 2.8 L (3.5-5.0) g/dL Stool Occult Blood (NEGATIVE) Blood Type O Positive Antibody Screen POSITIVE Antibody Identification Anti-K Enhanced Crossmatch See Detail Blood Bank Comment Technical 03/10/21 03/11/21 Range/Units 17:23 00:03 WBC (4.8-10.8) X10*3/uL RBC (4.60-5.80) X10*6/uL Hgb 7.8 L D (14.0-18.0) g/dl Hct 23.9 L D (42-52) % MCV (80-98) fL MCH (27.0-33.0) pg MCHC (31.0-36.0) g/dl RDW (11.0-16.0) % Plt Count (160-400) X10*3/uL MPV (9.4-12.4) fL Immature Gran % (Auto) (0.0-0.4) % Neut % (Auto) (45-73) % Lymph % (Auto) (20-40) % Kimble % (Auto) (2-11) % Eos % (Auto) (0-4) % Baso % (Auto) (0-2) % Lymph # (Auto) (1.2-4.9) X10*3/uL Kimble # (Auto) (0.1-1.2) X10*3/uL Eos # (Auto) (0.0-0.4) X10*3/uL Baso # (Auto) (0.0-0.2) X10*3/uL Abs Immat Gran (auto) (0.00-0.03) X10*3/uL Absolute Neuts (auto) (2.0-8.3) X10*3/uL Absolute Nucleated RBC (0.0-0.012) X10*3/uL Nucleated RBC % (auto) (0.0-0.2) /100WBC Sodium (135-145) mmol/L Potassium (3.3-5.1) mmol/L Chloride (96-108) mmol/L Carbon Dioxide (22-29) mmol/L Anion Gap (12-20) BUN (9-16) mg/dL Creatinine (0.5-1.4) mg/dL Estim Creat Clear Calc Estimated GFR Random Glucose (60-115) mg/dL Calcium (8.4-10.2) mg/dL Total Bilirubin (0.0-1.0) mg/dL Direct Bilirubin (0.0-0.5) mg/dL AST (5-37) U/L ALT (0-40) U/L Alkaline Phosphatase (39-117) U/L Total Protein (6.5-8.0) g/dL Albumin (3.5-5.0) g/dL Stool Occult Blood NEGATIVE (NEGATIVE) Blood Type Antibody Screen Antibody Identification Enhanced Crossmatch Blood Bank Comment Discharge Plan Discharge Clinical Impression: Anemia Qualifiers: Anemia type: unspecified type Qualified Code(s): D64.9 - Anemia, unspecified Patient Disposition: Home, Self-Care Instructions: Anemia (ED) Additional Instructions: You were transfused 2 units of blood. You need to have close follow-up with her primary care physician to repeat levels. Please follow-up with your primary care physician tomorrow. If you have any worsening or new symptoms, please return to the emergency room or call 911 Prescriptions: No Action fluticasone propion-salmeterol [Advair Diskus] 250-50 mcg/dose Blister With Device 1 inh INHALATION Q12H RF: 0 acetaminophen 325 mg Tablet 650 mg PO Q4H PRN (Reason: Pain) RF: 0 pravastatin 40 mg Tablet 40 mg PO BEDTIME RF: 0 levetiracetam [Keppra] 500 mg Tablet 500 mg PO BID RF: 0 ondansetron HCl [Zofran] 4 mg Tablet 4 mg PO Q6H PRN (Reason: Nausea) RF: 0 famotidine 20 mg Tablet 20 mg PO Q48H RF: 0 docusate sodium 100 mg Capsule 100 mg PO DAILY PRN (Reason: Constipation) RF: 0 montelukast 10 mg Tablet 10 mg PO BEDTIME RF: 0 gabapentin 100 mg Capsule 200 mg PO TID RF: 0 gabapentin 100 mg Capsule 100 mg PO Q6H PRN (Reason: NERVE PAIN) RF: 0 metoprolol succinate [Toprol XL] 25 mg Tablet Extended Release 24 Hr 25 mg PO DAILY RF: 0 omeprazole magnesium [Prilosec OTC] 20 mg tablet,delayed release (DR/EC) 20 mg PO DAILY 28 Days Qty: 28 RF: 0 mpcsuizgki-mluohwtkssfcu-ejyr [Fioricet] 50-300-40 mg Capsule 1 cap PO Q6H PRN (Reason: Headache) RF: 0 calcium acetate 667 mg Tablet 1,334 mg PO TIDWM RF: 0 oxycodone 5 mg Tablet 5 mg PO Q6H PRN (Reason: Pain, Moderate (Pain Scale 4-6) Qty: 20 RF: 0 aspirin 325 mg tablet 325 mg PO BID 45 Days Qty: 90 RF: 0
[2021-03-10 17:00] LABS: MANUAL DIFF FLAG NO
[2021-03-10 17:08] LABS: Basophils Percent Auto 0.3 % (0-2); Eosinophils Absolute Auto 0.1 X10*3/uL (0.0-0.4); Eosinophils Percent Auto 2.2 % (0-4); Imm Gran Abs Auto 0.06 X10*3/uL (0.00-0.03); Imm Gran Pct Auto 1.9 % (0.0-0.4); Lymphocytes Absolute Auto 0.8 X10*3/uL (1.2-4.9); Lymphocytes Percent Auto 25.1 % (20-40); Mean Corpuscular HGB Conc 31.9 g/dl (31.0-36.0); Mean Corpuscular Hemoglobin 31.1 pg (27.0-33.0); Mean Corpuscular Volume 97.4 fL (80-98); Monocytes Absolute Auto 0.3 X10*3/uL (0.1-1.2); Monocytes Percent Auto 10.5 % (2-11); Neutrophils Absolute Auto 1.9 X10*3/uL (2.0-8.3); Red Blood Count 1.96 X10*6/uL (4.60-5.80); Red Cell Distribution Width 17.5 % (11.0-16.0); White Blood Count 3.2 X10*3/uL (4.8-10.8)
[2021-03-10 17:10] LABS: Hematocrit 19.1 % (42-52); Platelet Count 87 X10*3/uL (160-400)
[2021-03-10 17:13] LABS: Hemoglobin 6.1 g/dl (14.0-18.0)
[2021-03-10 17:37] LABS: OBS Int Ctl Valid YES; OBS1 NEGATIVE (NEGATIVE)
[2021-03-10 17:51] LABS: Alanine Aminotransferase 6 U/L (0-40); Albumin Level 2.8 g/dL (3.5-5.0); Alkaline Phosphatase 66 U/L (39-117); Anion Gap 15 (12-20); Aspartate Amino Transferase 16 U/L (5-37); Bilirubin Direct 0.3 mg/dL (0.0-0.5); Bilirubin Total 0.5 mg/dL (0.0-1.0); Blood Urea Nitrogen 33 mg/dL (9-16); Calcium 8.5 mg/dL (8.4-10.2); Carbon Dioxide 29 mmol/L (22-29); Chloride 99 mmol/L (96-108); Creatinine Clr Calc Pharmacy 10.8; Estimated Glomerular Filt Rate 9; Glucose Random 89 mg/dL (60-115); Potassium 4.2 mmol/L (3.3-5.1); Sodium 139 mmol/L (135-145); Total Protein 5.1 g/dL (6.5-8.0)
--- NOTE | 2021-03-10 18:49 | PC.NURSE ---
Pt incont or stool. Tonia care provided, linen changed. Pt denies complaints or need at this time.
--- NOTE | 2021-03-10 21:07 | PC.NURSE ---
Pt incont of liquid small BM. Pt cocxy stage 2 bed sore, barrier cream applied, repositioned to L side for comfort.
[2021-03-11 00:18] LABS: Hematocrit 23.9 % (42-52); Hemoglobin 7.8 g/dl (14.0-18.0)
== END 2021-03-11 02:32 | disposition home or self-care (01) ==
PROVIDERS: Emergency Provider Emergency Medicine; PCP Family Medicine
DX: D64.9 Anemia, unspecified (principal); R79.89 Other specified abnormal findings of blood chemistry; F17.210 Nicotine dependence, cigarettes, uncomplicated; Z71.6 Tobacco abuse counseling; Z79.899 Other long term (current) drug therapy
CPT/HCPCS: 36415; 36430; 80048; 80076; 82272; 85014; 85018; 85025; 86850; 86870; 86900; 86901; 86902; 86920; 86921; 99285; P9016

== ENCOUNTER 2021-03-13 10:34 | Outpatient (REF) | payer MEDICARE, SELFPAY ==
[2021-03-13 07:56] LABS: Hematocrit 23.4 % (42-52); Hemoglobin 7.4 g/dl (14.0-18.0); Mean Corpuscular HGB Conc 31.6 g/dl (31.0-36.0); Mean Corpuscular Hemoglobin 30.5 pg (27.0-33.0); Mean Corpuscular Volume 96.3 fL (80-98); Mean Platelet Volume 10.9 fL (9.4-12.4); Red Blood Count 2.43 X10*6/uL (4.60-5.80); Red Cell Distribution Width 16.9 % (11.0-16.0)
[2021-03-13 08:25] LABS: Platelet Count 76 X10*3/uL (160-400); White Blood Count 2.3 X10*3/uL (4.8-10.8)
[2021-03-13 09:09] LABS: Cholesterol 104 mg/dL; HDL Cholesterol 24 mg/dL; LDL Cholesterol Calculated 65 mg/dl; Triglycerides 75 mg/dL
[2021-03-13 09:10] LABS: Anion Gap 15 (12-20); Blood Urea Nitrogen 35 mg/dL (9-16); Calcium 8.2 mg/dL (8.4-10.2); Carbon Dioxide 28 mmol/L (22-29); Chloride 102 mmol/L (96-108); Estimated Glomerular Filt Rate 8; Glucose Random 82 mg/dL (60-115); Potassium 4.5 mmol/L (3.3-5.1); Sodium 140 mmol/L (135-145)
== END 2021-03-13 10:35 | disposition home or self-care (01) ==
LOC: HO.MMNH3L 10:34
PROVIDERS: Visit Provider Family Medicine
DX: J45.909 Unspecified asthma, uncomplicated (principal); I48.91 Unspecified atrial fibrillation; N18.6 End stage renal disease; Z99.2 Dependence on renal dialysis; S72.001D Fracture of unspecified part of neck of right femur, subsequent encounter for closed fracture with routine healing
CPT/HCPCS: 36415; 80048; 80061; 85027

== ENCOUNTER 2021-03-20 00:34 | Outpatient (REF) | payer SELFPAY ==
[2021-03-20 08:14] LABS: Hematocrit 21.8 % (42-52); Mean Corpuscular HGB Conc 31.7 g/dl (31.0-36.0); Mean Corpuscular Hemoglobin 31.4 pg (27.0-33.0); Mean Corpuscular Volume 99.1 fL (80-98); Mean Platelet Volume 11.4 fL (9.4-12.4); Red Cell Distribution Width 16.8 % (11.0-16.0); White Blood Count 2.8 X10*3/uL (4.8-10.8)
[2021-03-20 08:52] LABS: Anion Gap 14 (12-20); Blood Urea Nitrogen 30 mg/dL (9-16); Calcium 8.2 mg/dL (8.4-10.2); Carbon Dioxide 29 mmol/L (22-29); Chloride 100 mmol/L (96-108); Estimated Glomerular Filt Rate 9; Glucose Random 105 mg/dL (60-115); Sodium 139 mmol/L (135-145)
[2021-03-20 08:53] LABS: Hemoglobin 6.9 g/dl (14.0-18.0); Platelet Count 82 X10*3/uL (160-400)
== END 2021-03-20 00:35 | disposition home or self-care (01) ==
LOC: HO.MMNH3L 00:34
PROVIDERS: Visit Provider Family Medicine
DX: S72.001A Fracture of unspecified part of neck of right femur, initial encounter for closed fracture (principal); X58.XXXA Exposure to other specified factors, initial encounter; Y93.9 Activity, unspecified; Y92.9 Unspecified place or not applicable; Y99.9 Unspecified external cause status
CPT/HCPCS: 36415; 80048; 85027

== ENCOUNTER 2021-03-21 15:32 | Emergency (ER) | payer OTHER, MEDICARE, SELFPAY ==
--- NOTE | ~2021-03-21 | XR_ITS ---
EXAMINATION: CHEST X-RAY AND RIGHT HIP AND PELVIS X-RAY CLINICAL INFORMATION: Fall COMPARISON: Previous right hip and pelvis x-ray from February 2021. Previous chest x-ray February 2021 TECHNIQUE: One view of the pelvis and 2 views of the right hip. One view of the chest. FINDINGS: Pelvis and right hip: There is an intramedullary britany and compression/lag screw in the right proximal femur. There is a right femoral intertrochanteric fracture that appears unchanged. There is a new oblique fracture of the proximal femoral shaft adjacent to the intramedullary britany. Lower imaging of the femur in the entire intramedullary britany is recommended to see if there is additional fracture. Bones of the pelvis are unremarkable. There is mild arthritis at the left hip joint. There are degenerative changes of the spine. Chest x-ray: The cardiac silhouette is enlarged but stable. There is a left subclavian dual chamber pacemaker that appears unchanged. There is a left jugular line with tip projecting over the cavoatrial junction that appears unchanged The lungs are clear. There is no pleural effusion or pneumothorax. There are degenerative changes of the spine. Is a left lateral sixth rib fracture that may be new. XR/XR chest 2V IMPRESSION: Pelvis and right hip x-ray:New periprosthetic right proximal femoral shaft fracture. Additional imaging for complete imaging of the entire intramedullary britany and left distal femur recommended. CHEST: No evidence for acute disease in the chest. Left lateral sixth rib fracture, question new.
--- NOTE | ~2021-03-21 | XR_ITS ---
EXAMINATION: XR KNEE, RIGHT CLINICAL INFORMATION: Fall and pain COMPARISON: None TECHNIQUE: Two views of the right knee. FINDINGS: No significant joint effusion appreciated on these oblique views. Mild tracheal omental degenerative changes but I do not appreciate any acute fracture or dislocation. The inferior aspect of a femoral intramedullary britany is seen. XR/XR knee RT 2V IMPRESSION: Chronic appearing and postoperative changes but no acute fracture or dislocation.
--- NOTE | ~2021-03-21 | XR_ITS ---
EXAMINATION: CHEST X-RAY AND RIGHT HIP AND PELVIS X-RAY CLINICAL INFORMATION: Fall COMPARISON: Previous right hip and pelvis x-ray from February 2021. Previous chest x-ray February 2021 TECHNIQUE: One view of the pelvis and 2 views of the right hip. One view of the chest. FINDINGS: Pelvis and right hip: There is an intramedullary britany and compression/lag screw in the right proximal femur. There is a right femoral intertrochanteric fracture that appears unchanged. There is a new oblique fracture of the proximal femoral shaft adjacent to the intramedullary britany. Lower imaging of the femur in the entire intramedullary britany is recommended to see if there is additional fracture. Bones of the pelvis are unremarkable. There is mild arthritis at the left hip joint. There are degenerative changes of the spine. Chest x-ray: The cardiac silhouette is enlarged but stable. There is a left subclavian dual chamber pacemaker that appears unchanged. There is a left jugular line with tip projecting over the cavoatrial junction that appears unchanged The lungs are clear. There is no pleural effusion or pneumothorax. There are degenerative changes of the spine. Is a left lateral sixth rib fracture that may be new. XR/XR hip RT w PEL1V IMPRESSION: Pelvis and right hip x-ray:New periprosthetic right proximal femoral shaft fracture. Additional imaging for complete imaging of the entire intramedullary britany and left distal femur recommended. CHEST: No evidence for acute disease in the chest. Left lateral sixth rib fracture, question new.
--- NOTE | ~2021-03-21 | CT_ITS ---
EXAMINATION: CT HEAD WITHOUT CONTRAST, CT CERVICAL SPINE WITHOUT CONTRAST CLINICAL INFORMATION: Fall. Head trauma. COMPARISON: Portions of a previous study 02/16/21 TECHNIQUE: Multidetector CT examination of the head is performed without contrast. Multidetector CT of the cervical spine without contrast. Multiplanar postprocessing This CT examination was performed using dose optimization techniques as appropriate, variously including the following: *Automated exposure control *Adjustment of mA and/or kV according to patient size (this includes techniques or standardized protocols for targeted exams where dose is matched to indication/reason for exam; i.e. extremities or head) *Use of iterative reconstruction technique DLP: 856 mGy-cm-head CT 379 [id number] CT FINDINGS: There is motion artifact. There is dental metal artifact. Digital building supervisor demonstrates a power generator and leads in the chest wall. Head CT: There is no evidence of a recent intracranial hemorrhage or extra-axial collection. The midline structures are nondisplaced. There is age-appropriate prominence of ventricles, cisterns and sulci. There is no evidence of an intra-axial mass. There are no suspicious focal areas of abnormal brain attenuation. The horne-white interface is within normal limits. There is no evidence of acute territorial infarct. Moderately extensive nonspecific white matter low attenuation could be related to microangiopathy. No fracture or fluid level. However, significant artifact limits detail. No definite abnormality in the sphenoid, ethmoid frontal and visualized maxillary sinuses. Cervical CT: There is no acute fracture or subluxation. No suspicious focal lesion or loss of volume. There is degenerative change involving the discs and facets. Developmentally incomplete posterior arch of C1 is not acute process and does not require any further evaluation. No suspicious abnormality the visualized apex of the chest CT/CT head/brain wo con IMPRESSION: The study is limited by motion and metallic artifact. 1. There is no evidence of a recent intracranial hemorrhage. 2. No acute infarct. 3. No acute fracture or subluxation of the cervical spine Age-appropriate cortical atrophy and degenerative changes in the visualized spine
--- NOTE | ~2021-03-21 | CT_ITS ---
EXAMINATION: CT HEAD WITHOUT CONTRAST, CT CERVICAL SPINE WITHOUT CONTRAST CLINICAL INFORMATION: Fall. Head trauma. COMPARISON: Portions of a previous study 02/16/21 TECHNIQUE: Multidetector CT examination of the head is performed without contrast. Multidetector CT of the cervical spine without contrast. Multiplanar postprocessing This CT examination was performed using dose optimization techniques as appropriate, variously including the following: *Automated exposure control *Adjustment of mA and/or kV according to patient size (this includes techniques or standardized protocols for targeted exams where dose is matched to indication/reason for exam; i.e. extremities or head) *Use of iterative reconstruction technique DLP: 856 mGy-cm-head CT 379 [id number] CT FINDINGS: There is motion artifact. There is dental metal artifact. Digital academic associate demonstrates a power generator and leads in the chest wall. Head CT: There is no evidence of a recent intracranial hemorrhage or extra-axial collection. The midline structures are nondisplaced. There is age-appropriate prominence of ventricles, cisterns and sulci. There is no evidence of an intra-axial mass. There are no suspicious focal areas of abnormal brain attenuation. The horne-white interface is within normal limits. There is no evidence of acute territorial infarct. Moderately extensive nonspecific white matter low attenuation could be related to microangiopathy. No fracture or fluid level. However, significant artifact limits detail. No definite abnormality in the sphenoid, ethmoid frontal and visualized maxillary sinuses. Cervical CT: There is no acute fracture or subluxation. No suspicious focal lesion or loss of volume. There is degenerative change involving the discs and facets. Developmentally incomplete posterior arch of C1 is not acute process and does not require any further evaluation. No suspicious abnormality the visualized apex of the chest CT/CT cervical spine wo con IMPRESSION: The study is limited by motion and metallic artifact. 1. There is no evidence of a recent intracranial hemorrhage. 2. No acute infarct. 3. No acute fracture or subluxation of the cervical spine Age-appropriate cortical atrophy and degenerative changes in the visualized spine
[2021-03-21 15:38] VITALS: BP 122/66; BP 123/90; PULSE 89; PULSE 94; RESP 20; TEMP 37.2; O2SAT 100; O2SAT 98; BMI 30.9
--- NOTE | 2021-03-21 16:00 | ECG_ITS ---
Test Reason : FALL Blood Pressure : / mmHG Vent. Rate : 087 BPM Atrial Rate : 094 BPM P-R Int : 000 ms QRS Dur : 086 ms QT Int : 396 ms P-R-T Axes : 000 003 -23 degrees QTc Int : 476 ms Atrial fibrillation with occasional ventricular-paced complexes Nonspecific ST abnormality Abnormal ECG When compared with ECG of 16-FEB-2021 03:38, No significant changes seen Referred By: Vivien Woods Electronically Signed By:MALENA ANDERSON MD
--- NOTE | 2021-03-21 16:03 | ED_ITS ---
HPI - Fall General Chief Complaint: Fall Stated Complaint: fall hip pain Time Seen by Provider: 03/21/21 15:59 Source: EMS Mode of arrival: EMS Limitations: no limitations History of Present Illness HPI Narrative: 80yo male with a past medical history of AFib not currently on anticoagulation, end-stage renal disease on hemodialysis (last dialyzed today), chronic anemia requiring intermittent transfusions, hypertension, hyperlipidemia, asthma, JULIA on CPAP, seizure disorder, R hip fx s/p ORIF 02/[address] Quijano here s/p fall. Patient tells me that he was getting on a bed and he slipped falling landing on his right hip. He does tell me that he hit his head but there was no loss of consciousness. Related Data Home Medications Medication Instructions Recorded Confirmed acetaminophen 650 mg PO Q4H PRN 11/07/20 02/16/21 docusate sodium 100 mg PO DAILY PRN 11/07/20 02/16/21 famotidine 20 mg PO Q48H 11/07/20 02/16/21 fluticasone propion-salmeterol 1 inh INHALATION Q12H 11/07/20 02/16/21 [Advair Diskus] gabapentin 100 mg PO Q6H PRN 11/07/20 02/16/21 gabapentin 200 mg PO TID 11/07/20 02/16/21 levetiracetam [Keppra] 500 mg PO BID 11/07/20 02/16/21 metoprolol succinate [Toprol XL] 25 mg PO DAILY 11/07/20 02/16/21 montelukast 10 mg PO BEDTIME 11/07/20 02/16/21 ondansetron HCl [Zofran] 4 mg PO Q6H PRN 11/07/20 02/16/21 pravastatin 40 mg PO BEDTIME 11/07/20 02/16/21 vjxlaaaftv-dlslkxpujcsct-jmal 1 cap PO Q6H PRN 02/16/21 02/16/21 [Fioricet] calcium acetate 1,334 mg PO TIDWM 02/16/21 02/16/21 Previous Rx's Medication Instructions Recorded omeprazole magnesium [Prilosec OTC] 20 mg PO DAILY 28 Days #28 tab 11/12/20 aspirin 325 mg PO BID 45 Days #90 tab 02/23/21 oxycodone 5 mg PO Q6H PRN #20 tab 02/23/21 Allergies Allergy/AdvReac Type Severity Reaction Status Date / Time latex Allergy Itching Verified 11/07/20 11:15 Sulfa (Sulfonamide Allergy Headache Verified 11/07/20 11:14 Antibiotics) Review of Systems Review of Systems: Yes all other systems are reviewed and are negative Constitutional: Constitutional: Reports no additional constitutional complaints, Denies body ache(s), Denies chills, Denies fever(s), Denies headache(s) and Denies weakness Eyes: Eyes: Reports no additional eye complaints and Denies change in vision ENT: Reports system reviewed and no additional complaints, except as documented, Denies dizziness, Denies headache(s), Denies nasal congestion, Denies nasal discharge and Denies neck pain Cardiovascular: Cardiovascular: Reports no additional cardiovascular complaints, Denies chest pain, Denies leg edema and Denies dyspnea Respiratory: Respiratory: Reports no additional respiratory complaints, Denies cough and Denies dyspnea Gastrointestinal: Gastrointestinal: Reports no additional gastrointestinal complaints, Denies abdominal pain, Denies diarrhea, Denies nausea and Denies vomiting Genitourinary: Genitourinary: Denies urinary incontinence Musculoskeletal: Musculoskeletal: Reports no additional musculoskeletal complaints, Denies back pain, Reports arthralgias, Denies joint swelling, Denies neck pain, Denies numbness and Denies tingling Integumentary/Breasts: Skin/Breast: Reports system reviewed and no additional complaints, except as docu and Denies rash Neurologic: Reports system reviewed and no additional complaints, except as documented, Denies Abnormal speech present, Denies dizziness, Denies headache(s), Denies numbness, Denies tingling and Denies weakness [facility] Past Medical History Attestation statement: The following information was validated with the patient. Source: old records reviewed and nursing notes reviewed Medical History Acute GI bleeding Acute hyperkalemia Afib Anemia Anemia in chronic kidney disease Asthma Chronic constipation Chronic kidney failure Depression End-stage renal disease on hemodialysis Fall H/O: HTN (hypertension) Hyperlipidemia Pacemaker Pneumonia Preop cardiovascular exam Pulmonary hypertension Renal failure treated with peritoneal dialysis Right heart failure Seizure disorder Sleep apnea Thrombocytopenia Surgical History H/O hernia repair Status post surgical removal of malignant neoplasm of skin Social History Social History Household Members: Unknown / Unable to assess Housing: Unknown / Unable to assess Alcohol intake: never Smoking Status: Former smoker Tobacco Type: Cigarette Smoked in Last 30 Days: No Use of substances other than those prescribed or required for medical reasons: No Advance Directives: Yes Advance Directives on File: Yes Advance Directives Date on File: 02/01/21 service: Yes Current occupational status: retired Physical Exam Vital Signs: Vital Signs: Last Vital Signs Temp 98.9 F 03/21/21 15:38 Pulse 89 03/21/21 15:38 Resp 20 03/21/21 15:38 BP 110/62 03/21/21 17:00 Pulse Ox 98 03/21/21 15:38 Body Mass Index 30.9 Const: General: cooperative, healthy appearing, comfortable and no acute distress Orientation/consciousness: oriented to person and oriented to place Limitations: no limitations HENMT: Head: Yes normal to inspection Ears: hearing grossly normal bilat erally General nose exam: Normal external nose present Face and sinus: Yes normal facial exam Mouth: Normal oral and palatal mucosa present Throat: Yes posterior oropharynx normal Eyes: General: appearance normal, both eyes and all related structures Pupils: Equal, round and reactive pupils present Neck: Neck: Yes normal visual inspection Chest: Chest palpation & inspection: normal inspection of the chest Resp: Effort & Inspection: normal respiratory effort Auscultation: clear to auscultation bilaterally Cardio: Rate: regular rate Rhythm: regular rhythm Peripheral pulses: Peripheral pulses 2+ throughout GI: Other: PD catheter noted mid abdomen Inspection: Yes normal to inspection Palpation (GI): Soft to palpation and nontender Auscultation: normal bowel sounds Back/Spine/Pelvis: Thoracic/Lumbar Spine: thoracic and lumbar spine normal to inspection Skin: General skin exam: no rashes or lesions noted Neuro: General: oriented to person, oriented to place, moves all extremities, normal sensation to monofilament and Unable to assess gait Cranial nerves: Yes Equal, round and reactive pupils present and Yes Midline tongue present Cognition (Neuro): normal cognition Speech: No Abnormal speech present Gait exam (Neuro): Unable to assess gait Extrem: Other: The right hip has pain with abduction and abduction of the hip. Surgical incision site noted to the right lateral hip General: Yes normal to inspection, Yes no pedal edema and Yes no calf tenderness Course Course Course Narrative: 80-year-old male here with right hip pain status post mechanical fall. There was a head strike but no loss of consciousness. Seems to be at his mental status baseline. The right hip is painful for ROM. Will need right hip x-ray, CXR, EKG, CT head/neck, labs. 1740-X-ray shows new periprosthetic right proximal femoral shaft fracture. Call at Orthopedics to discuss. 1800-labs show anemia unchanged from previous, chemistries consistent with tourist adviser yuli kidney disease. Potassium normal. 1844-discussed with Junito TOBAR who reviewed x-rays. NO new surgical intervention. Patient may be transferred back to [facility]. Called and informed son with plan of care. Nursing to call [facility] with POC. Transferred back via EMS. MDM - Fall Medical Records Attestation: I reviewed the patient's medical records. Lab Data Attestation: I reviewed the patient's lab results. Result diagrams: 03/21/21 17:06 03/21/21 17:06 Labs: Lab Results 03/21/21 03/21/21 03/21/21 Range/Units 17:06 17:06 17:06 WBC 4.9 (4.8-10.8) X10*3/uL RBC 2.43 L (4.60-5.80) X10*6/uL Hgb 7.6 L (14.0-18.0) g/dl Hct 23.7 L (42-52) % MCV 97.5 (80-98) fL MCH 31.3 (27.0-33.0) pg MCHC 32.1 (31.0-36.0) g/dl RDW 17.2 H (11.0-16.0) % Plt Count 103 L D (160-400) X10*3/uL MPV 9.7 (9.4-12.4) fL Immature Gran % (Auto) 2.2 H (0.0-0.4) % Neut % (Auto) 65.3 (45-73) % Lymph % (Auto) 17.8 L (20-40) % Yates % (Auto) 12.3 H (2-11) % Eos % (Auto) 2.2 (0-4) % Baso % (Auto) 0.2 (0-2) % Lymph # (Auto) 0.9 L (1.2-4.9) X10*3/uL Yates # (Auto) 0.6 (0.1-1.2) X10*3/uL Eos # (Auto) 0.1 (0.0-0.4) X10*3/uL Baso # (Auto) 0.0 (0.0-0.2) X10*3/uL Abs Immat Gran (auto) 0.11 H (0.00-0.03) X10*3/uL Absolute Neuts (auto) 3.2 (2.0-8.3) X10*3/uL Absolute Nucleated RBC 0.000 (0.0-0.012) X10*3/uL Nucleated RBC % (auto) 0.0 (0.0-0.2) /100WBC PT 13.7 H (10.8-13.0) SEC INR 1.2 H (0.9-1.1) Sodium 139 (135-145) mmol/L Potassium 4.4 (3.3-5.1) mmol/L Chloride 100 (96-108) mmol/L Carbon Dioxide 29 (22-29) mmol/L Anion Gap 14 (12-20) BUN 19 H (9-16) mg/dL Creatinine 4.31 H* (0.5-1.4) mg/dL Estim Creat Clear Calc 15.5 Estimated GFR 13 Random Glucose 87 (60-115) mg/dL Calcium 8.9 D (8.4-10.2) mg/dL Total Bilirubin 0.8 (0.0-1.0) mg/dL Direct Bilirubin 0.3 (0.0-0.5) mg/dL AST 14 (5-37) U/L ALT 8 (0-40) U/L Alkaline Phosphatase 87 D (39-117) U/L Total Protein 6.0 L (6.5-8.0) g/dL Albumin 3.2 L (3.5-5.0) g/dL COVID-19 (GERMAN) (Negative) COVID-19 Clin Com 03/21/21 Range/Units 18:03 WBC (4.8-10.8) X10*3/uL RBC (4.60-5.80) X10*6/uL Hgb (14.0-18.0) g/dl Hct (42-52) % MCV (80-98) fL MCH (27.0-33.0) pg MCHC (31.0-36.0) g/dl RDW (11.0-16.0) % Plt Count (160-400) X10*3/uL MPV (9.4-12.4) fL Immature Gran % (Auto) (0.0-0.4) % Neut % (Auto) (45-73) % Lymph % (Auto) (20-40) % Yates % (Auto) (2-11) % Eos % (Auto) (0-4) % Baso % (Auto) (0-2) % Lymph # (Auto) (1.2-4.9) X10*3/uL Yates # (Auto) (0.1-1.2) X10*3/uL Eos # (Auto) (0.0-0.4) X10*3/uL Baso # (Auto) (0.0-0.2) X10*3/uL Abs Immat Gran (auto) (0.00-0.03) X10*3/uL Absolute Neuts (auto) (2.0-8.3) X10*3/uL Absolute Nucleated RBC (0.0-0.012) X10*3/uL Nucleated RBC % (auto) (0.0-0.2) /100WBC PT (10.8-13.0) SEC INR (0.9-1.1) Sodium (135-145) mmol/L Potassium (3.3-5.1) mmol/L Chloride (96-108) mmol/L Carbon Dioxide (22-29) mmol/L Anion Gap (12-20) BUN (9-16) mg/dL Creatinine (0.5-1.4) mg/dL Estim Creat Clear Calc Estimated GFR Random Glucose (60-115) mg/dL Calcium (8.4-10.2) mg/dL Total Bilirubin (0.0-1.0) mg/dL Direct Bilirubin (0.0-0.5) mg/dL AST (5-37) U/L ALT (0-40) U/L Alkaline Phosphatase (39-117) U/L Total Protein (6.5-8.0) g/dL Albumin (3.5-5.0) g/dL COVID-19 (GERMAN) Negative (Negative) COVID-19 Clin Com See Note Imaging Data right hip/pelvis xray: Attestation: I personally reviewed and interpreted this imaging study as f ofe: Radiologist's impression: IMPRESSION: Pelvis and right hip x-ray:New periprosthetic right proximal femoral shaft fracture. Additional imaging for complete imaging of the entire intramedullary britany and left distal femur recommended. Chest x-ray: Attestation: I personally reviewed and interpreted this imaging study as follows: Radiologist's impression: CHEST: No evidence for acute disease in the chest. Left lateral sixth rib fracture, question new. right knee xray: Attestation: I personally reviewed and interpreted this imaging study as follows: Radiologist's impression: [address] [id number] ReportSigned Patient: Richie WallMR#: [id number]: 1940Acct:[id number]/Sex: 80 / MADM Date: 03/21/21Loc: EDAttjay Dr: Ordering Physician: EDIE VICK NP Date of Service: 03/21/21 Procedure(s): XR knee RT 2V Accession Number(s): [id number] cc: EDIE VICK NP~ EXAMINATION: XR KNEE, RIGHT CLINICAL INFORMATION: Fall and pain COMPARISON: None TECHNIQUE: Two views of the right knee. FINDINGS: No significant joint effusion appreciated on these oblique views. Mild tracheal omental degenerative changes but I do not appreciate any acute fracture or dislocation. The inferior aspect of a femoral intramedullary britany is seen. XR/XR knee RT 2V IMPRESSION: Chronic appearing and postoperative changes but no acute fracture or dislocation. CT scan head/neck: Attestation: I personally reviewed and interpreted this imaging study as follows: Radiologist's impression: IMPRESSION: The study is limited by motion and metallic artifact. 1. There is no evidence of a recent intracranial hemorrhage. 2. No acute infarct. 3. No acute fracture or subluxation of the cervical spine Age-appropriate cortical atrophy and degenerative changes in the visualized spine ECG Data Attestation: I personally reviewed and interpreted this ECG as follows: ECG interpretation date: 03/21/21 ECG interpretation time: 16:22 Interpretation: AFIB with rate 87, normal qrs, normal qtc Critical Care Time Critical Care Time Critical Care Time: Yes Total Critical Care Time: 30 Attestation: Discussion with orthopedics, discussion with family Discharge Plan Discharge Clinical Impression: Closed fracture shaft of femur Qualifiers: Encounter type: initial encounter Fracture morphology: other fracture Laterality: right Qualified Code(s): S72.391A - Other fracture of shaft of right femur, initial encounter for closed fracture Patient Disposition: er [facility] Instructions: Hip Fracture (ED) Additional Instructions: There is a new periprosthetic femoral fracture. We discussed this with Orthopedics. No weight-bearing. Follow-up with orthopedics Prescriptions: No Action fluticasone propion-salmeterol [Advair Diskus] 250-50 mcg/dose Blister With Device 1 inh INHALATION Q12H RF: 0 acetaminophen 325 mg Tablet 650 mg PO Q4H PRN (Reason: Pain) RF: 0 pravastatin 40 mg Tablet 40 mg PO BEDTIME RF: 0 levetiracetam [Keppra] 500 mg Tablet 500 mg PO BID RF: 0 ondansetron HCl [Zofran] 4 mg Tablet 4 mg PO Q6H PRN (Reason: Nausea) RF: 0 famotidine 20 mg Tablet 20 mg PO Q48H RF: 0 docusate sodium 100 mg Capsule 100 mg PO DAILY PRN (Reason: Constipation) RF: 0 montelukast 10 mg Tablet 10 mg PO BEDTIME RF: 0 gabapentin 100 mg Capsule 200 mg PO TID RF: 0 gabapentin 100 mg Capsule 100 mg PO Q6H PRN (Reason: NERVE PAIN) RF: 0 metoprolol succinate [Toprol XL] 25 mg Tablet Extended Release 24 Hr 25 mg PO DAILY RF: 0 omeprazole magnesium [Prilosec OTC] 20 mg tablet,delayed release (DR/EC) 20 mg PO DAILY 28 Days Qty: 28 RF: 0 nlwbayxnvc-sfbkpczznpxto-rury [Fioricet] 50-300-40 mg Capsule 1 cap PO Q6H PRN (Reason: Headache) RF: 0 calcium acetate 667 mg Tablet 1,334 mg PO TIDWM RF: 0 oxycodone 5 mg Tablet 5 mg PO Q6H PRN (Reason: Pain, Moderate (Pain Scale 4-6) Qty: 20 RF: 0 aspirin 325 mg tablet 325 mg PO BID 45 Days Qty: 90 RF: 0 Referrals: Marcelina Quijano MD [Physician] - 1 week Interventions: ED Discharge Assessment Last Done: 03/21/21 19:42 Discharge Date/Time: 03/21/21 19:42
[2021-03-21] MEDS: fentaNYL citrate/PF 100 MCG/2 ML VIAL 25 MCG IVPUSH (16:57)
[2021-03-21 17:00] VITALS: BP 110/62
[2021-03-21 17:16] LABS: Basophils Percent Auto 0.2 % (0-2); Eosinophils Absolute Auto 0.1 X10*3/uL (0.0-0.4); Eosinophils Percent Auto 2.2 % (0-4); Hematocrit 23.7 % (42-52); Hemoglobin 7.6 g/dl (14.0-18.0); Imm Gran Abs Auto 0.11 X10*3/uL (0.00-0.03); Imm Gran Pct Auto 2.2 % (0.0-0.4); Lymphocytes Absolute Auto 0.9 X10*3/uL (1.2-4.9); Lymphocytes Percent Auto 17.8 % (20-40); MANUAL DIFF FLAG NO; Mean Corpuscular HGB Conc 32.1 g/dl (31.0-36.0); Mean Corpuscular Hemoglobin 31.3 pg (27.0-33.0); Mean Corpuscular Volume 97.5 fL (80-98); Mean Platelet Volume 9.7 fL (9.4-12.4); Monocytes Absolute Auto 0.6 X10*3/uL (0.1-1.2); Monocytes Percent Auto 12.3 % (2-11); Neutrophils Absolute Auto 3.2 X10*3/uL (2.0-8.3); Neutrophils Percent Auto 65.3 % (45-73); Platelet Count 103 X10*3/uL (160-400); Red Blood Count 2.43 X10*6/uL (4.60-5.80); Red Cell Distribution Width 17.2 % (11.0-16.0); White Blood Count 4.9 X10*3/uL (4.8-10.8)
[2021-03-21 17:32] LABS: INTERNATIONAL NORM RATIO 1.2 (0.9-1.1); Prothrombin Time 13.7 SEC (10.8-13.0)
[2021-03-21 17:59] LABS: Alanine Aminotransferase 8 U/L (0-40); Albumin Level 3.2 g/dL (3.5-5.0); Alkaline Phosphatase 87 U/L (39-117); Anion Gap 14 (12-20); Aspartate Amino Transferase 14 U/L (5-37); Bilirubin Direct 0.3 mg/dL (0.0-0.5); Bilirubin Total 0.8 mg/dL (0.0-1.0); Blood Urea Nitrogen 19 mg/dL (9-16); Calcium 8.9 mg/dL (8.4-10.2); Carbon Dioxide 29 mmol/L (22-29); Chloride 100 mmol/L (96-108); Creatinine Clr Calc Pharmacy 15.5; Estimated Glomerular Filt Rate 13; Glucose Random 87 mg/dL (60-115); Potassium 4.4 mmol/L (3.3-5.1); Sodium 139 mmol/L (135-145)
[2021-03-21 18:39] LABS: COVID-19 Test Negative (Negative); IDNOW Serial# 9DD0AD1C
--- NOTE | 2021-03-21 18:47 | PC.NURSE ---
spoke with cj wallace and updated on patient plan of care for return. facility aware patient is to be non weight bearing and to follow up with orthopedics.
== END 2021-03-21 19:42 | disposition skilled nursing facility (03) ==
PROVIDERS: Nurse Practitioner Family; Emergency Provider Emergency Medicine; PCP Family Medicine
DX: S72.391A Other fracture of shaft of right femur, initial encounter for closed fracture (principal); W06.XXXA Fall from bed, initial encounter; Y93.84 Activity, sleeping; Y92.122 Bedroom in nursing home as the place of occurrence of the external cause; Y99.9 Unspecified external cause status; Z20.822 Contact with and (suspected) exposure to COVID-19; E11.22 Type 2 diabetes mellitus with diabetic chronic kidney disease; I13.2 Hypertensive heart and chronic kidney disease with heart failure and with stage 5 chronic kidney disease, or end stage renal disease; N18.6 End stage renal disease; I50.9 Heart failure, unspecified; D63.1 Anemia in chronic kidney disease; Z99.2 Dependence on renal dialysis; E78.5 Hyperlipidemia, unspecified; I48.91 Unspecified atrial fibrillation; Z95.0 Presence of cardiac pacemaker; Z96.641 Presence of right artificial hip joint; Z79.01 Long term (current) use of anticoagulants
CPT/HCPCS: 36415; 70450; 71046; 72125; 73502; 73560; 80048; 80076; 85025; 85610; 87635; 93005; 96374; 99284; 99291; J3010

== ENCOUNTER 2021-03-27 01:06 | Outpatient (REF) | payer MEDICARE, SELFPAY ==
[2021-03-27 06:52] LABS: Mean Corpuscular HGB Conc 32.5 g/dl (31.0-36.0); Mean Corpuscular Hemoglobin 32.2 pg (27.0-33.0); Mean Platelet Volume 10.1 fL (9.4-12.4); Platelet Count 117 X10*3/uL (160-400); Red Blood Count 2.05 X10*6/uL (4.60-5.80); Red Cell Distribution Width 18.5 % (11.0-16.0); White Blood Count 4.6 X10*3/uL (4.8-10.8)
[2021-03-27 08:53] LABS: Anion Gap 15 (12-20); Blood Urea Nitrogen 42 mg/dL (9-16); Carbon Dioxide 28 mmol/L (22-29); Chloride 99 mmol/L (96-108); Estimated Glomerular Filt Rate 8; Glucose Random 91 mg/dL (60-115); Potassium 4.4 mmol/L (3.3-5.1); Sodium 138 mmol/L (135-145)
[2021-03-27 09:19] LABS: Hemoglobin 6.6 g/dl (14.0-18.0)
[2021-03-27 09:20] LABS: Hematocrit 20.3 % (42-52)
== END 2021-03-27 01:07 | disposition home or self-care (01) ==
LOC: HO.MMNH3L 01:06
PROVIDERS: Visit Provider Family Medicine
DX: Z13.89 Encounter for screening for other disorder (principal)
CPT/HCPCS: 36415; 80048; 85027

== ENCOUNTER 2021-03-27 11:41 | Inpatient (IN) | payer OTHER, MEDICARE, SELFPAY ==
[2021-03-27] VITALS (11 sets, daily range): BP systolic 109–140; BP diastolic 51–80; PULSE 68–77; RESP 16–18; TEMP 36.3–36.7; O2SAT 92–99; BMI 25.7
--- NOTE | ~2021-03-27 | XR_ITS ---
EXAMINATION: XR CHEST CLINICAL INFORMATION: Anemia COMPARISON: Chest 03/21/2021 TECHNIQUE: Frontal view of the chest was obtained. FINDINGS: The lungs are well-expanded and clear. The heart size is enlarged with pulmonary vascularity is normal. There are pacer electrodes with their tips in right atrium and right ventricle. There is left a central catheter with its tip projecting over the atriocaval junction. The no gross bony abnormality seen. XR/XR chest 1V IMPRESSION: No acute cardiopulmonary process seen. Stable pacer electrodes and central catheter.
[2021-03-27 12:28] LABS: OBS Int Ctl Valid YES; OBS1 NEGATIVE (NEGATIVE)
--- NOTE | 2021-03-27 12:32 | ED_ITS ---
HPI - General Adult General Chief complaint: Recheck/Abnormal Lab/Rx Stated complaint: ABN LABS FROM SNF PER EMS Time Seen by Provider: 03/27/21 12:03 Source: patient Mode of arrival: ambulatory Limitations: no limitations History of Present Illness HPI narrative: 80-year-old male history of end-stage renal disease previously on PD now on HD, with chronic anemia requiring intermittent transfusions. [facility] Patient declined any source of bleeding. Patient otherwise declined any chest pain or shortness of breath. Related Data Home Medications Medication Instructions Recorded Confirmed acetaminophen 650 mg PO Q4H PRN 11/07/20 02/16/21 docusate sodium 100 mg PO DAILY PRN 11/07/20 02/16/21 famotidine 20 mg PO Q48H 11/07/20 02/16/21 fluticasone propion-salmeterol 1 inh INHALATION Q12H 11/07/20 02/16/21 [Advair Diskus] gabapentin 100 mg PO Q6H PRN 11/07/20 02/16/21 gabapentin 200 mg PO TID 11/07/20 02/16/21 levetiracetam [Keppra] 500 mg PO BID 11/07/20 02/16/21 metoprolol succinate [Toprol XL] 25 mg PO DAILY 11/07/20 02/16/21 montelukast 10 mg PO BEDTIME 11/07/20 02/16/21 ondansetron HCl [Zofran] 4 mg PO Q6H PRN 11/07/20 02/16/21 pravastatin 40 mg PO BEDTIME 11/07/20 02/16/21 uowdivylig-[id number]-wnsg 1 cap PO Q6H PRN 02/16/21 02/16/21 [Fioricet] calcium acetate 1,334 mg PO TIDWM 02/16/21 02/16/21 Previous Rx's Medication Instructions Recorded omeprazole magnesium [Prilosec OTC] 20 mg PO DAILY 28 Days #28 tab 11/12/20 aspirin 325 mg PO BID 45 Days #90 tab 02/23/21 oxycodone 5 mg PO Q6H PRN #20 tab 02/23/21 Allergies Allergy/AdvReac Type Severity Reaction Status Date / Time latex Allergy Itching Verified 11/07/20 11:15 Sulfa (Sulfonamide Allergy Headache Verified 11/07/20 11:14 Antibiotics) Review of Systems Review of Systems: All other systems are reviewed and are negative Constitutional: Reports as per HPI and Reports no additional constitutional complaints Eyes: Reports as per HPI and Reports no additional eye complaints Reports system reviewed and no additional complaints, except as documented Cardiovascular: Reports as per HPI and Reports no additional cardiovascular com plaints Respiratory: Reports as per HPI and Reports no additional respiratory complaints Gastrointestinal: Reports as per HPI and Reports no additional gastrointestinal complaints Genitourinary: Reports no additional female genitourinary complaints Musculoskeletal: Reports no additional musculoskeletal complaints Skin/Breast: Reports system reviewed and no additional complaints, except as docu Psychiatric: Reports no additional psychiatric complaints Endocrine: Reports no additional endocrine complaints Hematologic/Lymphatic: Reports no additional hematologic/lymphatic complaints Allergic/Immunologic: Reports no additional allergic/immunologic complaints Reports system reviewed and no additional complaints, except as documented and Reports Abnormal speech present PMFSH Past Medical History Medical History Acute GI bleeding Acute hyperkalemia Afib Anemia Anemia in chronic kidney disease Asthma Chronic constipation Chronic kidney failure Depression End-stage renal disease on hemodialysis Fall H/O: HTN (hypertension) Hyperlipidemia Pacemaker Pneumonia Preop cardiovascular exam Pulmonary hypertension Renal failure treated with peritoneal dialysis Right heart failure Seizure disorder Sleep apnea Thrombocytopenia Surgical History H/O hernia repair Status post surgical removal of malignant neoplasm of skin Social History Social History Household Members: Unknown / Unable to assess Housing: Unknown / Unable to assess Do you presently have visiting nurse or other home services: No Alcohol intake: unknown Smoking Status: Former smoker Tobacco Type: Cigarette Use of substances other than those prescribed or required for medical reasons: Unknown Advance Directives: Yes Advance Directives on File: Yes Advance Directives Date on File: 02/01/21 service: Yes Current occupational status: retired Physical Exam Vital Signs: Vital Signs: Last Vital Signs Temp 98.1 F 03/27/21 11:53 Pulse 76 03/27/21 11:53 Resp 16 03/27/21 11:53 BP 114/70 03/27/21 11:53 Pulse Ox 95 03/27/21 11:53 Body Mass Index 25.7 Vital signs have been reviewed as appeared to be correct. Blood pressure normal. Heart rate normal. Respiration rate normal. Temperature normal. Oxygen saturation normal. Appearance: Alert. Oriented X3. No acute distress. Head: Normal external exam. Normocephalic. Atraumatic. No Galvan signs noted. No raccoon eyes noted Eyes: PERRLA. EOMI. Conjunctiva and sclera normal. Eyelids normal. ENT: TM's Normal. Pharynx normal. Uvula midline. Moist mucous membranes. No trismus noted. No drooling noted. No muffled voice noted. Neck: Normal inspection. Neck supple. FROM. No adenopathy. Thyroid Normal. No meningeal signs. No neck mass noted. CVS: Normal heart rate and rhythm. Heart sound normal. No murmurs noted. Pulses normal throughout. Respiratory: No respiratory distress. Painless inspiration. Breath sounds normal. No wheezes/rales/rhonchi noted. Chest nontender. No accessory muscle usage noted or decreased air movement noted. Abdomen: Soft and nontender. Bowel sounds normal in all 4 quadrants. No distention noted. No organomegaly noted. No visible injury noted. Rectal exam: Brown stool was guaiac negative. Back: No CVA tenderness. Full range of motion noted. Skin: Skin warm and dry. Normal skin color. Normal skin turgor. No rashes/lesions/lacerations noted. Extremities: No lower extremity edema. Extremities exhibit normal range of motion. Extremities nontender. Neuro: Oriented X 3. No motor deficit. No sensory deficit. Reflexes normal. Course Course Course Narrative: Assessment and plan. 80-year-old male with history of end-stage renal disease/chronic anemia to have low H&H, and elevated troponin, patient declined chest pain, EKG is unchanged. Repeat troponin 3 hours. Will transfuse 2 units of blood and admit. Medical Decision Making Lab Data Lab results reviewed: Yes I reviewed the patient's lab results. Result diagrams: 03/27/21 13:48 03/27/21 13:48 Labs: Lab Results 03/27/21 03/27/21 03/27/21 Range/Units 12:22 12:51 13:48 WBC 4.3 L (4.8-10.8) X10*3/uL RBC 2.00 L (4.60-5.80) X10*6/uL Hgb 6.3 L* (14.0-18.0) g/dl Hct 19.8 L* (42-52) % MCV 99.0 H (80-98) fL MCH 31.5 (27.0-33.0) pg MCHC 31.8 (31.0-36.0) g/dl RDW 18.8 H (11.0-16.0) % Plt Count 98 L (160-400) X10*3/uL MPV 9.6 (9.4-12.4) fL Immature Gran % (Auto) 0.9 H (0.0-0.4) % Neut % (Auto) 58.1 (45-73) % Lymph % (Auto) 20.4 (20-40) % Callaway % (Auto) 17.6 H (2-11) % Eos % (Auto) 2.8 (0-4) % Baso % (Auto) 0.2 (0-2) % Lymph # (Auto) 0.9 L (1.2-4.9) X10*3/uL [place] # (Auto) 0.8 (0.1-1.2) X10*3/uL Eos # (Auto) 0.1 (0.0-0.4) X10*3/uL Baso # (Auto) 0.0 (0.0-0.2) X10*3/uL Abs Immat Gran (auto) 0.04 H (0.00-0.03) X10*3/uL Absolute Neuts (auto) 2.5 (2.0-8.3) X10*3/uL Absolute Nucleated RBC 0.000 (0.0-0.012) X10*3/uL Nucleated RBC % (auto) 0.0 (0.0-0.2) /100WBC Sodium (135-145) mmol/L Potassium (3.3-5.1) mmol/L Chloride (96-108) mmol/L Carbon Dioxide (22-29) mmol/L Anion Gap (12-20) BUN (9-16) mg/dL Creatinine (0.5-1.4) mg/dL Estim Creat Clear Calc Estimated GFR Random Glucose (60-115) mg/dL Calcium (8.4-10.2) mg/dL Total Bilirubin (0.0-1.0) mg/dL Direct Bilirubin (0.0-0.5) mg/dL AST (5-37) U/L ALT (0-40) U/L Alkaline Phosphatase (39-117) U/L Troponin I High Sens (<3.5-35.0) ng/L B-Natriuretic Peptide (<100) pg/mL Total Protein (6.5-8.0) g/dL Albumin (3.5-5.0) g/dL Lipase (8-78) U/L Stool Occult Blood NEGATIVE (NEGATIVE) COVID-19 (GERMAN) Negative (Negative) COVID-19 Clin Com See Note Enhanced Crossmatch 03/27/21 03/27/21 03/27/21 Range/Units 13:48 13:48 13:48 WBC (4.8-10.8) X10*3/uL RBC (4.60-5.80) X10*6/uL Hgb (14.0-18.0) g/dl Hct (42-52) % MCV (80-98) fL MCH (27.0-33.0) pg MCHC (31.0-36.0) g/dl RDW (11.0-16.0) % Plt Count (160-400) X10*3/uL MPV (9.4-12.4) fL Immature Gran % (Auto) (0.0-0.4) % Neut % (Auto) (45-73) % Lymph % (Auto) (20-40) % [place] % (Auto) (2-11) % Eos % (Auto) (0-4) % Baso % (Auto) (0-2) % Lymph # (Auto) (1.2-4.9) X10*3/uL [place] # (Auto) (0.1-1.2) X10*3/uL Eos # (Auto) (0.0-0.4) X10*3/uL Baso # (Auto) (0.0-0.2) X10*3/uL Abs Immat Gran (auto) (0.00-0.03) X10*3/uL Absolute Neuts (auto) (2.0-8.3) X10*3/uL Absolute Nucleated RBC (0.0-0.012) X10*3/uL Nucleated RBC % (auto) (0.0-0.2) /100WBC Sodium 138 (135-145) mmol/L Potassium 4.6 (3.3-5.1) mmol/L Chloride 98 (96-108) mmol/L Carbon Dioxide 28 (22-29) mmol/L Anion Gap 17 (12-20) BUN 47 H (9-16) mg/dL Creatinine 6.91 H* (0.5-1.4) mg/dL Estim Creat Clear Calc 9.3 Estimated GFR 8 Random Glucose 96 (60-115) mg/dL Calcium 9.1 (8.4-10.2) mg/dL Total Bilirubin 0.8 (0.0-1.0) mg/dL Direct Bilirubin 0.3 (0.0-0.5) mg/dL AST 11 (5-37) U/L ALT < 6 (0-40) U/L Alkaline Phosphatase 82 (39-117) U/L Troponin I High Sens 41.4 H* (<3.5-35.0) ng/L B-Natriuretic Peptide (<100) pg/mL Total Protein 5.9 L (6.5-8.0) g/dL Albumin 3.1 L (3.5-5.0) g/dL Lipase 14 (8-78) U/L Stool Occult Blood (NEGATIVE) COVID-19 ([facility]) (Negative) COVID-19 Clin Com Enhanced Crossmatch See Detail 03/27/21 Range/Units 13:48 WBC (4.8-10.8) X10*3/uL RBC (4.60-5.80) X10*6/uL Hgb (14.0-18.0) g/dl Hct (42-52) % MCV (80-98) fL MCH (27.0-33.0) pg MCHC (31.0-36.0) g/dl RDW (11.0-16.0) % Plt Count (160-400) X10*3/uL MPV (9.4-12.4) fL Immature Gran % (Auto) (0.0-0.4) % Neut % (Auto) (45-73) % Lymph % (Auto) (20-40) % [place] % (Auto) (2-11) % Eos % (Auto) (0-4) % Baso % (Auto) (0-2) % Lymph # (Auto) (1.2-4.9) X10*3/uL [place] # (Auto) (0.1-1.2) X10*3/uL Eos # (Auto) (0.0-0.4) X10*3/uL Baso # (Auto) (0.0-0.2) X10*3/uL Abs Immat Gran (auto) (0.00-0.03) X10*3/uL Absolute Neuts (auto) (2.0-8.3) X10*3/uL Absolute Nucleated RBC (0.0-0.012) X10*3/uL Nucleated RBC % (auto) (0.0-0.2) /100WBC Sodium (135-145) mmol/L Potassium (3.3-5.1) mmol/L Chloride (96-108) mmol/L Carbon Dioxide (22-29) mmol/L Anion Gap (12-20) BUN (9-16) mg/dL Creatinine (0.5-1.4) mg/dL Estim Creat Clear Calc Estimated GFR Random Glucose (60-115) mg/dL Calcium (8.4-10.2) mg/dL Total Bilirubin (0.0-1.0) mg/dL Direct Bilirubin (0.0-0.5) mg/dL AST (5-37) U/L ALT (0-40) U/L Alkaline Phosphatase (39-117) U/L Troponin I High Sens (<3.5-35.0) ng/L B-Natriuretic Peptide 630 H (<100) pg/mL Total Protein (6.5-8.0) g/dL Albumin (3.5-5.0) g/dL Lipase (8-78) U/L Stool Occult Blood (NEGATIVE) COVID-19 ([facility]) (Negative) COVID-19 Clin Com Enhanced Crossmatch Imaging Data Chest x-ray: Radiologist's impression: The lungs are well-expanded and clear. The heart size is enlarged with pulmonary vascularity is normal. There are pacer electrodes with their tips in right atrium and right ventricle. There is left a central catheter with its tip projecting over the atriocaval junction. The no gross bony abnormality seen. ECG Data Interpretation: Atrial fibrillation at 87 beats per minutes, with occasional PVCs, normal axis deviation, nonspecific ST abnormalities, no significant change from old EKG.. Discharge Plan Discharge Clinical Impression: Anemia Patient Disposition: Admitted As Inpatient Prescriptions: No Action fluticasone propion-salmeterol [Advair Diskus] 250-50 mcg/dose Blister With Device 1 inh INHALATION Q12H RF: 0 acetaminophen 325 mg Tablet 650 mg PO Q4H PRN (Reason: Pain) RF: 0 pravastatin 40 mg Tablet 40 mg PO BEDTIME RF: 0 levetiracetam [Keppra] 500 mg Tablet 500 mg PO BID RF: 0 ondansetron HCl [Zofran] 4 mg Tablet 4 mg PO Q6H PRN (Reason: Nausea) RF: 0 famotidine 20 mg Tablet 20 mg PO Q48H RF: 0 docusate sodium 100 mg Capsule 100 mg PO DAILY PRN (Reason: Constipation) RF: 0 montelukast 10 mg Tablet 10 mg PO BEDTIME RF: 0 gabapentin 100 mg Capsule 200 mg PO TID RF: 0 gabapentin 100 mg Capsule 100 mg PO Q6H PRN (Reason: NERVE PAIN) RF: 0 metoprolol succinate [Toprol XL] 25 mg Tablet Extended Release 24 Hr 25 mg PO DAILY RF: 0 omeprazole magnesium [Prilosec OTC] 20 mg tablet,delayed release (DR/EC) 20 mg PO DAILY 28 Days Qty: 28 RF: 0 qvnkzsliyn-pxugigrxxasfp-mcwb [Fioricet] 50-300-40 mg Capsule 1 cap PO Q6H PRN (Reason: Headache) RF: 0 calcium acetate 667 mg Tablet 1,334 mg PO TIDWM RF: 0 oxycodone 5 mg Tablet 5 mg PO Q6H PRN (Reason: Pain, Moderate (Pain Scale 4-6) Qty: 20 RF: 0 aspirin 325 mg tablet 325 mg PO BID 45 Days Qty: 90 RF: 0
[2021-03-27 13:12] LABS: COVID-19 Test Negative (Negative)
--- NOTE | 2021-03-27 13:17 | PC.NURSE ---
Pt very difficult stick- unable to obtain blood work. Phlebotomy calledto drawq
[2021-03-27 13:53] LABS: MANUAL DIFF FLAG NO
[2021-03-27 14:02] LABS: Basophils Percent Auto 0.2 % (0-2); Eosinophils Absolute Auto 0.1 X10*3/uL (0.0-0.4); Eosinophils Percent Auto 2.8 % (0-4); Imm Gran Abs Auto 0.04 X10*3/uL (0.00-0.03); Imm Gran Pct Auto 0.9 % (0.0-0.4); Lymphocytes Absolute Auto 0.9 X10*3/uL (1.2-4.9); Lymphocytes Percent Auto 20.4 % (20-40); Mean Corpuscular HGB Conc 31.8 g/dl (31.0-36.0); Mean Corpuscular Hemoglobin 31.5 pg (27.0-33.0); Mean Platelet Volume 9.6 fL (9.4-12.4); Monocytes Absolute Auto 0.8 X10*3/uL (0.1-1.2); Monocytes Percent Auto 17.6 % (2-11); Neutrophils Absolute Auto 2.5 X10*3/uL (2.0-8.3); Neutrophils Percent Auto 58.1 % (45-73); Red Cell Distribution Width 18.8 % (11.0-16.0); White Blood Count 4.3 X10*3/uL (4.8-10.8)
[2021-03-27 14:12] LABS: Hematocrit 19.8 % (42-52); Platelet Count 98 X10*3/uL (160-400)
[2021-03-27 14:15] LABS: Hemoglobin 6.3 g/dl (14.0-18.0)
[2021-03-27 14:22] LABS: B Type Natriuretic Peptide 630 pg/mL (<100)
[2021-03-27 14:26] LABS: Alanine Aminotransferase < 6 U/L (0-40); Albumin Level 3.1 g/dL (3.5-5.0); Alkaline Phosphatase 82 U/L (39-117); Anion Gap 17 (12-20); Aspartate Amino Transferase 11 U/L (5-37); Bilirubin Direct 0.3 mg/dL (0.0-0.5); Bilirubin Total 0.8 mg/dL (0.0-1.0); Blood Urea Nitrogen 47 mg/dL (9-16); Calcium 9.1 mg/dL (8.4-10.2); Carbon Dioxide 28 mmol/L (22-29); Chloride 98 mmol/L (96-108); Creatinine Clr Calc Pharmacy 9.3; Estimated Glomerular Filt Rate 8; Glucose Random 96 mg/dL (60-115); Lipase 14 U/L (8-78); Potassium 4.6 mmol/L (3.3-5.1); Sodium 138 mmol/L (135-145); Total Protein 5.9 g/dL (6.5-8.0)
[2021-03-27 14:27] LABS: Troponin-I High Sensitivity 41.4 ng/L (<3.5-35.0)
--- NOTE | 2021-03-27 17:23 | PC.NURSE ---
Pharmacy called for medications.
--- NOTE | 2021-03-27 17:30 | PC.NURSE ---
attempted to call report to [facility] [place]
[2021-03-27] MEDS: Calcium Acetate 667 MG CAPSULE 1334 MG PO (17:40)
--- NOTE | 2021-03-27 17:42 | P.CNGI_ITS ---
History of Present Illness Data of Consult Service Date: 03/27/21 Requesting physician: Mariia Boyd Primary Care Provider: Harvey Madrigal MD HPI Reason for consult: Recurrent anemia due to suspected GIB Reason for consult: Severe anemia, suspected occult GI bleeding 80 YM known to me from previous hospitalization[facility] from [facility] with abnormal labs: 80-year-old male history of end-stage renal disease previously on PD now on HD, with chronic anemia requiring intermittent transfusions. Patient came from [facility] for low H&H. Patient declined any source of bleeding. Patient otherwise declined any chest pain or shortness of breath Lab showed H & H of 6.3 & 19.8. Stool occult blood x 1 was negative. Elevated Troponin. Pt was transfused 1 U of PRBC in the ED and is being admitted for blood transfusions and H/H monitoring. ENDOSCOPIC STUDIES: 11/11/20 EGD AND COLONOSCOPY SHOWED: STOMACH: A 2 cms benign appearing nodule in the gastric antrum without stigmata of bleeding. Mild gastric antral erythema. Biopsies were obtained. Grade 2 flap valve on retroflexed examination of the cardia. DUODENUM: Duodenitis in the bulb Colonoscopy Findings: Three polyps removed Moderate diverticulosis seen in the entire colon Moderate hemorrhoids on retroflexed exam. No clear source found for anemia - ? blood loss from large colon polyps. Rectal bleeding likely self limited diverticular bleed versus colon irritation from hard stools. Plan: Resume anticoagulation on 11/18/20 Start Miralax once daily for constipation. Patient to schedule a FU appointment in the GI Clinic with Tia Barfield M.D. I will schedule a Capsule Endoscopy if he has recurrent anemia Repeat Colonoscopy interval based on path results - in 3 years if polyps are adenomatous. After discharge, pt was contacted by GI RN to schedule a Capsule Endoscopy and refused. Patient denies symptoms of heartburn, dysphagia, nausea, vomiting, change in ap petite or weight. Complains of intermittent diarrhea and denies black stools or rectal bleeding. PAST GI HISTORY BY REVIEW OF MEDICAL RECORDS: Pt was seen in consultation during hospitalization in Nov, 2020: Pt is on HD every other day for end-stage renal disease. He reports he has had 4 blood transfusions over the last year to 18 months which is new for him. He reported he had been feeling okay over the last several days. He was discharged from [facility] on October 15 at that time he was treated for metabolic encephalopathy, aspiration pneumonia. During that admission apparently had missed 2-3 days of peritoneal dialysis and he had presented to the ER with delirium. Pt completed a course of Unasyn for aspiration pneumonia during that admission and was transitioned from peritoneal dialysis to hemodialysis , PermCath was placed and he was discharged to [facility] for rehab. Pt gives a history of chronic intermittent constipation. He tried manual dis- impaction yesterday and noticed bright red blood on his hands. Lab showed H & H of 6.7 & 19.9. Chest x-ray is negative for consolidation or effusion. Patient was transfused 1 unit of packed red blood cells and is being admitted for further management. He complains of lower abdominal pain which resolved after he had a bowel movement. He denies heartburn, dysphagia, change in appetite. He admits to on intentional weight loss of 40 lb over the past 3-4 months. He admits to having a colonoscopy a few years ago which revealed colon polyps. A follow-up colonoscopy 3 years ago was negative. These procedures were performed in [place], [place] and procedure report is not available at the time of this dictation. He denies having an upper endoscopy in the past. Patient moved to [place] a few years ago to be closer to his ex- and son. He is scheduled for a colonoscopy as an outpatient through his PCP at the [place] ? in Dec, 2020 Review of Systems Constitutional: Constitutional: Reports fatigue, Denies fever(s), Denies headache(s) and Denies weight loss Eyes: Eyes: Denies eye discharge and Denies irritation ENT: Reports Normal hearing present, Denies dysphagia, Denies dizziness and Denies headache(s) Cardiovascular: Cardiovascular: Denies chest pain, Denies leg edema and Denies dyspnea on exertion Respiratory: Respiratory: Denies cough, Denies dyspnea on exertion and Denies wheezing Gastrointestinal: Gastrointestinal: Denies abdominal pain, Denies change in bowel habits, Denies dysphagia and Denies heartburn Genitourinary: Genitourinary: Denies dysuria Musculoskeletal: Musculoskeletal: Denies back pain and Denies arthralgias Integumentary/Breasts: Skin/Breast: Denies pruritus, Denies rash and Denies jaundice Neurologic: Reports Normal hearing present, Denies Abnormal speech present, Denies dizziness, Denies headache(s) and Denies seizure-like activity Psychiatric: Psychiatric: Denies anxiety, Denies depression and Denies panic attacks Endocrine: Endocrine: Denies cold intolerance, Reports fatigue, Denies flushing and Denies heat intolerance Hematologic/Lymphatic: Hematologic/Lymphatic: Denies easy bleeding and Denies easy bruising Allergic/Immunologic: Allergic/Immunologic: Denies wheezing PMFSH Past Medical History Medical History (Updated 03/29/21 @ 00:01 by Background Dakate) Acute GI bleeding Acute hyperkalemia Afib Anemia Anemia in chronic kidney disease Asthma Chronic constipation Chronic kidney failure Depression End-stage renal disease on hemodialysis Fall H/O: HTN (hypertension) History of colon polyps Hyperlipidemia Pacemaker Pneumonia Preop cardiovascular exam Pulmonary hypertension Renal failure treated with peritoneal dialysis Right heart failure Seizure disorder Sleep apnea Thrombocytopenia Surgical History Surgical History H/O hernia repair Status post surgical removal of malignant neoplasm of skin Social History Social History Household Members: Other Housing: Alf Housing Other:: ARRIVED FROM [facility] Do you presently have visiting nurse or other home services: No Unable to assess alcohol history related to: Unknown Alcohol intake: unknown Second Hand Smoke Exposure: No Advance Directives Date on File: 02/01/21 service: Yes Current occupational status: retired Meds Allergies Allergy/AdvReac Type Severity Reaction Status Date / Time latex Allergy Itching Verified 11/07/20 11:15 Sulfa (Sulfonamide Allergy Headache Verified 11/07/20 11:14 Antibiotics) Active Medications: Current Medications Generic Name Dose Route Start Last Admin Trade Name Freq PRN Reason Stop Dose Admin Acetaminophen 650 mg 03/27/21 15:24 Acetaminophen 325 Mg Tablet PO Q6H PRN Fever Or Pain Acetaminophen/Butalbital/Caffeine 1 tab 03/27/21 15:41 Butalb/Acetamin/Caff 50/325/40 Tablet PO Q6H PRN Headache Calcium Acetate 1,334 mg 03/27/21 17:00 03/27/21 17:40 Calcium Acetate 667 Mg Capsule PO 1,334 mg SuMoWeFr@0800,1200,1700 PEG Administration Calcium Acetate 1,334 mg 03/28/21 08:00 Calcium Acetate 667 Mg Capsule PO TuThSa@0800,1700 [facility] Docusate Sodium 100 mg 03/27/21 15:24 Docusate Sodium 100 Mg Capsule PO DAILY PRN Constipation Famotidine 20 mg 03/27/21 21:00 Famotidine 20 Mg Tablet PO Q48H [facility] Fluticasone/Vilanterol 1 puff 03/28/21 08:00 Fluticasone/Vilanterol 100/25 Blst.W.Dev INHALE RDAILY [facility] Ondansetron HCl 4 mg 03/27/21 15:24 Ondansetron Hcl 4 Mg/2 Ml Vial IVPUSH Q8H PRN Nausea and Vomiting Pharmacy Consult 1 each 03/27/21 14:27 Consult Rx Perform Med Rec MISCELLANE ONCE PRN Consult order Sodium Chloride 3 ml 03/27/21 16:00 03/27/21 16:22 0.9 % Sodium Chloride Flush 3 Ml Syringe IVFLUSH Not Given QSHIFT [facility] Home Medications Medication Instructions Recorded Confirmed Last Taken Type acetaminophen 325 mg tablet 650 mg PO Q6H PRN 11/07/20 03/27/21 Unknown History docusate sodium 100 mg capsule 100 mg PO DAILY PRN 11/07/20 03/27/21 Unknown History famotidine 20 mg tablet 20 mg PO Q48H 11/07/20 03/27/21 11/07/20 History fluticasone 250 mcg-salmeterol 50 1 inh INHALATION BID 11/07/20 03/27/21 11/07/20 History mcg/dose blistr powdr for inhalation (Advair Diskus) gabapentin 100 mg capsule 100 mg PO Q6H PRN 11/07/20 03/27/21 11/06/20 History levetiracetam 500 mg tablet 500 mg PO BID 11/07/20 03/27/21 03/27/21 History (Keppra) metoprolol succinate 25 mg 25 mg PO DAILY 11/07/20 03/27/21 03/27/21 History tablet,extended release 24 hr (Toprol XL) montelukast 10 mg tablet 10 mg PO BEDTIME 11/07/20 03/27/21 03/27/21 History ondansetron HCl 4 mg tablet 4 mg PO Q6H PRN 11/07/20 03/27/21 Unknown History (Zofran) pravastatin 40 mg tablet 40 mg PO BEDTIME 11/07/20 03/27/21 03/26/21 History ivypviizai-sopfqnyfgrjwf-gwpstwyq 1 cap PO Q6H PRN 02/16/21 03/27/21 Unknown History 50 mg-300 mg-40 mg capsule (Fioricet) calcium acetate 667 mg tablet See Rx Instructions .ROUTE .COMPLEX 02/16/21 03/27/21 Unknown History calcium acetate 667 mg tablet 1,334 mg PO TUTHSA@0830,1630 03/27/21 03/27/21 Unknown History gabapentin 100 mg capsule 200 mg PO SUMOWEFR@,,03/27/21 03/27/21 03/27/21 History oxycodone 5 mg tablet 5 mg PO Q6H PRN 03/27/21 03/27/21 Unknown History tramadol 50 mg tablet 25 mg PO Q8H PRN 03/27/21 03/27/21 Unknown History Physical Exam 2 Vital Signs: Vital Signs: Last Vital Signs Temp 98 F 03/27/21 16:55 Pulse 73 03/27/21 16:55 Resp 16 03/27/21 16:55 BP 116/55 L 03/27/21 16:55 Pulse Ox 95 03/27/21 15:24 Body Mass Index 25.7 Const: General: no acute distress, ill appearing and lethargic (and arousable) Nutritional Appearance: average body habitus Orientation/consciousness: patient oriented x3 and lethargic (and arousable) Limitations: no limitations HENMT: Head: Yes normal to inspection Ears: hearing grossly normal bilaterally Mouth: Normal oral and palatal mucosa present Eyes: Sclerae: sclerae normal Pupils: Equal, round and reactive pupils present Neck: Neck: Yes normal visual inspection Chest: Chest palpation & inspection: normal inspection of the chest Resp: Effort & Inspection: normal respiratory effort Auscultation: clear to auscultation bilaterally Cardio: Palpation: normal PMI Rate: regular rate Rhythm: regular rhythm Heart sounds: S1 normal heart sound present, S2 normal heart sound present and no murmurs GI: Palpation (GI): Soft to palpation, nontender and No hepatosplenomegaly present Auscultation: normal bowel sounds Rectal Exam - Male: Yes deferred Skin: General skin exam: no rashes or lesions noted Neuro: General: patient oriented x3, gait normal and moves all extremities Cranial nerves: Yes Equal, round and reactive pupils present and Yes Normal hearing present Speech: No Abnormal speech present Psych: Appearance: grossly normal Mental Status: mental status grossly normal Results Labs CBC & Chem 7: 03/28/21 05:52 03/27/21 13:48 Labs: Short CBC 03/27/21 Range/Units 13:48 WBC 4.3 L (4.8-10.8) X10*3/uL Hgb 6.3 L* (14.0-18.0) g/dl Hct 19.8 L* (42-52) % Plt Count 98 L (160-400) X10*3/uL BMP 03/27/21 13:48 Sodium 138 Potassium 4.6 Chloride 98 Carbon Dioxide 28 BUN 47 H Creatinine 6.91 H* Calcium 9.1 Liver Function 03/27/21 Range/Units 13:48 Total Bilirubin 0.8 (0.0-1.0) mg/dL Direct Bilirubin 0.3 (0.0-0.5) mg/dL AST 11 (5-37) U/L ALT < 6 (0-40) U/L Alkaline Phosphatase 82 (39-117) U/L Albumin 3.1 L (3.5-5.0) g/dL Assessment and Plan (1) Anemia: Qualifiers: Anemia type: unspecified type Qualified Code(s): D64.9 - Anemia, unspecified Status: Acute (2) History of colon polyps: 80 YM with ESRD previously on PD now on HD, chronic anemia requiring intermittent transfusions, hx HTN, HLD, asthma, JULIA on CPAP, seizure disorder, s/p PPM, afib on Eliquis in the past, HFpEF being admitted with severe anemia without overt GI Bleeding. No clear source for anemia found on EGD and Colon in Nov, 2020. Pt is suspected to have a small bowel source of anemia. RECOMMENDATIONS: Patient needs further evaluation with a Capsule Endoscopy - procedure scheduled as an inpatient on 03/29/21 given past difficulties in scheduling as an outpatient. Procedure and potential complications were reviewed with the patient. Patient will be placed on a clear liquid diet in the a.m. and given Colyte prep in the afternoon. NPO after midnight tomorrow night. Consider Hematology evaluation to rule out hemolysis. ADDENDUM: Case discussed with patient's son by Dr Boyd, patient's hospitalist, regarding further workup including video capsule study for anemia workup but family declined further workup since family is considering hospice. Procedures Date of Service Date of Service: 03/27/21
[2021-03-27 18:12] LABS: Troponin-I High Sensitivity 41.5 ng/L (<3.5-35.0)
--- NOTE | 2021-03-27 18:12 | PC.NURSE ---
attempted to call report X2, nurse not available
--- NOTE | 2021-03-27 18:24 | HP_ITS ---
DATE OF SERVICE: 03/27/2021 CHIEF COMPLAINT: Anemia. HISTORY OF PRESENTING ILLNESS: This is an 80-year-old gentleman with past medical history significant for chronic anemia, transfusion dependent, currently residing at a rehab facility, was sent to [facility] since he was noted to have low hematocrit on routine labs. The patient has had multiple episodes of low hemoglobin and hematocrit and has been requiring intermittent transfusion at [facility] as well as at [facility]. The patient was recently discharged from [facility] on February 23 after he sustained a right hip fracture and was noted to have a right hip hematoma and required total 6 units of packed rbc's and 2 units of platelets for chronic thrombocytopenia. The patient was again seen at [facility] on March 10 due to anemia and was given blood transfusion with improvement of hematocrit and hemoglobin and was subsequently returned back to rehab facility. The patient was again sent to [facility] with a hematocrit of 20.3 and a hemoglobin of 6.6. The patient denies any hematemesis, melena, has not been using NSAIDs, but was on aspirin 325 mg b.i.d. for DVT prophylaxis post right hip surgery. The patient is now being admitted to [facility] due to acute on chronic anemia. The patient underwent a recent up upper endoscopy and colonoscopy by Dr. Barfield in November of 2020 that showed mild gastric antral erythema, mild duodenitis, moderate internal hemorrhoids, and diverticulosis. The patient had a hyperplastic polyp removed from the rectum and 2 other polyps were removed from the transverse colon. The pathology showed tubular adenoma. There was no hyperplasia or cancerous changes noticed. PAST MEDICAL HISTORY: Significant for: 1. History of atrial fibrillation, previously was on Xarelto. 2. History of transfusion-dependent anemia. 3. History of asthma. 4. History of depression. 5. History of hypertension. 6. Hyperlipidemia. 7. End-stage renal disease, on hemodialysis. 8. History of pulmonary hypertension. 9. History of right heart failure. 10. History of seizure disorder. 11. History of sleep apnea. 12. History of thrombocytopenia. PAST SURGICAL HISTORY: 1. The patient is status post hernia repair. 2. Status post surgical removal of malignant neoplasm of skin. 3. Status post pacemaker placement. SOCIAL HISTORY: No history of current alcohol abuse. The patient has previously served in , currently retired and residing at nursing facility. Patient is a former smoker. FAMILY HISTORY: The patient is unable to provide any detailed family history. From previous records, has mentioned there is no premature history of coronary artery disease. REVIEW OF SYSTEMS: EMERGENCY WORKER: The patient denies any headache or dizziness. CVS: He denies chest pain. GI: He denies nausea, vomiting, or abdominal pain. Musculoskeletal: He complains of pain, lower back. All other systems are reviewed and are negative. ALLERGIES: HE IS ALLERGIC TO LATEX THAT CAUSES ITCHING, SULFONAMIDE CAUSES HEADACHE. MEDICATIONS ON ADMISSION: Tylenol 650 q.6 hours as needed; aspirin 325 mg twice daily, not aware if the patient is currently taking it; Fioricet 1 capsule q.6 hours as needed; calcium acetate every Saturday, , and Saturday; Colace 100 mg daily as needed; famotidine 20 mg every 48 hours; Advair 1 inhalation b.i.d.; gabapentin 100 mg q.6 hours as needed. Further medications needs to be reconciled. PHYSICAL EXAMINATION: GENERAL: The patient is resting comfortably in bed. Does not appear to be in acute distress. SKIN: His color is pale. HEENT: Head is normocephalic, atraumatic. Pupils are equal, round, and reactive to light and accommodation. Anicteric sclerae. NECK: Supple. JVD not positive. LUNGS: Clear to auscultation bilaterally. HEART: Regular rate and rhythm. ABDOMEN: Soft, nontender. Bowel sounds are audible. EXTREMITIES: Without edema. NEURO: Speech is clear. Patient moving all 4 extremities. Detailed neuro examination not obtained since the patient appears weak and fatigued. LABORATORY DATA: Showed hemoglobin 6.3, hematocrit 19.8, platelet count of 98,000. INR is 1.2, sodium 138, potassium 4.6, BUN 47, and a creatinine of 6.9. Troponin high sensitivity 41, close to baseline. BNP 630, close to his baseline. EKG not obtained. Last EKG from March 21 showed atrial fibrillation with occasional ventricular paced complexes. Nonspecific ST abnormality and no significant change from prior EKG of February 16. IMAGING STUDIES: A chest x-ray showed no acute cardiopulmonary process. Stable pacer electrodes and central catheter. ASSESSMENT AND PLAN: This is an 80-year-old gentleman with history of end-stage renal disease, previously on peritoneal dialysis, now on hemodialysis; history of chronic anemia, requiring intermittent transfusion; history of hypertension; hyperlipidemia; asthma; obstructive sleep apnea, on CPAP; seizure disorder; status post permanent pacemaker placement; atrial fibrillation, previously was on anticoagulation, taken off since November; history of chronic constipation, was sent to [facility] from rehab facility since he was found to have low hemoglobin and hematocrit. 1. Acute on chronic anemia and thrombocytopenia. Patient is chronic transfusion dependent. His prior workup including upper endoscopy and colonoscopy did not show cause of bleeding. The patient will be given 2 units of packed rbc's. We will follow repeat hematocrit. We will obtain GI consultation with Dr. Tia Barfield. The patient was supposed to undergo video capsule study as an outpatient. The patient's platelets seems to be stable at the present time. No active bleeding noted. We will avoid anticoagulation. 2. End-stage renal disease on hemodialysis. We will consult Nephrology and will continue hemodialysis as before. We will place the patient on renal diet with low phosphorus and 2 g potassium diet. 3. History of atrial fibrillation. The patient is not on anticoagulation due to history of anemia and risk of bleeding with thrombocytopenia. The patient's family is aware of high risk of stroke. 4. History of seizure disorder. We will renew his home medications. Continue seizure precautions. 5. Code status. The patient has a MOLST form that suggests the patient is a DNR and DNI. MD AIRAM Dumont/DEMARIO / [id number] MTDD
--- NOTE | 2021-03-27 18:31 | PC.NURSE ---
report given to [facility] RN
[2021-03-27] MEDS: Famotidine 20 MG TABLET PO (20:39)
[2021-03-28] VITALS (8 sets, daily range): BP systolic 114–131; BP diastolic 56–76; PULSE 71–86; RESP 16–20; TEMP 36.1–36.8; O2SAT 95–100
[2021-03-28] MEDS: 0.9 % Sodium Chloride Flush 3 ML SYRINGE IVFLUSH ×2 (00:23→10:42)
[2021-03-28 06:32] LABS: MANUAL DIFF FLAG NO
[2021-03-28 06:46] LABS: Basophils Percent Auto 0.4 % (0-2); Eosinophils Absolute Auto 0.2 X10*3/uL (0.0-0.4); Hematocrit 26.9 % (42-52); Hemoglobin 8.7 g/dl (14.0-18.0); Imm Gran Abs Auto 0.08 X10*3/uL (0.00-0.03); Imm Gran Pct Auto 1.4 % (0.0-0.4); Lymphocytes Absolute Auto 0.8 X10*3/uL (1.2-4.9); Lymphocytes Percent Auto 13.7 % (20-40); Mean Corpuscular HGB Conc 32.3 g/dl (31.0-36.0); Mean Corpuscular Hemoglobin 30.7 pg (27.0-33.0); Mean Corpuscular Volume 95.1 fL (80-98); Mean Platelet Volume 10.2 fL (9.4-12.4); Monocytes Absolute Auto 0.8 X10*3/uL (0.1-1.2); Monocytes Percent Auto 13.2 % (2-11); Neutrophils Absolute Auto 3.9 X10*3/uL (2.0-8.3); Neutrophils Percent Auto 68.3 % (45-73); Platelet Count 117 X10*3/uL (160-400); Red Blood Count 2.83 X10*6/uL (4.60-5.80); White Blood Count 5.7 X10*3/uL (4.8-10.8)
--- NOTE | 2021-03-28 07:03 | PC.NURSE ---
Pt admitted to 471 last night at 1845. Assumed care of pt at 1900. he is calm, cooperative but vague and confused at times. received 2nd unit of pRBC's overnight. Repeat CBC drawn this morning, results pending. Tolerating clear liq diet. Voided once in urinol for 100 ml yellow urine.
[2021-03-28] MEDS: Fluticasone/Vilanterol 100/25 BLST.W.DEV 1 PUFF INHALE (07:13)
--- NOTE | 2021-03-28 09:47 | MHC.CM.PN ---
CM met with Patient at bedside, who appeared unable to respond and spoke over the phone to Son/HCP/Huy @ [phone]. CM addressed the IMM with Huy and the original will be mailed certified letter to him and a copy has been placed on the chart. Goal for dc is for Patient to return to [facility] today and once there, to be started on Hospice services. SEBASTIAN has initiated and will follow for dc planning,
--- NOTE | 2021-03-28 12:36 | MHC.CM.PN ---
Per MD,Patient will be medically cleared for dc today, to return to [facility], where Hospice will then be initiated upon his return. Patient will return to [facility] today at 5 PM, after receiving a HD treatment here ( indicated that Patient could have s/s of SOB and be uncomfortable if not dialyzed here before dc). SEBASTIAN spoke with Son/HCP/Huy @ [phone], who is in agreement with the plan for HD here then return to SNF, at which time Hospice services will be initiated.IMM addressed earlier this morning.
--- NOTE | 2021-03-28 15:35 | P.DS_ITS ---
DS: Providers Provider Date of Service: 03/28/21 Date of admission: 03/27/21 15:24 Primary care physician: Harvey Madrigal MD Consults: 03/27/21 15:24 Consult to Gastroenterology Routine Consulting Provider: Tia Barfiled Reason for consultation: acute on ch anemia Has provider been notified: No Consult to Nephrology Routine Consulting Provider: Eric Black Reason for consultation: esrd on hd Has provider been notified: No DS: Diagnosis Discharge Diagnosis (1) Anemia: Status: Acute (2) History of colon polyps: Status: Acute DS: Medications Discharge Medications Home Medications: Home Medications Medication Instructions Recorded Confirmed acetaminophen 650 mg PO Q6H PRN 11/07/20 03/27/21 docusate sodium 100 mg PO DAILY PRN 11/07/20 03/27/21 famotidine 20 mg PO Q48H 11/07/20 03/27/21 fluticasone propion-salmeterol 1 inh INHALATION BID 11/07/20 03/27/21 [Advair Diskus] gabapentin 100 mg PO Q6H PRN 11/07/20 03/27/21 levetiracetam [Keppra] 500 mg PO BID 11/07/20 03/27/21 metoprolol succinate [Toprol XL] 25 mg PO DAILY 11/07/20 03/27/21 montelukast 10 mg PO BEDTIME 11/07/20 03/27/21 ondansetron HCl [Zofran] 4 mg PO Q6H PRN 11/07/20 03/27/21 pravastatin 40 mg PO BEDTIME 11/07/20 03/27/21 hkaxjrqchs-tqvbbjujbtufy-ypql 1 cap PO Q6H PRN 02/16/21 03/27/21 [Fioricet] calcium acetate See Rx Instructions .ROUTE .COMPLEX 02/16/21 03/27/21 calcium acetate 1,334 mg PO TUTHSA@0830,1630 03/27/21 03/27/21 gabapentin 200 mg PO SUMOWEFR@,03/27/21 03/27/21 oxycodone 5 mg PO Q6H PRN 03/27/21 03/27/21 tramadol 25 mg PO Q8H PRN 03/27/21 03/27/21 Previous Rx's Medication Instructions Recorded omeprazole magnesium [Prilosec OTC] 20 mg PO DAILY 28 Days #28 tab 11/12/20 aspirin 325 mg PO BID 45 Days #90 tab 02/23/21 DS: Summary Hospital Course Hospital Course: History of presenting illness CHIEF COMPLAINT: Anemia. HISTORY OF PRESENTING ILLNESS: This is an 80-year-old gentleman with past medical history significant for chronic anemia, transfusion dependent, currently residing at a rehab facility,was sent to [facility] since he was noted to have low hematocrit on routine labs. The patient has had multiple episodes of low hemoglobin and hematocrit and has been requiring intermittent transfusion at [facility] as well as at [facility]. The patient was recently discharged from [facility] on February 23 after he sustained a right hip fracture and was noted to have a right hip hematoma and required total 6 units of packed rbc's and 2 units of platelets for chronic thrombocytopenia. The patient was again seen at [facility] on March 10 due to anemia and was given blood transfusion with improvement of hematocrit and hemoglobin and was subsequently returned back to rehab facility. The patient was again sent to [facility] with a hematocrit of 20.3 and a hemoglobin of 6.6. The patient denies any hematemesis, melena, has not been using NSAIDs, but was on aspirin 325 mg b.i.d. for DVT prophylaxis post right hip surgery. The patient is now being admitted to [facility] due to acute on chronic anemia. The patient underwent a recent up upper endoscopy and colonoscopy by Dr. Barfield in November of 2020 that showed mild gastric antral erythema, mild duodenitis, moderate internal hemorrhoids, and diverticulosis. The patient had a hyperplastic polyp removed from the rectum and 2 other polyps were removed from the transverse colon. The pathology showed tubular adenoma. There was no hyperplasia or cancerous changes noticed. PAST MEDICAL HISTORY: Significant for: 1. History of atrial fibrillation, previously was on Xarelto. 2. History of transfusion-dependent anemia. 3. History of asthma. 4. History of depression. 5. History of hypertension. 6. Hyperlipidemia. 7. End-stage renal disease, on hemodialysis. 8. History of pulmonary hypertension. 9. History of right heart failure. 10. History of seizure disorder. 11. History of sleep apnea. 12. History of thrombocytopenia. PAST SURGICAL HISTORY: 1. The patient is status post hernia repair. 2. Status post surgical removal of malignant neoplasm of skin. 3. Status post pacemaker placement. Hospital course Patient admitted with a diagnosis of Acute on chronic anemia and thrombocytopenia, patient has chronic a transfusion dependent anemia prior workup in November 24 including upper endoscopy and colonoscopy did not show c ause of bleeding patient received 1 unit of packed RBC hematocrit improved, no active bleeding was noted, subsequently patient underwent hemodialysis with history of end-stage renal disease He remained hemodynamically stable and now being discharged back to rehab facility, case discussed with patient's son regarding further workup including video capsule study for anemia workup but family declined further workup since family is considering hospice. Patient will be continued on on all of his baseline medication. Patient is being discharged to rehab facility for less than 30 days. Discharge diagnosis 1. Acute on chronic transfusion-dependent anemia 2. End-stage renal disease on hemodialysis. 3. History of atrial fibrillation.not on anticoagulation due to history of anemia and risk of bleeding with thrombocytopenia. 4. History of seizure disorder. Time Spent with Patient Time attestation: Total time spent providing and/or coordinating discharge services: Discharge coordination time: Greater than 30 minutes Quality: Stroke Does the patient have a stroke diagnosis?: No Physical Exam Vital Signs: Vital Signs: Last Vital Signs Temp 98.3 F 03/28/21 11:44 Pulse 86 03/28/21 11:44 Resp 20 03/28/21 11:44 BP 129/68 03/28/21 11:44 Pulse Ox 98 03/28/21 11:44 Body Mass Index 25.7 General , no distress, resting comfortably Neck no JVD. CVS regular rate rhythm, Respiratory lungs clear to auscultation, no respiratory distress, no wheeze, no rhonchi. Gastrointestinal abdomen soft, nontender, bowel sounds audible, no guarding , no rigidity. Extremities no edema. Right hip no bleeding noted. Neuro nonfocal ,speech clear. Skin no rash DS: Data Data Completed and Pending Completed studies during hospitalization [Text1]: Procedures Excision of Duodenum, Via Natural or Artificial Opening Endoscopic, Diagnostic (11/07/20) Excision of Large Intestine, Via Natural or Artificial Opening Endoscopic, Diagnostic (11/07/20) Excision of Stomach, Pylorus, Via Natural or Artificial Opening Endoscopic, Diagnostic (11/07/20) Performance of Urinary Filtration, Intermittent, Less than 6 Hours Per Day (02/16/21) Reposition Right Upper Femur with Internal Fixation Device, Open Approach (02/16/21) Transfusion of Nonautologous Platelets into Peripheral Vein, Percutaneous Approach (02/16/21) Transfusion of Nonautologous Red Blood Cells into Peripheral Vein, Percutaneous Approach (02/16/21) Labs on day of discharge: Laboratory Results - last 24 hr 03/27/21 03/27/21 03/28/21 13:48 17:18 05:52 WBC 5.7 RBC 2.83 L D Hgb 8.7 L D Hct 26.9 L D MCV 95.1 MCH 30.7 MCHC 32.3 RDW 18.0 H Plt Count 117 L MPV 10.2 Immature Gran % (Auto) 1.4 H Neut % (Auto) 68.3 Lymph % (Auto) 13.7 L [place] % (Auto) 13.2 H Eos % (Auto) 3.0 Baso % (Auto) 0.4 Lymph # (Auto) 0.8 L [place] # (Auto) 0.8 Eos # (Auto) 0.2 Baso # (Auto) 0.0 Abs Immat Gran (auto) 0.08 H Absolute Neuts (auto) 3.9 Absolute Nucleated RBC 0.000 Nucleated RBC % (auto) 0.0 Troponin I High Sens 41.5 H* Blood Type O Positive Antibody Screen POSITIVE Antibody Identification Anti-K Enhanced Crossmatch See Detail Blood Bank Comment Technical Discharge Plan Discharge Patient Disposition: Xfer [facility] Discharge Diagnosis: Acute on chronic anemia End-stage renal disease on hemodialysis Atrial fibrillation not on anticoagulation Referrals: Thomas Montaño [Outside] - 1 Week Harvey Madrigal MD [Primary Care Provider] - 1 Week Discharge Medications: Continued fluticasone propion-salmeterol [Advair Diskus] 250-50 mcg/dose Blister With Device 1 inh INHALATION BID RF: 0 acetaminophen 325 mg Tablet 650 mg PO Q6H PRN (Reason: Fever Or Pain) RF: 0 pravastatin 40 mg Tablet 40 mg PO BEDTIME RF: 0 levetiracetam [Keppra] 500 mg Tablet 500 mg PO BID RF: 0 ondansetron HCl [Zofran] 4 mg Tablet 4 mg PO Q6H PRN (Reason: Nausea And Vomiting) RF: 0 famotidine 20 mg Tablet 20 mg PO Q48H RF: 0 docusate sodium 100 mg Capsule 100 mg PO DAILY PRN (Reason: Constipation) RF: 0 montelukast 10 mg Tablet 10 mg PO BEDTIME RF: 0 gabapentin 100 mg Capsule 100 mg PO Q6H PRN (Reason: NERVE PAIN) RF: 0 metoprolol succinate [Toprol XL] 25 mg Tablet Extended Release 24 Hr 25 mg PO DAILY RF: 0 omeprazole magnesium [Prilosec OTC] 20 mg tablet,delayed release (DR/EC) 20 mg PO DAILY 28 Days Qty: 28 RF: 0 jagzdyqoud-hftfxuwrgneax-vdwn [Fioricet] 50-300-40 mg Capsule 1 cap PO Q6H PRN (Reason: Headache) RF: 0 calcium acetate 667 mg Tablet See Rx Instructions .ROUTE .COMPLEX RF: 0 aspirin 325 mg tablet 325 mg PO BID 45 Days Qty: 90 RF: 0 calcium acetate 667 mg Tablet 1,334 mg PO TUTHSA@0830,1630 RF: 0 tramadol 50 mg Tablet 25 mg PO Q8H PRN (Reason: Pain) RF: 0 gabapentin 100 mg Capsule 200 mg PO SUMOWEFR@,, RF: 0 oxycodone 5 mg tablet 5 mg PO Q6H PRN (Reason: PAIN) RF: 0 Discontinued gabapentin 100 mg Tablet 200 mg PO TUTHSA@ RF: 0 Discharge Orders: Discharge Order (Routine); Ordered 03/28/21 Ordered By: Mariia Boyd Diet: low fat, low cholesterol Activity on Discharge: As tolerated Stand Alone Forms: Patient Portal Discharge page Care Plan Goals: Patient treated with 1 unit of packed RBC with significant improvement in hematocrit patient will undergo hemodialysis today, will resume all home medications as before. Health Concerns: Recurrent acute on chronic anemia transfusion dependent workup so far negative for any GI bleed/end-stage renal disease on hemodialysis, family declined further workup including video capsule study. Plan of Treatment: Return back to nursing facility continue current treatment further care of plan as per patient's son healthcare proxy Assessment: As above
--- NOTE | 2021-03-28 17:53 | PM.CNNEP ---
History of Present Illness Reason for Consult Consult date: 03/28/21 Chief Complaint Chief complaint: Anemia History of Present Illness Narrative: This is an 80-year-old gentleman with past medical history significant for chronic anemia, transfusion dependent, currently residing at a rehab facility, was sent to [facility] since he was noted to have low hematocrit on routine labs. The patient denies anyhematemesis, melena, has not been using NSAIDs, but was on aspirin 325 mg b.i.d. for DVT prophylaxis post right hip surgery. He usually gets HD on TTS The patient is now being admitted to [facility] due to acute on chronic anemia. Nephrology has been consulted to assist in his clinical care during his hospital stay Review of Systems Review of Systems Yes all other systems are reviewed and are negative PMFSH Past Medical History Medical History (Updated 03/28/21 @ 17:56 by Ernst Spaulding MD) Acute GI bleeding Acute hyperkalemia Afib Anemia Anemia in chronic kidney disease Asthma Chronic constipation Chronic kidney failure Depression End-stage renal disease on hemodialysis Fall H/O: HTN (hypertension) Hyperlipidemia Pacemaker Pneumonia Preop cardiovascular exam Pulmonary hypertension Renal failure treated with peritoneal dialysis Right heart failure Seizure disorder Sleep apnea Thrombocytopenia Surgical History Surgical History H/O hernia repair Status post surgical removal of malignant neoplasm of skin Social History Social History Household Members: Other Housing: [facility] Housing Other:: ARRIVED FROM SHORT TERM REHAB [facility] Do you presently have visiting nurse or other home services: No Unable to assess alcohol history related to: Unknown Alcohol intake: unknown Smoking Status: Former smoker Tobacco Type: Cigarette Second Hand Smoke Exposure: No Advance Directives Date on File: 02/01/21 service: Yes Current occupational status: retired Meds Allergies Allergy/AdvReac Type Severity Reaction Status Date / Time latex Allergy Itching Verified 11/07/20 11:15 Sulfa (Sulfonamide Allergy Headache Verified 11/07/20 11:14 Antibiotics) Home Medications Medication Instructions Recorded Confirmed Last Taken Type acetaminophen 650 mg PO Q6H PRN 11/07/20 03/27/21 Unknown History docusate sodium 100 mg PO DAILY PRN 11/07/20 03/27/21 Unknown History famotidine 20 mg PO Q48H 11/07/20 03/27/21 11/07/20 History fluticasone propion-salmeterol 1 inh INHALATION BID 11/07/20 03/27/21 11/07/20 History [Advair Diskus] gabapentin 100 mg PO Q6H PRN 11/07/20 03/27/21 11/06/20 History levetiracetam [Keppra] 500 mg PO BID 11/07/20 03/27/21 03/27/21 History metoprolol succinate [Toprol XL] 25 mg PO DAILY 11/07/20 03/27/21 03/27/21 History montelukast 10 mg PO BEDTIME 11/07/20 03/27/21 03/27/21 History ondansetron HCl [Zofran] 4 mg PO Q6H PRN 11/07/20 03/27/21 Unknown History pravastatin 40 mg PO BEDTIME 11/07/20 03/27/21 03/26/21 History vvsxsegqdy-faxfydmknaqgv-ojbq 1 cap PO Q6H PRN 02/16/21 03/27/21 Unknown History [Fioricet] calcium acetate See Rx Instructions .ROUTE .COMPLEX 02/16/21 03/27/21 Unknown History calcium acetate 1,334 mg PO TUTHSA@0830,1630 03/27/21 03/27/21 Unknown History gabapentin 200 mg PO SUMOWEFR@03/27/21 03/27/21 03/27/21 History oxycodone 5 mg PO Q6H PRN 03/27/21 03/27/21 Unknown History tramadol 25 mg PO Q8H PRN 03/27/21 03/27/21 Unknown History Physical Exam Vital Signs: Last Vital Signs Temp 97 F 03/28/21 15:30 Pulse 81 03/28/21 15:30 Resp 20 03/28/21 15:30 BP 126/76 03/28/21 15:30 Pulse Ox 99 03/28/21 15:30 Body Mass Index 25.7 Const Other: Pale General: comfortable Eyes EOM: EOMs intact bilaterally Neck Neck: Yes supple Resp Auscultation: diminished lung sounds Cardio Rate: regular rate GI Palpation (GI): Soft to palpation Neuro General: moves all extremities Results Lab Results Result Diagrams: 03/28/21 05:52 03/27/21 13:48 Lab results: Chemistry 03/27/21 13:48 Sodium 138 Potassium 4.6 Carbon Dioxide 28 BUN 47 H Creatinine 6.91 H* Calcium 9.1 Hematology 03/27/21 03/28/21 13:48 05:52 WBC 4.3 L 5.7 Hgb 6.3 L* 8.7 L D Plt Count 98 L 117 L Assessment and Plan (1) End-stage renal disease on hemodialysis: Status: Inactive Renal Diet; Phos binders with meals Usually gets HD on TTS- Shall dialyze today Volume optimization on HD Needs continued GI work up and Procrit/Iron Shall arrange outpt HD follow up when D/Marvel Procedures Date of Service Date of Service: 03/28/21
== END 2021-03-28 17:11 | disposition skilled nursing facility (03) | DRG 682 ==
LOC: HO.ED 14:36 → HO.EDOVER 15:34 → HO.IMC 17:07
PROVIDERS: Admitting Provider Hospitalist; Emergency Provider Emergency Medicine; PCP Family Medicine; Visit Provider Hospitalist
DX: I12.0 Hypertensive chronic kidney disease with stage 5 chronic kidney disease or end stage renal disease (principal); N18.6 End stage renal disease; G40.909 Epilepsy, unspecified, not intractable, without status epilepticus; D63.1 Anemia in chronic kidney disease; D69.6 Thrombocytopenia, unspecified; I48.91 Unspecified atrial fibrillation; Z87.891 Personal history of nicotine dependence; Z99.2 Dependence on renal dialysis; Z20.822 Contact with and (suspected) exposure to COVID-19; Z88.2 Allergy status to sulfonamides; Z79.82 Long term (current) use of aspirin; Z79.51 Long term (current) use of inhaled steroids; Z79.891 Long term (current) use of opiate analgesic; Z79.899 Other long term (current) drug therapy; Z66 Do not resuscitate
CPT/HCPCS: 36415; 71045; 80048; 80076; 82272; 83690; 83880; 84484; 85025; 85027; 86850; 86870; 86900; 86901; 86902; 86920; 86921; 87635; 90999; 99285; P9016

== ENCOUNTER 2021-04-05 08:00 | Outpatient (REF) | payer MEDICARE, SELFPAY | END 2021-04-05 08:01 | disposition home or self-care (01) | LOC: HO.HOSX 08:00 | PROVIDERS: Visit Provider Physician Assistant | DX: Z13.89 Encounter for screening for other disorder (principal) ==